=== PATIENT | female | born 1955 | race Caucasian/White ===

== ENCOUNTER 2023-04-12 08:51 | Outpatient (OUT) | payer MEDICARE, SELFPAY ==
--- NOTE | 2023-04-12 | XR_ITS ---
The [address] [address] Patient Name: ORALIA HILTON MRN: [id number] date: 1955 Sex: F Assigned Patient Location: Current Patient Location: Accession/Order Number: [id number] Exam Date: 04/12/2023 10:06 Report Date: 04/12/2023 10:19 At the request of: HILDA BLACK Procedure: XR foot LT min 3V PROCEDURE: XR foot LT min 3V HISTORY: LEFT FOOT PAIN ; left fourth toe wound COMPARISON: None. FINDINGS: BONES:Destructive changes of the fourth distal phalanx with loss of cortical margins. Marked degenerative changes of the first metatarsophalangeal joint. Suspect old, healed fracture of distal fifth metatarsal. SOFT TISSUES:Soft tissue swelling of fourth toe. No radiopaque foreign body. EFFUSION:None visible. OTHER: Negative. IMPRESSION: 1. Fourth toe soft tissue swelling and destructive changes of the distal phalanx suggestive of osteomyelitis. Electronically authenticated by: SARAH CARRION Date: 04/12/2023 10:19
== END 2023-04-12 08:52 | disposition home or self-care (01) ==
LOC: WC 08:51
PROVIDERS: PCP Family Medicine; Visit Provider Podiatrist Foot & Ankle Surgery
DX: S90.425A Blister (nonthermal), left lesser toe(s), initial encounter (principal); M86.172 Other acute osteomyelitis, left ankle and foot; I73.89 Other specified peripheral vascular diseases
CPT/HCPCS: 73630; G0463

== ENCOUNTER 2023-04-20 07:58 | Outpatient (OUT) | payer MEDICARE, SELFPAY ==
--- NOTE | 2023-04-20 08:00 | ECG_ITS ---
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
--- NOTE | 2023-04-20 08:00 | XR_ITS ---
The [address] [address] Patient Name: ORALIA HILTON MRN: [id number] date: 1955 Sex: F Assigned Patient Location: [facility] Current Patient Location: Accession/Order Number: [id number] Exam Date: 04/20/2023 09:00 Report Date: 04/20/2023 09:28 At the request of: HILDA BLACK Procedure: XR chest 2V EXAM: XR chest 2V HISTORY: COPD COMPARISON: None. TECHNIQUE: PA and lateral views of the chest. FINDINGS: The cardiomediastinal silhouette is normal. No focal consolidation is identified. There is no pneumothorax. No pleural effusion is noted. The osseous structures are intact. XR/XR chest 2V IMPRESSION: No acute cardiopulmonary process. Electronically authenticated by: LORELEI BERNARD Date: 04/20/2023 09:28
[2023-04-20 08:56] LABS: Basophils Absolute Auto 0.1 10^3/uL (0.0-0.1); Basophils Percent Auto 1.1 % (0.2-2.0); Hematocrit 34.4 % (36.0-48.0); Hemoglobin 10.7 g/dL (12.0-16.0); Immature Granulocytes Abs Auto 0.01 10^3/uL (0.00-0.03); Immature Granulocytes Pct Auto 0.2 % (0.0-0.5); Lymphocytes Absolute Auto 1.6 10^3/uL (1.2-3.8); Lymphocytes Percent Auto 27.7 % (20.5-60.0); Mean Corpuscular HGB Conc 31.1 g/dL (29.9-35.2); Mean Corpuscular Hemoglobin 29.5 pg (26.7-34.0); Mean Corpuscular Volume 94.8 fL (81.0-99.0); Mean Platelet Volume 9.6 fL (9.5-13.5); Monocytes Absolute Auto 0.6 10^3/uL (0.3-0.8); Monocytes Percent Auto 10.3 % (1.7-12.0); Neutrophils Absolute Auto 2.5 10^3/uL (1.4-6.5); Neutrophils Percent Auto 43.7 % (43.0-75.0); Platelet Count 196 10^3/uL (150-450); Red Blood Count 3.63 10^6/uL (4.20-5.40); Red Cell Distribution Width 14.6 % (11.0-15.0); White Blood Count 5.6 10^3/uL (4.0-11.0)
[2023-04-20 10:41] LABS: Anion Gap 8.3; Calcium 8.5 mg/dL (8.5-10.1); Chloride 106 mmol/L (98-107); Estimated GFR (African America >60 (>=60); Estimated GFR (Non-African Ame >60 (>=60); Glucose 102 mg/dL (74-106); Potassium 4.3 mmol/L (3.5-5.1); Sodium 140 mmol/L (136-145)
== END 2023-04-20 07:59 | disposition home or self-care (01) ==
LOC: PST 07:59
PROVIDERS: PCP Family Medicine; Visit Provider Podiatrist Foot & Ankle Surgery
DX: Z01.812 Encounter for preprocedural laboratory examination (principal); Z01.810 Encounter for preprocedural cardiovascular examination; Z01.811 Encounter for preprocedural respiratory examination; M86.9 Osteomyelitis, unspecified; I10 Essential (primary) hypertension; J44.9 Chronic obstructive pulmonary disease, unspecified; D64.9 Anemia, unspecified
CPT/HCPCS: 36415; 71046; 80048; 85025; 93005

== ENCOUNTER 2023-04-24 14:17 | Outpatient (OUT) | payer MEDICARE, SELFPAY ==
--- NOTE | 2023-04-24 15:38 | CA_ITS ---
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 : 1955 Requested By: HILDA BLACK Order Number: [id number] Reading MD: ERLIN BRUNSON Interpretive Statements Biphasic doppler waveforms PVR waveforms with normal upstroke, amplitude and dicrotic notch Right: - no significant pressure gradient between cuffs - normal FREDDIE Left: - no significant pressure gradient between cuffs - ormal FREDDIE Impression: - elevated indices (right thigh, left calf and right PT) consistent with calcified, noncompressible arterial contreras, which may underestimate the degree of arterial disease - normal arterial evaluation of the lower extremities withouth hemodynamic impairment of the B/L lower extremities at rest (right FREDDIE 1.32, left FREDDIE 1.27) Electronically Signed On 04-25-2023 7:21:59 EDT by ERLIN BRUNSON
== END 2023-04-24 14:18 | disposition home or self-care (01) ==
LOC: CARD 14:17
PROVIDERS: PCP Family Medicine; Visit Provider Podiatrist Foot & Ankle Surgery
DX: I99.9 Unspecified disorder of circulatory system (principal); I73.9 Peripheral vascular disease, unspecified
CPT/HCPCS: 93923

== ENCOUNTER 2023-04-27 06:23 | Day surgery (SDC) | payer MEDICARE, SELFPAY ==
[2023-04-20 08:24] VITALS: BP 151/77; PULSE 66; RESP 14; TEMP 36.5; O2SAT 97; BMI 23.7
[2023-04-27] VITALS (8 sets, daily range): BP systolic 105–157; BP diastolic 60–99; PULSE 67–78; RESP 11–18; TEMP 36.1–36.3; O2SAT 96–98; BMI 23.5
[2023-04-27 06:54] LABS: Glucometer 102 mg/dL (74-106)
[2023-04-27] MEDS: LACTATED RINGER'S SOLUTION 1,000 ML 50 ML IV (07:22)
[2023-04-27] MEDS: CEFAZOLIN SODIUM/DEXTROSE,ISO 2 GM/50 ML PIGGYBACK IV (07:22)
--- NOTE | 2023-04-27 07:41 | P.ORON_ITS ---
Brief Operative Note Date of procedure: 04/27/23 Pre-op diagnosis: non-pressure full-thickness ulceration with chronic osteomye litis left 4th Post-op diagnosis: same Procedure: PROCEDURE PERFORMED: Left partial 4th toe amputation PROCEDURE IN DETAIL: A fishmouth incision was placed on the left 4th toe. Full-thickness incision was taken down to bone to the level of the middle phalanx and all soft tissue attachments were released allowing disarticulation of the digit at the DIPJ. The amputated digit was passed back table and sent for specimen. Tendinous structures were cut proximally. Surgical site was irrigated with normal saline and inspected for any nonviable tissue which was removed. rongeur was used to remove portion of the middle phalanx to aid in closure. Surgical site was irrigated with saline again. Bone quality of the middle and proximal phalanx was within normal limits. Incision was then closed in one layer with nonabsorbable suture. Bulky dry sterile dressing was applied and a surgical shoe will be applied in the recovery room. Intraoperative findings: Bone of the distal phalanx was discolored and soft and consistent with osteomyelitis. No evidence of acute infection. Skin edges bled appropriately. POSTOPERATIVE PLAN: Discharge home under family's care Post op instructions provided verbally and written wash surgical site with soap and water -no soaking or submerging Applied dry sterile dressing with 4 x 4 gauze daily Ice and elevation prescription(s) were placed in chart WBAT in surgical shoe until incision is healed Follow-up in 2-3 weeks Implants: none Anesthesia: CARLOS Surgeon: Uriel Sanchez Bench Assembler Electrical: Jeff Duque Estimated blood loss (mL): 10 Pathology: other (4th toe amputation) Condition: stable Disposition: PACU Preoperative Details Reason for procedure: patient is a 67-year-old female whose had a recurrent wound on her left 4th toe. She states that she daily picks the wound open and does not keep it covered. She presented to her primary care physician with redness and swelling and then was referred to our wound center. Earlier this month she was evaluated and she had a full-thickness wound which started due to a blister. She had no redness or evidence of infection but had been on antibiotics as prescribed by her primary care physician which included Cipro and doxycycline. She related that she took these antibiotics for a week but then discontinued due to used infection. After evaluation x-rays revealed cortical changes to the distal phalanx of the 4th toe consistent with osteomyelitis. She is had numerous foot surgeries as well. Due to the chronic nature of her wound which is also been recurrent as well as the underlying infection patient wished to undergo amputation of the affected toe and we discussed the potential risks and benefits. Potential risks and complications include wound, poor healing potential, pain, bleeding, numbness and tingling, recurrent infection and need f or additional surgery including more proximal amputation
--- NOTE | 2023-04-27 07:46 | XR_ITS ---
The [address] [address] Patient Name: ORALIA HILTON MRN: [facility]:[id number] date: 1955 Sex: F Assigned Patient Location: [facility] Current Patient Location: Accession/Order Number: [id number] Exam Date: 04/27/2023 08:50 Report Date: 04/27/2023 10:43 At the request of: MIK BURK Procedure: XR foot LT min 3V PROCEDURE: XR foot LT min 3V COMPARISON: 04/12/2023 HISTORY: post-op FINDINGS: BONES:Interval amputation of the fourth toe at the proximal interphalangeal joint. No acute fracture or dislocation. Remote healed fracture of the fifth metatarsal. Severe degenerative changes of the first metatarsal-phalangeal joint with bony remodeling. Enthesopathic spurring plantar calcaneus SOFT TISSUES:Soft tissue swelling and cutaneous air at the surgical bed EFFUSION:None visible. OTHER: Negative. XR/XR foot LT min 3V IMPRESSION: Amputation of the fourth toe at the proximal interphalangeal joint Electronically authenticated by: GISELA ROSS Date: 04/27/2023 10:43
[2023-04-27] MEDS: BUPIVACAINE HCL 0.5% PF 50 MG/10 ML VIAL INJ (08:35)
[2023-04-27 08:45] LABS: Glucometer 96 mg/dL (74-106)
== END 2023-04-27 09:37 | disposition home or self-care (01) ==
PROVIDERS: Podiatrist Foot & Ankle Surgery; PCP Family Medicine; Visit Provider Anesthesiology
DX: M86.672 Other chronic osteomyelitis, left ankle and foot (principal); I10 Essential (primary) hypertension; E03.9 Hypothyroidism, unspecified; Z90.49 Acquired absence of other specified parts of digestive tract; Z79.899 Other long term (current) drug therapy; Z79.890 Hormone replacement therapy; Z90.710 Acquired absence of both cervix and uterus; I73.89 Other specified peripheral vascular diseases
CPT/HCPCS: 28825; 36415; 73630; 82948; 88305; 88311; J2704

== ENCOUNTER 2023-05-04 09:25 | Outpatient (OUT) | payer MEDICARE, SELFPAY | END 2023-05-04 09:26 | disposition home or self-care (01) | LOC: WC 09:25 | PROVIDERS: PCP Family Medicine; Visit Provider Physician Assistant | DX: S90.425A Blister (nonthermal), left lesser toe(s), initial encounter (principal); Z89.422 Acquired absence of other left toe(s) | CPT/HCPCS: G0463 ==

== ENCOUNTER 2023-05-16 08:49 | Outpatient (OUT) | payer MEDICARE, SELFPAY | END 2023-05-16 08:50 | disposition home or self-care (01) | LOC: WC 08:49 | PROVIDERS: PCP Family Medicine; Visit Provider Podiatrist Foot & Ankle Surgery | DX: Z89.422 Acquired absence of other left toe(s) (principal) | CPT/HCPCS: G0463 ==

== ENCOUNTER 2024-08-09 09:17 | Outpatient (OUT) | payer MEDICARE, SELFPAY ==
[2024-08-09 10:09] LABS: Basophils Absolute Auto 0.1 10^3/uL (0.0-0.1); Basophils Percent Auto 1.1 % (0.2-2.0); Eosinophils Absolute Auto 0.5 10^3/uL (0.0-0.7); Eosinophils Percent Auto 9.2 % (0.9-7.0); Hemoglobin 9.9 g/dL (12.0-16.0); Immature Granulocytes Abs Auto 0.01 10^3/uL (0.00-0.03); Immature Granulocytes Pct Auto 0.2 % (0.0-0.5); Lymphocytes Absolute Auto 1.3 10^3/uL (1.2-3.8); Lymphocytes Percent Auto 24.2 % (20.5-60.0); Mean Corpuscular Hemoglobin 25.3 pg (26.7-34.0); Mean Corpuscular Volume 84.2 fL (81.0-99.0); Mean Platelet Volume 9.6 fL (9.5-13.5); Monocytes Absolute Auto 0.3 10^3/uL (0.3-0.8); Monocytes Percent Auto 6.3 % (1.7-12.0); Neutrophils Absolute Auto 3.2 10^3/uL (1.4-6.5); Platelet Count 343 10^3/uL (150-450); Red Blood Count 3.92 10^6/uL (4.20-5.40); Red Cell Distribution Width 16.8 % (11.0-15.0); White Blood Count 5.4 10^3/uL (4.0-11.0)
[2024-08-09 10:21] LABS: Estimated Average Glucose 111 mg/dL; Glycohemoglobin A1C 5.5 % (4.5-6.2)
[2024-08-09 10:37] LABS: Alanine Aminotransferase 23 U/L (14-59); Albumin Globulin Ratio 0.8; Albumin Level 3.1 g/dL (3.4-5.0); Alkaline Phosphatase 99 U/L (46-116); Anion Gap 15.6; Aspartate Amino Transferase 23 U/L (15-37); BUN Creatinine Ratio 20.6; Bilirubin Total 0.2 mg/dL (0.2-1.0); Calcium 8.2 mg/dL (8.5-10.1); Carbon Dioxide 23.6 mmol/L (21.0-32.0); Chloride 110 mmol/L (98-107); Chol HDL Ratio 1.6; Cholesterol 213 mg/dL (<=200); Estimated GFR (African America >60 (>=60 mL/min/1.73m^2); Estimated GFR (Non-African Ame >60 (>=60 mL/min/1.73m^2); Free T3 3.39 pg/mL (2.18-3.98); Glucose 89 mg/dL (74-106); HDL Cholesterol 134 mg/dL (40-60); Potassium 4.2 mmol/L (3.5-5.1); Sodium 145 mmol/L (136-145); Thyroid Stimulating Hormone <0.007 uIU/mL (0.358-3.740); Total Protein 7.1 g/dL (6.4-8.2); Triglycerides 65 mg/dL (<=150)
== END 2024-08-09 09:18 | disposition home or self-care (01) ==
LOC: LAB 09:24
PROVIDERS: PCP Family Medicine; Visit Provider Nurse Practitioner Family
DX: Z00.00 Encounter for general adult medical examination without abnormal findings (principal); R53.83 Other fatigue; I10 Essential (primary) hypertension
CPT/HCPCS: 36415; 80053; 80061; 82306; 82607; 83036; 83540; 84207; 84425; 84436; 84443; 84481; 84590; 85025

== ENCOUNTER 2024-08-09 09:37 | Outpatient (OUT) | payer MEDICARE, SELFPAY ==
[2024-08-10 11:09] LABS: Vitamin B12 375 pg/mL (232-1245)
== END 2024-08-09 09:38 | disposition home or self-care (01) ==
LOC: LAB 09:39
PROVIDERS: PCP Family Medicine; Visit Provider Family Medicine
DX: R53.83 Other fatigue (principal)
CPT/HCPCS: 36415; 82306; 82607; 83540; 84207; 84425; 84590

== ENCOUNTER 2024-08-13 09:31 | Outpatient (OUT) | payer MEDICARE, SELFPAY ==
--- NOTE | 2024-08-13 09:36 | XR_ITS ---
The [address] [address] Patient Name: ORALIA HILTON MRN: [facility]:[id number] date: 1955 Sex: F Assigned Patient Location: [facility] Current Patient Location: Accession/Order Number: [id number] Exam Date: 08/13/2024 09:46 Report Date: 08/14/2024 09:02 At the request of: VICENTE SAN Procedure: XR DEXA axial skeleton EXAMINATION: XR DEXA axial skeleton, 08/13/2024 9:46 AM EST HISTORY: Senile Osteoporosis COMPARISON: 2021, 2016, 2012. TECHNIQUE: Dual-energy X-ray absorptiometry (DEXA) bone density study performed for the axial skeleton. FINDINGS: Bone mineral density of the lumbar spine L2-L4 measures 1.357 g/sq cm. T score 1.3. Normal Lowest bone mineral density right femoral neck measures 0.687 g/sq cm. T score -2.5. Osteoporosis XR/XR DEXA axial skeleton IMPRESSION: Osteoporosis. High fracture risk Pharmacologic treatment recommendations * No uniform recommendation applies to all patients. Management plans must be individualized. * Consider initiating pharmacologic treatment in postmenopausal women and men >= 50 years of age who have the following: Primary fracture prevention: * T-score <= - 2.5 at the femoral neck, total hip, lumbar spine, 33% radius (some uncertainty with existing data) by DXA. * Low bone mass (osteopenia: T-score between - 1.0 and - 2.5) at the femoral neck or total hip by DXA with a 10-year hip fracture risk >= 3% or a 10-year major osteoporosis-related fracture risk >= 20% (i.e., clinical vertebral, hip, forearm, or proximal humerus) based on the [place]-adapted FRAXregistered model. Secondary fracture prevention: * Fracture of the hip or vertebra regardless of BMD [4, 5]. * Fracture of proximal humerus, pelvis, or distal forearm in persons with low bone mass (osteopenia: T-score between - 1.0 and - 2.5). The decision to treat should be individualized in persons with a fracture of the proximal humerus, pelvis, or distal forearm who do not have osteopenia or low BMD [12, 13]. Yoav MS, Maude SL, Christiano KL, Valentine EM, Linda KG, AJ, Marco ES. The clinician's guide to prevention and treatment of osteoporosis. Osteoporos Int. 2021;33(10):9398-5387. doi: 10.1007/w02527-330-10080-c. Epub 2021Feb 03. Erratum in: Osteoporos Int. 2021May 05;: PMID: [id number]; PMCID: [id number]. Electronically authenticated by: GISELA ROSS Date: 08/14/2024 09:02
--- OUTSIDE RECORDS SUMMARY | 2024-08-13 09:46 | XMS_ITS | CCD ---
Author Organization [facility] CliniSynm Care Team Providers Care Acid Tank Liner Name Role Phone NINFA, DR BRADFORD Attending Unavailable HOY, DR BRADFORD Admitting Unavailable HOY, DR BRADFORD Primary Care Unavailable HOY, DR BRADFORD Consulting Unavailable HOY, DR BRADFORD Consulting Unavailable HOY, DR BRADFORD Primary Care Unavailable HOY, DR BRADFORD Admitting Unavailable HOY, DR BRADFORD Attending Unavailable HOY, DR BRADFORD Referring Unavailable WEST, DR GISELA Beltran Consulting Unavailable HOY, DR BRADFORD Primary Care Unavailable RANDEE, GLORIA Admitting Unavailable RANDEE, GLORIA Attending Unavailable HOY, DR BRADFORD Primary Care Unavailable HOY, DR BRADFORD Admitting Unavailable HOY, DR BRADFORD Consulting Unavailable HOY, DR BRADFORD Attending Unavailable HOY, DR BRADFORD Primary Care Unavailable HOY, DR BRADFORD Admitting Unavailable HOY, DR BRADFORD Consulting Unavailable HOY, DR BRADFORD Attending Unavailable HOY, DR BRADFORD Attending Unavailable HOY, DR BRADFORD Admitting Unavailable HOY, DR BRADFORD Primary Care Unavailable HOY, DR BRADFORD Consulting Unavailable ZIEBER, DR SARAH Butler Consulting Unavailable HOY, DR BRADFORD Attending Unavailable HOY, DR BRADFORD Admitting Unavailable HOY, DR BRADFORD Primary Care Unavailable HOY, DR BRADFORD Consulting Unavailable HOY, DR BRADFORD Admitting Unavailable HOY, DR BRADFORD Attending Unavailable HOY, DR BRADFORD Primary Care Unavailable HOY, DR BRADFORD Consulting Unavailable Allergies Allergy Classification Reported Allergen(s) Allergy Type Date of Onset Reaction(s) Facility (2 sources) Acetaminophen / HYDROcodone Drug Allergy 09-23-2013 [facility] (1 source) Acetaminophen / oxyCODONE Drug Allergy [facility] (1 source) formoterol Drug Allergy [facility] Problems Active Problems Problem Classification Problem Date Documented Date Episodic/Chronic Deficiency and other anemia (1 source) Iron deficiency anemia, unspecified; Translations: [IRON DEFICIENCY ANEMIA UNSPECIFIED] Onset: 2 Episodic Disorders of lipid metabolism (1 source) Pure hypercholesterolemia, unspecified; Translations: [PURE HYPERCHOLESTEROLEMIA UNSPEC] Onset: 2 Chronic Essential hypertension (4 sources) Essential (primary) hypertension; Translations: [ESSENTIAL PRIMARY HYPERTENSION] Onset: 2 Chronic Joint disorders and dislocations; trauma-related (4 sources) Unspecified internal derangement of unspecified knee; Translations: [UNS INTERNAL DERANGEMENT UNS KNEE] Onset: 2 Chronic Malaise and fatigue (1 source) Other fatigue; Translations: [OTHER FATIGUE] Onset: 2 Episodic Menopausal disorders (4 sources) Other primary ovarian failure; Translations: [OTHER PRIMARY OVARIAN FAILURE] Onset: 2 Chronic Nutritional deficiencies (4 sources) Vitamin D deficiency, unspecified; Translations: [VITAMIN D DEFICIENCY UNSPECIFIED] Onset: 2 Chronic Nutritional deficiencies (1 source) Iron deficiency; Translations: [IRON DEFICIENCY] Onset: 3 Episodic Thyroid disorders (5 sources) Hypothyroidism, unspecified; Translations: [HYPOTHYROIDISM UNSPECIFIED] Onset: 2 Chronic Unclassified (3 sources) CONTACT W/AND (SUSP) EXPOS COVID-19; Translations: [CONTACT W/AND (SUSP) EXPOS COVID-19] Onset: 2 Unclassified (1 source) COUGH, UNSPECIFIED; Translations: [COUGH, UNSPECIFIED] Onset: 2 Past or Other Problems Problem Classification Problem Date Documented Da te Episodic/Chronic Other aftercare (1 source) Other nursing home (current) drug therapy; Translations: [OTH MCC CURRENT DRUG THERAPY] Onset: 05-12-2022 Episodic Other bone disease and musculoskeletal deformities (1 source) Other specified disorders of bone density and structure, right thigh; Translations: [OTH D/O BONE DEN STRUCT RT THIGH] Onset: 07-09-2022 Episodic Other non-traumatic joint disorders (1 source) Pain in left hip; Translations: [PAIN IN LEFT HIP] Onset: 04-07-2022 Episodic Other screening for suspected conditions (not mental disorders or infectious disease) (1 source) Encounter for screening for malignant neoplasm of colon; Translations: [ENC SCREEN MALIG NEOPLASM COLON] Onset: 05-12-2022 Episodic Other upper respiratory disease (1 source) Nasal congestion; Translations: [NASAL CONGESTION] Onset: 05-07-2022 Episodic Unclassified (1 source) CONTACT W/AND (SUSP) EXPOS COVID-19; Translations: [CONTACT W/AND (SUSP) EXPOS COVID-19] Onset: 05-04-2022 Results Test Name Value Interpretation Reference Range Facility FREE T3on 11-18-2022 FREE T3 3.75 pg/mlL Normal 2.18-3.98 [facility] Comment on above: Performed By: #### T SH, FT3, T4 #### [facility] [address] [address] [address] Maribel العلي IRONon 11-18-2022 Iron [Mass/Vol] 50.0 ug/dL Normal 50.0-170.0 [facility] Comment on above: Performed By: #### I JAYLEN #### [facility] [address] [address] [address] Maribel العلي T4on 11-18-2022 T4 [Mass/Vol] 9.70 ug/dL Normal 4.80-13.90 [facility] Comment on above: Performed By: #### T SH, FT3, T4 ####[facility] [address] [address]Dr. Maribel العلي TSHon 11-18-2022 TSH Qn m[IU]/L Critically low 0.358-3.740 [facility] Comment on above: Performed By: #### T SH, FT3, T4 #### [facility] [address] [address] [address] Maribel العلي FREE T3on 10-03-2022 FREE T3 2.51 pg/mlL Normal 2.18-3.98 [facility] Comment on above: Performed By: #### F T3, T4, TSH ####[facility] [address] [address]Dr. Maribel العلي T4on 10-03-2022 T4 [Mass/Vol] 13.20 ug/dL Normal 4.80-13.90 [facility] Comment on above: Performed By: #### F T3, T4, TSH ####[facility] [address] [id number]. Maribel العلي TSHon 10-03-2022 TSH Qn m[IU]/L Critically low 0.358-3.740 [facility] Comment on above: Performed By: #### F T3, T4, TSH ####[facility] [address] [place], [place] [address]Dr. Maribel Severiano CBC AUTO DIFFon 08-26-2022 BASO # 0.1 103/ul Normal 0.0-0.1 [facility] Comment on above: Performed By: #### C BC ####[facility] [address] [place], [place] [address]Dr. Maribel العلي Basophils/100 WBC (Bld) 0.8 % Normal 0.2-2.0 [facility] Comment on above: Performed By: #### C BC ####[facility] [address] [place], [place] [address]Dr. Maribel العلي EO # 0.6 103/ul Normal 0.0-0.7 [facility] Comment on above: Performed By: #### C BC ####[facility] [address] [place], [place] [address]Dr. Maribel العلي Eosinophils/100 WBC (Bld) 9.1 % Critically high 0.9-7.0 [facility] Comment on above: Performed By: #### C BC ####[facility] Aq[address] [place], [place] [address]Dr. Andreeaalisha Severiano Erythrocyte distribution width (RBC) [Ratio] 13.5 % Normal 11.0-15.0 [facility] Comment on above: Performed By: #### C BC ####[facility] [address] [place], [place] [address]Dr. Maribel العلي Hematocrit (Bld) [Volume fraction] 38.3 % Normal 36.0-48.0 [facility] Comment on above: Performed By: #### C BC ####[facility] [address] [place], [place] [address]DrChi العلي Hemoglobin (Bld) [Mass/Vol] 12.2 g/dL Normal 12.0-16.0 [facility] Comment on above: Performed By: #### C BC ####[facility] [address] [address]DrChi العلي IG # 0.01 10e3/ul Normal 0.00-0.03 [facility] Comment on above: Performed By: #### C BC ####[facility] [address] [place], [place] [address]Dr. Maribel العلي IG % 0.1 % Normal 0.0-0.5 [facility] Comment on above: Performed By: #### C BC ####[facility] [address] [place], [place] [address]DrChi العلي LYMPH # 1.5 103/ul Normal 1.2-3.8 [facility] Comment on above: Performed By: #### C BC ####[facility] [address] [place], [place] [address]DrChi العلي Lymphocytes/100 WBC (Bld) 21.5 % Normal 20.5-60.0 [facility] Comment on above: Performed By: #### C BC ####[facility] [address] [place], [place] [address]DrChi العلي MANUAL DIFF REQ NO Normal [facility] Comment on above: Performed By: #### C BC ####[facility] Wh[address] [place], [place] [address]DrChi العلي MCH (RBC) [Entitic mass] 30.0 pg Normal 26.7-34.0 [facility] Comment on above: Performed By: #### C BC ####[facility] [address] [place], [place] [address]DrChi العلي MCHC (RBC) [Mass/Vol] 31.9 g/dL Normal 29.9-35.2 [facility] Comment on above: Performed By: #### C BC ####[facility] Clsmosalcc[address] [place], [place] [address]DrChi العلي MCV (RBC) [Entitic vol] 94.1 fL Normal 81.0-99.0 [facility] Comment on above: Performed By: #### C BC ####[facility] [address] [place], [place] [address]DrChi Maribel العلي MONO # 0.5 103/ul Normal 0.3-0.8 [facility] Comment on above: Performed By: #### C BC ####[facility] Ox[address] [place], [place] [address]Dr. Maribel العلي Monocytes/100 WBC (Bld) 6.5 % Normal 1.7-12.0 [facility] Comment on above: Performed By: #### C BC ####[facility] Tlhz[address] [place], [place] [address]Dr. Maribel العلي NEUT # 4.4 103/ul Normal 1.4-6.5 [facility] Comment on above: Performed By: #### C BC ####[facility] Z[address] [place], [place] [address]Dr. Maribel Severiano Neutrophils/100 WBC (Bld) 62.0 % Normal 43.0-75.0 [facility] Comment on above: Performed By: #### C BC ####[facility] W[address] [place], [place] [address]DrChi Maribel العلي Platelet mean volume (Bld) [Entitic vol] 9.9 fL Normal 9.5-13.5 [facility] Comment on above: Performed By: #### C BC ####[facility] [address] [place], [place] [address]Dr. Maribel Severiano PLT 270 103/ul Normal 150-450 [facility] Comment on above: Performed By: #### C BC ####[facility] [address] [place], [place] [address]Dr. Maribel Severiano RBC 4.07 106/ul Critically low 4.20-5.40 [facility] Comment on above: Performed By: #### C BC ####[facility] R[address] [place], [place] [address]Dr. Maribel العلي WBC 7.1 103/ul Normal 4.0-11.0 [facility] Comment on above: Performed By: #### C BC ####[facility] [address] [address]Dr. Maribel العلي FREE THYROXINE INDEX T7on FTI 1.36 Normal 1.30-4.50 [facility] Comment on above: Performed By: #### C MP, T7, TSH #### [facility] [address] [address] [address] Maribel العلي T3U 29.0 % Critically low 30.0-39.0 [facility] Comment on above: Performed By: #### C MP, T7, TSH #### [facility] [address] [address] [address] Maribel العلي T4 [Mass/Vol] 4.70 ug/dL Critically low 4.80-13.90 [facility] Comment on above: Performed By: #### C MP, T7, TSH #### [facility] [address] [address] [address] Maribel العلي IRONon 08-26-2022 Iron [Mass/Vol] 43.0 ug/dL Critically low 50.0-170.0 [facility] Comment on above: Performed By: #### I JAYLEN ####[facility] [address] [address]Dr. Maribel العلي PROF 14(COMP METB)on 022 Albumin [Mass/Vol] 3.1 g/dL Critically low 3.4-5.0 [facility] Comment on above: Performed By: #### C MP, T7, TSH #### [facility] [address] [address] [address] Maribel العلي Albumin/Globulin [Mass ratio] 0.9 {ratio} Normal [facility] Comment on above: Performed By: #### C MP, T7, TSH #### [facility] [address] [address] [address] Maribel العلي ALP [Catalytic activity/Vol] 120 U/L Critically high 46-116 [facility] Comment on above: Performed By: #### C MP, T7, TSH #### [facility] [address] [address] [address] Maribel العلي ALT [Catalytic activity/Vol] 24 U/L Normal 14-59 [facility] Comment on above: Performed By: #### C MP, T7, TSH #### [facility] [address] [address] [address] Maribel العلي Anion gap [Moles/Vol] 9.2 mmol/L Normal [facility] Comment on above: Performed By: #### C MP, T7, TSH #### [facility] [address] [address] [address] Maribel العلي AST [Catalytic activity/Vol] 17 U/L Normal 15-37 [facility] Comment on above: Performed By: #### C MP, T7, TSH #### [facility] [address] [address] [address] Maribel العلي Bilirubin [Mass/Vol] 0.2 mg/dL Normal 0.2-1.0 [facility] Comment on above: Performed By: #### C MP, T7, TSH #### [facility] [address] [address] [address] Maribel العلي Calcium [Mass/Vol] 8.8 mg/dL Normal 8.5-10.1 [facility] Comment on above: Performed By: #### C MP, T7, TSH #### [facility] [address] [address] [address] Maribel العلي Chloride [Moles/Vol] 105 mmol/L Normal 98-107 [facility] Comment on above: Performed By: #### C MP, T7, TSH #### [facility] [address] [address] [address] Maribel العلي CO2 [Moles/Vol] 29.2 mmol/L Normal 21.0-32.0 [facility] Comment on above: Performed By: #### C MP, T7, TSH #### [facility] [address] [address] [address] Maribel العلي Creatinine [Mass/Vol] 0.57 mg/dL Normal 0.55-1.02 [facility] Comment on above: Performed By: #### C MP, T7, TSH #### [facility] [address] [address] [address] Maribel العلي EGFR-AF [place]OTHO >60 Normal >=60 [facility] Comment on above: Performed By: #### C MP, T7, TSH #### [facility] [address] [address] [address] Maribel العلي EGFR-NON AF [place]HO >60 Normal >=60 [facility] Comment on above: Performed By: #### C MP, T7, TSH #### [facility] [address] [address] [address] Maribel العلي Globulin (S) [Mass/Vol] 3.5 g/dL Normal [facility] Comment on above: Performed By: #### C MP, T7, TSH #### [facility] [address] [place] [address] Dr. Maribel العلي Glucose [Mass/Vol] 106 mg/dL Normal 74-106 [facility] Comment on above: Performed By: #### C MP, T7, TSH #### [facility] [address] [address] [address] Maribel العلي Potassium [Moles/Vol] 4.4 mmol/L Normal 3.5-5.1 [facility] Comment on above: Performed By: #### C MP, T7, TSH #### [facility] [address] [address] [address] Maribel العلي Protein [Mass/Vol] 6.6 g/dL Normal 6.4-8.2 [facility] Comment on above: Performed By: #### C MP, T7, TSH #### [facility] [address] [address] [address] Maribel العلي Sodium [Moles/Vol] 139 mmol/L Normal 136-145 [facility] Comment on above: Performed By: #### C MP, T7, TSH #### [facility] [address] [address] [address] Maribel العلي Urea nitrogen [Mass/Vol] 7.0 mg/dL Normal 7.0-18.0 [facility] Comment on above: Performed By: #### C MP, T7, TSH #### [facility] [address] [address] [address] Maribel العلي Urea nitrogen/Creatinine [Mass ratio] 12.3 mg/mg Normal [facility] Comment on above: Performed By: #### C MP, T7, TSH #### [facility] [address] [address] [address] Maribel العلي TSHon 08-26-2022 TSH 0.096 uIU/mL Critically low 0.358-3.740 [facility] Comment on above: Performed By: #### C MP, T7, TSH #### [facility] [address] [address] [address] Maribel العلي XR DEXA BONE DENSITYon 07-07 XR DEXA BONE DENSITY EXAMINATION: XR DEX A BONE DENSITY, 07/07/2022 10:22 AM EDT HISTORY: Primary ovarian failure COMPARISON: DEXA bone densitometry 05/12/2017 TECHNIQUE: Dual-energy X-ray absorptiometry (DEXA) bone density study performed for the axial skeleton. FINDINGS: SPINE ANALYSIS: Average bone mineral density is 1.350 g/cm2. T-score (standard deviation relative to young adult mean): 1.4 . +1.2% change since prior study. HIP ANALYSIS: Lowest bone mineral density is within the right femoral neck, 0.749 g/cm2. T-score (standard deviation relative to young adult mean): -2.1 . +2.4% change since prior study. IMPRESSION: World [employer] Organization Classification: Osteopenia - Moderate Fracture Risk Electronically authenticated by: SARAH CARRION Date: 2022-07-07 11:35 Normal [facility] VIT D 25-OH LABCORPon 2021 Vitamin D, 25-Hydroxy 44.5 ng/mL Normal 30.0-100.0 [facility] Comment on above: Result Comment: Latasha min D deficiency has been defined by the [place] of [employer] and an Endocrine Society practice guideline as a level of serum 25-OH vitamin D less than 20 ng/mL (1,2). The Endocrine Society went on to further define vitamin D insufficiency as a level between 21 and 29 ng/mL (2). 1. IOM ([place] [employer]). 2010. Dietary reference intakes for calcium and D. [place]: The National Academies Press. 2. Quan MF, Williams SOLARES, Chema LEVINE, et al. Evaluation, treatment, and prevention of vitamin D deficiency: an Endocrine Society clinical practice guideline. JCEM. 2010; 96(7):1911-30. Performed By: #### V ITADLC #### [facility] [address] [place] [address] Dr. Maribel العلي CBC AUTO DIFFon 05-05-2022 BASO # 0.1 103/ul Normal 0.0-0.1 [facility] Comment on above: Performed By: #### C BC #### [facility] [address] [place] [address] Dr. Maribel العلي Basophils/100 WBC (Bld) 1.0 % Normal 0.2-2.0 [facility] Comment on above: Performed By: #### C BC #### [facility] [address] [place] [address] Dr. Maribel العلي EO # 0.6 103/ul Normal 0.0-0.7 [facility] Comment on above: Performed By: #### C BC #### [facility] [address] [place] [address] Dr. Maribel العلي Eosinophils/100 WBC (Bld) 9.3 % Critically high 0.9-7.0 [facility] Comment on above: Performed By: #### C BC #### [facility] [address] [place] [address] Dr. Maribel العلي Erythrocyte distribution width (RBC) [Ratio] 12.7 % Normal 11.0-15.0 [facility] Comment on above: Performed By: #### C BC #### [facility] [address] [place] [address] Dr. Maribel العلي Hematocrit (Bld) [Volume fraction] 40.1 % Normal 36.0-48.0 [facility] Comment on above: Performed By: #### C BC #### [facility] [address] [place] [address] Dr. Maribel العلي Hemoglobin (Bld) [Mass/Vol] 13.1 g/dL Normal 12.0-16.0 [facility] Comment on above: Performed By: #### C BC #### [facility] [address] [place] [address] Dr. Maribel العلي IG # 0.02 10e3/ul Normal 0.00-0.03 [facility] Comment on above: Performed By: #### C BC #### [facility] [address] [place] [address] Dr. Maribel العلي IG % 0.3 % Normal 0.0-0.5 [facility] Comment on above: Performed By: #### C BC #### [facility] [address] [place] [address] Dr. Maribel العلي LYMPH # 1.7 103/ul Normal 1.2-3.8 [facility] Comment on above: Performed By: #### C BC #### [facility] [address] [place] [address] Dr. Maribel العلي Lymphocytes/100 WBC (Bld) 28.8 % Normal 20.5-60.0 [facility] Comment on above: Performed By: #### C BC #### [facility] [address] [place] [address] Dr. Maribel العلي MANUAL DIFF REQ NO Normal [facility] Comment on above: Performed By: #### C BC #### [facility] [address] [place] [address] Dr. Maribel العلي MCH (RBC) [Entitic mass] 31.3 pg Normal 26.7-34.0 [facility] Comment on above: Performed By: #### C BC #### [facility] [address] [place] [address] Dr. Maribel العلي MCHC (RBC) [Mass/Vol] 32.7 g/dL Normal 29.9-35.2 [facility] Comment on above: Performed By: #### C BC #### [facility] [address] [place] [address] Dr. Maribel العلي MCV (RBC) [Entitic vol] 95.9 fL Normal 81.0-99.0 [facility] Comment on above: Performed By: #### C BC #### [facility] [address] [place] [address] Dr. Maribel العلي MONO # 0.4 103/ul Normal 0.3-0.8 [facility] Comment on above: Performed By: #### C BC #### [facility] [address] [place] [address] Dr. Maribel العلي Monocytes/100 WBC (Bld) 7.0 % Normal 1.7-12.0 [facility] Comment on above: Performed By: #### C BC #### [facility] [address] [place] [address] Dr. Maribel العلي NEUT # 3.2 103/ul Normal 1.4-6.5 [facility] Comment on above: Performed By: #### C BC #### [facility] [address] [place] [address] Dr. Maribel العلي Neutrophils/100 WBC (Bld) 53.6 % Normal 43.0-75.0 [facility] Comment on above: Performed By: #### C BC #### [facility] [address] [place] [address] Dr. Maribel العلي Platelet mean volume (Bld) [Entitic vol] 10.0 fL Normal 9.5-13.5 [facility] Comment on above: Performed By: #### C BC #### [facility] [address] [place] [address] Dr. Maribel العلي PLT 244 103/ul Normal 150-450 [facility] Comment on above: Performed By: #### C BC #### [facility] [address] [place] [address] Dr. Maribel العلي RBC 4.18 106/ul Critically low 4.20-5.40 [facility] Comment on above: Performed By: #### C BC #### [facility] [address] [place] [address] Dr. Maribel العلي WBC 6.0 103/ul Normal 4.0-11.0 [facility] Comment on above: Performed By: #### C BC #### [facility] [address] [address] [address] Maribel العلي FREE T3on 05-05-2022 FREE T3 2.55 pg/mlL Normal 2.18-3.98 [facility] Comment on above: Performed By: #### C BC #### [facility] [address] [address] [address] Maribel العلي GLYCOHEMOGLOBIN A1Con 2021 ADA RECOMMENDATION SEE BELOW Normal [facility] Comment on above: Result Comment: ADA RECOMMENDED LIMIT 4.0 - 6.0 ADA THERAPEUTIC TARGET < 7.0 ACTION SUGGESTED > 7.0 Performed By: #### C BC #### [facility] [address] [place] [address] Dr. Maribel العلي Glucose [Mass/Vol] 103 mg/dL Normal [facility] Comment on above: Performed By: #### C BC #### [facility] [address] [place] [address] Dr. Maribel العلي HbA1c (Bld) [Mass fraction] 5.2 % Normal 4.5-6.2 [facility] Comment on above: Performed By: #### C BC #### [facility] [address] [place] [address] Dr. Maribel العلي LIPID PROFILEon 05-05-2022 CHOL-HDL RATIO NORM SEE BELOW Normal [facility] Comment on above: Result Comment: 3.3 - 4.4 LOW RISK 4.4 - 7.1 AVERAGE RISK 7.1 - 11.0 MODERATE RISK >11.0 HIGH RISK Performed By: #### C BC #### [facility] [address] [place] [address] Dr. Maribel العلي Cholesterol [Mass/Vol] 159 mg/dL Normal <=200 [facility] Comment on above: Performed By: #### C BC #### [facility] [address] [address] [address] Maribel العلي Cholesterol in HDL [Mass/Vol] 82 mg/dL Critically high 40-60 [facility] Comment on above: Performed By: #### C BC #### [facility] [address] [address] [address] Maribel العلي Cholesterol in LDL [Mass/Vol] 65.0 mg/dL Normal [facility] Comment on above: Performed By: #### C BC #### [facility] [address] [address] [address] Maribel العلي Cholesterol.total/Cho lesterol in HDL [Mass ratio] 1.9 {ratio} Normal [facility] Comment on above: Performed By: #### C BC #### [facility] [address] [address] [address] Maribel العلي HDL NORMAL > or = 60 mg/dl - LO W CARDIOVASCULAR RISK <40 mg/dl - HIGH CARDIOVASCULAR RISK Normal [facility] Comment on above: Performed By: #### C BC #### [facility] [address] [place] [address] Dr. Maribel العلي LDL CALC NORMAL SEE BELOW Normal [facility] Comment on above: Result Comment: <100 mg/dl OPTIMAL 100 - 129 mg/dl NEAR OR ABOVE OPTIMAL 130 - 159 mg/dl BORDERLINE HIGH 160 - 189 mg/dl HIGH >190 mg/dl VERY HIGH Performed By: #### C BC #### [facility] [address] [address] [address] Maribel العلي Triglyceride [Mass/Vol] 60 mg/dL Normal <=150 [facility] Comment on above: Performed By: #### C BC #### [facility] [address] [address] [address] Maribel العلي VLDL CALC 12.0 mg/dL Normal [facility] Comment on above: Performed By: #### C BC #### [facility] [address] [address] [address] Maribel العلي OCC BLD IMMUNO SCREENon 04-09 OCCULT BLOOD Negative Normal NEGATIVE [facility] Comment on above: Performed By: #### O BSCRN ####[facility] [address] [address]Dr. Maribel العلي PROF 14(COMP METB)on 022 Albumin [Mass/Vol] 3.0 g/dL Critically low 3.4-5.0 [facility] Comment on above: Performed By: #### F T3, LIPID, T4, CMP, TSH ####[facility] [address] [address]Dr. Maribel العلي Albumin/Globulin [Mass ratio] 0.9 {ratio} Normal [facility] Comment on above: Performed By: #### F T3, LIPID, T4, CMP, TSH ####[facility] [address] [address]Dr. Maribel العلي ALP [Catalytic activity/Vol] 116 U/L Normal 46-116 [facility] Comment on above: Performed By: #### F T3, LIPID, T4, CMP, TSH ####[facility] [address] [address]Dr. Maribel العلي ALT [Catalytic activity/Vol] 25 U/L Normal 14-59 [facility] Comment on above: Performed By: #### F T3, LIPID, T4, CMP, TSH ####[facility] [address] [address]Dr. Maribel العلي Anion gap [Moles/Vol] 10.2 mmol/L Normal [facility] Comment on above: Performed By: #### F T3, LIPID, T4, CMP, TSH ####[facility] [address] [address]Dr. Maribel العلي AST [Catalytic activity/Vol] 17 U/L Normal 15-37 [facility] Comment on above: Performed By: #### F T3, LIPID, T4, CMP, TSH ####[facility] [address] [address]Dr. Maribel العلي Bilirubin [Mass/Vol] 0.4 mg/dL Normal 0.2-1.0 [facility] Comment on above: Performed By: #### F T3, LIPID, T4, CMP, TSH ####[facility] [address] [address]Dr. Maribel العلي Calcium [Mass/Vol] 8.2 mg/dL Critically low 8.5-10.1 [facility] Comment on above: Performed By: #### F T3, LIPID, T4, CMP, TSH ####[facility] [address] [address]Dr. Maribel العلي Chloride [Moles/Vol] 106 mmol/L Normal 98-107 [facility] Comment on above: Performed By: #### F T3, LIPID, T4, CMP, TSH ####[facility] [address] [address]Dr. Maribel العلي CO2 [Moles/Vol] 28.6 mmol/L Normal 21.0-32.0 [facility] Comment on above: Performed By: #### F T3, LIPID, T4, CMP, TSH ####[facility] [address] [address]Dr. Maribel العلي Creatinine [Mass/Vol] 0.62 mg/dL Normal 0.55-1.02 [facility] Comment on above: Performed By: #### F T3, LIPID, T4, CMP, TSH ####[facility] [address] [address]Dr. Maribel العلي EGFR-AF MOSOTHO >60 Normal >=60 [facility] Comment on above: Performed By: #### F T3, LIPID, T4, CMP, TSH ####[facility] [address] [address]Dr. Maribel العلي EGFR-NON AF [place] >60 Normal >=60 [facility] Comment on above: Performed By: #### F T3, LIPID, T4, CMP, TSH ####[facility] [address] [address]Dr. Maribel العلي Globulin (S) [Mass/Vol] 3.2 g/dL Normal [facility] Comment on above: Performed By: #### F T3, LIPID, T4, CMP, TSH ####[facility] [address] [address]Dr. Maribel العلي Glucose [Mass/Vol] 99 mg/dL Normal 74-106 [facility] Comment on above: Performed By: #### F T3, LIPID, T4, CMP, TSH ####[facility] [address] [address]Dr. Andreeaalisha Severiano Potassium [Moles/Vol] 4.8 mmol/L Normal 3.5-5.1 [facility] Comment on above: Performed By: #### F T3, LIPID, T4, CMP, TSH ####[facility] [address] [address]Dr. Maribel العلي Protein [Mass/Vol] 6.2 g/dL Critically low 6.4-8.2 [facility] Comment on above: Performed By: #### F T3, LIPID, T4, CMP, TSH ####[facility] [address] [address]Dr. Maribel العلي Sodium [Moles/Vol] 140 mmol/L Normal 136-145 [facility] Comment on above: Performed By: #### F T3, LIPID, T4, CMP, TSH ####[facility] [address] [address]Dr. Maribel العلي Urea nitrogen [Mass/Vol] 17.0 mg/dL Normal 7.0-18.0 [facility] Comment on above: Performed By: #### F T3, LIPID, T4, CMP, TSH ####[facility] [address] [address]Dr. Maribel العلي Urea nitrogen/Creatinine [Mass ratio] 27.4 mg/mg Normal [facility] Comment on above: Performed By: #### F T3, LIPID, T4, CMP, TSH ####[facility] [address] [address]Dr. Maribel العلي T4on 05-05-2022 T4 [Mass/Vol] 5.80 ug/dL Normal 4.80-13.90 [facility] Comment on above: Performed By: #### C BC #### [facility] [address] [address] [address] Maribel العلي TSHon 05-05-2022 TSH 0.018 uIU/mL Critically low 0.358-3.740 [facility] Comment on above: Performed By: #### F T3, LIPID, T4, CMP, TSH ####[facility] [address] [place], [place] [address]Xl. Maribel العلي Covid-19 PCR ([facility])on 04-09 SARS-CoV-2 (COVID-19) RNA LENKA+probe Ql (Unsp spec) Not detected Normal NOT DETECTED [facility] Comment on above: Result Comment: This test is not yet approved or cleared by the [place] FDA. When there are no FDA-approved or cleared tests available, and other criteria are met, FDA can make tests available under an emergency access mechanism called an Emergency Use Authorization (EUA). The EUA for this test is supported by the Shop Supervisor of Health and Human Service's (HHS's) declaration that circumstances exist to justify the emergency use of in vitro diagnostics for the detection and/or diagnosis of the virus that causes COVID-19. This EUA will remain in effect (meaning this test can be used) for the duration of the COVID-19 declaration justifying emergency of IVDs, unless it is terminated or revoked by FDA (after which the test may no longer be used). When diagnostic testing is negative, the possibility of a false negative should be considered in the context of a patient's recent exposures and the presence of clinical signs and symptoms consistent with SARS-CoV-2. Performed By: #### C VDTBH ####[facility] [address] [place], [place] [address]W[address]. Maribel العلي XR LSPINE MIN 4 VIEWSon 03-10 XR LSPINE MIN 4 VIEWS EXAMINATION: XR LSPINE MIN 4 VIEWS HISTORY: Hip pain COMPARISON: No relevant comparison available. FINDINGS: BONES: Normal alignment on the lateral projection with no acute fracture. 2 mm retrolisthesis of L5 in relation to the S1 likely related to facet osteoarthropathy. Minimal levocurvature centered at L2-L3. Moderate diffuse degenerative spondylosis and facet osteoarthropathy DISC SPACES: Moderate to severe multilevel narrowing most significant L2-L3 PARASPINOUS: Negative. No paraspinous abnormality is seen. OTHER: Negative. IMPRESSION: Moderate diffuse degenerative changes Electronically authenticated by: GISELA ROSS Date: 2022-04-05 09:28 Normal [facility] Coding Summary.on 03-17-2021 Coding Summary. CD:[id number] G h0bWw+PGhlYWQ+LW7MWYR bN63kgLNxxN0UO3iSBE7C SIJKDWCMWF2UXM3fjFR5K EsjH1VtcbEq IeingIAzNZ98RHg1EWN3l CcdHVyvgB8rdMQpK4f9Pb QiDB18vA08WEmhFJOvOfH 3LjZpbjsgbWFy B1xlGiVpfMVbUov+PHRhY mxlIHdpZHRoPScxMDAlJy QpsSnqDW8rQz0uUQTiQLQ vbGxhcHNlOiBj m6mkMWJsNIkjKF4doZtjL 3DnsRT4IQLsl3s3Xt16bN I+VHBxOAY8dRopWBqpp56 0JvYeu3ygCMD9 jKQkOHqmIVU9V07fd7Q9Y JDfRODgQFO9lZD1xD6yqM krnwxyX9TosTEsAsB3VQE 7mSFlpV3mjGtu dqoiqU7eUjn+H59OIV6VA DENSJ7GVam4G6NgLziweV I+YB62STReIK53oSDbzVJ in1bqcOc4NbBg UONlPLB7gOguVFklq3BdU PQdD99goDTwe5Y5SVQysV vkfGZvBlLbcQS6vZ0fUMn ohobte7apikfq Gsden4oazo92xG85D75hT AlgZUCaLTN1EEKmYXFxdQ fpck0upZ6kGz7+KDvol4g pk9lemDn7NcKd WZWybtZukWwcASP6b8WnO q36O3WgmXgah2FdFtw4bh 08bWXpz8O8vYB3ZNwvMDY mbW9iLVhtHvF9 JBBlZtOuiW98yQHjCVnjZ z1dpMxlyPeiDM8jHQUqmg adSDEyyZ8uKOOpnJFocRp hIO9wXTCxnfwd w755PcNrCQJ6LQRjfUFwV 6SngA3uFjMbLWOgRJWjA9 LdmCGfFFopV557VCgiBnW 8PMKhvtRoG3Eg IFOfsNdrVaL5u1Z7Ii0Xh 7XfgzrcWFY6HRyuWBQ0Em R4SlBkDpQ9H7XqEyz3YZF siRupMK6yQ1Vk YJBxaghmnizlpIV8TOUwX TBblS79xICeJRalJl0gb0 K4n363CASxOSPrjN61Yn1 udDogMTBwdCBU uA0sqfbqt7qhwopvBnVgW GOmUYe8XPc5IFDezSkcFq ChHEB7UfH6BCU8zOWtkX8 oySgixashpO5w Oyc+B73xeK1bMXY2RTW5y lvaGAKiovFcUP49NJ69W8 RyPjwvdGFibGU+PGRpdiB dnIxeVX5qGbBw t1sdd9UdAAsxD5HiRXSsF PreRpm0PYYrPAN8qJJ1eM 3oYVBvAGldk5H7lIX2S7V srtYnqq7gf9cg KFUeOVwjX23ytINmw4I2C IOnkAA7QFJjxXspXfMwiF 93Oyc+YBPoiUcmt4NaVnk xe8lzx9slrWh8 KgNbMRFxdyMqnZgwRXJ3u 0RxZr50X92jDIbkYOJtSF EtASXgQUVzfVarwt8zzZ4 wIi8+PGNvbCB3 sGL2cG6yBEKmZgT1GBvzR 952SeYmlVTaKjmjt8jky2 dvzQt2XhCkNMGtyuQfjGq pEWT9z6HtQo26 W48vCKbaFQAeHODbVNKoL LCleUtypk1bxJ0uKh1+PC 1yn4tspy76mN18uVU+PHR hOIF2tQryOPil QERbnQ3pRXakCzT0SZBkA xBrmN29qXJrIGifJm9lhD gtuEyvFU2lUVKqwcgro96 2ViIgj1bhJXIw mLHaGTylDJX0P73km1E8Y LUaVHXhWSC8oMD3fJ7txT lnbjogbGVmdDsgdmVydGl fFHyuEYoeK089 IHRvcDsnPlBhdGllbnQgT sBhXYn8P4HhIsc7HPTttM ghKU6ebIZpMDlvVh4dnKv zwHbsHY2tAPKz apjms243MfCbe6thSYPgq JPpTOphNMR8R17gs0B7GU HlQWPhVVS2sGD9lQ6cpKi nbjogbGVmdDsg xbRpsGitAEowPTpzD437N HRvcDsnPkJpcnRoIERhdG T2WA87DC86yRUmx7Q8cJK 8L7OpMSVgdbcc naopeSY2FOLkUQGfuH68N o1vpQqhBl1rZIVrGOF2KU JyaPVrC6JrwJ8pFbYtJME jVYMrG6MeuTUv ZMzeD297CNluIzJ1RBXtl iJcL3CzBMJgdTbqKmZ5o7 H1Tw1UV4X8UA60QF86hHH wv2S3eZY5E1Xh GXBonhvshoooeHD4OVHwK PYpmQ74Ly5vxZsbUb6sSK YzXNH2ANDfkQWsV3IlpA1 yOiAjMDAwMDAw P4GsqUFuKGmuC725PBztJ bL1XFFcvvSrT2UaMYPneX xnHlE9l9X5Xa6NNSb7QF9 8YS79rSZjw2S6 gYC1O5VzYYFhfhmuinfaa JR4QGWkLVTsqM38Fh0mrS dmQc2oBVJqMQS0EZWcoCZ rA0JcjE9cTyUk ICOwGTBhA5MghIQvEVhyB 676SCpxKpI2QLIsdfAsB3 EsGPLluGpbBkS5u9X0Bc6 ECVAqDQ86RNU4 rBM0FI08HW07U1BjVlakm GFibGU+PHRhYmxlIHdpZH RoPScxMDAlJyBzdHlsZT0 dXs3hKQSyMBHk sOamiVAiEoHax7chJSIuF SugPH9ttBdkQ1ZtrCV3AO Jge6a4Od96A96zK8AbnBD +VFOtpFL9yDY8 dP3rRwVlGsI8SPdgQ161J hCiwAWfItidb7iks4qjfD u9JpU1MDJctoJofAueBQR 4y5MwZd56T02r IHdpZHRoPSIxNSUiIHZhb Iromp9kyF2uRt1+PGNvbC F6jVU5lC2uYaMzKuG5NMq mO139XgFldABs Quhad1lov1deoJh6GnHmZ BLhcpSosTnwNWX2u5ZnCu 43T0WxdOums3SxBqj8wj7 3gUXqv9J8tZI4 O5UzHIVhtzuzyJXadTqlG T7sDIGphfrxOOSbsW7vCE UqB7e3VeJcYoI6BYoyZ6R rgjZ8PUCwvAGw XAhlBFP7U20qr8Q6MREuN NQyCRL9xAD2aW8qqWclcu ogbGVmdDsgdmVydGljYWw dVNqfT647RBNe dNxmRQEyaF8oCGQqqTBff TdtKZ7fEAPxezorMk9YSc GROpgfSKLEZ7PKKOOEWC8 6NC33dUXyg7V7 sLX3R6GtBWIffmpqqizzn DP2GVRyNLWwaN83bOFgUG hlMn2tg9Y3x528HMEwRYM uiD95Kr9oeNfp WVGzrEFScS2lbnokl5ryb wtoXtLyPYZbKQb3VMu5CI EqsKosMrHlQXE8RbU1TES 5bRKpcX1jwThd gdvmaN1gVoj+MDIvMTYvM Pa5EAatuIH+BJYiSVW7cH zcBDdrGOAkyT5yCMXeT8b 4BsGcKtV8PUrc Z1TsFYKrsrvyAk93xE0iV fKiZlI3IVvgW7YuhgQ7FE PzjNEtPSddHXQ2Q96uo4G 6HYTfUQCbCHI1 gPW0lN8xbBrmtdsphZRic DsgdmVydGljYWwtYWxpZ2 87GUVsiTkrUoD3DRaeQQD vID53IV40nLZe o3O8nVG7K4WkEDRdavdnu fqokEZ4UIGpOQDhqB76zE JpVWafCd3ji5E6p446VKN hFWTwhI16Yk2a lAmfKUMvtGRSmU4sdkqvl 2vvkgtoOePaBGPbOBq5ZO i6ZQYkcAmbMqNnPRV1SbZ 6CGC1pPRxwW0a qWmnyjacwX7kUtl+RmVtY WuvJL01DN18vBHrb2K7mV X5I7BuHPCiepxaoxoamUO 3RCWsLTKfmS74 rPXmVGtaKd6yu6T5c512L SMpKXRfpB18Lf1seDwmPL WdkPXYeJ3qhcudx2ikqjj gIzAwMDAwMDt0 EBg0RKHotLrlXrTmFAC0T uG4CMW0zHDpyR6rhBxhpf bjdR1oHhy+E0S8oCZ6jIP udDwvdGQ+PC90 lj91N9ExYzijTue3UPWxM RP3wXK4zL5oTKXcSVaaq7 D0sRM3T4IfusNzys1gi2s dEKHeMLlwJ80m xEXxf2T7XVYgsUW5VWLss FweUbFwxW70Ycu+PGNvbG ibf7PtUzsgw4szi4okhQb 9IjMwJSIgdmFs wKmxQVG0v8CoMx38T91zN HdpZHRoPSIzMCUiIHZhbG rplo9ciU0rMa6+PGNvbCB 2rRK3qP1qSyRy WsV4JLooQ851HbAswKKrZ ztqc6bzr4ochXv3NfAnOG KpmqXygTxgDIR7m1NeFw5 6C2RtxYgbr6Lb Oem0bh91vCQdm3B3zLP3I 3BhZGRpbmctbGVmdDogMC 1zAGTyrkhgUOBkgV5cUHH jB4l1EhQdGoC9 BKbrS1BzolR3YABchZCyH OPdqIHXrV3ltetlb0qzie yaMmUyDAIaUBa2HAk2GOC saWduOiBsZWZ0 PtN0QAK6jSHcbZ1zwJzrq bfkwX5lScz+FDt5m2vscU HcQT4bwDB2IU00ZB44qQI gm9F4iEP7T0Km CEZrovjgmimfoMI1RKEpS NFxnU00Gk1daWoiOs4ePQ LpOOK0LKGuxVJnV9CpkS0 yOiAjMDAwMDAw Z4DqaHQuVUacZ520SAbjG dZ1PLQqivEwV0RcPLWqqX jzGpR8g8K1Is1BES35ON7 0XC75yHEuj7O1 dEE0H9TvSNXmgskrxrgld TO2VAGfNVVjfQ02Qn1mdV ljTf2eREXqLHF3QGVacXY kU3DyeK9zPgUf YWYxMGObS6SgdXYnIRmzB 756NHksVcB9AAZiwfEhJ5 BdBHPpcRxyBwE0o5O6Po2 WBk32GK39ET00 uRLoq5E6tBL6J9GrCLIoo jheklkgeES6CECsGYWxaS 78Wh6etZedKo0pVSRzFYL 6QSCjzVRcJ6Hv uY8iJjOcRMYhOKErM9Zxi PDaTDgjG839XXxkRnI3SS CekkQkB7HjXHSgbQxqDvG 8s0E6Fs7RSHib kow9Q0QiKiceqWB+PC90Y FClEH79tDOxnCFjc0qhfJ m8NvZfNQYcNEO0nNexHNu bp3PnERClK31k bGFw (more content not included)... Normal [facility] CT Maxillofacial w/o Contras ton 03-15-2021 CT Maxillofacial w/o Contrast Exam Date/Time: 03/15/2021 10:58 EDT Reason for Exam: J32.1 Report IMPRESSION: MUCOSAL THICKENING WITHIN THE MAXILLARY, ETHMOID AND RIGHT FRONTAL SINUSES. MUCOSAL THICKENING RIGHT PROMINENT IN THE MAXILLARY AND ETHMOID SINUSES. POSTSURGICAL CHANGES WITH RESECTION OF THE MIDDLE NASAL TURBINATES AND THE DENSITY PROCESSES BILATERALLY. RHINITIS. CLINICAL HISTORY: J32.1, chronic sinus problems/ 3 prev sinus sx COMPARISONS: None available. TECHNIQUE: Axial images were initially obtained. Coronal and sagittal reformatted images were then obtained. FINDINGS:There is extensive mucosal thickening in both maxillary sinuses, both ethmoid sinuses, left frontal sinus. There is mild mucosal thickening in the sphenoid sinuses. The uncinate processes are absent, secondary to surgery. No air-fluid levels in sinuses. No definite osseous destruction. The middle nasal turbinates have been resected. There is hypertrophy of inferior nasal turbinates, consistent with rhinitis. Nasal septum mildly deviated to the left. All CT scans at this facility use dose modulation, iterative reconstruction, and/or weight based dosing when appropriate to reduce radiation dose to as low as reasonably achievable. FINAL REPORT Dictated: 03/15/2021 1:59 pm Mohini Shaw MD Signed (Electronic Signature): 03/15/2021 1:59 pm Signed by: Mohini Shaw MD Transcribed by: REGINALDO Technologist: DAPHNE [facility] Consent for Treatmenton Consent for Treatment [id number]:127 [facility] Physician Orderon 03-11-2021 Physician Order [id number] .00CD:127 [facility] Physician Orderon 02-26-2021 Physician Order [id number] .00CD:127 [facility] Encounters Encounter Date Encounter Type Care Provider Facility Start: 11-29-[address] SANCHEZ OCASIO Facility :[facility] Start: 11-18-2022 End: 11-19-[address] SANCHEZ OCASIO Facility:[facility] Start: 10-03-2022 End: 10-04-[address] SANCHEZ OCASIO Facility:[facility] Start: 08-26-2022 End: 08-27-[address] SANCHEZ OCASIO Facility:[facility] Start: 07-07-2022 End: 07-08-[address] SANCHEZ OCASIO Facility:[facility] Start: 05-05-2022 End: 05-06-[address] SANCHEZ OCASIO Facility:[facility] Start: 05-04-2022 End: 05-04-[address] SANCHEZ OCASIO Facility:[facility] Start: 04-04-2022 End: 04-05-[address] SANCHEZ OCASIO Facility:[facility] Payers Date Payer Category Payer Medicare [id number] 1955 Unknown [id number] 1955 Unknown [id number] 11.24.84 [id number] 1955 Unknown [id number] ..[id number] 1955 Unknown [id number] ..[id number] 1955 Unknown [id number] ..[id number] 1955 Unknown [id number] ..[id number] 1955 Unknown [id number] ..[id number] 1955 Unknown [id number] 2.16.84 [id number] Clinical Note 04-05-2022 Note Date & Type Note Facility 04-05-2022 Note PROCEDURE: XR HIP LT 2 3V W PELVIS COMPARISON: None. HISTORY: Hip pain FINDINGS: BONES:Mild to moderate right and moderate to severe left hip osteoarthropathy with joint space narrowing and marginal osteophyte formation. Subchondral cystic changes of the left hip with bony remodeling of the acetabulum. Mild degenerative changes of the spine. SOFT TISSUES:Negative. No visible soft tissue swelling. EFFUSION:None visible. OTHER: Negative. IMPRESSION: Mild to moderate right and moderate to severe left hip osteoarthritis No acute fracture Electronically authenticated by: GISELA ROSS Date: 2022-04-05 07:23 [facility] Clinical Note 04-05-2022 Note Date & Type Note Facility 04-05-2022 Note PROCEDURE: XR KNEE L T 4V or > COMPARISON: None. HISTORY: Derangement of knee FINDINGS: BONES:No fracture, acute abnormality, or significant arthropathy. SOFT TISSUES:Negative. No visible soft tissue swelling. EFFUSION:None visible. OTHER: Negative. IMPRESSION: No acute disease. Electronically authenticated by: GISELA ROSS Date: 2022-04-05 07:21 [facility] Summary Purpose Family History No Family History Records FoundNo Family History Records Found Advance Directives No Advanced Directives Records FoundNo Advanced Directives Records Found Additional Source Comments INFORMATION SOURCE (unrecogn ized section and content) DATE CREATED AUTHOR 03/19/2021 [facility] DATE CREATED AUTHOR 'S ORGANIZ ATION 11/26/2022 [facility] FOR RECORDS PERTAINING TO PATIENTS WHO ARE OR HAVE BEEN ENROLLED IN A CHEMICAL DEPENDENCY/SUBSTANCEABUSE PROGRAM, SOME INFORMATION MAY BE OMITTED. This clinical summary was aggregated from multiple sources. Caution should be exercised in using it in the provision of clinical care. This summary normalizes information from multiple sources, and as a consequence, information in this document may materially change the coding, format and clinical context of patient data. In addition, data may be omitted in some cases. CLINICAL DECISIONS SHOULD BE BASED ON THE PRIMARY CLINICAL RECORDS. [facility]. provides no warranty or guarantee of the accuracy or completeness of information in this document.
== END 2024-08-13 09:32 | disposition home or self-care (01) ==
LOC: RAD 09:32
PROVIDERS: PCP Family Medicine; Visit Provider Nurse Practitioner Family
DX: M81.0 Age-related osteoporosis without current pathological fracture (principal)
CPT/HCPCS: 77080

== ENCOUNTER 2024-09-27 07:34 | Outpatient (RCR) | payer MEDICARE, SELFPAY ==
[2024-09-27 09:20] VITALS: BP 109/51; PULSE 74; TEMP 36.3; O2SAT 95
[2024-09-27] MEDS: DENOSUMAB 60 MG/ML SYRINGE SQ (09:43)
--- NOTE | 2024-09-27 09:47 | PC.NURSE ---
Pt here for Prolia injection. Lab results reviewed. Encouraged pt to take daily calcium/vit D supplement per recommendation while receiving Prolia. Injection given w/o incident. Pt d/c'd stable.
--- NOTE | 2024-09-27 10:27 | MM_ITS ---
Patient Name: ORALIA HILTON MR#: [id number] : 1955 Exam Date: 09/27/2024 Ordering Doctor: DR Jose Carlos Causey . RADIOLOGY REPORT PROCEDURE: MM TOMOSYNTHESIS SCREENING BI COMPARISON: MG MAMM SCREEN CODY W CAD, 08/19/2020. MG MAMM CODY SCRN W CAD DIG, 02/27/2015. INDICATIONS: Screening Calculator Name NCI Breast Cancer Risk Assessment Tool 5 Year Breast Cancer Risk 2.10% Lifetime Breast Cancer Risk 6.40% Personal Breast Cancer No Personal Ovarian Cancer No Treatments None Family Cancers Mother with lung cancer at age 77; Aunt-maternal with oral cancer at age ~58. LOCATION: [facility] [place] BREAST COMPOSITION: The breasts are almost entirely fatty. FINDINGS: DIAGNOSTIC CATEGORY 1--NEGATIVE. NO CHANGE FROM COMPARISON ASSESSMENT. Scattered benign-appearing calcifications are present. RIGHT BREAST: No significant suspicious finding. LEFT BREAST: No significant suspicious finding. RECOMMENDATIONS: ROUTINE MAMMOGRAM AND CLINICAL EVALUATION IN 12 MONTHS. PLEASE NOTE: A NORMAL MAMMOGRAM DOES NOT EXCLUDE THE POSSIBILITY OF BREAST CANCER. A CLINICALLY SUSPICIOUS PALPABLE LUMP SHOULD BE BIOPSIED. Dictated by: Von Fishman MD on 09/27/2024 at 12:43 Approved by: Von Fishman MD on 09/27/2024 at 12:44
== END 2024-10-08 10:43 | disposition home or self-care (01) ==
LOC: LAB 07:34
PROVIDERS: PCP Family Medicine; Visit Provider Family Medicine
DX: M81.0 Age-related osteoporosis without current pathological fracture (principal); Z12.31 Encounter for screening mammogram for malignant neoplasm of breast; Z80.1 Family history of malignant neoplasm of trachea, bronchus and lung
CPT/HCPCS: 77063; 77067; 96372; J0897

== ENCOUNTER 2024-11-05 12:46 | Outpatient (OUT) | payer MEDICARE, SELFPAY ==
--- OUTSIDE RECORDS SUMMARY | 2024-11-05 12:49 | XMS_ITS | CCD ---
Author Organization [facility] CliniSyal Care Team Providers Care Recep Name Role Phone DR SANCHEZ CAUSEY Attending Unavailable HOY, DR BRADFORD Admitting Unavailable HOY, DR BRADFORD Primary Care Unavailable HOY, DR BRADFORD Consulting Unavailable HOY, DR BRADFORD Consulting Unavailable HOY, DR BRADFORD Primary Care Unavailable HOY, DR BRADFORD Admitting Unavailable HOY, DR BRADFORD Attending Unavailable HOY, DR BRADFORD Referring Unavailable WEST, DR GISELA Beltran Consulting Unavailable TANGY, DR BRADFORD Primary Care Unavailable RANDEE, GLORIA Admitting Unavailable RANDEE, GLORIA Attending Unavailable TANGY, DR BRADFORD Primary Care Unavailable HOY, DR [...] Unavailable ZIEBER, DR SARAH Butler Consulting Unavailable TANGY, DR BRADFORD Attending Unavailable HOY, DR BRADFORD Admitting Unavailable HOY, DR BRADFORD Primary Care Unavailable HOY, DR BRADFORD Consulting Unavailable HOY, DR BRADFORD Admitting Unavailable HOY, DR BRADFORD Attending Unavailable HOY, DR BRADFORD Primary Care Unavailable HOY, DR BRADFORD Consulting Unavailable Unavailable Primary Care Provider UnavailPATRICA Fine Attending Unavailable Sanchez Causey MD Primary Care Provider [phone] Sanchez Causey Primary Care Physician [phone] Johnny NANCE Attending Unavailable Sanchez Causye Referring Unavailable Allergies Allergy Classification Reported Allergen(s) Allergy Type Date of Onset Reaction(s) Facility (3 sources) Acetaminophen / HYDROcodone; Translations: [Lorcet ] Drug Allergy 09-23-2013 [facility] Repository (1 source) Acetaminophen / oxyCODONE Drug Allergy [facility] (1 source) formoterol Drug Allergy [facility] (1 source) Acetaminophen / HYDROcodone; Translations: [acetaminophen-hyd rocodone] Drug Allergy Blisters [facility] (2 sources) acetaminophen / propoxyphene; Translations: [acetaminophen-pro poxyphene] Drug Allergy Blisters [facility] Medications Current Medications Medication Drug Class(es) Dates Sig (Normalized) Sig (Original) alendronic acid 70 mg oral tablet (1 source) Bisphosphonate Start: 09-30-2024 take 1 tablet by mouth every week Fosamax 70 mg Tab 70 mg = 1 tab(s), Oral, qWeek, Refills(s) 0 Start Date: 09/30/24 Status: Ordered amoxicillin 875 mg / clavulanate 125 mg oral tablet (2 sources) Penicillin-class Antibacterial Start: 08-19-2024 End: 08-29-2024 take 1 tablet by mouth in the morning amoxicillin-clavula diann (Augmentin) 875-125 MG tablet Indications: Acute URI Take 1 tablet (875 mg) by mouth in the morning and 1 tablet (875 mg) before bedtime. Do all this for 10 days. 20 tablet 08/19/2024 08/29/2024 Active cetirizine hydrochloride 10 mg oral tablet (2 sources) Histamine-1 Receptor Antagonist cetirizine (ZyrTEC ALLERGY) 10 MG tablet 1 (one) time each day at the same time Active cholecalciferol 0.05 mg oral tablet (2 sources) Vitamin D Start: 08-12-2024 take 1 tablet by mouth once daily cholecalciferol (Vitamin D-3) 50 MCG (1999 UT) tablet Take 50 mcg by mouth Daily 08/12/2024 Active 24 hr desvenlafaxine succinate 100 mg extended release oral tablet (1 source) Serotonin and Norepinephrine Reuptake Inhibitor Start: 09-30-2024 take 1 tablet by mouth once daily desvenlafaxine 100 mg Tab- 100 mg = 1 tab(s), Oral, Daily, Refills(s) 0 Start Date: 09/30/24 Status: Ordered diclofenac sodium 75 mg delayed release oral tablet (1 source) Nonsteroidal Anti-inflammatory Drug Start: 10-22-2024 take 1 tablet by mouth twice daily as needed for pain diclofenac sodium 75 mg Oral EC Tab 75 mg = 1 tab(s), Oral, BID, PRN as needed for pain, Refills(s) 0 Start Date: 10/22/24 Status: Ordered diphenhydrAMINE hydrochloride 25 mg oral tablet (1 source) Histamine-1 Receptor Antagonist Start: 10-22-2024 take 1 tablet by mouth once daily diphenhydramine 25 mg tab = 1 tab(s), Oral, Daily, Refills(s) 0 Start Date: 10/22/24 Status: Ordered ferrous sulfate 325 mg oral tablet (3 sources) Start: 09-30-2024 take 1 tablet by mouth twice daily ferrous sulfate 325 mg Tab 325 mg = 1 tab(s), Oral, BID, Refills(s) 0 Start Date: 09/30/24 Status: Ordered Start: 08-12-2024 take 1 tablet by itzel th in the morning ferrous sulfate 325 (65 Fe) MG tablet Take 1 tablet by mouth in the morning and 1 tablet before bedtime. 08/12/2024 Active FLUoxetine 20 mg oral capsule (2 sources) Serotonin Reuptake Inhibitor take 1 capsule by mouth once daily FLUoxetine (PROzac) 20 MG capsule Take 1 capsule every day by oral route. Active fluticasone propionate 0.05 mg/actuat metered dose nasal spray (2 sources) Corticosteroid Start: 08-19-20 End: 08-19-20 take 2 spray(s) nasal route once daily fluticasone (Flonase) 50 MCG/ACT nasal spray Indications: Acute URI Administer 2 sprays into each nostril Daily Shake gently. Before first use, prime pump. After use, clean tip and replace cap. 48 g 3 08/19/2024 08/19/2025 Active levothyroxine sodium 0.112 mg oral tablet (3 sources) l-Thyroxine Start: 09-30-20 take 1 tablet by mouth once daily levothyroxine 112 mcg (0.112 mg) Tab 224 mcg = 2 tab(s), Oral, Daily, Refills(s) 0 Start Date: 09/30/24 Status: Ordered take 1 tablet by mouth once eufemia y levothyroxine (Synthroid) 200 MCG tablet Take 1 tablet by mouth Daily Active lisinopril 10 mg oral tablet (3 sources) Angiotensin Converting Enzyme Inhibitor Start: 09-30-2024 take 1 tablet by mouth once daily lisinopril 10 mg Tab 10 mg = 1 tab(s), Oral, Daily, Refills(s) 0 Start Date: 09/30/24 Status: Ordered lisinopril 10 MG tablet one tablet daily Active QUEtiapine 25 mg oral tablet (1 source) Atypical Antipsychotic Start: 09-30-2024 take 1 tablet by mouth at bedtime quetiapine 25 mg Tab 25 mg = 1 tab(s), Oral, Bedtime, Refills(s) 0 Start Date: 09/30/24 Status: Ordered vitamin a 2.4 mg oral capsule (1 source) Vitamin A Start: 12-22-2011 vitamin A 8000 units oral capsule Oral, BID, Prophylaxis Start Date: 12/22/11 Status: Ordered Vitamin D2 2000 intl units oral capsule (1 source) Start: 09-30-2024 take 1 capsule by mouth once daily Vitamin D2 2000 intl units oral capsule 50 mcg = 1 cap(s), Oral, Daily, cap(s), Refills(s) 0 Start Date: 09/30/24 Status: Ordered Problems Active Problems Problem Classification Problem Date Documented Date Episodic/Chronic Allergic reactions (1 source) Eczema 09-30-2024 Episodic Anxiety disorders (1 source) Anxiety 09-30-2024 Chronic Asthma (4 sources) Asthma; Translations: [Unspecified asthma, uncomplicated] Onset: 08-19-2024 08-19-2024 Chronic Deficiency and other anemia (1 source) Iron deficiency anemia, unspecified; Translations: [IRON DEFICIENCY ANEMIA UNSPECIFIED] Onset: 08-31-2022 Episodic Deficiency and other anemia (1 source) Chronic anemia 09-30-2024 Episodic Disorders of lipid metabolism (2 sources) Pure hypercholesterolemia, unspecified; Translations: [Hypercholesterolemia] Onset: 05-12-2022 09-30-2024 Chronic Esophageal disorders (1 source) Gastroesophageal reflux disease 09-30-2024 Chronic Essential hypertension (5 sources) Essential (primary) hypertension; Translations: [Hypertensive disorder] Onset: 08-26-2022 Chronic Gastroduodenal ulcer (except hemorrhage) (1 source) H/O: gastric ulcer 09-30-2024 Episodic Headache; including migraine (4 sources) Migraine; Translations: [Migraine, unspecified, not intractable, without status migrainosus] Onset: 08-19-2024 08-19-2024 Chronic Heart valve disorders (1 source) Heart murmur 09-30-2024 Episodic Infective arthritis and osteomyelitis (except that caused by tuberculosis or sexually transmitted disease) (1 source) Chronic osteomyelitis of left foot 09-30-2024 Chronic Joint disorders and dislocations; trauma-related (4 sources) Unspecified internal derangement of unspecified knee; Translations: [UNS INTERNAL DERANGEMENT UNS KNEE] Onset: 04-04-2022 Chronic Malaise and fatigue (1 source) Other fatigue; Translations: [OTHER FATIGUE] Onset: 08-31-2022 Episodic Menopausal disorders (4 sources) Other primary ovarian failure; Translations: [OTHER PRIMARY OVARIAN FAILURE] Onset: 07-07-2022 Chronic Mood disorders (1 source) Depression 12-20-2013 Chronic Nutritional deficiencies (5 sources) Vitamin D deficiency, unspecified; Translations: [Vitamin D deficiency] Onset: 05-05-2022 Chronic Nutritional deficiencies (1 source) Iron deficiency; Translations: [IRON DEFICIENCY] Onset: 11-25-2022 Episodic Osteoporosis (4 sources) Osteoporosis; Translations: [Age-related osteoporosis without current pathological fracture] Onset: 08-19-2024 08-19-2024 Chronic Other circulatory disease (1 source) Acrocyanosis 09-30-2024 Chronic Other ear and sense organ disorders (3 sources) Hearing loss of right ear; Translations: [Unspecified hearing loss, right ear] Onset: 08-19-2024 08-19-2024 Chronic Other ear and sense organ disorders (3 sources) Bilateral tinnitus; Translations: [Tinnitus, bilateral] Onset: 08-19-2024 08-19-2024 Episodic Other nutritional; endocrine; and metabolic disorders (1 source) Overweight 10-22-2024 Episodic Other nutritional; endocrine; and metabolic disorders (1 source) Overweight in adulthood with body mass index of 25 or more but less than 30 10-22-2024 Episodic Other screening for suspected conditions (not mental disorders or infectious disease) (2 sources) Encounter for screening for malignant neoplasm of colon; Translations: [Screening for malignant neoplasm of colon done] Onset: 05-12-2022 Episodic Other upper respiratory infections (3 sources) Chronic frontal sinusitis; Translations: [Chronic frontal sinusitis] Onset: 08-19-2024 08-19-2024 Chronic Other upper respiratory infections (2 sources) Acute upper respiratory infection; Translations: [Acute upper respiratory infection, unspecified] 08-19-2024 Episodic Thyroid disorders (9 sources) Hypothyroidism, unspecified; Translations: [Hypothyroidism] Onset: 08-31-2022 Chronic Unclassified (3 sources) CONTACT W/AND (SUSP) EXPOS COVID-19; Translations: [CONTACT W/AND (SUSP) EXPOS COVID-19] Onset: 05-07-2022 Unclassified (1 source) COUGH, UNSPECIFIED; Translations: [COUGH, UNSPECIFIED] Onset: 05-07-2022 Unclassified (1 source) Patient encounter status 10-22-2024 Past or Other Problems Problem Classification Problem Date Documented Da te Episodic/Chronic Other aftercare (1 source) Other chcf (current) drug therapy; Translations: [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 DRUG THERAPY] Onset: 05-12-2022 Episodic Other bone disease and musculoskeletal deformities (1 source) Other specified disorders of bone density and structure, right thigh; Translations: [OTH D/O BONE DEN STRUCT RT THIGH] Onset: 07-09-2022 Episodic Other non-traumatic joint disorders (1 source) Pain in left hip; Translations: [PAIN IN LEFT HIP] Onset: 04-07-2022 Episodic Other upper respiratory disease (1 source) Nasal congestion; Translations: [NASAL CONGESTION] Onset: 05-07-2022 Episodic Unclassified (1 source) CONTACT W/AND (SUSP) EXPOS COVID-19; Translations: [CONTACT W/AND (SUSP) EXPOS COVID-19] Onset: 05-04-2022 Unclassified (1 source) Congestion (morphologic abnormality) 09-30-2024 Results Test Name Value Interpretation Reference Range Facility Ambulatory Visit Summaryon 0 10-22-2024 Ambulatory Visit Summary Ambulatory Visit Summary ITA ALANIS :1955 Visit Date:10/22/2024 Ambulatory Visit Instructions Your Care Team Attending Physician - GOYO FUCHS, Johnny Butler Primary Care Physician - Sanchez Causey MD Referring Physician - Sanchez Causey MD This Is Your Medications List Contact prescribing physician if questions or concerns alendronate (Fosamax 70 mg Tab) desvenlafaxine (desvenlafaxine 100 mg Tab-) diclofenac (diclofenac sodium 75 mg Oral EC Tab) diphenhydrAMINE (diphenhydramine 25 mg tab) ergocalciferol (Vitamin D2 2000 intl units oral capsule) ferrous sulfate (ferrous sulfate 325 mg Tab) levothyroxine (levothyroxine 112 mcg (0.112 mg) Tab) lisinopril (lisinopril 10 mg Tab) quetiapine (quetiapine 25 mg Tab) vitamin A (vitamin A 8000 units oral capsule) Procedures Performed Abdominoplasty, Amputation of left fourth toe, Ankle fracture, Arthroscopy of knee, Cholecystectomy, Colonoscopy, EGD - esophagogastroduodeno scopy, Ethmoidectomy, Foot repair, Gastric bypass, Nasal endoscopy, Nasal septoplasty, Repair of meniscus, Rotator cuff repair, Sphenoidectomy, ROEL BSO - Total abdominal hysterectomy and bilateral salpingo-oophorectomy . Discharge Vitals Heart Rate (Peripheral) 72 Respiratory Rate 16 Blood Pressure 144/80 Height 157 cm Height 62 in Weight 63.4 kg Weight 139.773 lb BMI 25.72 Medications What How Much When Instructions Unchanged alendronate (Fosamax 70 mg Tab) 1 Tablets By Mouth Every week Contact prescribing physician if questions or concerns Unchanged desvenlafaxine (desvenlafaxine 100 mg Tab-) 1 Tablets By Mouth Every day Contact prescribing physician if questions or concerns Unchanged diclofenac (diclofenac sodium 75 mg Oral EC Tab) 1 Tablets By Mouth 2 times a day as needed for as needed for pain Contact prescribing physician if questions or concerns Unchanged diphenhydrAMINE (diphenhydramine 25 mg tab) 1 Tablets By Mouth Every day Contact prescribing physician if questions or concerns Unchanged ergocalciferol (Vitamin D2 2000 intl units oral capsule) 1 Capsules By Mouth Every day Contact prescribing physician if questions or concerns Unchanged ferrous sulfate (ferrous sulfate 325 mg Tab) 1 Tablets By Mouth 2 times a day Contact prescribing physician if questions or concerns Unchanged levothyroxine (levothyroxine 112 mcg (0.112 mg) Tab) 2 Tablets By Mouth Every day Contact prescribing physician if questions or concerns Unchanged lisinopril (lisinopril 10 mg Tab) 1 Tablets By Mouth Every day Contact prescribing physician if questions or concerns Unchanged quetiapine (quetiapine 25 mg Tab) 1 Tablets By Mouth At bedtime Contact prescribing physician if questions or concerns Unchanged vitamin A (vitamin A 8000 units oral capsule) By Mouth 2 times a day Contact prescribing physician if questions or concerns Allergies Darvocet-N 100 (Blisters) Lorcet 10/650 (Blisters) Problems Ongoing - Any problem that you are currently receiving treatment for. Acrocyanosis Anxiety Asthma BMI 25.0-25.9,adult Chronic anemia Chronic osteomyelitis of left foot Depression Eczema GERD (gastroesophageal reflux disease) Heart murmur History of gastric ulcer Hypercholesterolemia Hypertension Hypothyroidism Migraines Osteoporosis Overweight Vitamin D deficiency Historical - Any problem that you are no longer receiving treatment for. Congestion Patient Survey You may receive a survey via text or e-mail asking about your office visit. Please share your experience with us by completing your survey. We appreciate your feedback and thank you for choosing us for your care. Normal [facility] FREE T3on 11-18-2022 FREE T3 3.75 pg/mlL Normal 2.18-3.98 [facility] Comment on above: Performed By: #### T SH, FT3, T4 #### [facility] [address] [address] [address] Maribel العلي IRONon 11-18-2022 Iron [Mass/Vol] 50.0 ug/dL Normal 50.0-170.0 [facility] Comment on above: Performed By: #### I JAYLEN #### [facility] [address] [address] [address] Maribel العلي T4on 11-18-2022 T4 [Mass/Vol] 9.70 ug/dL Normal 4.80-13.90 [facility] Comment on above: Performed By: #### T SH, FT3, T4 ####[facility] [address] [place], [place] [address]GaDr. Maribel العلي TSHon 11-18-2022 TSH Qn m[IU]/L Critically low 0.358-3.740 [facility] Comment on above: Performed By: #### T SH, FT3, T4 #### [facility] [address] [address] [address] Maribel العلي FREE T3on 10-03-2022 FREE T3 2.51 pg/mlL Normal 2.18-3.98 [facility] Comment on above: Performed By: #### F T3, T4, TSH ####[facility] [address] [address]Dr. Maribel العلي T4on 10-03-2022 T4 [Mass/Vol] 13.20 ug/dL Normal 4.80-13.90 [facility] Comment on above: Performed By: #### F T3, T4, TSH ####[facility] [address] [place], [place] [address]Dr. Maribel العلي TSHon 10-03-2022 TSH Qn m[IU]/L Critically low 0.358-3.740 [facility] Comment on above: Performed By: #### F T3, T4, TSH ####[facility] [address] [place], [place] [address]Dr. Maribel العلي CBC AUTO DIFFon 08-26-2022 BASO # 0.1 103/ul Normal 0.0-0.1 [facility] Comment on above: Performed By: #### C BC ####[facility] [address] [place], [place] [address]Dr. Maribel العلي Basophils/100 WBC (Bld) 0.8 % Normal 0.2-2.0 [facility] Comment on above: Performed By: #### C BC ####[facility] [address] [place], [place] [address]Dr. Maribel العلي EO # 0.6 103/ul Normal 0.0-0.7 [facility] Comment on above: Performed By: #### C BC ####[facility] [address] [place], [place] [address]Dr. Maribel العلي Eosinophils/100 WBC (Bld) 9.1 % Critically high 0.9-7.0 [facility] Comment on above: Performed By: #### C BC ####[facility] [address] [place], [place] [address]Dr. Maribel العلي Erythrocyte distribution width (RBC) [Ratio] 13.5 % Normal 11.0-15.0 [facility] Comment on above: Performed By: #### C BC ####[facility] [address] [address]Dr. Maribel العلي Hematocrit (Bld) [Volume fraction] 38.3 % Normal 36.0-48.0 [facility] Comment on above: Performed By: #### C BC ####[facility] [address] [address]Dr. Maribel Severiano Hemoglobin (Bld) [Mass/Vol] 12.2 g/dL Normal 12.0-16.0 [facility] Comment on above: Performed By: #### C BC ####[facility] [address] [place], [place] [address]Dr. Andreeaalisha العلي IG # 0.01 10e3/ul Normal 0.00-0.03 [facility] Comment on above: Performed By: #### C BC ####[facility] [address] [place], [place] [address]Dr. Maribel العلي IG % 0.1 % Normal 0.0-0.5 [facility] Comment on above: Performed By: #### C BC ####[facility] [address] [place], [place] [address]Dr. Andreeaalisha العلي LYMPH # 1.5 103/ul Normal 1.2-3.8 [facility] Comment on above: Performed By: #### C BC ####[facility] [address] [place], [place] [address]Dr. Maribel العلي Lymphocytes/100 WBC (Bld) 21.5 % Normal 20.5-60.0 [facility] Comment on above: Performed By: #### C BC ####[facility] [address] [place], [place] [address]Dr. Andreeaalisha العلي MANUAL DIFF REQ NO Normal [facility] Comment on above: Performed By: #### C BC ####[facility] [address] [place], [place] [address]Dr. Maribel العلي MCH (RBC) [Entitic mass] 30.0 pg Normal 26.7-34.0 [facility] Comment on above: Performed By: #### C BC ####[facility] [address] [id number]. Maribel Severiano MCHC (RBC) [Mass/Vol] 31.9 g/dL Normal 29.9-35.2 [facility] Comment on above: Performed By: #### C BC ####[facility] [address] [id number]. Maribel العلي MCV (RBC) [Entitic vol] 94.1 fL Normal 81.0-99.0 [facility] Comment on above: Performed By: #### C BC ####[facility] [address] [place], [place] [address]Dr. Maribel العلي MONO # 0.5 103/ul Normal 0.3-0.8 [facility] Comment on above: Performed By: #### C BC ####[facility] [address] [place], [place] [address]Dr. Maribel العلي Monocytes/100 WBC (Bld) 6.5 % Normal 1.7-12.0 [facility] Comment on above: Performed By: #### C BC ####[facility] [address] [place], [place] [address]Dr. Maribel العلي NEUT # 4.4 103/ul Normal 1.4-6.5 [facility] Comment on above: Performed By: #### C BC ####[facility] [address] [place], [place] [address]Dr. Maribel العلي Neutrophils/100 WBC (Bld) 62.0 % Normal 43.0-75.0 [facility] Comment on above: Performed By: #### C BC ####[facility] [address] [place], [place] [address]Dr. Maribel العلي Platelet mean volume (Bld) [Entitic vol] 9.9 fL Normal 9.5-13.5 [facility] Comment on above: Performed By: #### C BC ####[facility] [address] [place], [place] [address]Dr. Maribel العلي PLT 270 103/ul Normal 150-450 [facility] Comment on above: Performed By: #### C BC ####[facility] [address] [place], [place] [address]OlDr. Maribel العلي RBC 4.07 106/ul Critically low 4.20-5.40 [facility] Comment on above: Performed By: #### C BC ####[facility] [address] [place], [place] [address]DnDr. Maribel العلي WBC 7.1 103/ul Normal 4.0-11.0 [facility] Comment on above: Performed By: #### C BC ####[facility] [address] [place], [place] [address]EjDr. Maribel العلي FREE THYROXINE INDEX T7on FTI 1.36 Normal 1.30-4.50 [facility] Comment on above: Performed By: #### C MP, T7, TSH #### [facility] [address] [address] [address] Maribel العلي T3U 29.0 % Critically low 30.0-39.0 [facility] Comment on above: Performed By: #### C MP, T7, TSH #### [facility] [address] [address] [address] Maribel العلي T4 [Mass/Vol] 4.70 ug/dL Critically low 4.80-13.90 [facility] [place] [facility] Comment on above: Performed By: #### C MP, T7, TSH #### [facility] [address] [address] [address] Maribel العلي IRONon 08-26-2022 Iron [Mass/Vol] 43.0 ug/dL Critically low 50.0-170.0 [facility] Comment on above: Performed By: #### I JAYLEN ####[facility] [address] [address]Dr. Maribel العلي PROF 14(COMP METB)on 022 Albumin [Mass/Vol] 3.1 g/dL Critically low 3.4-5.0 [facility] Comment on above: Performed By: #### C MP, T7, TSH #### [facility] [address] [address] [address] Maribel العلي Albumin/Globulin [Mass ratio] 0.9 {ratio} Normal [facility] Comment on above: Performed By: #### C MP, T7, TSH #### [facility] [address] [address] [address] Maribel العلي ALP [Catalytic activity/Vol] 120 U/L Critically high 46-116 [facility] Comment on above: Performed By: #### C MP, T7, TSH #### [facility] [address] [address] [address] Maribel العلي ALT [Catalytic activity/Vol] 24 U/L Normal 14-59 [facility] Comment on above: Performed By: #### C MP, T7, TSH #### [facility] [address] [place] [address] Dr. Maribel العلي Anion gap [Moles/Vol] 9.2 mmol/L Normal [facility] Comment on above: Performed By: #### C MP, T7, TSH #### [facility] [address] [place] [address] Dr. Maribel العلي AST [Catalytic activity/Vol] 17 U/L Normal 15-37 [facility] Comment on above: Performed By: #### C MP, T7, TSH #### [facility] [address] [place] [address] Dr. Maribel العلي Bilirubin [Mass/Vol] 0.2 mg/dL Normal 0.2-1.0 [facility] Comment on above: Performed By: #### C MP, T7, TSH #### [facility] [address] [place] [address] Dr. Maribel العلي Calcium [Mass/Vol] 8.8 mg/dL Normal 8.5-10.1 [facility] Comment on above: Performed By: #### C MP, T7, TSH #### [facility] [address] [place] [address] Dr. Maribel العلي Chloride [Moles/Vol] 105 mmol/L Normal 98-107 [facility] Comment on above: Performed By: #### C MP, T7, TSH #### [facility] [address] [address] [address] Maribel العلي CO2 [Moles/Vol] 29.2 mmol/L Normal 21.0-32.0 [facility] Comment on above: Performed By: #### C MP, T7, TSH #### [facility] [address] [address] [address] Maribel العلي Creatinine [Mass/Vol] 0.57 mg/dL Normal 0.55-1.02 [facility] Comment on above: Performed By: #### C MP, T7, TSH #### [facility] [address] [address] [address] Maribel العلي EGFR-AF JAPANESE >60 Normal >=60 [facility] Comment on above: Performed By: #### C MP, T7, TSH #### [facility] [address] [address] [address] Maribel العلي EGFR-NON AF JAPANESE >60 Normal >=60 [facility] Comment on above: Performed By: #### C MP, T7, TSH #### [facility] [address] [address] [address] Maribel العلي Globulin (S) [Mass/Vol] 3.5 g/dL Normal [facility] Comment on above: Performed By: #### C MP, T7, TSH #### [facility] [address] [place] [address] Dr. Maribel العلي Glucose [Mass/Vol] 106 mg/dL Normal 74-106 [facility] Comment on above: Performed By: #### C MP, T7, TSH #### [facility] [address] [address] [address] Maribel العلي Potassium [Moles/Vol] 4.4 mmol/L Normal 3.5-5.1 [facility] Comment on above: Performed By: #### C MP, T7, TSH #### [facility] [address] [address] [address] Maribel العلي Protein [Mass/Vol] 6.6 g/dL Normal 6.4-8.2 [facility] Comment on above: Performed By: #### C MP, T7, TSH #### [facility] [address] [place], [place] [address] Dr. Maribel العلي Sodium [Moles/Vol] 139 mmol/L Normal 136-145 [facility] Comment on above: Performed By: #### C MP, T7, TSH #### [facility] [address] [place], [place] [address] Dr. Maribel العلي Urea nitrogen [Mass/Vol] 7.0 mg/dL Normal 7.0-18.0 [facility] Comment on above: Performed By: #### C MP, T7, TSH #### [facility] [address] [place], [place] [address] Dr. Maribel العلي Urea nitrogen/Creatinine [Mass ratio] 12.3 mg/mg Normal [facility] Comment on above: Performed By: #### C MP, T7, TSH #### [facility] [address] [address] [address] Maribel العلي TSHon 08-26-2022 TSH 0.096 uIU/mL Critically low 0.358-3.740 [facility] [place] [facility] Comment on above: Performed By: #### C LAKISHA, T7, TSH #### [facility] [address] [address] [address] Maribel العلي XR DEXA BONE DENSITYon [...] by: SARAH CARRION Date: 2022-07-07 11:35 Normal [facility] VIT D 25-[place] [facility]on 2021 Vitamin D, 25-Hydroxy 44.5 ng/mL Normal 30.0-100.0 [facility] Comment on above: Result Comment: Latasha min D deficiency has been defined by the [place] of [employer] and an Endocrine Society practice guideline as a level of serum 25-OH vitamin D less than 20 ng/mL (1,2). The Endocrine Society went on to further define vitamin D insufficiency as a level between 21 and 29 ng/mL (2). 1. IOM ([place] [employer]). 2010. Dietary reference intakes for calcium and D. [place]: The National Academies Press. 2. Quan MF, Williams [place], Chema LEVINE, et al. Evaluation, treatment, and prevention of vitamin D deficiency: an Endocrine Society clinical practice guideline. JCEM. 2010; 96(7):1911-30. Performed By: #### V ITADLC #### [facility] [address] [place] [address] Dr. Maribel العلي CBC AUTO DIFFon 05-05-2022 BASO # 0.1 103/ul Normal 0.0-0.1 [facility] Comment on above: Performed By: #### C BC #### [facility] [address] [place] [address] Dr. Maribel العلي Basophils/100 WBC (Bld) 1.0 % Normal 0.2-2.0 [facility] Comment on above: Performed By: #### C BC #### [facility] [address] [place] [address] Dr. Maribel العلي EO # 0.6 103/ul Normal 0.0-0.7 [facility] Comment on above: Performed By: #### C BC #### [facility] [address] [place] [address] Dr. Maribel العلي Eosinophils/100 WBC (Bld) 9.3 % Critically high 0.9-7.0 [facility] Comment on above: Performed By: #### C BC #### [facility] [address] [place] [address] Dr. Maribel العلي Erythrocyte distribution width (RBC) [Ratio] 12.7 % Normal 11.0-15.0 [facility] Comment on above: Performed By: #### C BC #### [facility] [address] [place] [address] Dr. Maribel العلي Hematocrit (Bld) [Volume fraction] 40.1 % Normal 36.0-48.0 [facility] Comment on above: Performed By: #### C BC #### [facility] [address] [place] [address] Dr. Maribel العلي Hemoglobin (Bld) [Mass/Vol] 13.1 g/dL Normal 12.0-16.0 [facility] Comment on above: Performed By: #### C BC #### [facility] [address] [place] [address] Dr. Maribel العلي IG # 0.02 10e3/ul Normal 0.00-0.03 [facility] Comment on above: Performed By: #### C BC #### [facility] [address] [place] [address] Dr. Maribel العلي IG % 0.3 % Normal 0.0-0.5 [facility] Comment on above: Performed By: #### C BC #### [facility] [address] [place] [address] Dr. Maribel العلي LYMPH # 1.7 103/ul Normal 1.2-3.8 [facility] Comment on above: Performed By: #### C BC #### [facility] [address] [place] [address] Dr. Maribel العلي Lymphocytes/100 WBC (Bld) 28.8 % Normal 20.5-60.0 [facility] Comment on above: Performed By: #### C BC #### [facility] [address] [place] [address] Dr. Maribel العلي MANUAL DIFF REQ NO Normal [facility] Comment on above: Performed By: #### C BC #### [facility] [address] [place] [address] Dr. Maribel العلي MCH (RBC) [Entitic mass] 31.3 pg Normal 26.7-34.0 [facility] Comment on above: Performed By: #### C BC #### [facility] [address] [address] [address] Maribel العلي MCHC (RBC) [Mass/Vol] 32.7 g/dL Normal 29.9-35.2 [facility] Comment on above: Performed By: #### C BC #### [facility] [address] [address] [address] Maribel العلي MCV (RBC) [Entitic vol] 95.9 fL Normal 81.0-99.0 [facility] Comment on above: Performed By: #### C BC #### [facility] [address] [place] [address] Dr. Maribel العلي MONO # 0.4 103/ul Normal 0.3-0.8 [facility] Comment on above: Performed By: #### C BC #### [facility] [address] [place] [address] Dr. Maribel العلي Monocytes/100 WBC (Bld) 7.0 % Normal 1.7-12.0 [facility] Comment on above: Performed By: #### C BC #### [facility] [address] [place] [address] Dr. Maribel العلي NEUT # 3.2 103/ul Normal 1.4-6.5 [facility] Comment on above: Performed By: #### C BC #### [facility] [address] [place] [address] Dr. Maribel العلي Neutrophils/100 WBC (Bld) 53.6 % Normal 43.0-75.0 [facility] Comment on above: Performed By: #### C BC #### [facility] [address] [address] [address] Maribel العلي Platelet mean volume (Bld) [Entitic vol] 10.0 fL Normal 9.5-13.5 [facility] Comment on above: Performed By: #### C BC #### [facility] [address] [address] [address] Maribel العلي PLT 244 103/ul Normal 150-450 [facility] Comment on above: Performed By: #### C BC #### [facility] [address] [address] [address] Maribel العلي RBC 4.18 106/ul Critically low 4.20-5.40 [facility] Comment on above: Performed By: #### C BC #### [facility] [address] [place] [address] Dr. Maribel العلي WBC 6.0 103/ul Normal 4.0-11.0 [facility] Comment on above: Performed By: #### C BC #### [facility] [address] [address] [address] Maribel العلي FREE T3on 05-05-2022 FREE T3 2.55 pg/mlL Normal 2.18-3.98 [facility] Comment on above: Performed By: #### C BC #### [facility] [address] [place] [address] Dr. Maribel العلي GLYCOHEMOGLOBIN A1Con 2021 ADA RECOMMENDATION SEE BELOW Normal [facility] Comment on above: Result Comment: ADA RECOMMENDED LIMIT 4.0 - 6.0 ADA THERAPEUTIC TARGET < 7.0 ACTION SUGGESTED > 7.0 Performed By: #### C BC #### [facility] [address] [place] [address] Dr. Maribel العلي Glucose [Mass/Vol] 103 mg/dL Normal [facility] Comment on above: Performed By: #### C BC #### [facility] [address] [place] [address] Dr. Maribel العلي HbA1c (Bld) [Mass fraction] 5.2 % Normal 4.5-6.2 [facility] Comment on above: Performed By: #### C BC #### [facility] [address] [place] [address] Dr. Maribel العلي LIPID PROFILEon 05-05-2022 CHOL-HDL RATIO NORM SEE BELOW Normal [facility] Comment on above: Result Comment: 3.3 - 4.4 LOW RISK 4.4 - 7.1 AVERAGE RISK 7.1 - 11.0 MODERATE RISK >11.0 HIGH RISK Performed By: #### C BC #### [facility] [address] [address] [address] Maribel العلي Cholesterol [Mass/Vol] 159 mg/dL Normal <=200 [facility] Comment on above: Performed By: #### C BC #### [facility] [address] [address] [address] Maribel العلي Cholesterol in HDL [Mass/Vol] 82 mg/dL Critically high 40-60 [facility] Comment on above: Performed By: #### C BC #### [facility] [address] [address] [address] Maribel العلي Cholesterol in LDL [Mass/Vol] 65.0 mg/dL Normal [facility] Comment on above: Performed By: #### C BC #### [facility] [address] [address] [address] Maribel العلي Cholesterol.total/Cho lesterol in HDL [Mass ratio] 1.9 {ratio} Normal [facility] Comment on above: Performed By: #### C BC #### [facility] [address] [address] [address] Maribel العلي HDL NORMAL > or = 60 mg/dl - LO W CARDIOVASCULAR RISK <40 mg/dl - HIGH CARDIOVASCULAR RISK Normal [facility] Comment on above: Performed By: #### C BC #### [facility] [address] [address] [address] Maribel العلي LDL CALC NORMAL SEE BELOW Normal [facility] Comment on above: Result Comment: <100 mg/dl OPTIMAL 100 - 129 mg/dl NEAR OR ABOVE OPTIMAL 130 - 159 mg/dl BORDERLINE HIGH 160 - 189 mg/dl HIGH >190 mg/dl VERY HIGH Performed By: #### C BC #### [facility] [address] [address] [address] Maribel العلي Triglyceride [Mass/Vol] 60 mg/dL Normal <=150 [facility] Comment on above: Performed By: #### C BC #### [facility] [address] [address] [address] Maribel العلي VLDL CALC 12.0 mg/dL Normal [facility] Comment on above: Performed By: #### C BC #### [facility] [address] [address] [address] Maribel العلي OCC BLD IMMUNO SCREENon 04-09 OCCULT BLOOD Negative Normal NEGATIVE [facility] Comment on above: Performed By: #### O BSCRN ####[facility] [address] [address] Maribel العلي PROF 14(COMP METB)on 022 Albumin [Mass/Vol] 3.0 g/dL Critically low 3.4-5.0 [facility] Comment on above: Performed By: #### F T3, LIPID, T4, CMP, TSH ####[facility] [address] [address]Dr. Maribel العلي Albumin/Globulin [Mass ratio] 0.9 {ratio} Normal [facility] Comment on above: Performed By: #### F T3, LIPID, T4, CMP, TSH ####[facility] [address] [address]Dr. Maribel العلي ALP [Catalytic activity/Vol] 116 U/L Normal 46-116 [facility] Comment on above: Performed By: #### F T3, LIPID, T4, CMP, TSH ####[facility] [address] [address]Dr. Maribel العلي ALT [Catalytic activity/Vol] 25 U/L Normal 14-59 [facility] Comment on above: Performed By: #### F T3, LIPID, T4, CMP, TSH ####[facility] [address] [address]Dr. Maribel العلي Anion gap [Moles/Vol] 10.2 mmol/L Normal [facility] Comment on above: Performed By: #### F T3, LIPID, T4, CMP, TSH ####[facility] [address] [address]Dr. Maribel العلي AST [Catalytic activity/Vol] 17 U/L Normal 15-37 [facility] Comment on above: Performed By: #### F T3, LIPID, T4, CMP, TSH ####[facility] [address] [id number]. Maribel العلي Bilirubin [Mass/Vol] 0.4 mg/dL Normal 0.2-1.0 [facility] Comment on above: Performed By: #### F T3, LIPID, T4, CMP, TSH ####[facility] [address] [address]Dr. Maribel العلي Calcium [Mass/Vol] 8.2 mg/dL Critically low 8.5-10.1 Th e [facility] Comment on above: Performed By: #### F T3, LIPID, T4, CMP, TSH ####[facility] [address] [address]Dr. Maribel العلي Chloride [Moles/Vol] 106 mmol/L Normal 98-107 [facility] Comment on above: Performed By: #### F T3, LIPID, T4, CMP, TSH ####[facility] [address] [place], [place] [address]Dr. Maribel العلي CO2 [Moles/Vol] 28.6 mmol/L Normal 21.0-32.0 [facility] Comment on above: Performed By: #### F T3, LIPID, T4, CMP, TSH ####[facility] [address] [place], [place] [address]Dr. Maribel العلي Creatinine [Mass/Vol] 0.62 mg/dL Normal 0.55-1.02 [facility] Comment on above: Performed By: #### F T3, LIPID, T4, CMP, TSH ####[facility] [address] [place], [place] [address]Dr. Maribel العلي EGFR-AF JAPANESE >60 Normal >=60 [facility] Comment on above: Performed By: #### F T3, LIPID, T4, CMP, TSH ####[facility] [address] [place], [place] [address]Dr. Maribel العلي EGFR-NON AF JAPANESE >60 Normal >=60 [facility] Comment on above: Performed By: #### F T3, LIPID, T4, CMP, TSH ####[facility] [address] [place], [place] [address]Dr. Maribel العلي Globulin (S) [Mass/Vol] 3.2 g/dL Normal [facility] Comment on above: Performed By: #### F T3, LIPID, T4, CMP, TSH ####[facility] [address] [address]Dr. Maribel العلي Glucose [Mass/Vol] 99 mg/dL Normal 74-106 [facility] Comment on above: Performed By: #### F T3, LIPID, T4, CMP, TSH ####[facility] [address] [address]Dr. Maribel العلي Potassium [Moles/Vol] 4.8 mmol/L Normal 3.5-5.1 [facility] Comment on above: Performed By: #### F T3, LIPID, T4, CMP, TSH ####[facility] [address] [address]Dr. Maribel العلي Protein [Mass/Vol] 6.2 g/dL Critically low 6.4-8.2 [facility] Comment on above: Performed By: #### F T3, LIPID, T4, CMP, TSH ####[facility] [address] [address]Dr. Maribel العلي Sodium [Moles/Vol] 140 mmol/L Normal 136-145 [facility] Comment on above: Performed By: #### F T3, LIPID, T4, CMP, TSH ####[facility] [address] [address]Dr. Maribel العلي Urea nitrogen [Mass/Vol] 17.0 mg/dL Normal 7.0-18.0 [facility] Comment on above: Performed By: #### F T3, LIPID, T4, CMP, TSH ####[facility] [address] [address]Dr. Maribel العلي Urea nitrogen/Creatinine [Mass ratio] 27.4 mg/mg Normal [facility] Comment on above: Performed By: #### F T3, LIPID, T4, CMP, TSH ####[facility] [address] [address]Dr. Maribel العلي T4on 05-05-2022 T4 [Mass/Vol] 5.80 ug/dL Normal 4.80-13.90 [facility] Comment on above: Performed By: #### C BC #### [facility] [address], [place] [address] Dr. Maribel العلي TSHon 05-05-2022 TSH 0.018 uIU/mL Critically low 0.358-3.740 [facility] [place] [facility] Comment on above: Performed By: #### F T3, LIPID, T4, CMP, TSH ####[facility] [address] [place], [place] [address]NlChi العلي Covid-19 PCR ([facility])on 04-09 SARS-CoV-2 (COVID-19) RNA LENKA+probe Ql (Unsp spec) Not detected Normal NOT DETECTED [facility] Comment on above: Result Comment: This test is not yet approved or cleared by the [place] FDA. When there are no FDA-approved or cleared tests available, and other criteria are met, FDA can make tests available under an emergency access mechanism called an Emergency Use Authorization (EUA). The EUA for this test is supported by the Poker [employer] Player of Health and Human Service's (HHS's) declaration [...] with SARS-CoV-2. Performed By: #### C VDTBH ####[facility] [address] [place], [place] [address]Z[address]Dr. Maribel العلي XR LSPINE MIN 4 VIEWSon [...] GISELA ROSS Date: 2022-04-05 09:28 Normal [facility] Vital Signs Date Time Vital Sign Value Performing Clinician Facility 10-22-2024 13:30-0500 Blood Pressure Location Johnny GRAVESOdalys [facility] 10-22-2024 13:30-0500 Diastolic blood pressure 80 mm[Hg] Johnny GRAVESL [facility] 10-22-2024 13:30-0500 Heart rate 72 /min Johnny GRAVESL [facility] 10-22-2024 13:30-0500 Respiratory rate 16 /min Johnny GRAVESL [facility] 10-22-2024 13:30-0500 Systolic blood pressure 144 mm[Hg] Johnny GRAVESOdalys [facility] 08-19-2024 13:14-0500 Body height 157.5 cm Patrica Harmon MD Work Phone: [facility] 08-19-2024 13:14-0500 Body mass index (BMI) [Ratio] 24.51 kg/m2 Patrica Harmon MD Work Phone: [facility] 08-19-2024 13:14-0500 Body weight 60.78 kg Patrica Harmon MD Work Phone: [facility] 08-19-2024 13:14-0500 Diastolic blood pressure 77 mm[Hg] Patrica Harmon MD Work Phone: [facility] 08-19-2024 13:14-0500 Systolic blood pressure 151 mm[Hg] Patrica Harmon MD Work Phone: [facility] Encounters Encounter Date Encounter Type Care Provider Facility Start: 10-22-2024 End: 10-22-2024 ambulatory Johnny NANCE Facility:[facility] Start: 10-22-2024 End: 10-22-2024 Patient encounter procedure Johnny Butler ELYOdalys [facility] [place] Start: 09-17-2024 ambulatory Johnny ELYOdalys Facility:[facility] Start: 08-19-2024 End: 08-19-2024 Bamboo flowsheet Patrica Harmon MD Work Phone: [facility] Start: 08-19-2024 End: 08-19-2024 Bamboo flowsheet Patrica Harmon MD Work Phone: [facility] Start: 08-19-2024 End: 08-19-2024 ambulatory PATRICA HARMON Not Available Start: 08-19-2024 End: 08-19-2024 Office outpatient visit 25 minutes Patrica Harmon MD Work Phone: [facility] Comment on above: Acute URI (Primary D x) Start: 08-16-2024 End: 08-16-2024 Telephone encounter Patrica Harmon MD Work Phone: [facility] Start: 11-29-[address] SANCHEZ CAUSEY Facility :[facility] Start: 11-18-2022 End: 11-19-[address] SANCHEZ CAUSEY Facility:[facility] Start: 10-03-2022 End: 10-04-[address] SANCHEZ CAUSEY Facility:[facility] Start: 08-26-2022 End: 08-27-[address] SANCEHZ CAUSEY Facility:[facility] Start: 07-07-2022 End: 07-08-[address] SANCHEZ CAUSEY Facility:[facility] Start: 05-05-2022 End: 05-06-[address] SANCHEZ CAUSEY Facility:[facility] Start: 05-04-2022 End: 05-04-[address] SANCHEZ CAUSEY Facility:[facility] Start: 04-04-2022 End: 04-05-[address] SANCHEZ CAUSEY Facility:[facility] Procedures Date Procedure Procedure Detail Performing Clinician Abdominoplasty Johnny GRAVESL Amputation of left fourth toe Johnny NILL Arthroscopy of knee Johnny NILL Bypass of stomach Johnny NI LL Cholecystectomy Johnny NILL Colonoscopy Johnny NILL Endoscopy of nose Johnny NI LL Esophagogastroduodenoscopy M ichjair NILL Ethmoid sinusectomy Johnny NILL Foot repair Johnny NILL Comment on above: x 17 Fracture of ankle (disorder) Johnny NILL Nasal septoplasty Johnny NI LL Comment on above: x3 Repair of meniscus Johnny N MARIS Repair of musculoten dinous cuff of shoulder Johnny NILL Comment on above: x2 Sphenoid sinusectomy Johnny NILL Total abdominal hyst erectomy with bilateral salpingo-oophorectomy Johnny GRAVESL Plan of Treatment Date Care Activity Detail Author Start: 06-09-2024 Influenza vaccination Influenza Vacc ine (#1) [facility] Start: 07-10-2021 Pneumococcal Vaccine : 65+ Years (2 of 2 - PPSV23 or PCV20) Pneumococcal Vaccine: 65+ Years (2 of 2 - PPSV23 or PCV20) [facility] Start: 1994 Screening for malign ant neoplasm of breast Mammogram [facility] Start: 1954 Screening for malign ant neoplasm of colon [facility] Immunizations Immunization Date Immunization Notes Care Provider Fa cility 07-16-2024 influenza virus vaccine, unspecified formulation Johnny NILL [facility] 07-25-2022 SARS-CoV-2 (COVID-19 ) [id number] Johnny NANCE [facility] 05-12-2022 SARS-CoV-2 mRNA (pbnirtitrnh-xevb-rjphu se) vaccine Johnny GRAVESL [facility] 07-06-2021 SARS-CoV-2 (COVID-19 ) mRNA BNT-162b2 vax Johnny GRAVESL [facility] Comment on above: Result Comment: 2023: [id number] 12-13-2020 SARS-CoV-2 (COVID-19 ) mRNA BNT-162b2 vax Johnny GRAVESL [facility] Comment on above: Result Comment: 2023: [id number] 11-22-2020 SARS-CoV-2 (COVID-19 ) mRNA BNT-162b2 vax Johnny GRAVESL [facility] Comment on above: Result Comment: 2023: [id number] 07-26-2017 influenza virus vaccine, unspecified formulation Patrica Harmon MD Work Phone: [facility] Payers Date Payer Category Payer Medicaid [employer] MED[employer]ARE A DVANTAGE [id number] 1960 Medicare [id number] 1955 Unknown [id number] 1954 Unknown [id number] 1954 Unknown [id number] 1954 Unknown [id number] 1954 Unknown [id number] 1954 Unknown [id number] 1954 Unknown [id number] 1954 Unknown [id number] 1954 Unknown [id number] 1954 Unknown [id number] 1954 Unknown [id number] Social History Date Type Detail Facility [facility] Start: 1955 Sex assigned at Not on file [facility] Start: 08-19-2024 Gender identity Not on file [facility] Start: 08-19-2024 End: 10-22-2024 Tobacco smoking status MOIS Never smoked tobacco [facility] Start: 08-19-2024 Tobacco use and exposure Smokeless tobacco non-user [facility] Start: 08-19-2024 Alcoholic beverage intake Current drinker of alcohol (finding) [facility] Start: 08-19-2024 History of Social function [facility] Healthcare Tobacco smoking status Never Kimberly [facility] [place] Functional Status Date Assessment Result Facility 10-22-2024 [facility] Status [facility] [place] Clinical Notes 04-05-2022 to 10-22-2024 Patrica Harmon MD - 08/19/2024 1:10 PM ESTTelephone Encounter - Lolly Ofelia - 08/16/2024 1:28 PM ESTTelephone Encounter - Lolly Ofelia - 08/16/2024 1:28 PM EST Note Date & Type Note Facility 10-22-2024 Note General Surgery Offi ce/Clinic Note Chief Complaint consultation for colonoscopy HPI Staff 68 year old female presents on consultation from Dr. Causey for screening colonoscopy. Denies abdominal or rectal pain. No rectal bleeding or change in bowel habits. Denies nausea or vomiting. No unexplained weight loss. Last colonoscopy completed greater than 10 years ago and normal per patient; report could not be found. Patient has chronic anemia with history of gastric bypass and gastric ulcer. Grandfather with history of colon cancer, diagnosed in 70's. History of Present Illness 68 yo female with h/o htn, hypercholesterolemia, hypothyroidism, GERD, asthma, anxiety/depression, osteoporosis, referred for colorectal screening; denies change in bms or blood in stools, no abd complaints; abd operations significant for cholecystectomy, gastric bypass, ROEL with BSO; last colonoscopy > 10 years ago, reportedly wnl; on Diclofenac daily, no asa; no tobacco use; fmhx of colon cancer in both grandfathers, dx over the age of 60; no fmhx of IBD. Review of Systems PHQ Score Initial Depression Screen Score: 0 SCORE ROS - Provider Constitutional: no fever, no sweats, no weight loss. Eyes: yes glasses, no blurred vision, no visual loss. ENMT: no dentures, no hoarseness, no swallowing difficulties, no hearing loss, no ear infection(s), no nose bleeds. Cardiovascular: normal blood pressure, no chest pain, regular heartbeat, no heart murmur. Respiratory: no shortness of breath, no cough, no asthma, no wheezing. Gastrointestinal: no nausea, no vomiting, no diarrhea, no constipation, no blood in stool, no change in bowel habits, no abdominal pain, no hepatitis. Genitourinary: no kidney stones, no urine infection, no dysuria. Musculoskeletal: no pain, no weakness. Skin: no changing moles, no rash, no skin lumps. Neurologic: no seizures, no epilepsy, no headache. Psychiatric: no emotional or psychiatric problem. Heme/Lymph: no bleeding problems, no anemia, no blood clots, no transfusions. Allergy/Immunologic: no swollen lymph nodes/glands, no IV drug abuse. Other: Additional ROS info: Except as noted in the above Review of Systems and in the History of Present Illness, all other systems have been reviewed and are negative or noncontributory. Physical Exam Vitals & Measurements HR: 72(Peripheral) RR: 16 BP: 144/80 HT: 62 in HT: 157 cm WT: 63.4 kg WT: 139.773 lb BMI: 25.72 HEENT: normal conjunctiva, sclera clear, no scleral icterus, EOM intact, PERRLA, oral mucosa moist without lesions. Neck: trachea midline, no mass, symmetric, no thyromegaly or nodules, no adenopathy Respiratory: lungs CTA, respirations non labored. Cardiovascular: regular rate and rhythm, no murmur, no pedal edema or varicosities. Gastrointestinal: soft, non distended, no tenderness, no masses, no palpable hernias, diastasis recti no, no hepatosplenomegaly; normal bs Lymphatic: no cervical adenopathy, no supraclavicular adenopathy. Musculoskeletal: normal gait, digits and nails without infection, nodes, cyanosis, clubbing. Skin: no rashes, no lesions, no ulcers, no subcutaneous nodules, induration. Psychiatric/Neuro: oriented to time, place, person, judgement normal, affect appropriate for age, insight intact, no focal deficits. Tests: , review of old records completed , Discussed surgical options, risks, and possible complications with patient. Assessment/Plan 1. Screening for malignant neoplasm of colon (Z12.11: Encounter for screening for malignant neoplasm of colon) plan colonoscopy under anesthesia, informed consent obtained. Follow-up No qualifying data available Problem List/Past Medical History Ongoing Acrocyanosis Anxiety Asthma BMI 25.0-25.9,adult Chronic anemia Chronic osteomyelitis of left foot Depression Eczema GERD (gastroesophageal reflux disease) Heart murmur History of gastric ulcer Hypercholesterolemia Hypertension Hypothyroidism Migraines Osteoporosis Overweight Screening for malignant neoplasm of colon Vitamin D deficiency Historical Congestion Procedure/Surgical History Abdominoplasty, Amputation of left fourth toe, Ankle fracture, Arthroscopy of knee, Cholecystectomy, Colonoscopy, EGD - esophagogastroduodenoscopy, Ethmoidectomy, Foot repair, Gastric bypass, Nasal endoscopy, Nasal septoplasty, Repair of meniscus, Rotator cuff repair, Sphenoidectomy, ROEL BSO - Total abdominal hysterectomy and bilateral salpingo-oophorectomy. Medications desvenlafaxine 100 mg Tab-, 100 mg= 1 tab(s), Oral, Daily diclofenac sodium 75 mg Oral EC Tab, 75 mg= 1 tab(s), Oral, BID, PRN diphenhydramine 25 mg tab, 1 tab(s), Oral, Daily ferrous sulfate 325 mg Tab, 325 mg= 1 tab(s), Oral, BID Fosamax 70 mg Tab, 70 mg= 1 tab(s), Oral, qWeek levothyroxine 112 mcg (0.112 mg) Tab, 224 mcg= 2 tab(s), Oral, Daily lisinopril 10 mg Tab, 10 mg= 1 tab(s), Oral, Daily quetiapine 25 mg Tab, 25 mg= 1 tab(s), Oral, Bedtime vitamin A 800 (more content not included)... [facility] Comment on above: Result Comment: Elec tronically Signed By: GOYO FUCHS, Johnny Juan.[email or web address]\Date and Time Signed: 10/22/24 14:45 EST 08-19-2024 History of Presen t illness Narrative Subjective Patient ID: Ita Alanis is a 68 y.o. female who presents for Sinusitis Pt reports she has had marked head fullness for one week. Did not see PCP. Covid negative. Used a decongestant and allergy pills. No family history on file. Active Ambulatory Problems Diagnosis Date Noted Asthma ([facility]) 08/19/2024 Bilateral tinnitus 08/19/2024 Chronic frontal sinusitis 08/19/2024 Hearing loss of right ear 08/19/2024 Hypothyroidism ([facility]) 08/19/2024 Migraine ([facility]) 08/19/2024 Osteoporosis ([facility]) 08/19/2024 Resolved Ambulatory Problems Diagnosis Date Noted No Resolved Ambulatory Problems Past Medical History: Diagnosis Date Hypotension Osteoarthrosis Past Surgical History: Procedure Laterality Date ANKLE FRACTURE SURGERY CHOLECYSTECTOMY GASTRIC BYPASS HYSTERECTOMY KNEE SURGERY Left SHOULDER SURGERY Bilateral SINUS SURGERY No Known Allergies Current Outpatient Medications on File Prior to Visit Medication Sig Dispense Refill cholecalciferol (Vitamin D-3) 50 MCG (1999 UT) tablet Take 50 mcg by mouth Daily ferrous sulfate 325 (65 Fe) MG tablet Take 1 tablet by mouth in the morning and 1 tablet before bedtime. cetirizine (ZyrTEC ALLERGY) 10 MG tablet 1 (one) time each day at the same time FLUoxetine (PROzac) 20 MG capsule Take 1 capsule every day by oral route. levothyroxine (Synthroid) 200 MCG tablet Take 1 tablet by mouth Daily lisinopril 10 MG tablet one tablet daily No current facility-administered medications on file prior to visit. Objective Last Recorded Vitals Vitals: 08/19/24 1314 BP: 151/77 ENT Physical Exam Ear Hearing: intact; Auricles: right auricle normal; left auricle normal; External Mastoids: right external mastoid normal; left external mastoid normal; Ear Canals: right ear canal normal; left ear canal normal; Tympanic Membranes: right tympanic membrane normal; left tympanic membrane normal; Nose External Nose: nares patent bilaterally; external nose normal; Internal Nose: nasal mucosa normal; septum normal; bilateral inferior turbinates normal; Oral Cavity/Oropharynx Lips: normal; Teeth: normal; Gums: gingiva normal; Tongue: normal; Oral mucosa: normal; Hard palate: normal; Assessment/Plan Diagnoses and all orders for this visit: Acute URI Usually responds well to augmentin. Add flonase and saline irrigations as well documented in this encounter [facility] 08-16-2024 Telephone encounter Note Left a message for pt to contact Dr Harmon's office to schedule an appt. [facility] 08-16-2024 Miscellaneous Notes Left a message for pt to contact Dr Harmon's office to schedule an appt. Needs appt as not seen in over a year Pt has a sinus infection, she would like a rx sent in for her. Her pharmacy is [facility] in [place]. documented in this encounter [facility] 08-16-2024 Telephone encounter Note Needs appt as not seen in over a year [facility] Work Phone: 08-16-2024 Telephone encounter Note Pt has a sinus infection, she would like a rx sent in for her. Her pharmacy is [facility] in [place]. [facility] 04-05-2022 Note PROCEDURE: XR HIP LT 2 [...] authenticated by: GISELA ROSS Date: 2022-04-05 07:23 [facility] 04-05-2022 Note PROCEDURE: XR KNEE L T 4V or > COMPARISON: None. HISTORY: Derangement of knee FINDINGS: BONES:No fracture, acute abnormality, or significant arthropathy. SOFT TISSUES:Negative. No visible soft tissue swelling. EFFUSION:None visible. OTHER: Negative. IMPRESSION: No acute disease. Electronically authenticated by: GISELA ROSS Date: 2022-04-05 07:21 [facility] Evaluation + Plan note No data available for this section [facility] Evaluation note Diagnosis Acute URI- Primary Acute upper respiratory infections of unspecified site [facility] No data available for this section [facility] Progress note No data available for this section [facility] Summary Purpose Family History No Family History Records FoundNo Family History Records Found No data available for this section No Family History Records Found Advance Directives No Advanced Directives Records FoundNo Advanced Directives Records FoundNo Advanced Directives Records Found Additional Source Comments INFORMATION SOURCE (unrecogn ized section and content) DATE CREATED AUTHOR 11/26/2022 [facility] DATE CREATED AUTHOR AUTHOR'S ORGANIZ ATION 08/20/2024 [facility] EPIC DATE CREATED AUTHOR AUTHOR'S ORGANIZ ATION 10/25/2024 [facility] Care Teams (unrecognized sec tion and content) Recep Relationship Specialty Start Date End Date Sanchez Causey MD [address] [place] [address] PCP - General Family Medicine 08/16/24 Recep Relationship Specialty Start Date End Date Sanchez Causey MD [address] [place] [address] PCP - General Family Medicine 08/16/24 Reason for Visit (unrecogniz ed section and content) Reason Comments Sinusitis FOR RECORDS PERTAINING TO PATIENTS WHO ARE [...] BE BASED ON THE PRIMARY CLINICAL RECORDS. [facility] [employer] [facility]. provides no warranty or guarantee of the accuracy or completeness of information in this document.
== END 2024-11-05 12:47 | disposition home or self-care (01) ==
LOC: PST 12:46
PROVIDERS: PCP Family Medicine; Visit Provider Surgery
DX: Z01.818 Encounter for other preprocedural examination (principal); Z12.11 Encounter for screening for malignant neoplasm of colon

== ENCOUNTER 2024-11-13 06:23 | Day surgery (SDC) | payer MEDICARE, SELFPAY ==
--- NOTE | 2024-11-13 | OP_ITS ---
OPERATION DATE: 11/13/2024 PREOPERATIVE DIAGNOSIS: Colorectal screening. POSTOPERATIVE DIAGNOSIS: 3 mm sigmoid polyp, as well as mild sigmoid diverticulosis. PROCEDURE: Colonoscopy to cecum with cold biopsy forceps polypectomy x1 for a 3 mm sigmoid polyp. SURGEON: Johnny Garcia M.D. ANESTHESIA: Monitored anesthesia care. ESTIMATED BLOOD LOSS: Less than 1 mL. INDICATIONS AND CONSENT: Patient is a 68-year-old female presents for colorectal screening. Indications, risks, benefits, alternatives of proceeding with colonoscopy were explained extensively to the patient, including the risks of bleeding, colon perforation or anesthetic complications. All of her questions were answered. Informed consent was obtained. PROCEDURE: Patient brought to the operating room, placed in the left lateral decubitus position. Monitored anesthesia care was provided. Rectal exam was performed which showed no masses or blood, some narrowing of the anal canal. The scope was then inserted into the anal canal. Under direct visualization was advanced. It was advanced to the cecum where cecal markings were clearly identified. There was noted to be a good prep with some liquid brown stool throughout the colon that was partially irrigated clear. Upon withdrawal of the scope, mucosal surfaces were carefully examined. There were no mass lesions or inflammatory changes. There was mild sigmoid diverticulosis without inflammatory changes or scarring. Within the distal sigmoid, there was noted to be a 3 mm sessile polyp that was removed with cold snare with good hemostasis. The scope was retroflexed in the anal canal. There was no significant hemorrhoidal disease. The scope was then withdrawn. Patient tolerated procedure well, was sent to recovery room in good condition. Follow up colonoscopy for screening will likely be in five years, but will depend on the pathology report. CC: Jose Carlos Causey M.D. GABRIELLA
--- OUTSIDE RECORDS SUMMARY | 2024-11-13 06:27 | XMS_ITS | CCD ---
Author Organization [facility] [employer]ini[employer] Care Team Providers Care Auto Transmission Technician Name Role Phone DR SANCHEZ CAUSEY Attending [...] Unavailable Sanchez Causey MD Primary Care Provider [phone] Sanchez Causey Primary Care Physician [phone] Johnny NANCE Attending Unavailable Sanchez Causey Referring Unavailable Allergies Allergy Classification Reported Allergen(s) Allergy Type Date of Onset Reaction(s) Facility (3 sources) Acetaminophen / HYDROcodone; Translations: [Lorcet ] Drug Allergy 09-23-2013 [facility] Repository (1 source) Acetaminophen / oxyCODONE Drug Allergy [facility] Repository (1 source) formoterol Drug Allergy [facility] Repository (1 source) Acetaminophen / HYDROcodone; Translations: [acetaminophen-hyd rocodone] Drug Allergy Blisters [facility] (2 sources) acetaminophen / propoxyphene; Translations: [acetaminophen-pro poxyphene] Drug Allergy Blisters [facility] Medications Current Medications Medication Drug Class(es) Dates [...] te Episodic/Chronic Other aftercare (1 source) Other jail (current) drug therapy; Translations: [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 Normal [facility] FREE T3on 11-18-2022 FREE T3 3.75 pg/mlL Normal 2.18-3.98 [facility] Comment on above: Performed By: #### T SH, FT3, T4 #### [facility] Laboratory [address] [address] [address] Maribel العلي IRONon 11-18-2022 Iron [Mass/Vol] 50.0 ug/dL Normal 50.0-170.0 [facility] Comment on above: Performed By: #### I JAYLEN #### [facility] Laboratory [address] [address] [address] Maribel العلي T4on 11-18-2022 T4 [Mass/Vol] 9.70 ug/dL Normal 4.80-13.90 [facility] Comment on above: Performed By: #### T SH, FT3, T4 ####[facility] [address] [place], [place] [address]OgDr. Maribel العلي TSHon 11-18-2022 TSH Qn m[IU]/L Critically low 0.358-3.740 [facility] Comment on above: Performed By: #### T SH, FT3, T4 #### [facility] Laboratory [address] [address] [address] Maribel العلي FREE T3on 10-03-2022 FREE T3 2.51 pg/mlL Normal 2.18-3.98 [facility] Comment on above: Performed By: #### F T3, T4, TSH ####[facility] [address] [address]Dr. Maribel العلي T4on 10-03-2022 T4 [Mass/Vol] 13.20 ug/dL Normal 4.80-13.90 [facility] Comment on above: Performed By: #### F T3, T4, TSH ####[facility] [address] [place], [place] [address]Dr. Maribel العلي TSHon 10-03-2022 TSH Qn m[IU]/L Critically low 0.358-3.740 [facility] Comment on above: Performed By: #### F T3, T4, TSH ####[facility] [address] [place], [place] [address]Dr. Maribel العلي CBC AUTO DIFFon 08-26-2022 BASO # 0.1 103/ul Normal 0.0-0.1 [facility] Comment on above: Performed By: #### C BC ####[facility] [address] [place], [place] [address]Dr. Maribel العلي Basophils/100 WBC (Bld) 0.8 % Normal 0.2-2.0 [facility] Comment on above: Performed By: #### C BC ####[facility] [address] [place], [place] [address]Dr. Maribel العلي EO # 0.6 103/ul Normal 0.0-0.7 [facility] Comment on above: Performed By: #### C BC ####[facility] [address] [place], [place] [address]Dr. Maribel العلي Eosinophils/100 WBC (Bld) 9.1 % Critically high 0.9-7.0 [facility] Comment on above: Performed By: #### C BC ####[facility] [address] [place], [place] [address]Dr. Maribel العلي Erythrocyte distribution width (RBC) [Ratio] 13.5 % Normal 11.0-15.0 [facility] Comment on above: Performed By: #### C BC ####[facility] [address] [address]Dr. Maribel العلي Hematocrit (Bld) [Volume fraction] 38.3 % Normal 36.0-48.0 [facility] Comment on above: Performed By: #### C BC ####[facility] [address] [address]Dr. Maribel Severiano Hemoglobin (Bld) [Mass/Vol] 12.2 g/dL Normal 12.0-16.0 [facility] Comment on above: Performed By: #### C BC ####[facility] W[address] [place], [place] [address]Dr. Andreeaalisha العلي IG # 0.01 10e3/ul Normal 0.00-0.03 [facility] Comment on above: Performed By: #### C BC ####[facility] [address] [place], [place] [address]Dr. Maribel العلي IG % 0.1 % Normal 0.0-0.5 [facility] Comment on above: Performed By: #### C BC ####[facility] [address] [place], [place] [address]Dr. Andreeaalisha العلي LYMPH # 1.5 103/ul Normal 1.2-3.8 [facility] Comment on above: Performed By: #### C BC ####[facility] [address] [place], [place] [address]Dr. Maribel العلي Lymphocytes/100 WBC (Bld) 21.5 % Normal 20.5-60.0 [facility] Comment on above: Performed By: #### C BC ####[facility] [address] [place], [place] [address]Dr. Andreeaalisha العلي MANUAL DIFF REQ NO Normal [facility] Comment on above: Performed By: #### C BC ####[facility] [address] [place], [place] [address]Dr. Maribel العلي MCH (RBC) [Entitic mass] 30.0 pg Normal 26.7-34.0 [facility] Comment on above: Performed By: #### C BC ####[facility] [address] [id number]. Maribel Severiano MCHC (RBC) [Mass/Vol] 31.9 g/dL Normal 29.9-35.2 [facility] Comment on above: Performed By: #### C BC ####[facility] [address] [id number]. Maribel العلي MCV (RBC) [Entitic vol] 94.1 fL Normal 81.0-99.0 [facility] Comment on above: Performed By: #### C BC ####[facility] [address] [place], [place] [address]Dr. Maribel العلي MONO # 0.5 103/ul Normal 0.3-0.8 [facility] Comment on above: Performed By: #### C BC ####[facility] [address] [place], [place] [address]Dr. Maribel العلي Monocytes/100 WBC (Bld) 6.5 % Normal 1.7-12.0 [facility] Comment on above: Performed By: #### C BC ####[facility] [address] [place], [place] [address]Dr. Maribel العلي NEUT # 4.4 103/ul Normal 1.4-6.5 [facility] Comment on above: Performed By: #### C BC ####[facility] [address] [place], [place] [address]Dr. Maribel العلي Neutrophils/100 WBC (Bld) 62.0 % Normal 43.0-75.0 [facility] Comment on above: Performed By: #### C BC ####[facility] [address] [place], [place] [address]Dr. Maribel العلي Platelet mean volume (Bld) [Entitic vol] 9.9 fL Normal 9.5-13.5 [facility] Comment on above: Performed By: #### C BC ####[facility] [address] [place], [place] [address]Dr. Maribel العلي PLT 270 103/ul Normal 150-450 [facility] Comment on above: Performed By: #### C BC ####[facility] [address] [place], [place] [address]RkDr. Maribel لاعلي RBC 4.07 106/ul Critically low 4.20-5.40 [facility] Comment on above: Performed By: #### C BC ####[facility] [address] [place], [place] [address]WnDr. Maribel العلي WBC 7.1 103/ul Normal 4.0-11.0 [facility] Comment on above: Performed By: #### C BC ####[facility] [address] [place], [place] [address]XcDr. Maribel العلي FREE THYROXINE INDEX T7on FTI 1.36 Normal 1.30-4.50 [facility] Comment on above: Performed By: #### C MP, T7, TSH #### [facility] Laboratory [address] [address] [address] Maribel العلي T3U 29.0 % Critically low 30.0-39.0 [facility] Comment on above: Performed By: #### C MP, T7, TSH #### [facility] Laboratory [address] [address] [address] Maribel العلي T4 [Mass/Vol] 4.70 ug/dL Critically low 4.80-13.90 [facility] Comment on above: Performed By: #### C MP, T7, TSH #### [facility] Laboratory [address] [address] [address] Maribel العلي IRONon 08-26-2022 Iron [Mass/Vol] 43.0 ug/dL Critically low 50.0-170.0 [facility] Comment on above: Performed By: #### I JAYLEN ####[facility] [address] [address]Dr. Maribel العلي PROF 14(COMP METB)on 022 Albumin [Mass/Vol] 3.1 g/dL Critically low 3.4-5.0 [facility] Comment on above: Performed By: #### C MP, T7, TSH #### [facility] [address] [address] [address] Maribel العلي Albumin/Globulin [Mass ratio] 0.9 {ratio} Normal [facility] Comment on above: Performed By: #### C MP, T7, TSH #### [facility] Laboratory [address] [address] [address] Maribel العلي ALP [Catalytic activity/Vol] 120 U/L Critically high 46-116 [facility] Comment on above: Performed By: #### C MP, T7, TSH #### [facility] [address] [address] [address] Maribel العلي ALT [Catalytic activity/Vol] 24 U/L Normal 14-59 [facility] Comment on above: Performed By: #### C MP, T7, TSH #### [facility] Laboratory [address] [place] [address] Dr. Maribel العلي Anion gap [Moles/Vol] 9.2 mmol/L Normal [facility] Comment on above: Performed By: #### C MP, T7, TSH #### [facility] [address] [place] [address] Dr. Maribel العلي AST [Catalytic activity/Vol] 17 U/L Normal 15-37 [facility] Comment on above: Performed By: #### C MP, T7, TSH #### [facility] [address] [place] [address] Dr. Maribel العلي Bilirubin [Mass/Vol] 0.2 mg/dL Normal 0.2-1.0 [facility] Comment on above: Performed By: #### C MP, T7, TSH #### [facility] [address] [place] [address] Dr. Maribel العلي Calcium [Mass/Vol] 8.8 mg/dL Normal 8.5-10.1 [facility] Comment on above: Performed By: #### C MP, T7, TSH #### [facility] [address] [place] [address] Dr. Maribel العلي Chloride [Moles/Vol] 105 mmol/L Normal 98-107 [facility] Comment on above: Performed By: #### C MP, T7, TSH #### [facility] [address] [address] [address] Maribel العلي CO2 [Moles/Vol] 29.2 mmol/L Normal 21.0-32.0 [facility] Comment on above: Performed By: #### C MP, T7, TSH #### [facility] [address] [address] [address] Maribel العلي Creatinine [Mass/Vol] 0.57 mg/dL Normal 0.55-1.02 [facility] Comment on above: Performed By: #### C MP, T7, TSH #### [facility] [address] [address] [address] Maribel العلي EGFR-AF MOSOTHO >60 Normal >=60 [facility] Comment on above: Performed By: #### C MP, T7, TSH #### [facility] [address] [address] [address] Maribel العلي EGFR-NON AF MOSOTHO >60 Normal >=60 [facility] Comment on above: Performed By: #### C MP, T7, TSH #### [facility] [address] [address] [address] Maribel العلي Globulin (S) [Mass/Vol] 3.5 g/dL Normal [facility] Comment on above: Performed By: #### C MP, T7, TSH #### [facility] Laboratory [address] [place] [address] Dr. Maribel العلي Glucose [Mass/Vol] 106 mg/dL Normal 74-106 [facility] Comment on above: Performed By: #### C MP, T7, TSH #### [facility] [address] [address] [address] Maribel العلي Potassium [Moles/Vol] 4.4 mmol/L Normal 3.5-5.1 [facility] Comment on above: Performed By: #### C MP, T7, TSH #### [facility] [address] [address] [address] Maribel العلي Protein [Mass/Vol] 6.6 g/dL Normal 6.4-8.2 [facility] Comment on above: Performed By: #### C MP, T7, TSH #### [facility] [address] [place], [place] [address] Dr. Maribel العلي Sodium [Moles/Vol] 139 mmol/L Normal 136-145 [facility] Comment on above: Performed By: #### C MP, T7, TSH #### [facility] [address] [place], [place] [address] Dr. Maribel العلي Urea nitrogen [Mass/Vol] 7.0 mg/dL Normal 7.0-18.0 [facility] Comment on above: Performed By: #### C MP, T7, TSH #### [facility] [address] [place], [place] [address] Dr. Maribel العلي Urea nitrogen/Creatinine [Mass ratio] 12.3 mg/mg Normal [facility] Comment on above: Performed By: #### C MP, T7, TSH #### [facility] [address] [address] [address] Maribel العلي TSHon 08-26-2022 TSH 0.096 uIU/mL Critically low 0.358-3.740 [facility] Comment on above: Performed By: #### C LAKISHA, T7, TSH #### [facility] [address] [address] [address] Maribel العلي XR DEXA BONE DENSITYon [...] by: SARAH CARRION Date: 2022-07-07 11:[address] [facility] VIT D 25-OH LABCORPon 2021 Vitamin D, 25-Hydroxy 44.5 ng/mL Normal 30.0-100.0 [facility] Comment on above: Result Comment: Latasha min D deficiency has been defined by the [place] [employer] and an Endocrine Society practice guideline as a level of serum 25-OH vitamin D less than 20 ng/mL (1,2). The Endocrine Society went on to further define vitamin D insufficiency as a level between 21 and 29 ng/mL (2). 1. IOM ([place] of [employer]). 2010. Dietary reference intakes for calcium and D. [place]: The National Academies Press. 2. Quan MF, [place], Chema LEVINE, et al. Evaluation, treatment, and prevention of vitamin D deficiency: an Endocrine Society clinical practice guideline. JCEM. 2010; 96(7):1911-30. Performed By: #### V ITADLC #### [facility] Laboratory [address] [place] [address] Dr. Maribel العلي CBC AUTO DIFFon 05-05-2022 BASO # 0.1 103/ul Normal 0.0-0.1 [facility] Comment on above: Performed By: #### C BC #### [facility] [address] [place] [address] Dr. Maribel العلي Basophils/100 WBC (Bld) 1.0 % Normal 0.2-2.0 [facility] Comment on above: Performed By: #### C BC #### [facility] [address] [place] [address] Dr. Maribel العلي EO # 0.6 103/ul Normal 0.0-0.7 [facility] Comment on above: Performed By: #### C BC #### [facility] [address] [place] [address] Dr. Maribel العلي Eosinophils/100 WBC (Bld) 9.3 % Critically high 0.9-7.0 [facility] Comment on above: Performed By: #### C BC #### [facility] [address] [place] [address] Dr. Maribel العلي Erythrocyte distribution width (RBC) [Ratio] 12.7 % Normal 11.0-15.0 [facility] Comment on above: Performed By: #### C BC #### [facility] [address] [place] [address] Dr. Maribel العلي Hematocrit (Bld) [Volume fraction] 40.1 % Normal 36.0-48.0 [facility] Comment on above: Performed By: #### C BC #### [facility] [address] [place] [address] Dr. Maribel العلي Hemoglobin (Bld) [Mass/Vol] 13.1 g/dL Normal 12.0-16.0 [facility] Comment on above: Performed By: #### C BC #### [facility] [address] [place] [address] Dr. Maribel العلي IG # 0.02 10e3/ul Normal 0.00-0.03 [facility] Comment on above: Performed By: #### C BC #### [facility] [address] [place] [address] Dr. Maribel العلي IG % 0.3 % Normal 0.0-0.5 [facility] Comment on above: Performed By: #### C BC #### [facility] [address] [place] [address] Dr. Maribel العلي LYMPH # 1.7 103/ul Normal 1.2-3.8 [facility] Comment on above: Performed By: #### C BC #### [facility] [address] [place] [address] Dr. Maribel العلي Lymphocytes/100 WBC (Bld) 28.8 % Normal 20.5-60.0 [facility] Comment on above: Performed By: #### C BC #### [facility] [address] [place] [address] Dr. Maribel العلي MANUAL DIFF REQ NO Normal [facility] Comment on above: Performed By: #### C BC #### [facility] [address] [place] [address] Dr. Maribel العلي MCH (RBC) [Entitic mass] 31.3 pg Normal 26.7-34.0 [facility] Comment on above: Performed By: #### C BC #### [facility] [address] [address] [address] Maribel العلي MCHC (RBC) [Mass/Vol] 32.7 g/dL Normal 29.9-35.2 [facility] Comment on above: Performed By: #### C BC #### [facility] [address] [address] [address] Maribel العلي MCV (RBC) [Entitic vol] 95.9 fL Normal 81.0-99.0 [facility] Comment on above: Performed By: #### C BC #### [facility] [address] [place] [address] Dr. Maribel العلي MONO # 0.4 103/ul Normal 0.3-0.8 [facility] Comment on above: Performed By: #### C BC #### [facility] [address] [place] [address] Dr. Maribel العلي Monocytes/100 WBC (Bld) 7.0 % Normal 1.7-12.0 [facility] Comment on above: Performed By: #### C BC #### [facility] [address] [place] [address] Dr. Maribel العلي NEUT # 3.2 103/ul Normal 1.4-6.5 [facility] Comment on above: Performed By: #### C BC #### [facility] [address] [place] [address] Dr. Maribel العلي Neutrophils/100 WBC (Bld) 53.6 % Normal 43.0-75.0 [facility] Comment on above: Performed By: #### C BC #### [facility] [address] [address] [address] Maribel العلي Platelet mean volume (Bld) [Entitic vol] 10.0 fL Normal 9.5-13.5 [facility] Comment on above: Performed By: #### C BC #### [facility] [address] [address] [address] Maribel العلي PLT 244 103/ul Normal 150-450 [facility] Comment on above: Performed By: #### C BC #### [facility] [address] [address] [address] Maribel العلي RBC 4.18 106/ul Critically low 4.20-5.40 [facility] Comment on above: Performed By: #### C BC #### [facility] [address] [place] [address] Dr. Maribel العلي WBC 6.0 103/ul Normal 4.0-11.0 [facility] Comment on above: Performed By: #### C BC #### [facility] [address] [address] [address] Maribel العلي FREE T3on 05-05-2022 FREE T3 2.55 pg/mlL Normal 2.18-3.98 [facility] Comment on above: Performed By: #### C BC #### [facility] [address] [place] [address] Dr. Maribel العلي GLYCOHEMOGLOBIN A1Con 2021 ADA RECOMMENDATION SEE BELOW Normal [facility] Comment on above: Result Comment: ADA RECOMMENDED LIMIT 4.0 - 6.0 ADA THERAPEUTIC TARGET < 7.0 ACTION SUGGESTED > 7.0 Performed By: #### C BC #### [facility] [address] [place] [address] Dr. Maribel العلي Glucose [Mass/Vol] 103 mg/dL Normal [facility] Comment on above: Performed By: #### C BC #### [facility] [address] [place] [address] Dr. Maribel العلي HbA1c (Bld) [Mass fraction] 5.2 % Normal 4.5-6.2 [facility] Comment on above: Performed By: #### C BC #### [facility] [address] [place] [address] Dr. Maribel العلي LIPID PROFILEon 05-05-2022 CHOL-HDL RATIO NORM SEE BELOW Normal [facility] Comment on above: Result Comment: 3.3 - 4.4 LOW RISK 4.4 - 7.1 AVERAGE RISK 7.1 - 11.0 MODERATE RISK >11.0 HIGH RISK Performed By: #### C BC #### [facility] [address] [address] [address] Maribel العلي Cholesterol [Mass/Vol] 159 mg/dL Normal <=200 [facility] Comment on above: Performed By: #### C BC #### [facility] [address] [address] [address] Maribel العلي Cholesterol in HDL [Mass/Vol] 82 mg/dL Critically high 40-60 [facility] Comment on above: Performed By: #### C BC #### [facility] [address] [address] [address] Maribel العلي Cholesterol in LDL [Mass/Vol] 65.0 mg/dL Normal [facility] Comment on above: Performed By: #### C BC #### [facility] [address] [address] [address] Maribel العلي Cholesterol.total/Cho lesterol in HDL [Mass ratio] 1.9 {ratio} Normal [facility] Comment on above: Performed By: #### C BC #### [facility] [address] [address] [address] Maribel العلي HDL NORMAL > or = 60 mg/dl - LO W CARDIOVASCULAR RISK <40 mg/dl - HIGH CARDIOVASCULAR RISK Normal [facility] Comment on above: Performed By: #### C BC #### [facility] [address] [address] [address] Maribel العلي LDL CALC NORMAL SEE BELOW Normal [facility] Comment on above: Result Comment: <100 mg/dl OPTIMAL 100 - 129 mg/dl NEAR OR ABOVE OPTIMAL 130 - 159 mg/dl BORDERLINE HIGH 160 - 189 mg/dl HIGH >190 mg/dl VERY HIGH Performed By: #### C BC #### [facility] [address] [address] [address] Maribel العلي Triglyceride [Mass/Vol] 60 mg/dL Normal <=150 [facility] [facility] Comment on above: Performed By: #### C BC #### [facility] [address] [address] [address] Maribel العلي VLDL CALC 12.0 mg/dL Normal [facility] Comment on above: Performed By: #### C BC #### [facility] [address] [address] [address] Maribel العلي OCC BLD IMMUNO SCREENon 04-09 OCCULT BLOOD Negative Normal NEGATIVE [facility] Comment on above: Performed By: #### O BSCRN ####[facility] [address] [address]Dr. Maribel العلي PROF 14(COMP METB)on 022 Albumin [Mass/Vol] 3.0 g/dL Critically low 3.4-5.0 [facility] Comment on above: Performed By: #### F T3, LIPID, T4, CMP, TSH ####[facility] [address] [address]Dr. Maribel العلي Albumin/Globulin [Mass ratio] 0.9 {ratio} Normal [facility] Comment on above: Performed By: #### F T3, LIPID, T4, CMP, TSH ####[facility] [address] [address]Dr. Maribel العلي ALP [Catalytic activity/Vol] 116 U/L Normal 46-116 [facility] Comment on above: Performed By: #### F T3, LIPID, T4, CMP, TSH ####[facility] [address] [address]Dr. Maribel العلي ALT [Catalytic activity/Vol] 25 U/L Normal 14-59 [facility] Comment on above: Performed By: #### F T3, LIPID, T4, CMP, TSH ####[facility] [address] [address]Dr. Maribel العلي Anion gap [Moles/Vol] 10.2 mmol/L Normal [facility] Comment on above: Performed By: #### F T3, LIPID, T4, CMP, TSH ####[facility] [address] [address]Dr. Maribel العلي AST [Catalytic activity/Vol] 17 U/L Normal 15-37 [facility] Comment on above: Performed By: #### F T3, LIPID, T4, CMP, TSH ####[facility] [address] [id number]. Maribel العلي Bilirubin [Mass/Vol] 0.4 mg/dL Normal 0.2-1.0 [facility] Comment on above: Performed By: #### F T3, LIPID, T4, CMP, TSH ####[facility] [address] [address]Dr. Maribel العلي Calcium [Mass/Vol] 8.2 mg/dL Critically low 8.5-10.1 Th e [facility] Comment on above: Performed By: #### F T3, LIPID, T4, CMP, TSH ####[facility] [address] [address]Dr. Maribel العلي Chloride [Moles/Vol] 106 mmol/L Normal 98-107 [facility] Comment on above: Performed By: #### F T3, LIPID, T4, CMP, TSH ####[facility] [address] [place], [place] [address]Dr. Maribel العلي CO2 [Moles/Vol] 28.6 mmol/L Normal 21.0-32.0 [facility] Comment on above: Performed By: #### F T3, LIPID, T4, CMP, TSH ####[facility] [address] [place], [place] [address]Dr. Maribel العلي Creatinine [Mass/Vol] 0.62 mg/dL Normal 0.55-1.02 [facility] Comment on above: Performed By: #### F T3, LIPID, T4, CMP, TSH ####[facility] [address] [place], [place] [address]Dr. Maribel العلي EGFR-AF MOSOTHO >60 Normal >=60 [facility] Comment on above: Performed By: #### F T3, LIPID, T4, CMP, TSH ####[facility] [address] [place], [place] [address]Dr. Maribel العلي EGFR-NON AF MOSOTHO >60 Normal >=60 [facility] Comment on above: Performed By: #### F T3, LIPID, T4, CMP, TSH ####[facility] [address] [place], [place] [address]Dr. Maribel العلي Globulin (S) [Mass/Vol] 3.2 g/dL Normal [facility] Comment on above: Performed By: #### F T3, LIPID, T4, CMP, TSH ####[facility] [address] [address]Dr. Maribel العلي Glucose [Mass/Vol] 99 mg/dL Normal 74-106 [facility] Comment on above: Performed By: #### F T3, LIPID, T4, CMP, TSH ####[facility] [address] [address]Dr. Maribel العلي Potassium [Moles/Vol] 4.8 mmol/L Normal 3.5-5.1 [facility] Comment on above: Performed By: #### F T3, LIPID, T4, CMP, TSH ####[facility] [address] [address]Dr. Maribel العلي Protein [Mass/Vol] 6.2 g/dL Critically low 6.4-8.2 [facility] Comment on above: Performed By: #### F T3, LIPID, T4, CMP, TSH ####[facility] [address] [address]Dr. Maribel العلي Sodium [Moles/Vol] 140 mmol/L Normal 136-145 [facility] Comment on above: Performed By: #### F T3, LIPID, T4, CMP, TSH ####[facility] [address] [address]Dr. Mraibel العلي Urea nitrogen [Mass/Vol] 17.0 mg/dL Normal 7.0-18.0 [facility] Comment on above: Performed By: #### F T3, LIPID, T4, CMP, TSH ####[facility] [address] [address]Dr. Maribel العلي Urea nitrogen/Creatinine [Mass ratio] 27.4 mg/mg Normal [facility] Comment on above: Performed By: #### F T3, LIPID, T4, CMP, TSH ####[facility] [address] [address]Dr. Maribel العلي T4on 05-05-2022 T4 [Mass/Vol] 5.80 ug/dL Normal 4.80-13.90 [facility] Comment on above: Performed By: #### C BC #### [facility] [address] [place], [place] [address] Dr. Maribel العلي TSHon 05-05-2022 TSH 0.018 uIU/mL Critically low 0.358-3.740 [facility] Comment on above: Performed By: #### F T3, LIPID, T4, CMP, TSH ####[facility] [address] [place], [place] [address]DwChi العلي Covid-19 PCR ([facility])on 04-09 SARS-CoV-2 (COVID-19) RNA LENKA+probe Ql (Unsp spec) Not detected Normal NOT DETECTED [facility] Comment on above: Result Comment: This test is not yet approved or cleared by the [place] FDA. When there are no FDA-approved or cleared tests available, and other criteria are met, FDA can make tests available under an emergency access mechanism called an Emergency Use Authorization (EUA). The EUA for this test is supported by the Supervisor International Reservations of Health and Human Service's (HHS's) declaration [...] with SARS-CoV-2. Performed By: #### C VDTBH ####[facility] [address] [place], [place] [address]VkDr. Maribel العلي XR LSPINE MIN 4 VIEWSon [...] GISELA ROSS Date: 2022-04-05 09:28 Normal [facility] Vital Signs Date Time Vital Sign Value Performing Clinician Facility 10-22-2024 13:30-0500 Blood Pressure Location Johnny GRAVESOdalys [facility] 10-22-2024 13:30-0500 Diastolic blood pressure 80 mm[Hg] Johnny GRAVESL [facility] 10-22-2024 13:30-0500 Heart rate 72 /min Johnny GRAVESL [facility] 10-22-2024 13:30-0500 Respiratory rate 16 /min Johnny GRAVESL [facility] 10-22-2024 13:30-0500 Systolic blood pressure 144 mm[Hg] Johnny GRAVESOdalys [facility] 08-19-2024 13:14-0500 Body height 157.5 cm Patrica Harmon MD Work Phone: [facility] 08-19-2024 13:14-0500 Body mass index (BMI) [Ratio] 24.51 kg/m2 Patrica Harmon MD Work Phone: [facility] 08-19-2024 13:14-0500 Body weight 60.78 kg Patrica Harmon MD Work Phone: [facility] 08-19-2024 13:14-0500 Diastolic blood pressure 77 mm[Hg] Patrica Harmon MD Work Phone: [facility] 08-19-2024 13:14-0500 Systolic blood pressure 151 mm[Hg] Patrica Harmon MD Work Phone: [facility] Encounters Encounter Date Encounter Type Care Provider Facility Start: 10-22-2024 End: 10-22-2024 ambulatory Johnny NANCE Facility:[facility] Start: 10-22-2024 End: 10-22-2024 Patient encounter procedure Johnny Butler ELYOdalys [facility] [place] Start: 09-17-2024 ambulatory Johnny ELYOdalys Facility:[facility] [...] Start: 08-26-2022 End: 08-27-[address] SANCHEZ CAUSEY Facility:[facility] Start: 07-07-2022 End: 07-08-2022 ambulatory [...] above: x3 Repair of meniscus Johnny N MARSI Repair of musculoten dinous cuff of shoulder Johnny NILL Comment on above: x2 Sphenoid sinusectomy Johnny NILL Total abdominal hyst erectomy with bilateral salpingo-oophorectomy Johnny GRAVESL Plan of Treatment Date Care Activity Detail Author Start: 06-09-2024 Influenza vaccination Influenza Vacc ine (#1) [facility] Start: 07-10-2021 Pneumococcal Vaccine : 65+ Years (2 of 2 - PPSV23 or PCV20) Pneumococcal Vaccine: 65+ Years (2 of 2 - PPSV23 or PCV20) [facility] Start: 1994 Screening for malign ant neoplasm of breast Mammogram [facility] Start: 1955 Screening for malign ant neoplasm of colon [facility] Immunizations Immunization Date Immunization Notes Care Provider Fa cility 07-16-2024 influenza virus vaccine, unspecified formulation Johnny NILL [facility] 07-25-2022 SARS-CoV-2 (COVID-19 ) [id number] Johnny NANCE [facility] 05-12-2022 SARS-CoV-2 mRNA (wqxvxtowgsu-cfuj-sitdd se) vaccine Johnny GRAVESL [facility] 07-06-2021 SARS-CoV-2 (COVID-19 ) mRNA BNT-162b2 vax Johnny GRAVESL [facility] Comment on above: Result Comment: 2023: [id number] 12-13-2020 SARS-CoV-2 (COVID-19 ) mRNA BNT-162b2 vax Johnny GRAVESL [facility] Comment on above: Result Comment: 2023: [id number] 11-22-2020 SARS-CoV-2 (COVID-19 ) mRNA BNT-162b2 vax Johnny GRAVESL [facility] Comment on above: Result Comment: 2023: [id number] 07-26-2017 influenza virus vaccine, unspecified formulation Patrica Harmon MD Work Phone: [facility] Payers Date Payer Category Payer Medicaid [employer] MEDICARE A DVANTAGE [id number] 1960 Medicare [id number] 1955 Unknown [id number] 1955 Unknown [id number] 1954 Unknown [id number] 1954 Unknown [id number] [id number] 1954 Unknown [id number] [id number] 1954 Unknown [id number] [id number] 1954 Unknown [id number] [id number] 1954 Unknown [id number] [id number] 1954 Unknown [id number] [id number] 1954 Unknown [id number] [id number] 1955 Unknown [id number] [id number] Social History Date Type Detail Facility [facility] Start: 1955 Sex assigned at Not on file [facility] Start: 08-19-2024 Gender identity Not on file [facility] Start: 08-19-2024 End: 10-22-2024 Tobacco smoking status UTIS Never smoked tobacco [facility] Start: 08-19-2024 Tobacco use and exposure Smokeless tobacco non-user [facility] Start: 08-19-2024 Alcoholic beverage intake Current drinker of alcohol (finding) [facility] Start: 08-19-2024 History of Social function [facility] Tobacco smoking status Never Kimberly [facility] [place] Functional Status Date Assessment Result Facility 10-22-2024 Functional Status N/A [facility] [place] Clinical Notes 04-05-2022 to 10-22-2024 Patrica Harmon [...] vitamin A 800 (more content not included)... [facility] Comment on above: Result Comment: Elec tronically Signed By: OGYO FUCHS, Johnny Juan.leidy\Date and Time Signed: 10/22/24 [...] Active Ambulatory Problems Diagnosis Date Noted Asthma ([facility]) 08/19/2024 Bilateral tinnitus 08/19/2024 Chronic frontal sinusitis 08/19/2024 Hearing loss of right ear 08/19/2024 Hypothyroidism ([facility]) 08/19/2024 Migraine ([facility]) 08/19/2024 Osteoporosis ([facility]) 08/19/2024 Resolved Ambulatory Problems Diagnosis Date Noted [...] irrigations as well documented in this encounter [facility] 08-16-2024 Telephone encounter Note Left a message for pt to contact Dr Harmon's office to schedule an appt. [facility] 08-16-2024 Miscellaneous Notes Left a message for pt to contact Dr Harmon's office to schedule an appt. Needs appt as not seen in over a year Pt has a sinus infection, she would like a rx sent in for her. Her pharmacy is [facility] in [place]. documented in this encounter [facility] 08-16-2024 Telephone encounter Note Needs appt as not seen in over a year [facility] Work Phone: 08-16-2024 Telephone encounter Note Pt has a sinus infection, she would like a rx sent in for her. Her pharmacy is [facility] in [place]. [facility] 04-05-2022 Note PROCEDURE: XR HIP LT 2 [...] authenticated by: GISELA ROSS Date: 2022-04-05 07:23 [facility] 04-05-2022 Note PROCEDURE: XR KNEE L T 4V or > COMPARISON: None. HISTORY: Derangement of knee FINDINGS: BONES:No fracture, acute abnormality, or significant arthropathy. SOFT TISSUES:Negative. No visible soft tissue swelling. EFFUSION:None visible. OTHER: Negative. IMPRESSION: No acute disease. Electronically authenticated by: GISELA ROSS Date: 2022-04-05 07:21 [facility] Evaluation + Plan note No data available for this section [facility] Evaluation note Diagnosis Acute URI- Primary Acute upper respiratory infections of unspecified site [facility] No data available for this section [facility] Progress note No data available for this section [facility] Summary Purpose Family History No Family History Records FoundNo Family History Records Found No data available for this section No Family History Records Found Advance Directives No Advanced Directives Records FoundNo Advanced Directives Records FoundNo Advanced Directives Records Found Additional Source Comments INFORMATION SOURCE (unrecogn ized section and content) DATE CREATED AUTHOR 11/26/2022 [facility] pital DATE CREATED AUTHOR AUTHOR'S ORGANIZ ATION 08/20/2024 [facility] EPIC DATE CREATED AUTHOR AUTHOR'S ORGANIZ ATION 10/25/2024 [facility] Care Teams (unrecognized sec tion and content) 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 [facility]ERTILAS [facility]. provides no warranty or guarantee of the accuracy or completeness of information in this document.
[2024-11-13 06:30] VITALS: BP 149/63; PULSE 71; TEMP 36.4; O2SAT 97; BMI 24.7
[2024-11-13] MEDS: 0.9 % SODIUM CHLORIDE 500 ML 50 ML IV (06:58)
[2024-11-13 07:48] VITALS: BP 119/58; PULSE 68; TEMP 36.3; O2SAT 100
[2024-11-13 08:03] VITALS: BP 139/69; PULSE 667; TEMP 36.3; O2SAT 100
[2024-11-13 08:18] VITALS: BP 135/80; PULSE 67; TEMP 36.3; O2SAT 96
== END 2024-11-13 08:18 | disposition home or self-care (01) ==
PROVIDERS: PCP Family Medicine; Visit Provider Surgery
PROC: (CPT 45380; principal; 2024-11-13 07:30)
DX: Z12.11 Encounter for screening for malignant neoplasm of colon (principal); K57.30 Diverticulosis of large intestine without perforation or abscess without bleeding; Z98.84 Bariatric surgery status; Z80.0 Family history of malignant neoplasm of digestive organs; I10 Essential (primary) hypertension; E78.00 Pure hypercholesterolemia, unspecified; E03.9 Hypothyroidism, unspecified; K21.9 Gastro-esophageal reflux disease without esophagitis; J45.909 Unspecified asthma, uncomplicated; M81.0 Age-related osteoporosis without current pathological fracture; F41.9 Anxiety disorder, unspecified; F32.A Depression, unspecified; Z90.49 Acquired absence of other specified parts of digestive tract; Z90.710 Acquired absence of both cervix and uterus; K27.9 Peptic ulcer, site unspecified, unspecified as acute or chronic, without hemorrhage or perforation; K63.5 Polyp of colon
CPT/HCPCS: 45380; 88305; J2704

== ENCOUNTER 2025-08-25 14:08 | Outpatient (OUT) | payer MEDICARE, SELFPAY ==
--- NOTE | 2025-08-25 14:00 | CA_ITS ---
Patient Name: ORALIA HILTON MR#: [id number] : 1955 Exam Date: 08/25/2025 Ordering Doctor: DR SANCHEZ OCASIO . ECHOCARDIOGRAM REPORT PROCEDURE: CA ECHO DOPPLER COMPLETE INDICATIONS: Hypertension COMPARISON: None. DESCRIPTION: COMPLETE ECHOCARDIOGRAM Real-time transthoracic echocardiography with 2D, M-mode, spectral and color flow Doppler performed. QUALITY: Technical quality was good. LEFT VENTRICLE: Normal chamber size. Proximal septal mild hypertrophy (sigmoid septum). Normal left ventricle systolic function without wall motion abnormalities, ejection fraction estimated to be 65-70% LV EF: Normal left ventricular ejection fraction, (>55%). DIASTOLIC: Unable to evaluate left ventricle diastolic function. ATRIAL SEPTUM: Visually appears intact LEFT ATRIUM: Severe dilatation. RIGHT ATRIUM: Normal chamber size. RIGHT VENTRICLE: Normal chamber size. Normal right ventricular systolic function. TRICUSPID VALVE: Normal mobility and thickness. No stenosis with trivial regurgitation. Unable to assess right-sided pressure due to the lack of measurable tricuspid regurgitation. MITRAL VALVE: Normal mobility and thickness. No evidence of mitral valve stenosis. There is no mitral annular calcification. No mitral regurgitation. AORTIC VALVE: Normal trileaflet appearance. No visible sclerosis. Normal leaflet mobility. No evidence of aortic valve stenosis. No aortic regurgitation. AORTIC ROOT: Normal diameter and appearance. Ascending aorta is normal in size. PULMONIC VALVE: Normal thickness and mobility. No stenosis. No regurgitation. PERICARDIUM: No evidence of pericardial effusion. IVC: Not well visualized. PLEURA: CONCLUSION: Sigmoid septum with mild proximal hypertrophy Normal left ventricle cavity size Normal left ventricle systolic function without wall motion abnormalities, EF 65 to 70% Normal right ventricle size and systolic function Severely dilated left atrium No significant valvular abnormalities Adult Echocardiography Procedure Report Left Ventricle LVEDD (3.7 - 5.6 cm): 4.61 cm LVESD (2.2 - 4.0 cm): 2.99 cm LVIVS thickness (0.6 - 1.2 cm): 1.16 cm LVPW thickness (0.5 - 1.0 cm): 0.74 cm e': 0.12 m/s E - e': 9.01 LVOT Max Gradient: 5.92 mm[Hg] LVOT Area (cm2): 1.22 m/s Peak Velocity (LVOT): 1.22 m/s Mean Velocity (LVOT): 0.85 m/s LVOT Diameter 1.87 cm Left Ventricular Ejection Fraction: 69.67 % Left Atrium LA Volume Index (2D A2C): 57.98 ml/m2 Left Atrium Systolic Dimension: 4.13 cm Mitral Valve MV E to A Ratio: 0.93 MV Max Gradient: MV Mean Gradient: Mitral Valve A-Wave Peak Velocity: 1.14 m/s Mitral Valve E-Wave Peak Velocity: 1.06 m/s Cardiovascular Orifice Area: Right Ventricle RV Internal Diastolic Dimension: Aorta AO Root Diam: 3.30 cm Ascending Ao Diam: 3.11 cm Aortic Valve AoV Area (Peak Abdoulaye): 2.36 cm2, 2.36 cm2 AoV Area (VTI): 2.37 cm2, 2.37 cm2 Deceleration [place]: Pressure Half-Time: Peak Velocity(Antegrade Flow): 1.41 m/s Peak Gradient(Antegrade Flow): 7.94 mm[Hg] Mean Velocity(Antegrade Flow): 0.95 m/s Mean Gradient(Antegrade Flow): 4.13 mm[Hg] Velocity Time Integral: 31.07 cm Tricuspid Valve Peak Velocity (Regurgitant Flow): Peak Velocity: Pulmonic Valve Mean Gradient: 1.53 mm[Hg] Mean Velocity: 0.59 m/s Peak Velocity: 0.80 m/s Peak Gradient: 2.54 mm[Hg] Right Atrium Right Atrium Systolic Pressure: 26.76 ml, 26.76 ml Dictated by: Radha Keith MD on 08/25/2025 at 18:48 Approved by: Radha Keith MD on 08/25/2025 at 18:53
== END 2025-08-25 14:09 | disposition home or self-care (01) ==
LOC: CARD 14:08
PROVIDERS: PCP Family Medicine; Visit Provider Family Medicine
DX: I51.0 Cardiac septal defect, acquired (principal); I51.7 Cardiomegaly; I10 Essential (primary) hypertension
CPT/HCPCS: 93306

== ENCOUNTER 2025-08-27 09:23 | Outpatient (OUT) | payer MEDICARE, SELFPAY ==
--- OUTSIDE RECORDS SUMMARY | 2025-08-27 09:27 | XMS_ITS | CCD ---
Author Organization [facility] Care Team Providers Care Cloth Examiner Name Role Phone DR SANCHEZ CAUSEY Attending [...] Primary Care Unavailable RANDEE, GLORIA Admitting Unavailable RANDEEGLORIA Attending Unavailable HOY, DR BRADFORD Primary Care [...] BRADFORD Consulting Unavailable Unavailable Primary Care Provider Sanchez Hartman MD Primary Care Provider Sanchez Causey Primary Care Physician Johnny Garcia MD Attending Provider Johnny Garcia Attending Unavailable Johnny Garcia Admitting Unavailable Sanchez Causey Referring Unavailable NILOdalys, Johnny Butler Attending Unavailable NILLJohnny Attending Unavailable NILL, Johnny R Attending Unavailable Sanchez Causey MD Primary Care Provider [phone] Sanchez Causey MD Primary Care Provider [phone] REYNA CRESPO Attending Unavailable REYNA CRESPO Attending Unavailable PATRICA HARMON Attending Unavailable REYNA CRESPO Attending Unavailable REYNA CRESPO Attending Unavailable Allergies Allergy ClassificationReported Allergen(s)Allergy TypeDate of OnsetReaction(s) Facility (3 sources)Acetaminophen / HYDROcodone; Translations: [Lorcet ]Drug Cmfcyyc93-21-0803Wos [facility] Repository (1 source)Acetaminophen / oxyCODONEDrug AllergyThe [facility] Repository (1 source)formoterolDrug AllergyThe [facility]ository (2 sources)Acetaminophen / HYDROcodone; Translations: [acetaminophen-hydrocodone][facility] (3 sources)acetaminophen / propoxyphene; Translations: [acetaminophen-propoxyphene]Drug [facility]ergyMer[facility] (7 sources)Acetaminophen / oxyCODONEDrug Nlsoloz79-76-7893YdhjzLILT Healthcare Medications Current Medications MedicationDrug Class(es)DatesSig (Normalized)Sig (Original)alendronic acid 70 mg oral tablet (2 sources)BisphosphonateStart: 65-68-8340iboh 1 tablet by mouth every week Fosamax 70 mg Tab 70 mg = 1 tab(s), Oral, qWeek, Refills(s) 0 Start Date: 09/30/24 Status: Orderedamoxicillin 875 mg / clavulanate 125 mg oral tablet (2 sources)Penicillin-class AntibacterialStart: 08-19-2024 End: 45-71-4776oqml 1 tablet by mouth in the morningamoxicillin-clavulanate (Augmentin) 875-125 MG tablet Indications: Acute URI Take 1 tablet (875 mg)by mouth in the morning and 1 tablet (875 mg) before bedtime. Do all this for 10 days. 20 tablet 08/19/2024 08/29/2024 Activecetirizine hydrochloride 10 mg oral tablet (10 sources)Histamine-1 Receptor Antagonistcetirizine (ZyrTEC ALLERGY) 10 MG tablet 1 (one) time each day at the same time Activecholecalciferol 0.05 mg oral tablet (10 sources)Vitamin DStart: 76-37-1067iolc 1 tablet by mouth once daily cholecalciferol (Vitamin D-3) 50 MCG (1999) tablet Take 50 mcg by mouth Daily 08/12/2024 Iseqhc59 hr desvenlafaxine succinate 100 mg extended release oral tablet (2 sources)Serotonin and Norepinephrine Reuptake InhibitorStart: 42-21-4335noub 1 tablet by mouth once dailydesvenlafaxine 100 mg Tab- 100 mg = 1 tab(s), Oral, Daily, Refills(s) 0 Start Date: 09/30/24 Status: Ordereddiclofenac sodium 75 mg delayed release oral tablet (2 sources)Nonsteroidal Anti-inflammatory DrugStart: 89-61-8162eevg 1 tablet by mouth twice daily as needed for paindiclofenac sodium 75 mg Oral EC Tab 75 mg = 1 tab(s), Oral, BID, PRN as needed for pain, Refills(s)0 Start Date: 10/22/24 Status: OrdereddiphenhydrAMINE hydrochloride 25 mg oral tablet (2 sources)Histamine-1 Receptor AntagonistStart: 06-99-8752area 1 tablet by mouth once dailydiphenhydramine 25 mg tab = 1 tab(s), Oral, Daily, Refills(s) 0 Start Date: 10/22/24 Status: Orderedferrous sulfate 325 mg oral tablet (12 sources)Start: 82-29-1503tgnk 1 tablet by mouth in the morningferrous sulfate 325 (65 Fe) MG tablet Take 1 tablet by mouth in the morning and 1 tablet before bedtime. 08/12/2024 ActiveFLUoxetine 20 mg oral capsule (10 sources)Serotonin Reuptake Inhibitortake 1 capsule by mouth once daily FLUoxetine (PROzac) 20 MG capsule Take 1 capsule every day by oral route. Active fluticasone propionate 0.05 mg/actuat metered dose nasal spray (10 sources)CorticosteroidStart: 08-19-2024 End: 81-64-4407ergi 2 spray(s) nasal route once dailyfluticasone (Flonase) 50 MCG/ACT nasal spray Indications: Acute URI Administer 2 sprays into each nostril Daily Shake gently. Before first use, prime pump. After use, clean tip and replace cap. 48 g 3 08/19/2024 08/19/2025 Activelevothyroxine sodium 0.112 mg oral tablet (12 sources)l-ThyroxineStart: 14-84-3209sjqd 1 tablet by mouth once daily levothyroxine 112 mcg (0.112 mg) Tab 224 mcg = 2 tab(s), Oral, Daily, Refills(s) 0 Start Date: 09/30/24 Status: Orderedtake 1 tablet by mouth once daily levothyroxine (Synthroid) 200 MCG tablet Take 1 tablet by mouth Daily Active lisinopril 10 mg oral tablet (12 sources)Angiotensin Converting Enzyme InhibitorStart: 08-50-0477crst 1 tablet by mouth once dailylisinopril 10 mg Tab 10 mg = 1 tab(s), Oral, Daily, Refills(s) 0 Start Date: 09/30/24 Status: EwtouxsUflcbqshkkp-Pwnquddo-Ytbhtmbbv 1-0.5-0.075 % solution (7 sources)Start: 43-57-3675Finnenmvdbc-Moxiflox-Bromfenac 1-0.5-0.075 % solution Indications: Age-related nuclear cataract of both eyes Administer 1 drop into affected eye(s) in the morning and 1 drop at noon and 1 drop in the evening and 1 drop before bedtime. 10 mL 1 07/03/2025 ActiveQUEtiapine 25 mg oral tablet (2 sources)Atypical AntipsychoticStart: 58-24-9236zxnx 1 tablet by mouth at bedtimequetiapine 25 mg Tab 25 mg = 1 tab(s), Oral, Bedtime, Refills(s) 0 Start Date: 09/30/24 Status: Orderedvitamin a 2.4 mg oral capsule (9 sources)Vitamin AStart: 03-15-4828xsaymgr A 8000 units oral capsule Oral, BID, Prophylaxis Start Date: 12/22/11 Status: Orderedtake 3 mg by mouth once dailybeta carotene (vitamin A) 3 MG (53916 UT) capsule Take 10,000 Units by mouth Daily ActiveVitamin D2 2000 intl units oral capsule (2 sources)Start: 61-95-9271kjat 1 capsule by mouth once dailyVitamin D2 2000 intl units oral capsule 50 mcg = 1 cap(s), Oral, Daily, cap(s), Refills(s) 0 Start Date: 09/30/24 Status: Ordered Problems Active Problems Problem ClassificationProblemDateDocumented DateEpisodic/ChronicAllergic reactions (2 sources)Lwgrgj15-33-0747LncrwekuZvidzuq disorders (2 sources)Rswlzmi35-80-5896MyndjxpBtsmho (13 sources)Asthma; Translations: [Unspecified asthma, uncomplicated]Onset: 045125-99-6768QfmivevIuhzdswu (20 sources)Bilateral age-related nuclear cataracts; Translations: [Age-related nuclear cataract, bilateral]Onset: 07-03-2025 Resolved: 500067-88-4832JctqfoxRxxewktzii and other anemia (1 source)Iron deficiency anemia, unspecified; Translations: [IRON DEFICIENCY ANEMIA UNSPECIFIED]Onset: 07-29-0540OdplfsgyCliojpkgzd and other anemia (2 sources)Chronic -71-2195QzpgjdzsLeepwhlqn of lipid metabolism (3 sources)Pure hypercholesterolemia, unspecified; Translations: [Hypercholesterolemia]Onset: 362154-25-7742WvtsgyfZohgbrnqdpyvth and diverticulitis (2 sources)Diverticula of intestine; Translations: [Diverticulosis of large intestine without perforation or abscess without bleeding]Onset: 11-19-2024 ChronicEsophageal disorders (2 sources)Gastroesophageal reflux ootjqaw20-22-6181BemijihSrzftsnwd hypertension (6 sources)Essential (primary) hypertension; Translations: [Hypertensive disorder]Onset: 33-50-5024XohkjgoCdekowegpkllwa ulcer (except hemorrhage) (2 sources)H/O: gastric uogne92-16-0874CarpnzezUimyzbgm; including migraine (13 sources)Migraine; Translations: [Migraine, unspecified, not intractable, without status migrainosus]Onset: 663267-74-9630GjzcyigAghyp valve disorders (2 sources)Heart -56-7228NpvcyxobIhtxemlin arthritis and osteomyelitis (except that caused by tuberculosis or sexually transmitted disease) (2 sources)Chronic osteomyelitis of left wapz53-74-4615VusmlbtAgnbb disorders and dislocations; trauma-related (4 sources)Unspecified internal derangement of unspecified knee; Translations: [UNS INTERNAL DERANGEMENT UNS KNEE]Onset: 11-41-3123RqrwqcqYxhcyws and fatigue (1 source)Other fatigue; Translations: [OTHER FATIGUE]Onset: 44-42-0248Wpxkciam Menopausal disorders (4 sources)Other primary ovarian failure; Translations: [OTHER PRIMARY OVARIAN FAILURE]Onset: 54-36-1441GkwwrhzMwjr disorders (2 sources)Relduvbsvx69-91-1401BukdrnfPzygtptynib deficiencies (6 sources)Vitamin D deficiency, unspecified; Translations: [Vitamin D deficiency]Onset: 49-93-0034FmwerbtGgbphotdvfl deficiencies (1 source)Iron deficiency; Translations: [IRON DEFICIENCY]Onset: 11-25-2022 EpisodicOsteoporosis (13 sources)Osteoporosis; Translations: [Age-related osteoporosis without current pathological fracture]Onset: 290129-53-0995InpnxcoCelle and unspecified benign neoplasm (1 source)Polyp of colon; Translations: [Polyp of colon]Onset: 11-19-2024 EpisodicOther and unspecified benign neoplasm (1 source)Polyp of sigmoid iqesq55-64-4364LzhafgacYassc circulatory disease (2 sources)Wtfpsbwnfysp41-16-1561CvbceylRfgpb ear and sense organ disorders (11 sources)Hearing loss of right ear; Translations: [Unspecified hearing loss, right ear]Onset: 860529-62-8349LffiiwuTautp nutritional; endocrine; and metabolic disorders (2 sources)Urewlbwuta25-01-0108EnnvibziQdoax nutritional; endocrine; and metabolic disorders (2 sources)Overweight in adulthood with body mass index of 25 or more but less than 4273-95-7736EfbzqajzZbjgv screening for suspected conditions (not mental disorders or infectious disease) (2 sources)Encounter for screening for malignant neoplasm of colon; Translations: [Screening for malignant neoplasm of colon done]Onset: 05-12-2022 EpisodicOther upper respiratory infections (11 sources)Chronic frontal sinusitis; Translations: [Chronic frontal sinusitis] Onset: 844698-90-9163KddchgmLbqrx upper respiratory infections (2 sources)Acute upper respiratory infection; Translations: [Acute upper respiratory infection, unspecified]75-88-8475XnilqvjaXylrdjx disorders (18 sources)Hypothyroidism, unspecified; Translations: [Hypothyroidism]Onset: 65-64-0812LyxkvedDzrnvwvyytdc (3 sources)CONTACT W/AND (SUSP) EXPOS COVID-19; Translations: [CONTACT W/AND (SUSP) EXPOS COVID-19]Onset: 92-47-0418Eukxcfyahxkp (1 source)COUGH, UNSPECIFIED; Translations: [COUGH, UNSPECIFIED]Onset: 21-34-4613Kgvgykrlkftm (2 sources)Patient encounter ehgags47-00-4746 Past or Other Problems Problem ClassificationProblemDateDocumented DateEpisodic/ChronicOther aftercare (1 source)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; Translations: [OTH SKILLED NURSING CURRENT DRUG THERAPY]Onset: 40-78-1921UdihmuszPsyum bone disease and musculoskeletal deformities (1 source)Other specified disorders of bone density and structure, right thigh; Translations: [OTH D/O BONE DEN STRUCT RT THIGH]Onset: 07-20-8927BrnsgvngYszua ear and sense organ disorders (11 sources)Bilateral tinnitus; Translations: [Tinnitus, bilateral]Onset: 348125-20-0425FeynvubkWkqxv non-traumatic joint disorders (1 source)Pain in left hip; Translations: [PAIN IN LEFT HIP]Onset: 04-07-2022 EpisodicOther upper respiratory disease (1 source)Nasal congestion; Translations: [NASAL CONGESTION]Onset: 05-07-2022 EpisodicUnclassified (1 source)CONTACT W/AND (SUSP) EXPOS COVID-19; Translations: [CONTACT W/AND (SUSP) EXPOS COVID-19]Onset: 28-35-7422Yhzgqrmfduoz (2 sources)Congestion (morphologic abnormality)09-30-2024 Results Test NameValueInterpretationReference RangeFacilityUS Eye+Orbit - bilateralon 94-76-6752Xuheiaorb: Cataract both eyes (OU) Testing Indication: Performed for preop measurements in the determination of an intraocular lens (IOL) for both eyes (OU) Test Reliability: Good quality both eyes (OU) Interpretation: Good measurements for intraocular lens (IOL) calculation purposes. Calculation made for both eyes (OU).Formerly [facility] Radiology Study observation (narrative)[facility] HealthcareAmbulatory Visit Summaryon 23-43-2836Dycapaaqon Visit SummaryAmbulatory Visit Summary ITA ALANIS :1955 Visit Date:11/19/2024 Ambulatory Visit Instructions Your Diagnosis Polyp of sigmoid colon Sigmoid diverticulosis Your Care Team Attending Physician - GOYO FUCHS, Johnny Butler Primary Care Physician - Padilla FUCHS, Sanchez This Is Your Medications List Contact prescribing [...] A 8000 units oral capsule) Procedures Performed Colonoscopy (11/13/2024), Abdominoplasty, Amputation of left fourth toe, Ankle fracture, Arthroscopy of knee, Cholecystectomy, Colonoscopy, EGD - esophagogastroduodenoscopy, Ethmoidectomy, Foot repair, Gastric bypass, Nasal endoscopy, Nasal septoplasty, Repair of meniscus, Rotator cuff repair, Sphen oidectomy, ROEL BSO - Total abdominal hysterectomy and bilateral salpingo-oophorectomy. Medications What How Much When Instructions Unchanged [...] Tab) 2 Tablets By Mouth Every day Contactprescribing physician if questions or concerns Unchanged lisinopril [...] ulcer Hypercholesterolemia Hypertension Hypothyroidism Migraines Osteoporosis Overweight Polyp of sigmoid colon Screening for malignant neoplasm of colon Sigmoid diverticulosis Vitamin D deficiency Historical - Any problem that you are no longer receiving treatment for. Congestion Patient Survey You may receive a survey via text or e-mail asking about your office visit. Please share your experience with us by completing your survey. We appreciate your feedback and thank you for choosing us for your care. [facility] Office/Clinic Noteon 28-69-4281Rxccdkh Surgery Office/Clinic NoteGeneral Surgery Office/Clinic Note Chief Complaint post operative follow up HPI Staff 6 day post operative follow up post colonoscopy with sigmoid polypectomy. History of Present Illness s/p colonoscopy with polypectomy for small sigmoid polyp; polyp not retrieved; also mild sigmoid diverticulosis; patient denies change in bms or blood in stools, no abd complaints. Review of Systems PHQ Score Initial Depression Screen Score: 0 SCORE ROS - Provider Constitutional: no fever, no sweats, no weight loss. Eyes: no glasses, no blurred vision, no visual loss. ENMT: no dentures, no hoarseness, no swallowing difficulties, no hearing loss, no ear infection(s),no nose bleeds. Cardiovascular: normal blood pressure, no [...] been reviewed and are negative or noncontributory. Assessment/Plan 1. Polyp of sigmoid colon (K63.5: Polyp of colon) recommend surveillance colonoscopy in 5 years since polyp was not retrieved; call sooner if problems/questions. 2. Sigmoid diverticulosis (K57.30: Diverticulosis of large intestine without perforation or abscesswithout bleeding) high fiber diet and daily fiber supplement. Follow-up No qualifying data available Problem List/Past Medical History Ongoing Acrocyanosis Anxiety Asthma BMI 25.0-25.9,adult Chronic anemia Chronic osteomyelitis of left foot Depression Eczema GERD (gastroesophageal reflux disease) Heart murmur History of gastric ulcer Hypercholesterolemia Hypertension Hypothyroidism Migraines Osteoporosis Overweight Polyp of sigmoid colon Screening for malignant neoplasm of colon Sigmoid diverticulosis Vitamin D deficiency Historical Congestion Procedure/Surgical History Colonoscopy (11/13/2024), Abdominoplasty, Amputation of left fourth toe, Ankle fracture, Arthroscopy of knee, Cholecystectomy, Colonoscopy, EGD - esophagogastroduodenoscopy, Ethmoidectomy, Foot repair, Gastric bypass, Nasal endoscopy, Nasal septoplasty, Repair of meniscus, Rotator cuff repair, Sphen oidectomy, ROEL BSO - Total abdominal hysterectomy and [...] mg= 1 tab(s), Oral, Bedtime vitamin A 8000 units oral capsule, Oral, BID Vitamin D2 2000 intl units oral capsule, 50 mcg= 1 cap(s), Oral, Daily Allergies Darvocet-N 100 (Blisters) Lorcet 10/650 (Blisters) Social History Alcohol Current. Beer. 3-5 times per week., 10/22/2024 Substance Abuse - Denies Substance Abuse, 12/22/2011 Never., 10/22/2024 Tobacco - Denies Tobacco Use, 12/22/2011 Never (less than 100 in lifetime) Tobacco Use:. Never Smokeless Tobacco Use:., 11/19/2024 Family History ALS - Amyotrophic lateral sclerosis: Father. Primary malignant neoplasm of colon: Grandparent. Primary malignant neoplasm of lung: Mother. Immunizations Vaccine Date Status Comments influenza virus vaccine, inactivated 07/16/2024 Recorded SARS-CoV-2 (COVID-19) mRNAMUL.ORD![id number] 07/25/2022 Recorded SARSCoV2 mRNA(ythdleycs-zguh-iyjget) vac 05/12/2022 Recorded SARS-CoV-2 (COVID-19) mRNA BNT-162b2 vax 07/06/2021 Recorded 2024-09-30: TPV65 SARS-CoV-2 (COVID-19) mRNA BNT-162b2 vax 12/13/2020 Recorded 2024-09-30: TPV65 SARS-CoV-2 (COVID-19) mRNA BNT-162b2 vax 11/22/2020 Recorded 2024-09-30: TPV65 [facility] HospitalComment on above:Result Comment: Electronically Signed By: GOYO FUCHS, Johnny Cifuentes\Date and Time Signed: 11/19/24 13:50 EST Reminderson 33-60-1426OraugzodnKiaucvyjd From: Mera Waters LPN To: GSN - Clinical; Sent: 11/19/2024 13:37:07 EST Show up: 10/13/2029 07:00:00 EST Subject: colonoscopy recall Due Date/Time: 11/13/2029 07:00:00 EST Reminder/Recall Patient due for surveillance colonoscopy 11/13/2029 due to un-retrieved polyp on colonoscopy 11/13/2024.Cheyanne [facility] 11-13-2024L Specimen: [id number] Received: 11/13/24 Status: NIA Adkins Num: [id number] Spec Type: Surgical Subm Dr: Johnny Garcia MD FACS Tissues: A Colon Biopsy (SIGMOID COLON POLYP) Procedures: Sravani RODRIGUEZ/Jolene L4 Age/ Patient Sex Location Account Attending Physician Ita Alanis 68/F LABELL [id number] Johnny Garcia MD FACS SPEC NUM: [id number] RECD: 11/13/24 STATUS: NIA ADKINS NUM: [id number] FIDEL: 11/13/[address] [facility] DR: Johnny Garcia MD FACS ENTERED: 11/13/24 [facility] DR: SPEC TYPE: Surgical DEPT: JOSÉ SALMERON ORDERED: HE/2, Gross/Micro L4 ORDERED: HE/2, Gross/Micro L4 Pathological Diagnosis Colon, sigmoid, polypectomy: - Fecal material only. - No colonic mucosa present for evaluation. Clinical Information Sigmoid colon polyp, mild diverticulosis Gross Description Received in formalin, labeled with the patient's name, date of and sigmoid colon polyp is fecal material measuring in aggregate 0.9 x 0.2 x 0.1 cm. The specimen is entirely submitted in A1. TW Microscopic Description Microscopic examination is performed. CPT Codes 60745 Specimen: [id number] Received: 11/13/24 Status: NIA Adkins Num: [id number] Spec Type: Surgical Subm Dr: Johnny Garcia MD FACS Tissues: A Colon Biopsy (SIGMOID COLON POLYP) Procedures: HE/2, Gross/Micro L4 Patient: Ita Alanis [id number] (Continued) Signed (signature on file) Juan Oglesby MD 11/14/24 0847Normal [facility] Physician [facility] CenterAmbulatory Visit Summaryon 34-75-1522Rimziuooak Visit SummaryAmbulatory Visit Summary ITA ALANIS :1955 Visit Date:10/22/2024 Ambulatory Visit Instructions Your Care Team Attending Physician - GOYO FUCHS, Johnny Butler Primary Care Physician - Padilla FUCHS, Sanchez Referring Physician - Sanchez Causey MD This [...] - Total abdominal hysterectomy and bilateral salpingo-oophorectomy. Discharge Vitals Heart Rate (Peripheral) 72 Respiratory [...] Tab) 2 Tablets By Mouth Every day Contactprescribing physician if questions or concerns Unchanged lisinopril [...] you for choosing us for your care. [facility] HospitalFREE T3on 94-28-6339YBWG T33.75 pg/mlLNormal2.18-3.98The [facility] HospitalComment on above:Performed By: #### TSH, FT3, T4 #### [facility] [address] [place] [address] Dr. Maribel Brambila 55-36-8367Bkir [Mass/Vol]50.0 ug/wFSiilqu17.0-170.0The [facility] HospitalComment on above:Performed By: #### IRON #### [facility] [address] [place] [address] Dr. Maribel Urrutia4on 46-95-4361P9 [Mass/Vol]9.70 ug/dLNormal4.80-13.90The [facility] HospitalComment on above:Performed By: #### TSH, FT3, T4 ####[facility] [address] [place], [place] [address]r. [facility] 65-83-3606VBV Qnm[IU]/LCritically low0.358-3.740The [facility] HospitalComcorewell health pennock hospital on above:Performed By: #### TSH, FT3, T4 #### [facility] [address] [place] [address] Dr. Maribel العليPLACIDO T3on 53-37-4942FPCG T32.51 pg/mlLNormal2.18-3.98The [facility] HospitalComment on above:Performed By: #### FT3, T4, TSH ####[facility] [address] [place], [place]Dr. Maribel [address] 10-03-2022 T4 [Mass/Vol]13.20 ug/dLNormal4.80-13.90The [facility] HospitalComment on above: Performed By: #### FT3, T4, TSH ####[facility] [address] [place], [place] [address]Dr. [facility] 76-12-1227SME Qnm[IU]/LCritically low0.358-3.740The [facility] HospitalComment on above:Performed By: #### FT3, T4, TSH ####[facility] [address] [place], [place]Dr. Andreealan ChangCBC AUTO DIFFon 82-18-3819VNFA #0.1 103/ulNormal0.0-0.1The [facility] HospitalComment on above:Performed By: #### CBC ####[facility] [address] [place], [place] [address]Dr.Andreeaalisha ChangBasophils/100 WBC (Bld)0.8 %Normal0.2-2.0The [facility] on above:Performed By: #### CBC ####[facility] [address] [place], [place] [address]Dr.Yilan ChangEO #0.6 103/ulNormal0.0-0.7The [facility] HospitalComment on above:Performed By: #### CBC ####[facility] [address] [place], [place] [address]Dr.Yilan ChangEosinophils/100 WBC (Bld)9.1 %Critically high0.9-7.0The [facility] on above:Performed By: #### CBC ####[facility] [address] [place], [place] [address]Dr. Andreealan ChangErythrocyte distribution width (RBC) [Ratio]13.5 %Jmcaxz73.0-15.0The [facility] HospitalComment on above:Performed By: #### CBC ####[facility] [address] [place], [place] [address]Dr.Maribel ChangHematocrit (Bld) [Volume fraction]38.3 %Gaqzeo48.0-48.0The [facility] HospitalComment on above:Performed By: #### CBC ####[facility] [address] [place], [place] [address]Dr.Maribel ChangHemoglobin (Bld) [Mass/Vol]12.2 g/dL Inennc06.0-16.0The [facility] HospitalComment on above:Performed By: #### CBC ####[facility] [address] [place] [address]Dr. Andreeaalisha SeverianoIG #0.01 10e3/ulNormal0.00-0.03The [facility] HospitalComment on above: Performed By: #### CBC ####[facility] [address] [place] [address]DrViktoriya العليIG %0.1 %Normal0.0-0.5The [facility] HospitalComment on above:Performed By: #### CBC ####[facility] [address] [place], [place] [address]Dr.Maribel BacaH #1.5 103/ulNormal1.2-3.8The [facility] HospitalComment on above:Performed By: #### CBC ####[facility] [address] [place], [place] [address]Dr. Maribel Bacahocytes/100 WBC (Bld)21.5 %Mbdegb32.5-60.0The [facility] Comment on above:Performed By: #### CBC ####[facility] [address] [place], [place] [address]Dr.Maribel العليMANUAL DIFF REQNONormalThe [facility] HospitalComment on above:Performed By: #### CBC ####[facility] [address] [place], [place] [address]Dr.Maribel العليWH[facility] (RBC) [Entitic mass]30.0 ewHgtoyr02.7-34.0The [facility] HospitalComment on above: Performed By: #### CBC ####[facility] [address] [place], [place] [address]Dr.Maribel العليGARNET HEALTH (RBC) [Mass/Vol]31.9 g/dLNormal 29.9-35.2The [facility] HospitalComment on above:Performed By: #### CBC ####[facility] [facility] D[address] [place], [place] [address]DrChi العليV (RBC) [Entitic vol]94.1 wDIxxixg61.0-99.0The [facility] Comment on above:Performed By: #### CBC ####[facility] Xzvk[address] [place], [place] [address]Dr.Maribel العليMONO #0.5 103/ulNormal0.3-0.8 The [facility] HospitalComment on above:Performed By: #### CBC ####[facility] Pqyovmfwcs[address] [place], [place] [address]Dr.Maribel العلي Monocytes/100 WBC (Bld)6.5 %Normal1.7-12.0The [facility] HospitalComment on above: Performed By: #### CBC ####[facility] Solhyukzmz[address] [place], [place] [address]Dr.Maribel العليNEUT #4.4 103/ulNormal1.4-6.5The [facility] HospitalComment on above:Performed By: #### CBC ####[facility] Tjmgpv[address] [place], [place] [address]Dr.Maribel العليNeutrophils/100 WBC (Bld)62.0 %Elmbpq39.0-75.0The [facility] HospitalComment on above:Performed By: #### CBC ####[facility] Pfigpyamrn[address] [place], [place] [address]Dr.Maribel العليPlatelet mean volume (Bld) [Entitic vol]9.9 fLNormal9.5-13.5 The [facility] HospitalComment on above:Performed By: #### CBC ####[facility] Gxmgrucuzg[address] [place], [place] [address]Dr.Maribel العليPLT270 103/xeKttwpl140-447Kgq [facility] HospitalComment on above:Performed By: #### CBC ####[facility] Hglddljqte[address] [place], [place] [address]Dr. Maribel العليRBC4.07 106/ulCritically low4.20-5.40The [facility] HospitalComment on above:Performed By: #### CBC ####[facility] Qxlslekyxf[address] [place], [place] [address]Dr.Maribel العليWBC7.1 103/ulNormal4.0-11.0The [facility] HospitalComment on above:Performed By: #### CBC ####[facility] [address] [place] [address]Dr.Yilan Calero THYROXINE INDEX T7on 88-55-4500EID7.40Fmsnfm9.30-4.50The [facility] HospitalComment on above:Performed By: #### CMP, T7, TSH #### [facility] [address] [address] [address] Maribel العليT3U29.0 %Critically low30.0-39.0The [facility] HospitalComment on above:Performed By: #### CMP, T7, TSH #### [facility] [address] [place] [address] Dr. Maribel العليT4 [Mass/Vol]4.70 ug/dLCritically low4.80-13.90The [facility] HospitalComment on above:Performed By: #### CMP, T7, TSH #### [facility] [address] [place] [address] Dr. Maribel Brambila 15-18-8538Undz [Mass/Vol]43.0 ug/dLCritically low 50.0-170.0The [facility] HospitalComment on above:Performed By: #### IRON ####[facility] [address] [address]Dr. Maribel العليPROF 14(COMP METB)on 78-20-4994Cjcowsw [Mass/Vol]3.1 g/dLCritically low3.4-5.0The [facility] HospitalComment on above:Performed By: #### CMP, T7, TSH #### [facility] [address] [place] [address] Dr. Maribel العليAlbumin/Globulin [Mass ratio]0.9 {ratio}NormalThe [facility] HospitalComment on above:Performed By: #### CMP, T7, TSH #### [facility] [address] [place] [address] Dr. Maribel العليALP [Catalytic activity/Vol]120 U/LCritically xgov93-986Pbc [facility] HospitalComment on above:Performed By: #### CMP, T7, TSH #### [facility] [address] [address] [address] Maribel Muñiz [Catalytic activity/Vol]24 U/BVpmhcb17-45Ibi [facility] HospitalComment on above:Performed By: #### CMP, T7, TSH #### [facility] [address] [address] [address] Maribel Soon gap [Moles/Vol]9.2 mmol/LNormalThe [facility] HospitalComment on above:Performed By: #### CMP, T7, TSH #### [facility] [address] [place] [address] Dr. Maribel Russell [Catalytic activity/Vol]17 U/IItabef26-35Mzz [facility] HospitalComment on above:Performed By: #### CMP, T7, TSH #### [facility] [address] [place] [address] Dr. Maribel العليBilirubin [Mass/Vol]0.2 mg/dLNormal0.2-1.0The [facility] Comment on above:Performed By: #### CMP, T7, TSH #### [facility] [address] [place] [address] Dr. Maribel العليCalcium [Mass/Vol]8.8 mg/dLNormal8.5-10.1The [facility] Comment on above:Performed By: #### CMP, T7, TSH #### [facility] [address] [place] [address] Dr. Maribel العليChloride [Moles/Vol]105 mmol/JSxqgpx30-897Mmv [facility] Comment on above:Performed By: #### CMP, T7, TSH #### [facility] [address] [place] [address] Dr. Maribel العليCO2 [Moles/Vol]29.2 mmol/RXejsfc54.0-32.0The [facility] Comment on above:Performed By: #### CMP, T7, TSH #### [facility] [address] [place] [address] Dr. Yilan ChangCreatinine [Mass/Vol]0.57 mg/dLNormal0.55-1.02The [facility] HospitalComment on above:Performed By: #### CMP, T7, TSH #### [facility] [address] [address] [address] Maribel CarrGFR-AF SWAZI>60Normal>=60The [facility] HospitalComment on above:Performed By: #### CMP, T7, TSH #### [facility] [address] [address] [address] Maribel CarrGFR-NON AF SWAZI>60Normal>=60The [facility] HospitalComment on above:Performed By: #### CMP, T7, TSH #### [facility] [address] [place] [address] Dr. Maribel العليGlobulin (S) [Mass/Vol]3.5 g/dLNormalThe [facility] HospitalComment on above:Performed By: #### CMP, T7, TSH #### [facility] [address] [place] [address] Dr. Maribel العليGlucose [Mass/Vol]106 mg/iUYusxti03-059GqyUk [facility] Comment on above:Performed By: #### CMP, T7, TSH #### [facility] [address] [place] [address] Dr. Maribel العليPotassium [Moles/Vol]4.4 mmol/LNormal3.5-5.1[facility] Comment on above:Performed By: #### CMP, T7, TSH #### [facility] [address] [place] [address] Dr. Maribel العليProtein [Mass/Vol]6.6 g/dLNormal6.4-8.2The [facility] Comment on above:Performed By: #### CMP, T7, TSH #### [facility] [address] [place] [address] Dr. Maribel العليSodium [Moles/Vol]139 mmol/FUevgmf817-565Hah [facility] Comment on above:Performed By: #### CMP, T7, TSH #### [facility] [address] [place], [place] [address] Dr. Maribel Zaldivar nitrogen [Mass/Vol]7.0 mg/dLNormal7.0-18.0The [facility] HospitalComment on above:Performed By: #### CMP, T7, TSH #### [facility] [address] [place], [place] [address] Dr. Maribel Zaldivar nitrogen/Creatinine [Mass ratio]12.3 mg/mgNoAshtabula County Medical CenterComment on above:Performed By: #### RANJAN, T7, TSH #### [facility] [address] [place], [place] [address] Dr. Maribel Doss 16-95-3838PIZ2.096 uIU/mLCritically low0.358-3.740The [facility] HospitalComment on above:Performed By: #### RANJAN, T7, TSH #### [facility] [address] [address] [address] Maribel العليXR DEXA BONE DENSITYon 47-60-4779UV DEXA BONE DENSITYEXAMINATION: XR DEXA BONE DENSITY, 07/07/2022 10:22 AM EDT HISTORY: [...] Electronically authenticated by: SARAH CARRION Date: 2022-07-07 11:35NoAshtabula County Medical CenterVIT D 25-[place] LABCORPon 55-81-3833Ydsknij D, 25-Jpukpss59.5 ng/mL Ezgcrf40.0-100.0The [facility] HospitalComment on above:Result Comment: Vitamin D deficiency has been defined by the [employer] of Medicine and an Endocrine Society practice guideline as a level of serum 25-OH vitamin D less than 20 ng/mL (1,2). The Endocrine Society went on to further define vitamin D insufficiency as a level between 21 and 29 ng/mL (2). 1. IOM ([employer]ell of Medicine). 2010. Dietary reference intakes for calcium and D. [place]: The National Academies Press. 2. Quan MF, Williams [place], Chema LEVINE, et al. Evaluation, treatment, and prevention of vitamin D deficiency: an Endocrine Society clinical practice guideline. JCEM. 2010; 96(7):1911-30.Performed By: #### VITADLC #### [facility] [address] [place] [address] Dr. Maribel Cummings AUTO DIFFon 37-50-9191PSFK #0.1 103/ulNormal0.0-0.1Uk HealthcareComment on above:Performed By: #### CBC #### [facility] [address] [place] [address] Dr. Maribel العليBasophils/100 WBC (Bld)1.0 %Normal0.2-2.0The [facility] Comment on above:Performed By: #### CBC #### [facility] [address] [place] [address] Dr. Maribel Arroyo #0.6 103/ulNormal0.0-0.7The [facility] HospitalComment on above: Performed By: #### CBC #### [facility] [address] [place] [address] Dr. Maribel Carrosinophils/100 WBC (Bld)9.3 %Critically high0.9-7.0The [facility] HospitalComment on above:Performed By: #### CBC #### [facility] [address] [place] [address] Dr. Maribel Carrrythrocyte distribution width (RBC) [Ratio]12.7 %Yeohhz64.0-15.0 The [facility] HospitalComment on above:Performed By: #### CBC #### [facility] [address] [place] [address] Dr. Maribel العليHematocrit (Bld) [Volume fraction]40.1 %Kspxsp51.0-48.0The [facility] HospitalComment on above:Performed By: #### CBC #### [facility] [address] [place] [address] Dr. Maribel العليHemoglobin (Bld) [Mass/Vol]13.1 g/vQEghhlo88.0-16.0The [facility] HospitalComment on above:Performed By: #### CBC #### [facility] [address] [place] [address] Dr. Maribel العليIG #0.02 10e3/ulNormal0.00-0.03The [facility] HospitalComment on above:Performed By: #### CBC #### [facility] [address] [place] [address] Dr. Maribel العليIG %0.3 %Normal0.0-0.5The [facility] HospitalComment on above: Performed By: #### CBC #### [facility] [address] [place] [address] Dr. Maribel Chua #1.7 103/ulNormal1.2-3.8The [facility] HospitalComment on above:Performed By: #### CBC #### [facility] [address] [place] [address] Dr. Maribel Bacamphocytes/100 WBC (Bld)28.8 %Uyzycm24.5-60.0The [facility] HospitalComment on above:Performed By: #### CBC #### [facility] [address] [place] [address] Dr. Maribel العليMANUAL DIFF REQNONormalThe [facility] HospitalComment on above: Performed By: #### CBC #### [facility] [address] [place] [address] Dr. Maribel Ness (RBC) [Entitic mass]31.3 ycFmzzaz54.7-34.0The [facility] HospitalComment on above:Performed By: #### CBC #### [facility] [address] [place] [address] Dr. Maribel VergaraHC (RBC) [Mass/Vol]32.7 g/jJBobcbs82.9-35.2The [facility] HospitalComment on above:Performed By: #### CBC #### [facility] [address] [address] [address] Maribel VergaraV (RBC) [Entitic vol]95.9 fYYjpiiv04.0-99.0The [facility] HospitalComment on above:Performed By: #### CBC #### [facility] [address] [address] [address] Maribel Bucio #0.4 103/ulNormal0.3-0.8The [facility] HospitalComment on above:Performed By: #### CBC #### [facility] [address] [place] [address] Dr. Maribel Elaineocytes/100 WBC (Bld)7.0 %Normal1.7-12.0The [facility] Comment on above:Performed By: #### CBC #### [facility] [address] [address] [address] Maribel Vital #3.2 103/ulNormal1.4-6.5The [facility] HospitalComment on above:Performed By: #### CBC #### [facility] [address] [address] [address] Maribel Bearutrophils/100 WBC (Bld)53.6 %Ijuyqm22.0-75.0The [facility] HospitalComment on above:Performed By: #### CBC #### [facility] [address] [address] [address] Maribel Lopezlet mean volume (Bld) [Entitic vol]10.0 fLNormal9.5-13.5The [facility] HospitalComment on above:Performed By: #### CBC #### [facility] [address] [address] [address] Maribel العليPLT244 103/qqBmcxhh197-460Ywu [facility] HospitalComment on above: Performed By: #### CBC #### [facility] [address] [place] [address] Dr. Maribel العليRBC4.18 106/ulCritically low4.20-5.40The [facility] on above:Performed By: #### CBC #### [facility] [address] [place] [address] Dr. Maribel العليWBC6.0 103/ulNormal4.0-11.0The [facility] on above: Performed By: #### CBC #### [facility] [address] [place] [address] Dr. Maribel العليFREE T3on 61-03-7006PNEI T32.55 pg/mlLNormal2.18-3.98The [facility] on above:Performed By: #### CBC #### [facility] [address] [place] [address] Dr. Maribel العليGLYCOHEMOGLOBIN A1Con [id number] RECOMMENDATIONSEE BELOWUnion The [facility] HospitalComcorewell health [facility] on above:Result Comment: ADA RECOMMENDED LIMIT 4.0 - 6.0 ADA THERAPEUTIC TARGET < 7.0 ACTION SUGGESTED > 7.0Performed By: #### CBC #### [facility] [address] [place] [address] Dr. Maribel العليGlucose [Mass/Vol]103 mg/dLNoBrecksville VA / [facility]ille [facility] on above:Performed By: #### CBC #### [facility] [address] [place] [address] Dr. Maribel العليHbA1c (Bld) [Mass fraction]5.2 %Normal4.5-6.2The [facility] on above:Performed By: #### CBC #### [facility] [address] [place] [address] Dr. Maribel العليLIPID PROFILEon 04-10-0125WVYE-HDL RATIO NORMSEE [facility] on above:Result Comment: 3.3 - 4.4 LOW RISK 4.4 - 7.1 AVERAGE RISK 7.1 - 11.0 MODERATE RISK >11.0 HIGH RISKPerformed By: #### CBC #### [facility] [address] [address] [address] Maribel العليCholesterol [Mass/Vol]159 mg/dLNormal<=200[facility] Comment on above:Performed By: #### CBC #### [facility] [address] [address] [address] Maribel العليCholesterol in HDL [Mass/Vol]82 mg/dLCritically ccfv71-32LytUk HealthcareComment on above:Performed By: #### CBC #### [facility] [address] [address] [address] Maribel العليCholesterol in LDL [Mass/Vol]65.0 mg/dLRegency Hospital CompanyComment on above:Performed By: #### CBC #### [facility] [address] [place] [address] Dr. Maribel Searsestercornelia.total/Cholesterol in HDL [Mass ratio]1.9 {ratio} NormalUk HealthcareComment on above:Performed By: #### CBC #### [facility] [address] [address] [address] Maribel FordL NORMAL> or = 60 mg/dl - LOW CARDIOVASCULAR RISK <40 mg/dl - HIGH CARDIOVASCULAR RISKRegency Hospital CompanyComment on above:Performed By: #### CBC #### [facility] [address] [address] [address] Maribel العليLDL CALC NORMALSEE BELOWNoAshtabula County Medical CenterComment on above:Result Comment: <100 mg/dl OPTIMAL 100 - 129 mg/dl NEAR OR ABOVE OPTIMAL 130 - 159 mg/dl BORDERLINE HIGH 160 - 189 mg/dl HIGH >190 mg/dl VERY HIGH Performed By: #### CBC #### [facility] [address] [address] [address] Maribel العليTriglyceride [Mass/Vol]60 mg/dLNormal<=150[facility] Comment on above:Performed By: #### CBC #### [facility] [address] [address] [address] Yilan ChangVLDL CALC12.0 mg/dLNormalThe [facility] HospitalComment on above: Performed By: #### CBC #### [facility] [address] [address] [address] Maribel Muir BLD IMMUNO SCREENon 61-17-4875YAJCHA BLOODNegativeNormal NEGATIVEThe [facility] HospitalComment on above:Performed By: #### OBSCRN ####[facility] [address] [place] [address]Dr. Maribel العليPROF 14(COMP METB)on 00-92-9637Boawhmr [Mass/Vol]3.0 g/dLCritically low3.4-5.0The [facility] Hospitalment on above:Performed By: #### FT3, LIPID, T4, CMP, TSH ####[facility] [address] [address]Dr. Maribel العليAlbumin/Globulin [Mass ratio]0.9 {ratio}NormalThe [facility] HospitalComment on above:Performed By: #### FT3, LIPID, T4, CMP, TSH ####[facility] [address] [address]Dr. Maribel العليALP [Catalytic activity/Vol]116 U/GApkuqg76-311Xqb [facility] Comment on above:Performed By: #### FT3, LIPID, T4, CMP, TSH ####[facility] [address] [address]Dr. Maribel العليALT [Catalytic activity/Vol]25 U/ZXuwnog96-24Phs [facility] HospitalComment on above: Performed By: #### FT3, LIPID, T4, CMP, TSH ####[facility] [address] [place] [address]Dr. Maribel العليAnion gap [Moles/Vol]10.2 mmol/LNormalThe [facility]igh Hospitalment on above:Performed By: #### FT3, LIPID, T4, CMP, TSH ####[facility] [address] [place] [address]Dr. Maribel ChangAST [Catalytic activity/Vol]17 U/MMntuat06-64Zgu [facility] on above:Performed By: #### FT3, LIPID, T4, CMP, TSH ####[facility] [address] [place] [address]Dr. Yilan ChangBilirubin [Mass/Vol]0.4 mg/dLNormal0.2-1.0The [facility] Comment on above:Performed By: #### FT3, LIPID, T4, CMP, TSH ####[facility] [address] [place] [address]Dr. Yilan العلي Calcium [Mass/Vol]8.2 mg/dLCritically low8.5-10.1The [facility] on above:Performed By: #### FT3, LIPID, T4, CMP, TSH ####[facility] [address] [place] [address]Dr. Yilan ChangChloride [Moles/Vol]106 mmol/MRhuvia30-305Bhk [facility] on above:Performed By: #### FT3, LIPID, T4, CMP, TSH ####[facility] [address]mtcc[address] [place], [place] [address]Dr. Yilan ChangCO2 [Moles/Vol]28.6 mmol/LNormal 21.0-32.0The [facility] on above:Performed By: #### FT3, LIPID, T4, CMP, TSH ####[facility] [address] [place] [address]Dr. Yilan ChangCreatinine [Mass/Vol]0.62 mg/dLNormal0.55-1.02The [facility] on above:Performed By: #### FT3, LIPID, T4, CMP, TSH ####[facility] [address] [place] [address]Dr. Yilan ChangEGFR-AF SWAZI>60Normal>=60The [facility] on above: Performed By: #### FT3, LIPID, T4, CMP, TSH ####[facility] [address] [place], [place] [address]Dr. Yilan ChangEGFR-NON AF SWAZI>60 Normal>=60The [facility] HospitalComment on above:Performed By: #### FT3, LIPID, T4, CMP, TSH ####[facility] [address] [place] [address]Dr. Yilan ChangGlobulin (S) [Mass/Vol]3.2 g/dLNoAshtabula County Medical Center Comment on above:Performed By: #### FT3, LIPID, T4, CMP, TSH ####[facility] [address] [place] [address]Dr. Yilan العلي Glucose [Mass/Vol]99 mg/kSGughoq22-077Nwd [facility] HospitalComment on above: Performed By: #### FT3, LIPID, T4, CMP, TSH ####[facility] [address] [place], [place] [address]Dr. Yilan ChangPotassium [Moles/Vol]4.8 mmol/LNormal3.5-5.1The [facility] HospitalComment on above:Performed By: #### FT3, LIPID, T4, CMP, TSH ####[facility] [address] [place], [place] [address]Dr. Yilan ChangProtein [Mass/Vol]6.2 g/dLCritically low6.4-8.2 The [facility] on above:Performed By: #### FT3, LIPID, T4, CMP, TSH ####[facility] [address] [place], [place] [address]Dr. Yilan ChangSodium [Moles/Vol]140 mmol/DGvtcyi381-762KoiUk Healthcare Comment on above:Performed By: #### FT3, LIPID, T4, CMP, TSH ####[facility] [address] [place], [place] [address]Dr. Yilan ChangUrea nitrogen [Mass/Vol]17.0 mg/dLNormal7.0-18.0The [facility] Hospitalment on above:Performed By: #### FT3, LIPID, T4, CMP, TSH ####[facility] [address] [place], [place] [address]Dr. Yilan ChangUrea nitrogen/Creatinine [Mass ratio]27.4 mg/mgNormalThe [facility] HospitalComment on above:Performed By: #### FT3, LIPID, T4, CMP, TSH ####[facility] [address] [place] [id number] العليT4on 63-52-0395Q7 [Mass/Vol]5.80 ug/dLNormal4.80-13.90The [facility] on above:Performed By: #### CBC #### [facility] [address] [place], [place] [address] Dr. Maribel Doss 65-36-8844JXS6.018 uIU/mLCritically low0.358-3.740The [facility] Hospitalment on above:Performed By: #### FT3, LIPID, T4, CMP, TSH ####[facility] [address] [place] [address] [address]Dr. Maribel العليCovid-19 PCR (CVDTBH)on 51-51-4305TVPI-CoV-2 (COVID-19) RNA LENKA+probe Ql (Unsp spec)Not detectedNormalNOT DETECTEDThe [facility] on above:Result Comment: This test is not yet approved or cleared by the [place] FDA. When there are no FDA-approved or cleared tests available, and other criteria are met, FDA can make tests available under an emergency access mechanism called an Emergency Use Authorization (EUA). The EUA for this test is supported by the [place] of Health and Human Service's (HHS's) declaration [...] of clinical signs and symptoms consistent with SARS-CoV-2.Performed By: #### CVDTBH ####[facility] [address] [place] [address]Dr. Yialisha العليXR LSPINE MIN 4 VIEWSon 69-92-8120SJ LSPINE MIN 4 VIEWSEXAMINATION: XR LSPINE MIN 4 VIEWS HISTORY: Hip [...] Electronically authenticated by: GISELA ROSS Date: 2022-04-05 09:28[facility] Vital Signs Date TimeVital SignValuePerforming HuffqsrtmXuoeoxir75-97-9366 13:30-0500Blood Pressure LocationMichael NILL [phone]-FylnhA[facility] [place] 10-22-2024 13:30-0500Diastolic blood odlvjhwq29 mm[Hg]Johnny NILL [phone]-SasqyAultman [facility] [place] 10-22-2024 13:30-0500Heart rate72 /minMichael NILL [phone]-ZlhfzAultman [facility] [place] 10-22-2024 13:30-0500Respiratory rate16 /minMichael NILL [phone]-OxkfpAultman [facility] [place] 10-22-2024 13:30-0500Systolic blood abbfahfs528 mm[Hg]Johnny NILL [phone]-QaftiUniversity Hospitals [facility] 08-19-2024 13:14-0500Body isqhne533.5 cmPatrica Harmon MD Work Phone: [facility] [phone] 13:14-0500Body mass index (BMI) [Ratio]24.51 kg/y9JupkmnPatrica Harmon MD Work Phone: [facility] CenterAcdyaxojgl31-13-0738 13:14-0500Body qjwwxe82.78 kgPatrica Harmon MD Work Phone: [facility] CenterLhteizfdpn85-69-6544 13:14-0500Diastolic blood ocqshdpy59 mm[Hg]Patrica Harmon MD Work Phone: noHeart[facility] ServicesQxocuivyrh35-05-9927 13:140500Systolic blood gtaqgtvr984 mm[Hg]Patrica Harmon MD Work Phone: [facility] Healthcare Encounters Encounter DateEncounter TypeCare ProviderFacilityStart: 08-05-2025 End: 01-05-7994Humbdc flowsheetJonathan D Zahler DO Work Phone: no[facility] EyeStart: 08-05-2025 End: 61-31-7507Ndaqjm flowsheetJonathan D Zahler DO Work Phone: no[facility] EyeStart: 08-05-2025 End: 71-33-3349Frxkfi follow up visit related to original pxJonathan D Zahler DO Work Phone: noms [facility] EyeComment on above:Pseudophakia (Primary Dx)Start: 08-05-2025 End: 81-77-6035jxtpayadvwRSSYFZPR Chante SHELLERNot AvailableStart: 07-16-2025 End: 25-22-5007Vodxzc flowsheetJonathan D Zahler DO Work Phone: noms [facility] EyeStart: 07-16-2025 End: 47-58-7261Dhqriw flowsheetJonathan D Zahler DO Work Phone: n[facility] EyeStart: 07-16-2025 End: 09-62-4609Ilgzlc follow up visit related to original pxJonathan D Zahler DO Work Phone: noms [facility] EyeComment on above:Pseudophakia (Primary Dx); Age-related nuclear cataract of right eyeStart: 07-16-2025 End: 58-16-8124nqtvdfggogASEBQBSU Chante SHELLERNot AvailableStart: 07-11-2025 End: 24-33-0011Gxbpak flowsheetJonathan Chante Sumayaer DO Work Phone: [facility] EyeStart: 07-11-2025 End: 32-92-4799Kphnxu flowsheetQuitavasu Shairf Sumayaer DO Work Phone: [facility] EyeStart: 07-11-2025 End: 28-79-7593bbokudmvniJLOUYHXD D ZAHLERNot AvailableStart: 07-11-2025 End: 06-63-4066Enskod follow up visit related to original pxReyna Sharif Lukristopher DO Work Phone: [facility] EyeComment on above:Pseudophakia (Primary Dx)Start: 07-03-2025 End: 56-35-9699Mpowyz flowsFernvasu Sharif Sumayaer DO Work Phone: [facility] EyeStart: 07-03-2025 End: 63-41-3759Nstyse flowsheetQuitanatemperatriz Chante Zalindaer DO Work Phone: [facility] EyeStart: 07-03-2025 End: 80-95-3520vzlyulhjhgQLZTEPBO Chante CRESPONot AvailableStart: 11-19-2024 End: 49-89-8734xhjprofzckGegppig R NILLFacility: ueStart: 11-19-2024 End: 83-68-5281Oxsifly encounter procedureMichael R NILL [phone]-SdpynBrown [facility] [place] Start: 11-13-2024 End: 70-39-7370mhifwknywxPhidjpa R NillSt. [facility] Work Phone: Start: 11-13-2024 End: 79-89-7430Qutddudh ReferredJohnny Garcia MD Work Phone: [facility]-LAB Path Spec Shan[facility] HospStart: 11-13-2024 End: 61-10-3104beintsnzjdLvevcbr R NILLFacility:CD:[id number]: 10-22-2024 End: 76-41-1676dhztlprmwhDcmhqhq HoyFacility: BellueStart: 10-22-2024 End: 92-33-1919Wjlzppw encounter procedureMichael R NILL [phone]-CxpvfBrown Memorial Hospital [facility] [place] Start: 52-60-7141iokdlybgkkGuhfwof HoyFacility:[facility] Rehabilitationtart: 08-19-2024 End: 52-06-8137Moocga flowsheetPatrica Harmon MD Work Phone: noms [facility]USKStart: 08-19-2024 End: 62-01-1653Ouarul flowsKodak Harmon MD Work Phone: noms ENT NORETIENNEKStart: 08-19-2024 End: 44-49-2128amyrjysfqrVNACPD H TIMMISNot AvailableStart: 08-19-2024 End: 06-69-2130Lvoepu outpatient visit 25 minutesPatrica Harmon MD Work Phone: noms [facility] CAMPUSETIENNEKComment on above:Acute URI (Primary Dx)Start: 08-16-2024 End: 71-85-3553Ldkqplghu encounterPatrica Harmon MD Work Phone: noms CI ENTStart: 64-62-4470vemzwxdulqGU SANCHEZ HOY Facility:H4Sgvje: 11-18-2022 End: 18-76-8006kdqzmgmswyEJ SANCHEZ HOYFacility:X1Oxrrb: 10-03-2022 End: 89-03-2749cbsvcejkaeYZ SANCHEZ HOYFacility:F9Ldymc: 08-26-2022 End: 03-45-9007jsbaqdmxkpUT SANCHEZ HOYFacility:S5Vvywj: 07-07-2022 End: 89-12-6960wlzxtmxuvoDC SANCHEZ HOYFacility:N9Cjjnt: 05-05-2022 End: 86-12-6605ugwjyqngopXB SANCHEZ HOYFacility:U8Diico: 05-04-2022 End: 51-88-0920rjeplggpubQZ SANCHEZ HOYFacility:Q7Ntoyd: 04-04-2022 End: 43-39-4708zuegxbbqhkTH SANCHEZ HOYFacility:H1 Procedures DateProcedureProcedure DetailPerforming ClinicianStart: 39-57-6506Gln bmtry prtl coher intrfrmtry io lens pwr calJovasu Sheller DO Work Phone: Start: 07-03-2025 End: 64-40-5787Gujrn medical xm&eval compre new pt 1/> vstAge-related nuclear cataract of both eyesReyna Crespo DO Work Phone: comment on above:Age-related nuclear cataract of both eyes (Primary Dx)Start: 53-09-3465QvnjdunsnjeDtyrgvei Luhler DO Work Phone: Start: 55-67-7279AhenpfixwbiVxozrhl NILL AbdominoplastyMichael NILL Amputation of left fourth toeMichael NILL Arthroscopy of kneeMichael NILL Bypass of stomachMichael NILL CholecystectomyMichael NILL ColonoscopyMichael NILL Endoscopy of noseMichael NILL EsophagogastroduodenoscopyMichael NILL Ethmoid sinusectomyMichael NILL Foot repairMichael NILL Comment on above:x 17Fracture of ankle (disorder) Johnny NILL Nasal septoplastyMichael NILL Comment on above:n7Myfywa of meniscusMichael NILL Repair of musculotendinous cuff of shoulderMichael NILL Comment on above:u9Kiawjwtk sinusectomyMichael NILL Total abdominal hysterectomy with bilateral salpingo-oophorectomyMichael NILL Plan of Treatment DateCare ActivityDetailAuthorStart: 41-66-8165Elidxbkwf for malignant neoplasm of colonNOKY HealthcareStart: 08-05-2025 End: 03-31-2105Tqfdjgx encounter procedureNOPatient's Choice Medical Center of [facility] EyeComment on above:ArrivedStart: 07-16-2025 End: 91-83-1701Qsyibox encounter hxygibjyj68/08/2025 1:30 PM EDT Office Visit [facility] [address] [place] [address] Reyna Crespo DO [address] [place] [address] ArrivedNOPatient's Choice Medical Center of [facility] EyeComment on above:ArrivedStart: 07-11-2025 End: 21-05-5530Grscebx encounter bwbqruydp90/03/2025 9:00 AM EDT Office Visit [facility] [address] [place] [address] Reyna Crespo DO [address] [place] [address] [facility] EyeStart: 07-03-2025 End: 68-86-3641Grcptkf encounter evxibbkqt81/25/2025 8:45 AM EDT Office Visit [facility] [address] [place] [phone] Reyna Crespo, DO [address] [place] [address] [facility] EyeComment on above:ArrivedStart: 23-18-6306BZNDO-19 Vaccine ( season)COVID-19 Vaccine ( season)NOM HealthcareStart: 03-39-8423Iiwealxat vaccinationInfluenza Vaccine (#1)NOM HealthcareStart: 21-94-2117Huzsbsjbw vaccinationInfluenza Vaccine (#1)[facility] HealthcareStart: 83-44-3220Wexvzincdwux Vaccine: 65+ Years (2 of 2 - PCV20 or PCV21)Pneumococcal Vaccine: 65+ Years (2 of 2 - PCV20 or PCV21)[facility] HealthcareStart: 98-58-4120Olpiaxhousqm Vaccine: 65+ Years (2 of 2 - PPSV23 or PCV20)Pneumococcal Vaccine: 65+ Years (2 of 2 - PPSV23 or PCV20)[facility] HealthcareStart: 72-40-0047Oxvmtsnfgjfl Vaccine: 65+ Years (2 of 2 - PPSV23)Pneumococcal Vaccine: 65+ Years (2 of 2 - PPSV23)[facility] Start: 91-65-0380Rlxzxicsk for malignant neoplasm of breastMammogramNOMS HealthcareStart: 22-12-6968KKbE/Tdap/Td Vaccines (1 - Tdap)DTaP/Tdap/Td Vaccines (1 - Tdap)[facility] HealthcareStart: 12-29-0295Mdqhqdsyd for malignant neoplasm of colonNOMS Healthcare Immunizations Immunization DateImmunizationNotesCare VrulerrzKtjetmic27-48-8708dxcqyrvrm virus vaccine, unspecified formulationMichael NILL [phone]-HrdnnUniversity Hospitals [facility] 51-94-6154HMHQ-CoV-2 (COVID-19) mRNAMUL.ORD!f83390Hjodeyb NILL [phone]-DohlwUniversity Hospitals Elyria Medical Center 33-15-8404WMGR-CoV-2 mRNA (zcreerozveo-giuj-gouydjf) vaccineMichael NILL [phone]-PidcjUniversity Hospitals Ely[facility] Medical Center 72-50-2578MDEP-CoV-2 (COVID-19) mRNA BNT-162b2 vaxMichael NILL [phone]-CsdimUniversity Hospitals Elyria Medical Center Comment on above:Result Comment: 2024-09-30: [id number]-ZnN-7 (COVID- 19) mRNA BNT-162b2 vaxMichael NILL [phone]-BfadxUniversity Hospitals Elyria Medical Center Comment on above:Result Comment: 2024-09-30: [id number]-DpS-0 (COVID- 19) mRNA BNT-162b2 vaxMichael NILL [phone]-ZjvtdUniversity Hospitals Elyria Medical Center Comment on above:Result Comment: 2024-09-30: [id number] virus vaccine, unspecified formulationPatrica Harmon MD Work Phone: NOHeart[facility] Payers DatePayer CategoryPayerPolicy ID2025Self-pay2024MedicaidAETNA MEDICARE ADVANTAGE [id number] 2020MedicareMEDICARE [id number] [id number] [id number] 2.840.1.789553.3.57[id number] 2.840.1.281755.3.57[id number] 2.840.1.989682.3.579.2.07352-65-4798Yjwnmyc8412457 2.840.1.776158.3.579.[id number] 2.840.1.104853.3.579.[id number] 2.840.1.231460.3.57[id number] 2.840.1.024811.3.579.[id number] 2.840.1.300143.3.57[id number] 2.840.1.140056.3.579.2.[id number] 2.840.1.282755.3.579.[id number] 2.840.1.194628.3.579.2.[id number] 2..840.1.571316.3.579.2.[id number] 2..840.1.821277.3.579.2.537[id number] 2..840.1.029119.3.579.[id number] 2..840.1.156068.3.579.2.[id number] 2..840.1.111462.3.57[id number] 2.16.840.1.030614.[id number] 926d7637-n861-7af5-ved2-3g1470s41ysdDwtjmyf34773464 2.16.840.1.770886.3.579.2.531 Social History DateTypeDetailFacilityTobacco smoking status NHISTobacco smoking consumption unknownNOMS HealthcareStart: 65-85-1919Sxx assigned at birthNot on fileNOMS HealthcareStart: 08-19-2024 End: 82-49-6229Eujgtv identityNot on [facility] Ohiotart: 08-19-2024 End: 19-71-1355Saarbfj smoking status NHISNever smoked tobaccoNOMS Healthcare Start: 08-19-2024 End: 67-88-7098Cjsnejc use and exposureSmokeless tobacco non-userNOMS Healthcare Start: 08-19-2024 End: 43-70-6377Hdziikzdp beverage intakeCurrent drinker of alcohol (finding)NOMS HealthcareStart: 08-19-2024 End: 00-69-9634Wkhpokr of Social functionNOMS HealthcareStart: 73-77-2168Sqqlzqa smoking statusNeParma Community General Hospital General Surgery [place]vueStart: 03-01-6488IpiHzrzhs (finding)[facility]tart[facility] 1955 [facility]NE[facility]: Highlighted rowStart: NINFHistory of tobacco usePassive smokerMiss[facility] Delta Medical Center Functional Status VbkeBoscuszdpjKtihrqVfhqhvae96-88-0321Qqbkxgpigt StatusN/AFunc [facility] Lzwpimll72-45-9599Yuyvjubnsk StatusN/[facility] [place] Clinical Notes 04-05-2022 to 08-05-2025 Note Date & MgmfZpzmFcjieyys85-51-3192 History of Present illness Narrative* Reyna Crespo DO - 08/05/2025 9:00 AM EDT Images from the original note were not included. Assessment/Plan Diagnoses and all orders for this visit: Pseudophakia - s/p CE OD (POD #1): Patient provided with post-op form. Instructed to continue drops as well as shield. Instructed to call immediately with increased pain, redness, decreased vision, questions or concerns. documented in this encounterMissouri Delta Medical CenterBycydjpris09-75-7603 History of Present illness Narrative* Reyna Crespo DO - 07/16/2025 1:30 PM EDT Images from the original note were not included. Assessment/Plan Diagnoses and all orders for this visit: Pseudophakia - s/p CE OS (POD #7): Patient provided with post-op form. Instructed to continue drops. Discontinueeye shield. Instructed to call immediately with increased pain, redness, decreased vision, questions or concerns. Age-related nuclear cataract of right eye - Visually Significant Cataract, OD: I discussed the risks, benefits, alternatives, and expectations of cataract surgery. A complete ophthalmic exam was performed and it was determined that the cataracts were a primary source of vision decline, affecting activities of daily living, necessitating removal. Limited vision post-surgery may occur with pre-existing conditions affecting other areas of the eye or the brain was explained and the patient displayed an understanding. The overall objective is to improve ADLs, not eliminate glasses or restore vision to 20/20. Tests were reviewed - the different lens options were explained including the xko-nt-vtpgbq fees for any upgrades. Intraocular lens (IOL) selection may be altered either prior to or during the procedure based on the doctor's discretion including reverting to a traditional intraocular lens (IOL). They understood that there will exist the potential of glasses prescription need post surgery for near, distance or possibly both. The patient stated a full understanding and a desire to proceed with the procedure. The patient received cataract measurements and had any additional questions answered. - A complete exam was performed including a physical exam: General: AAOx3 and NAD, Lungs: Clear, Heart: RRR, Abdomen: S/NT/ND, Extremities: no pitting edema. documented in this [facility]10-03-2025 History of Present illness Narrative* Reyna Crespo DO - 07/11/2025 9:00 AM EDT Images from the original note were not included. Assessment/Plan Diagnoses and all orders for this visit: Pseudophakia - s/p CE OS (POD #1): Patient provided with post-op form. Instructed to continue drops as well as shield. Instructed to call immediately with increased pain, redness, decreased vision, questions or concerns. documented in this [facility]09-25-2025 History of Present illness Narrative* Reyna Crespo DO - 07/03/2025 8:45 AM EDT Images from the original note were not included. Subjective Patient ID: Ita Alanis is a 69 y.o. female. Chief Complaint Cataract HPI Cataract In both eyes. Associated symptoms include blurred vision, glare and a need for brighter lights. Severity is moderate. Onset was gradual. Duration of months. Frequency is constant. Context: distance vision, mid-range vision and near vision. Since onset it is gradually worsening. Affected activities include reading and driving. Treatments tried include eye drops. Response to treatment was no improvement. 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 Pt states she is having cloudiness in right eye (OD) , is having trouble seeing signs when driving. 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 No flomax No latex No pacemakers/defib Last edited by ADWOA Calzada on 07/03/2025 9:04 AM. Current Outpatient Medications (Ophthalmic Agents) Medication Sig Dispense Refill Cuetbdxqofg-Xsutyvzt-Wnqdqtqog 1-0.5-0.075 % solution Administer 1 drop into affected eye(s) in themorning and 1 drop at noon and 1 drop in the evening and 1 drop before bedtime. 10 mL 1 No current facility-administered medications for this visit. (Ophthalmic Agents) Current Outpatient Medications (Other) Medication Sig Dispense Refill beta carotene (vitamin A) 3 MG (35941 UT) capsule Take 10,000 Units by mouth Daily cetirizine (ZyrTEC ALLERGY) 10 MG tablet 1 (one) time each day at the same time cholecalciferol (Vitamin D-3) 50 MCG (2000 UT) tablet Take 50 mcg by mouth Daily ferrous sulfate 325 (65 Fe) MG tablet Take 1 tablet by mouth in the morning and 1 tablet before bedtime. FLUoxetine (PROzac) 20 MG capsule Take 1 capsule every day by oral route. fluticasone (Flonase) 50 MCG/ACT nasal spray Administer 2 sprays into each nostril Daily Shake gently. Before first use, prime pump. After use, clean tip and replace cap. 48 g 3 levothyroxine (Synthroid) 200 MCG tablet Take 1 tablet by mouth Daily lisinopril 10 MG tablet one tablet daily No current facility-administered medications for this visit. (Other) Past Medical History: Diagnosis Date Hypotension Hypothyroid Osteoarthrosis Allergies Allergen Reactions Oxycodone-Acetaminophen Hives acetaminophen / oxycodone Review of Systems Constitutional: Negative. HENT: Negative. Eyes: Negative. Respiratory: Negative. Cardiovascular: Negative. Gastrointestinal: Negative. Genitourinary: Negative. Musculoskeletal: Negative. Skin: Negative. Neurological: Negative. Psychiatric/Behavioral: Negative. Hematological: Negative. Endocrine: Negative. Allergic/Immunologic: Negative. Objective Base Eye Exam Visual Acuity (Snellen - Linear) Right Left Dist cc 20/40 -2 20/40 Correction: Glasses Tonometry (Applanation, 9:19 AM) Right Left Pressure 16 16 Pupils Pupils Right PERRL Left PERRL Visual Mckee Left Right Full Full Extraocular Movement Right Left Full, Ortho Full, Ortho Neuro/Psych Oriented x3: Yes Dilation Both eyes: 1.0% Mydriacyl @ 9:15 AM Additional Tests Keratometry K1 [place] K2 [place] Right 43.75 172 44.00 82 Left 43.25 80 44.00 170 Glare Testing High Right 20/200 Left 20/150 Slit Lamp and Fundus Exam External Exam Right Left External Brow ptosis Brow ptosis Slit Lamp Exam Right Left Lids/Lashes Blepharitis Blepharitis Conjunctiva/Sclera White and quiet White and quiet Cornea Decreased tear film Decreased tear film Anterior Chamber Deep and quiet Deep and quiet Iris Round and reactive Round and reactive Lens 3+ Nuclear sclerosis, 2+ Cortical cataract, Vacuoles 2+ Nuclear sclerosis, 2+ Cortical cataract, Vacuoles Anterior Vitreous Normal Normal Fundus Exam Right Left Disc Normal Normal Macula Normal Normal Vessels Normal Normal Periphery Normal Normal Refraction Wearing Rx Sphere Cylinder [place] Add Right +0.50 -0.75 108 +2.00 Left +3.25 -1.00 078 +2.00 Age: mths Manifest Refraction Sphere Cylinder [place] Right -1.00 -0.25 151 Left +4.00 -1.25 059 Final Rx Sphere Cylinder [place] Dist VA Right -1.00 -0.25 120 20/40 Left +3.50 -1.25 060 20/40 Expiration Date: 07/03/2026 Assessment/Plan Age-related nuclear cataract of both eyes - Visually Significant Cataract, OU: I discussed the risks, benefits, alternatives, and expectations of cataract surgery. A complete ophthalmic exam was performed and it was determined that the cataracts were a primary source of vision decline, affecting activities of daily living, necessitating removal. Limited vision post-surgery may occur with pre-existing conditions affecting other areas of the eye or the brain was explained and the patient displayed an understanding. The overall objective is to improve ADLs, not eliminate glasses or restore vision to 20/20. Tests were reviewed - the different lens options were explained including the iep-pc-ixrzoi fees for any upgrades. Intraocular lens (IOL) selection may be altered either prior to or during the procedure based on the doctor's discretion including reverting to a traditional intraocular lens (IOL). They understood that there will exist the potential of glasses prescription need post surgery for near, distance or possibly both. The patient stated a full understanding and a desire to proceed with the procedure. The patient received cataract measurements and had any additional questions answered. - A complete exam was performed including a physical exam: General: AAOx3 and NAD, Lungs: Clear, Heart: RRR, Abdomen: S/NT/ND, Extremities: no pitting edema. - Coordination of care will be shared with Dr. Li. Cataract Surgery for OS will take place - 07/10 and OD - 08/04. documented in this encounterMissouri Delta Medical [id number] NoteGeneral Surgery Office/Clinic Note Chief Complaint consultation for colonoscopy HPI [...] swallowing difficulties, no hearing loss, no ear infection(s),no nose bleeds. Cardiovascular: normal blood pressure, no [...] Bedtime vitamin A 800 (more content not included)...[facility] CenterComment on above:Result Comment: Electronically Signed By: GOYO FUCHS, Johnny Cifuentes\Date and Time Signed: 10/22/24 14:45 [id number] History of Present illness Narrative* Patrica Harmon MD - 08/19/2024 1:10 PM EST Subjective Patient ID: Ita Alanis is a 68 y.o. female who presents for Sinusitis Pt reports she has had marked head fullness for one week. Did not see PCP. Covid negative. Used a decongestant and allergy pills. No family history on file. Active Ambulatory Problems Diagnosis Date Noted Asthma ([facility]) 08/19/2024 Bilateral tinnitus 08/19/2024 Chronic frontal sinusitis 08/19/2024 Hearing loss of right ear 08/19/2024 Hypothyroidism ([facility]) 08/19/2024 Migraine ([facility]) 08/19/2024 Osteoporosis ([facility]) 08/19/2024 Resolved Ambulatory Problems Diagnosis Date Noted No Resolved Ambulatory Problems Past Medical History: Diagnosis Date Hypotension Osteoarthrosis Past Surgical History: Procedure Laterality Date ANKLE FRACTURE SURGERY CHOLECYSTECTOMY GASTRIC BYPASS HYSTERECTOMY KNEE SURGERY Left SHOULDER SURGERY Bilateral SINUS SURGERY No Known Allergies Current Outpatient Medications on File Prior to Visit Medication Sig Dispense Refill cholecalciferol (Vitamin D-3) 50 MCG (2000 UT) tablet Take 50 mcg by mouth [...] saline irrigations as well documented in this encounterMissouri Delta Medical [id number] Telephone encounter Note* Telephone Encounter - Lolly Harmon - 08/16/2024 1:28 PM EST Left a message for pt to contact Dr Harmon's office to schedule an appt. [facility] [id number] Miscellaneous Notes* Telephone Encounter - Lolly Harmon - 08/16/2024 1:28 PM EST Left a message for pt to contact Dr Harmon's office to schedule an appt. * Telephone Encounter - Patrica Harmon MD - 08/16/2024 12:05 PM EST Needs appt as not seen in over a year * Telephone Encounter - Lolly Harmon - 08/16/2024 11:22 AM EST Pt has a sinus infection, she would like a rx sent in for her. Her pharmacy is [facility] in [place]. documented in this encounterMissouri Delta Medical CenterQtehlluskb59-45-4686 Telephone encounter Note* Telephone Encounter - Patrica Harmon MD - 08/16/2024 12:05 PM EST Needs appt as not seen in over a year [facility] Work Phone: 1(241) 574-146111-08-2024 Telephone encounter Note* Telephone Encounter - Lolly Harmon - 08/16/2024 11:22 AM EST Pt has a sinus infection, she would like a rx sent in for her. Her pharmacy is [facility] in [place]. [facility] Medical [id number] NotePROCEDURE: XR HIP LT 2 3V W PELVIS [...] Electronically authenticated by: GISELA ROSS Date: 2022-04-05 07:23[facility]06-28-2022 NotePROCEDURE: XR KNEE LT 4V or > COMPARISON: None. HISTORY: Derangement of knee FINDINGS: BONES:No fracture, acute abnormality, or significant arthropathy. SOFT TISSUES:Negative. No visible soft tissue swelling. EFFUSION:None visible. OTHER: Negative. IMPRESSION: No acute disease. Electronically authenticated by: GISELA ROSS Date: 2022-04-05 07:21[facility]Evaluation + Plan note No data available for this section [facility] [place] Evaluation note* Diagnosis Acute URI- Primary Acute upper respiratory infections of unspecified site documented in this encounter [facility] HealthcareEvaluation noteNo assessment information availableAvita Health System Work Phone: Evaluation note* Diagnosis Age-related nuclear cataract of both eyes- Primary documented in this encounter [facility] HealthcareEvaluation note* Diagnosis Pseudophakia- Primary Lens replaced by other means documented in this encounter [facility] HealthcareEvaluation note* Diagnosis Pseudophakia- Primary Lens replaced by other means Age-related nuclear cataract of right eye documented in this encounter [facility] HealthcareEvaluation note* Diagnosis Pseudophakia- Primary Lens replaced by other means documented in this encounter [facility] HealthcareHospital Discharge instructions No data available for this section [facility] [place] Progress note No data available for this section [facility] Summary Purpose Family History No Family History Records Found No data available for this section No Family History Records FoundNo Family History Records Found No data available for this section No Family History Records Found Advance Directives No Advanced Directives Records FoundNo Advanced Directives Records FoundNo Advanced Directives Records FoundNo Advanced Directives Records Found Additional Source Comments INFORMATION SOURCE (unrecogn ized section and content) DATE CREATED AUTHOR 11/26/2022 [facility] DATE CREATED AUTHOR AUTHOR'S ORGANIZ ATION 11/15/2024 [facility] DATE CREATED AUTHOR AUTHOR'S ORGANIZ ATION 11/20/2024 [facility] DATE CREATED AUTHOR AUTHOR'S ORGANIZ ATION 08/06/2025 [facility] EPIC Care Teams (unrecognized sec tion and content) Team MemberRelationshipSpecialtyStart DateEnd Date Sanchez Causey MD [address] [place] [address] [facility] - [facility]Team MemberRelationshipSpecialtyStart DateEnd Date Sanchez Causey MD [address] [place] [address] PCP - [facility]08/16/24 Team Status: Inactive Member Role Status Dates Johnny Garcia MD FACS Attending Provider Active Start: November 13, 2024 End: November 13, 2024Team MemberRelationshipSpecialtyStart DateEnd Date Sanchez Causey MD [address] [place] [address] [facility]/24Team MemberRelationshipSpecialtyStart DateEnd Date Sanchez Cuasey MD [address] [place] [address] PCP - [facility]08/16/24Team MemberRelationshipSpecialtyStart DateEnd Date Sanchez Causey MD [address] [place] [address] PCP - [facility]08/16/24Te MemberRelationshipSpecialtySt[place] DateEnd Date Sanchez Causey MD [address] [facility] [place] [address] PCP - [facility]08/16/24Te MemberRelationsSutter Amador HospitalpecialtySan [place] DateEnd Date Sanchez Causey MD [address] [facility] [place] [address] PCP - [facility]08/16/24Te MemberRelationshipS[address] peter hospitalialtySan [place] DateEnd Sanchez Causey MD [address] [facility] [place] [phone] PCP - [facility]08/16/24 Reason for Visit (unrecogniz ed section and content) ReasonCommentsSinusitisReasonCommentsCataractReasonCommentsPost-op Follow-up OeywvwOplzoynzZsik-faZuhhwuclBatvfqSrvlyjqmTwbo-sr Goals (unrecognized section and content) Goals may be documented in a n alternate section FOR RECORDS PERTAINING TO PATIENTS WHO ARE [...] BE BASED ON THE PRIMARY CLINICAL RECORDS. [facility] [employer] [facility]. provides no warranty or guarantee of the accuracy or completeness of information in this document.
[2025-08-27 09:38] LABS: Hematocrit 25.2 % (36.0-48.0); Immature Granulocytes Abs Auto 0.01 10^3/uL (0.00-0.03); Immature Granulocytes Pct Auto 0.2 % (0.0-0.5); Lymphocytes Absolute Auto 1.2 10^3/uL (1.2-3.8); Mean Corpuscular HGB Conc 27.0 g/dL (29.9-35.2); Mean Corpuscular Hemoglobin 19.2 pg (26.7-34.0); Mean Corpuscular Volume 71.0 fL (81.0-99.0); Platelet Count 269 10^3/uL (150-450); Red Blood Count 3.55 10^6/uL (4.20-5.40); White Blood Count 6.1 10^3/uL (4.0-11.0)
[2025-08-27 09:48] LABS: Hemoglobin 6.8 g/dL (12.0-16.0)
[2025-08-27 10:39] LABS: Iron 11.0 ug/dL (50.0-170.0)
[2025-08-27 10:49] LABS: Alanine Aminotransferase 26 U/L (14-59); Albumin Globulin Ratio 0.9; Albumin Level 3.1 g/dL (3.4-5.0); Alkaline Phosphatase 106 U/L (46-116); Anion Gap 11.1; Aspartate Amino Transferase 17 U/L (15-37); Blood Urea Nitrogen 11.0 mg/dL (7.0-18.0); Calcium 8.3 mg/dL (8.5-10.1); Carbon Dioxide 27.6 mmol/L (21.0-32.0); Chloride 108 mmol/L (98-107); Cholesterol 173 mg/dL (<=200); Estimated GFR (African America >60 (>=60 mL/min/1.73m^2); Estimated GFR (Non-African Ame >60 (>=60 mL/min/1.73m^2); Free T3 2.30 pg/mL (2.18-3.98); Globulin 3.4 g/dL; Glucose 93 mg/dL (74-106); HDL Cholesterol 106 mg/dL (40-60); NT Pro B Type Natriuretic Pept 259.0 pg/mL (<=900.0); Potassium 3.7 mmol/L (3.5-5.1); Sodium 143 mmol/L (136-145); Thyroid Stimulating Hormone 0.179 uIU/mL (0.358-3.740); Total Protein 6.5 g/dL (6.4-8.2); Triglycerides 55 mg/dL (<=150); VLDL CHOLESTEROL 11.0 mg/dL
== END 2025-08-27 09:24 | disposition home or self-care (01) ==
PROVIDERS: PCP Family Medicine; Visit Provider Family Medicine
DX: I11.0 Hypertensive heart disease with heart failure (principal); E78.5 Hyperlipidemia, unspecified; R73.09 Other abnormal glucose; Z12.12 Encounter for screening for malignant neoplasm of rectum; D64.9 Anemia, unspecified; E03.9 Hypothyroidism, unspecified; E55.9 Vitamin D deficiency, unspecified; D50.9 Iron deficiency anemia, unspecified; I50.30 Unspecified diastolic (congestive) heart failure
CPT/HCPCS: 36415; 80053; 80061; 82306; 83036; 83525; 83540; 83880; 84436; 84443; 84481; 85025

== ENCOUNTER 2025-09-01 11:32 | Outpatient (REF) | payer MEDICARE, SELFPAY ==
--- OUTSIDE RECORDS SUMMARY | 2025-09-01 11:37 | XMS_ITS | Clinical Summary ---
Author Organization [facility] Address [address] [facility] [place] [address] Phone Care Team Providers Care Regional Property Manager Name Role Phone Unavailable Primary Care Provider Unavailabl e Social History Tobacco UseTypesPacks/DayYears UsedDateSmoking Tobacco: Never Assessed CommentsUnknownSex and Gender InformationValueDate RecordedSex Assigned at Not on fileLegal AmjDcajqe21/25/2022 2:25 PM ESTGender IdentityNot on fileSexual OrientationNot on file Plan of Treatment Not on file
--- OUTSIDE RECORDS SUMMARY | 2025-09-01 11:37 | XMS_ITS | Clinical Summary ---
Author Organization [facility] Address [address] [place] [address] Care Team Providers Care Websphere Developer Name Role Phone Jose Carlos Causey MD Primary Care Provider [phone] Allergies Active AllergyReactionsCriticalityNoted DateCommentsOxycodone-AcetaminophenHives 07/03/2025 acetaminophen / oxycodone Medications MedicationSigDispense QuantityRefillsLast FilledStart DateEnd DateStatus cetirizine (ZyrTEC ALLERGY) 10 MG tablet 1 (one) time each day at the same timeActive cholecalciferol (Vitamin D-3) 50 MCG (2000 UT) tablet Take 50 mcg by mouth Daily08/12/2024ctive ferrous sulfate 325 (65 Fe) MG tablet Take 1 tablet by mouth in the morning and 1 tablet before bedtime.08/12/2024 Active FLUoxetine (PROzac) 20 MG capsule Take 1 capsule every day by oral route.Active levothyroxine (Synthroid) 200 MCG tablet Take 1 tablet by mouth DailyActive lisinopril 10 MG tablet one tablet dailyActive fluticasone (Flonase) 50 MCG/ACT nasal spray Indications:Acute URIAdminister 2 sprays into each nostril Daily Shake gently. Before first use, prime pump. After use, clean tip and replace cap. 48 g ctive Bmqfhtqeeqs-Eroxyjze-Hecajgqvb 1-0.5-0.075 % solution Indications:Age-related nuclear cataract of both eyesAdminister 1 drop into affected eye(s) in the morning and 1 drop at noon and 1 drop in the evening and 1 drop before bedtime. 10 mL 5Active beta carotene (vitamin A) 3 MG (47463 UT) capsule Take 10,000 Units by mouth DailyActive Active Problems ProblemNoted DateDiagnosed VsqrJznpmiwjrunw06/03/3645Dwcwin52/11/2024ilateral qjcugcyp86/11/2024hronic frontal /11/2024Hearing loss of right ear 08/19/20241215Vfcghefxwevhch69/11/3207Qkhovksb28/11/4728Ezsrjepworuj59/11/2024 Resolved Problems ProblemNoted DateDiagnosed DateResolved DateAge-related nuclear cataract of right eyege-related nuclear cataract of both eyes07/03/2025 07/16/2025 Encounters DateTypeDepartmentCare RotgBghlyagxqpv52/28/2025 9:00 AM EDTOffice Visit [facility] [address] [place] [phone] Wilmer Crespo, Pseudophakia (Primary Dx)08/05/2025amb flowsheet [facility] [address] [place] [address] Wilmer Crespo, 08/05/20251980Fjwngp15/08/2025 1:30 PM EDTOffice Visit [facility] [address] [place] [address] Wilmer Crespo, Pseudophakia (Primary Dx); Age-related nuclear cataract of right eye07/16/2025amb flowsheet [facility] [address] [place] [address] Wilmer Crespo, 07/16/20257394Qowojb01/03/2025 9:00 AM EDTOffice Visit [facility] [address] [place] [phone] Wilmer Crespo, DO Pseudophakia (Primary Dx)07/11/2025 flowsheet [facility] [address] [place] [address] Wilmer Crespo, DO 07/11/20259020Wqrqvd46/25/2025 8:45 AM EDTOffice Visit [facility] [address] [place] [address] Wilmer Crespo, DO Age-related nuclear cataract of both eyes (Primary Dx)07/03/2025Orders Only [facility] [address] [place] [address] Wilmer Crespo, DO Age-related nuclear cataract of both eyes07/03/2025amboo flowsheet [facility] [address] [place] [address] Wilmer Crespo, DO 07/03/2025Travelfrom Last 3 Months Family History Medical HistoryRelationNameCommentsMacular degenerationFather's BrotherRelation NameStatusCommentsFatherDeceasedFather's BrotherMotherDeceased Social History Tobacco UseTypesPacks/DayYears UsedDateSmoking Tobacco: NeverPassive Smoke Exposure: NeverSmokeless Tobacco: Never Tobacco Cessation:Counseling Given: No Alcohol UseStandard Drinks/WeekCommentsYes1 (1 standard drink = 0.6 oz pure alcohol)CommentsUnknownSex and Gender InformationValueDate RecordedSex Assigned at BirthNot on fileLegal EnvBcbtwv33/15/2023 6:51 PM EDTGender Identity Not on fileSexual OrientationNot on file Last Filed Vital Signs Vital SignReadingTime TakenCommentsBlood Auuvfiuh311/7708/19/2024 1:14 PM EST Pulse--Temperature--Respiratory Rate--Oxygen Saturation--Inhaled Oxygen Concentration--Uhheua29.8 kg (134 lb)08/19/2024 1:14 PM ZMEAlblel502.5 cm (5' 2 )08/19/2024 1:14 PM ESTBody Mass Index24.51110/19/2023 1:14 PM EST Plan of Treatment DateTypeDepartmentCare Team (Latest Contact Info)Ujpjtvinfwo89/24/2025 1:15 PM ESTOffice Visit [facility] [address] [place] [address] Wilmer Crespo DO [address] [place] [address] Health MaintenanceDue DateLast DoneCommentsCT Kgabadvxgwyt05/16/1955FIT-DNA 1954FIT1954FOBT1954 9224Qtsphyvihbjsx81/16/6076Kicklbsbg00/16/1995 Pneumococcal Vaccine: 65+ Years (2 of 2 - PCV20 or PCV21)/11/2019 COVID-19 Vaccine (6 - season)/07/2023, 05/12/2022, 07/06/2021, Additional history existsInfluenza Vaccine (#1)/05/2024, 09/11/2023, 07/25/2022, Additional history fimhalAvdozjxjbeu47/05/2035 11/13/2024, 11/13/2024olorectal Cancer Lanfvttog79/05/2035 Procedures Procedure NamePriorityDate/TimeAssociated DiagnosisCommentsIOL BIOMETRY - OU - BOTH GQBBHzzqzrb74/25/2025 9:30 AM EDT Age-related nuclear cataract of both eyes from Last 3 Months Results * IOL Biometry - OU - Both Eyes (CPT 66821) (07/03/2025 9:30 AM EDT)Anatomical RegionLateralityModalityHeadOtherSpecimen (Source)Anatomical Location / LateralityCollection Method / VolumeCollection TimeReceived Time Narrative 07/03/2025 9:30 AM EDT Diagnosis: Cataract both eyes (OU) Testing Indication: Performed for preop measurements in the determination of an intraocular lens (IOL) for both eyes (OU) ?? Test Reliability: Good quality both eyes (OU) Interpretation: Good measurements for intraocular lens (IOL) calculation purposes. Calculation made for both eyes (OU). ?? Authorizing ProviderResult TypeResult StatusJovasu Crespo [facility] Final Result from Last 3 Months Insurance Care Teams Team MemberRelationshipSpecialtyStart DateEnd Jose Carlos Causey MD [address] [place] [address] PCP - GeneralFamily Syzdqvhh34/8/24
--- OUTSIDE RECORDS SUMMARY | 2025-09-01 11:39 | XMS_ITS | CCD ---
Author Organization [facility] Care Team Providers Care Ring Sorter Name Role Phone DR SANCHEZ CAUSEY Attending [...] Care Provider Sanchez Causey Primary Care Physician [phone] Johnny Garcia MD Attending Provider [phone] Johnny Garcia Attending Unavailable Johnny Garcia Admitting Unavailable Sanchez Causey Referring Unavailable NILOdalys, Johnny Butler Attending Unavailable NILLJohnny Attending Unavailable NILL, Johnny R Attending Unavailable Sanchez Causey MD Primary Care Provider [phone] Sanchez Causey MD Primary Care Provider [phone] REYNA CRESPO Attending Unavailable REYNA CRESPO Attending Unavailable PATRICA HARMON Attending Unavailable REYNA CRESPO Attending Unavailable REYNA CRESPO Attending Unavailable Allergies Allergy ClassificationReported Allergen(s)Allergy TypeDate of OnsetReaction(s) Facility (3 sources)Acetaminophen / HYDROcodone; Translations: [[place] ]Drug Pdfwauc01-94-7270Roq [facility] Repository (1 source)Acetaminophen / oxyCODONEDrug AllergyThe [facility] (1 source)formoterolDrug AllergyThe [facility] (2 sources)Acetaminophen / HYDROcodone; Translations: [acetaminophen-hydrocodone][facility] ([facility] sources)acetaminophen / propoxyphene; Translations: [acetaminophen-propoxyphene]Drug AllergyPro[facility] (7 sources)Acetaminophen / oxyCODONEDrug Rjlsvnw34-55-0511CvkohWJHX Healthcare Medications Current Medications MedicationDrug Class(es)DatesSig (Normalized)Sig (Original)alendronic acid 70 mg oral tablet (2 sources)BisphosphonateStart: 33-68-3691rgva 1 tablet by mouth every week Fosamax 70 mg Tab 70 mg = 1 tab(s), Oral, qWeek, Refills(s) 0 Start Date: 09/30/24 Status: Orderedamoxicillin 875 mg / clavulanate 125 mg oral tablet (2 sources)Penicillin-class AntibacterialStart: 08-19-2024 End: 76-62-2232puwy 1 tablet by mouth in the morningamoxicillin-clavulanate [...] 0.05 mg oral tablet (10 sources)Vitamin DStart: 29-19-8433oopm 1 tablet by mouth once daily cholecalciferol (Vitamin D-3) 50 MCG (1999) tablet Take 50 mcg by mouth Daily 08/12/2024 Kfohdy01 hr desvenlafaxine succinate 100 mg extended release oral tablet (2 sources)Serotonin and Norepinephrine Reuptake InhibitorStart: 82-64-4644ssgr 1 tablet by mouth once dailydesvenlafaxine 100 mg Tab- 100 mg = 1 tab(s), Oral, Daily, Refills(s) 0 Start Date: 09/30/24 Status: Ordereddiclofenac sodium 75 mg delayed release oral tablet (2 sources)Nonsteroidal Anti-inflammatory DrugStart: 82-49-3239qhnr 1 tablet by mouth twice daily as needed for paindiclofenac sodium 75 mg Oral EC Tab 75 mg = 1 tab(s), Oral, BID, PRN as needed for pain, Refills(s)0 Start Date: 10/22/24 Status: OrdereddiphenhydrAMINE hydrochloride 25 mg oral tablet (2 sources)Histamine-1 Receptor AntagonistStart: 27-26-8664owvd 1 tablet by mouth once dailydiphenhydramine 25 mg tab = 1 tab(s), Oral, Daily, Refills(s) 0 Start Date: 10/22/24 Status: Orderedferrous sulfate 325 mg oral tablet (12 sources)Start: 04-94-2040wqse 1 tablet by mouth in the morningferrous [...] dose nasal spray (10 sources)CorticosteroidStart: 08-19-2024 End: 10-18-4606hvws 2 spray(s) nasal route once dailyfluticasone (Flonase) 50 MCG/ACT nasal spray Indications: Acute URI Administer 2 sprays into each nostril Daily Shake gently. Before first use, prime pump. After use, clean tip and replace cap. 48 g 3 08/19/2024 08/19/2025 Activelevothyroxine sodium 0.112 mg oral tablet (12 sources)l-ThyroxineStart: 42-93-7082ekum 1 tablet by mouth once daily levothyroxine 112 mcg (0.112 mg) Tab 224 mcg = 2 tab(s), Oral, Daily, Refills(s) 0 Start Date: 09/30/24 Status: Orderedtake 1 tablet by mouth once daily levothyroxine (Synthroid) 200 MCG tablet Take 1 tablet by mouth Daily Active lisinopril 10 mg oral tablet (12 sources)Angiotensin Converting Enzyme InhibitorStart: 84-20-4163xhxu 1 tablet by mouth once dailylisinopril 10 mg Tab 10 mg = 1 tab(s), Oral, Daily, Refills(s) 0 Start Date: 09/30/24 Status: KivftjrMovfnxfgsdn-Dbsawybu-Avvvmjpgb 1-0.5-0.075 % solution (7 sources)Start: 58-90-7171Okvmxojjjzv-Moxiflox-Bromfenac 1-0.5-0.075 % solution Indications: Age-related nuclear cataract of both eyes Administer 1 drop into affected eye(s) in the morning and 1 drop at noon and 1 drop in the evening and 1 drop before bedtime. 10 mL 1 07/03/2025 ActiveQUEtiapine 25 mg oral tablet (2 sources)Atypical AntipsychoticStart: 62-41-4118mkks 1 tablet by mouth at bedtimequetiapine 25 mg Tab 25 mg = 1 tab(s), Oral, Bedtime, Refills(s) 0 Start Date: 09/30/24 Status: Orderedvitamin a 2.4 mg oral capsule (9 sources)Vitamin AStart: 22-65-5964omgkkao A 8000 units oral capsule Oral, BID, Prophylaxis Start Date: 12/22/11 Status: Orderedtake 3 mg by mouth once dailybeta carotene (vitamin A) 3 MG (43193 UT) capsule Take 10,000 Units by mouth Daily ActiveVitamin D2 2000 intl units oral capsule (2 sources)Start: 15-87-7914zrwp 1 capsule by mouth once dailyVitamin D2 2000 intl units oral capsule 50 mcg = 1 cap(s), Oral, Daily, cap(s), Refills(s) 0 Start Date: 09/30/24 Status: Ordered Problems Active Problems Problem ClassificationProblemDateDocumented DateEpisodic/ChronicAllergic reactions (2 sources)Hlgxsd20-01-6562BalwmogaIbdheed disorders (2 sources)Qyrpxbb69-36-6040ZnqfmfpCqikdc (13 sources)Asthma; Translations: [Unspecified asthma, uncomplicated]Onset: 306425-42-1343MwssqaaSwzarerj (20 sources)Bilateral age-related nuclear cataracts; Translations: [Age-related nuclear cataract, bilateral]Onset: 07-03-2025 Resolved: 058948-43-2376NbnwwvhOgzqfvyewl and other anemia (1 source)Iron deficiency anemia, unspecified; Translations: [IRON DEFICIENCY ANEMIA UNSPECIFIED]Onset: 71-72-1659DvdydzviOhycgaslkp and other anemia (2 sources)Chronic padswq41-94-1709XfgoadujSfoisrwoc of lipid metabolism (3 sources)Pure hypercholesterolemia, unspecified; Translations: [Hypercholesterolemia]Onset: 104044-04-5975BsmbvpsIddhoqxgynnxvz and diverticulitis (2 sources)Diverticula of intestine; Translations: [Diverticulosis of large intestine without perforation or abscess without bleeding]Onset: 11-19-2024 ChronicEsophageal disorders (2 sources)Gastroesophageal reflux suxjorl86-96-4323UirxulsYnernbccj hypertension (6 sources)Essential (primary) hypertension; Translations: [Hypertensive disorder]Onset: 86-08-5713LzllawhPxnpwtjbntsfwo ulcer (except hemorrhage) (2 sources)H/O: gastric rvaxp62-18-3753SjoawrprQicszwsm; including migraine (13 sources)Migraine; Translations: [Migraine, unspecified, not intractable, without status migrainosus]Onset: 436749-06-0392HnvczsqDzbhu valve disorders (2 sources)Heart uvdmps72-44-8419DwypcknjTnbcogkdo arthritis and osteomyelitis (except that caused by tuberculosis or sexually transmitted disease) (2 sources)Chronic osteomyelitis of left ldrv65-92-7976DhsbcdzVjmsm disorders and dislocations; trauma-related (4 sources)Unspecified internal derangement of unspecified knee; Translations: [UNS INTERNAL DERANGEMENT UNS KNEE]Onset: 30-12-9277CzhuyojMrmcbml and fatigue (1 source)Other fatigue; Translations: [OTHER FATIGUE]Onset: 93-77-7893Mxffmbjp Menopausal disorders (4 sources)Other primary ovarian failure; Translations: [OTHER PRIMARY OVARIAN FAILURE]Onset: 79-67-3001OwfubxzUctp disorders (2 sources)Krxnmbuuff53-84-2284KjqvevrIrzdcughfkg deficiencies (6 sources)Vitamin D deficiency, unspecified; Translations: [Vitamin D deficiency]Onset: 26-27-3335AhypgwcGvmjzqnullu deficiencies (1 source)Iron deficiency; Translations: [IRON DEFICIENCY]Onset: 11-25-2022 EpisodicOsteoporosis (13 sources)Osteoporosis; Translations: [Age-related osteoporosis without current pathological fracture]Onset: 098669-04-4403WnoreudRqnwv and unspecified benign neoplasm (1 source)Polyp of colon; Translations: [Polyp of colon]Onset: 11-19-2024 EpisodicOther and unspecified benign neoplasm (1 source)Polyp of sigmoid -77-6742QfnufngcFracw circulatory disease (2 sources)Tfrdsblpqdvb35-70-4284NdnrdydRucup ear and sense organ disorders (11 sources)Hearing loss of right ear; Translations: [Unspecified hearing loss, right ear]Onset: 818439-76-1094JtnsbbkEtdyi nutritional; endocrine; and metabolic disorders (2 sources)Depnnjxfbs42-01-5440KtgmwtxvDqzlc nutritional; endocrine; and metabolic disorders (2 sources)Overweight in adulthood with body mass index of 25 or more but less than 0794-45-1740NitfwzuaOeddx screening for suspected conditions (not mental disorders or infectious disease) (2 sources)Encounter for screening for malignant neoplasm of colon; Translations: [Screening for malignant neoplasm of colon done]Onset: 05-12-2022 EpisodicOther upper respiratory infections (11 sources)Chronic frontal sinusitis; Translations: [Chronic frontal sinusitis] Onset: 554354-21-6376DmcqowxWmryw upper respiratory infections (2 sources)Acute upper respiratory infection; Translations: [Acute upper respiratory infection, unspecified]33-77-2806HdkpdpleJbyfrgg disorders (18 sources)Hypothyroidism, unspecified; Translations: [Hypothyroidism]Onset: 87-38-4619ZknlaaaWfylvkqqrnzk (3 sources)CONTACT W/AND (SUSP) EXPOS COVID-19; Translations: [CONTACT W/AND (SUSP) EXPOS COVID-19]Onset: 21-95-9992Ufgycrpokbni (1 source)COUGH, UNSPECIFIED; Translations: [COUGH, UNSPECIFIED]Onset: 34-84-9869Avcpcktmbvsa (2 sources)Patient encounter -22-9026 Past or Other Problems Problem ClassificationProblemDateDocumented DateEpisodic/ChronicOther aftercare (1 source)Other terminal clerk (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) drug therapy; Translations: [OTH INTERMEDIATE CURRENT DRUG THERAPY]Onset: 68-45-0553BhsbfeukBzfsu bone disease and musculoskeletal deformities (1 source)Other specified disorders of bone density and structure, right thigh; Translations: [OTH D/O BONE DEN STRUCT RT THIGH]Onset: 47-18-6494XfedmhmfNywmv ear and sense organ disorders (11 sources)Bilateral tinnitus; Translations: [Tinnitus, bilateral]Onset: 304389-26-3019GbfmfzvcNctrm non-traumatic joint disorders (1 source)Pain in left hip; Translations: [PAIN IN LEFT HIP]Onset: 04-07-2022 EpisodicOther upper respiratory disease (1 source)Nasal congestion; Translations: [NASAL CONGESTION]Onset: 05-07-2022 EpisodicUnclassified (1 source)CONTACT W/AND (SUSP) EXPOS COVID-19; Translations: [CONTACT W/AND (SUSP) EXPOS COVID-19]Onset: 97-49-3973Nmrdscqwxcls (2 sources)Congestion (morphologic abnormality)09-30-2024 Results Test NameValueInterpretationReference RangeFacilityUS Eye+Orbit - bilateralon 58-80-2942Ewjykxwfg: Cataract both eyes (OU) Testing Indication: Performed for preop measurements in the determination of an intraocular lens (IOL) for both eyes (OU) Test Reliability: Good quality both eyes (OU) Interpretation: Good measurements for intraocular lens (IOL) calculation purposes. Calculation made for both eyes (OU).formerly [facility] Radiology Study observation (narrative)[facility] HealthcareAmbulatory Visit Summaryon 54-17-0338Gqkwoxkxut Visit SummaryAmbulatory Visit Summary ITA ALANIS :1955 [...] you for choosing us for your care. [facility] CenterGeneral [facility] Office/Clinic Noteon 28-95-6507Xmqdppo Surgery Office/Clinic NoteGeneral Surgery Office/Clinic Note Chief [...] virus vaccine, inactivated 07/16/2024 Recorded SARS-CoV-2 (COVID-19) mRNAMUL.ORD![id number] 07/25/2022 Recorded SARSCoV2 mRNA(xkhsfiabf-lixk-dqkrcg) vac 05/12/2022 Recorded SARS-CoV-2 (COVID-19) mRNA BNT-162b2 vax 07/06/2021 Recorded 2024-09-30: TPV65 SARS-CoV-2 (COVID-19) mRNA BNT-162b2 vax 12/13/2020 Recorded 2024-09-30: TPV65 SARS-CoV-2 (COVID-19) mRNA BNT-162b2 vax 11/22/2020 Recorded 2024-09-30: TPV65 [facility] CenterComment on above:Result Comment: Electronically Signed By: GOYO FUCHS, Johnny Cifuentes\Date and Time Signed: 11/19/24 13:50 EST Reminderson 02-98-1241AywbztvadShipzqcag From: Mera Waters LPN To: GSN - Clinical; Sent: 11/19/2024 13:37:07 EST Show up: 10/13/2029 07:00:00 EST Subject: colonoscopy recall Due Date/Time: 11/13/2029 07:00:00 EST Reminder/Recall Patient due for surveillance colonoscopy 11/13/2029 due to un-retrieved polyp on colonoscopy 11/13/2024.[facility] 11-13-2024L Specimen: [id number] Received: 11/13/24 Status: NIA Adkins Num: [id number] Spec Type: Surgical Subm Dr: Johnny Garcia MD FACS Tissues: A Colon Biopsy (SIGMOID COLON POLYP) Procedures: Sravani RODRIGUEZ/Jolene L4 Age/ Patient Sex Location Account Attending Physician Ita Alanis 68/F [place] [id number] Johnny Garcia MD FACS SPEC NUM: [id number] RECD: 11/13/24 STATUS: NIA ADKINS NUM: [id number] FIDEL: 11/13/[address] [facility] [address]: Johnny Garcia MD FACS ENTERED: 11/13/24 [facility] DR: SPEC TYPE: Surgical DEPT: [...] Description Microscopic examination is performed. CPT Codes 93598 Specimen: [id number] Received: 11/13/24 Status: NIA Adkins Num: [id number] Spec Type: Surgical Subm Dr: Johnny Garcia MD FACS Tissues: A Colon Biopsy (SIGMOID COLON POLYP) Procedures: HE/2, Gross/Micro L4 Patient: Ita Alanis [id number] (Continued) Signed (signature on file) Juan Oglesby MD 11/14/24 0847Normal [facility] Physician [facility] CenterAmbulatory Visit Summaryon 72-30-3937Cckijaukyz Visit SummaryAmbulatory Visit Summary ITA ALANIS :1955 [...] you for choosing us for your care. [facility] CenterFREE T3on 68-06-3868KKUM T33.75 pg/mlLNormal2.18-3.98The [facility] HospitalComment on above:Performed By: #### TSH, FT3, T4 #### [facility] [address] [place] [address] Dr. Maribel Brambila 78-24-9064Nwwa [Mass/Vol]50.0 ug/oADpwpcb63.0-170.0The [facility] HospitalComment on above:Performed By: #### IRON #### [facility] [address] [place] [address] Dr. Maribel Urrutia4on 38-17-4389M1 [Mass/Vol]9.70 ug/dLNormal4.80-13.90The [facility] HospitalComment on above:Performed By: #### TSH, FT3, T4 ####[facility] [address] [place], [place] [address]r. [facility] 04-28-0059HIB Qnm[IU]/LCritically low0.358-3.740The [facility] HospitalCompine rest christian mental health services on above:Performed By: #### TSH, FT3, T4 #### [facility] [address] [place] [address] Dr. Maribel العليPLACIDO T3on 24-51-3664SAPK T32.51 pg/mlLNormal2.18-3.98The [facility] HospitalComment on above:Performed By: #### FT3, T4, TSH ####[facility] [address] [place], [place]Dr. Maribel [address] 10-03-2022 T4 [Mass/Vol]13.20 ug/dLNormal4.80-13.90The [facility] HospitalComment on above: Performed By: #### FT3, T4, TSH ####[facility] [address] [place], [place] [address]Dr. [facility] 78-60-9299YFK Qnm[IU]/LCritically low0.358-3.740The [facility] HospitalComment on above:Performed By: #### FT3, T4, TSH ####[facility] [address] [place], [place]Dr. Andreealan ChangCBC AUTO DIFFon 69-49-1679GGFL #0.1 103/ulNormal0.0-0.1The [facility] HospitalComment on above:Performed By: #### CBC ####[facility] [address] [place], [place] [address]Dr.Andreeaalisha ChangBasophils/100 WBC (Bld)0.8 %Normal0.2-2.0The [facility] on above:Performed By: #### CBC ####[facility] [address] [place], [place] [address]Dr.Yilan ChangEO #0.6 103/ulNormal0.0-0.7The [facility] HospitalComment on above:Performed By: #### CBC ####[facility] [address] [place], [place] [address]Dr.Yilan ChangEosinophils/100 WBC (Bld)9.1 %Critically high0.9-7.0The [facility] on above:Performed By: #### CBC ####[facility] [address] [place], [place] [address]Dr. Andreealan ChangErythrocyte distribution width (RBC) [Ratio]13.5 %Bmzyew26.0-15.0The [facility] HospitalComment on above:Performed By: #### CBC ####[facility] Ngpt[address]en[address] [place], [place] [address]Dr.Maribel ChangHematocrit (Bld) [Volume fraction]38.3 %Ywqvyn15.0-48.0The [facility] HospitalComment on above:Performed By: #### CBC ####[facility] [address] [place], [place] [address]Dr.Maribel ChangHemoglobin (Bld) [Mass/Vol]12.2 g/dL Bhpcnu41.0-16.0The [facility] HospitalComment on above:Performed By: #### CBC ####[facility] [address] [place] [address]Dr. Andreeaalisha SeverianoIG #0.01 10e3/ulNormal0.00-0.03The [facility] HospitalComment on above: Performed By: #### CBC ####[facility] [address] [place] [address]DrViktoriya العليIG %0.1 %Normal0.0-0.5The [facility] HospitalComment on above:Performed By: #### CBC ####[facility] [address] [place], [place] [address]Dr.Maribel BacaH #1.5 103/ulNormal1.2-3.8The [facility] HospitalComment on above:Performed By: #### CBC ####[facility] [address] [place], [place] [address]Dr. Maribel Bacahocytes/100 WBC (Bld)21.5 %Jchedq46.5-60.0The [facility] Comment on above:Performed By: #### CBC ####[facility] [address] [place], [place] [address]Dr.Maribel العليMANUAL DIFF REQNONormalThe [facility] HospitalComment on above:Performed By: #### CBC ####[facility] [address] [place], [place] [address]Dr.Maribel الع[facility]يST[facility] (RBC) [Entitic mass]30.0 inOfyyzz52.7-34.0The [facility] HospitalComment on above: Performed By: #### CBC ####[facility] [address]vi[address] [place], [place] [address]Dr.Maribel [facility]يM[facility] (RBC) [Mass/Vol]31.9 g/dLNormal 29.9-35.2The [facility] HospitalComment on above:Performed By: #### CBC ####[facility] [address]ref[address] [place], [place] [address]DrChi العليV (RBC) [Entitic vol]94.1 pSCytlif97.0-99.0The [facility] Comment on above:Performed By: #### CBC ####[facility] [address] [place], [place] [address]Dr.Maribel العليMONO #0.5 103/ulNormal0.3-0.8 The [facility] HospitalComment on above:Performed By: #### CBC ####[facility] Cf[address]vposhp[address] [place], [place] [address]Dr.Maribel العلي Monocytes/100 WBC (Bld)6.5 %Normal1.7-12.0The [facility] HospitalComment on above: Performed By: #### CBC ####[facility] [address] [place], [place] [address]Dr.Maribel العليNEUT #4.4 103/ulNormal1.4-6.5The [facility] HospitalComment on above:Performed By: #### CBC ####[facility] [address] [place], [place] [address]Dr.Maribel العليNeutrophils/100 WBC (Bld)62.0 %Qfvdbc16.0-75.0The [facility] HospitalComment on above:Performed By: #### CBC ####[facility] [address] [place], [place] [address]Dr.Maribel العليPlatelet mean volume (Bld) [Entitic vol]9.9 fLNormal9.5-13.5 The [facility] HospitalComment on above:Performed By: #### CBC ####[facility] [address] [place], [place] [address]Dr.Maribel العليPLT270 103/pqXgncqz094-730Wjo [facility] HospitalComment on above:Performed By: #### CBC ####[facility] [address] [place], [place] [address]Dr. Maribel العليRBC4.07 106/ulCritically low4.20-5.40The [facility] HospitalComment on above:Performed By: #### CBC ####[facility] [address] [place], [place] [address]Dr.Maribel العليWBC7.1 103/ulNormal4.0-11.0The [facility] HospitalComment on above:Performed By: #### CBC ####[facility] [address] [place] [address]Dr.Yilan Calero THYROXINE INDEX T7on 51-49-2942NCE4.77Tmzyyw8.30-4.50The [facility] HospitalComment on above:Performed By: #### CMP, T7, TSH #### [facility] [address] [place] [address] [address] Maribel العليT3U29.0 %Critically low30.0-39.0The [facility] HospitalComment on above:Performed By: #### CMP, T7, TSH #### [facility] [address] [place] [address] Dr. Maribel العليT4 [Mass/Vol]4.70 ug/dLCritically low4.80-13.90The [facility] HospitalComment on above:Performed By: #### CMP, T7, TSH #### [facility] [address] [place] [address] Dr. Maribel Brambila 19-37-7675Ygfu [Mass/Vol]43.0 ug/dLCritically low 50.0-170.0The [facility] HospitalComment on above:Performed By: #### IRON ####[facility] [address] [place] [address]Dr. Maribel العليPROF 14(COMP METB)on 84-69-7653Lidgttd [Mass/Vol]3.1 g/dLCritically low3.4-5.0The [facility] HospitalComment on above:Performed By: #### CMP, T7, TSH #### [facility] [address] [place] [address] Dr. Maribel العليAlbumin/Globulin [Mass ratio]0.9 {ratio}NormalThe [facility] HospitalComment on above:Performed By: #### CMP, T7, TSH #### [facility] [address] [place] [address] Dr. Maribel العليALP [Catalytic activity/Vol]120 U/LCritically vhbg07-967Fyh [facility] HospitalComment on above:Performed By: #### CMP, T7, TSH #### [facility] [address] [place] [address] [address] Maribel Muñiz [Catalytic activity/Vol]24 U/YPxyega21-59Cdz [facility] HospitalComment on above:Performed By: #### CMP, T7, TSH #### [facility] [address] [place] [address] [address] Maribel Soon gap [Moles/Vol]9.2 mmol/LNormalThe [facility] HospitalComment on above:Performed By: #### CMP, T7, TSH #### [facility] [address] [place] [address] Dr. Maribel Russell [Catalytic activity/Vol]17 U/UAimhyh67-49Zer [facility] HospitalComment on above:Performed By: #### CMP, T7, TSH #### [facility] [address] [place] [address] Dr. Maribel العليBilirubin [Mass/Vol]0.2 mg/dLNormal0.2-1.0The [facility] Comment on above:Performed By: #### CMP, T7, TSH #### [facility] [address] [place] [address] Dr. Maribel العليCalcium [Mass/Vol]8.8 mg/dLNormal8.5-10.1The [facility] Comment on above:Performed By: #### CMP, T7, TSH #### [facility] [address] [place] [address] Dr. Maribel العليChloride [Moles/Vol]105 mmol/XVcsbrs32-042Vhx [facility] Comment on above:Performed By: #### CMP, T7, TSH #### [facility] [address] [place] [address] Dr. Maribel العليCO2 [Moles/Vol]29.2 mmol/MOqoiys16.0-32.0The [facility] Comment on above:Performed By: #### CMP, T7, TSH #### [facility] [address] [place] [address] Dr. Yilan ChangCreatinine [Mass/Vol]0.57 mg/dLNormal0.55-1.02The [facility] HospitalComment on above:Performed By: #### CMP, T7, TSH #### [facility] [address] [place] [address] [address] Maribel CarrGFR-AF POLISH>60Normal>=60The [facility] HospitalComment on above:Performed By: #### CMP, T7, TSH #### [facility] [address] [place] [address] [address] Maribel CarrGFR-NON AF POLISH>60Normal>=60The [facility] HospitalComment on above:Performed By: #### CMP, T7, TSH #### [facility] [address] [place] [address] Dr. Maribel العليGlobulin (S) [Mass/Vol]3.5 g/dLNormalThe [facility] HospitalComment on above:Performed By: #### CMP, T7, TSH #### [facility] [address] [place] [address] Dr. Maribel العليGlucose [Mass/Vol]106 mg/dUUbiigv36-303YpkMccullough-Hy[facility] Comment on above:Performed By: #### CMP, T7, TSH #### [facility] [address] [place] [address] Dr. Maribel العليPotassium [Moles/Vol]4.4 mmol/LNormal3.5-5.1[facility] Comment on above:Performed By: #### CMP, T7, TSH #### [facility] [address] [place] [address] Dr. Maribel العليProtein [Mass/Vol]6.6 g/dLNormal6.4-8.2The [facility] Comment on above:Performed By: #### CMP, T7, TSH #### [facility] [address] [place] [address] Dr. Maribel العليSodium [Moles/Vol]139 mmol/JQfmhlt872-228Elz [facility] Comment on above:Performed By: #### CMP, T7, TSH #### [facility] [address] [place], [place] [address] Dr. Maribel Zaldivar nitrogen [Mass/Vol]7.0 mg/dLNormal7.0-18.0The [facility] HospitalComment on above:Performed By: #### CMP, T7, TSH #### [facility] [address] [place], [place] [address] Dr. Maribel Zaldivar nitrogen/Creatinine [Mass ratio]12.3 mg/mgNoSt. Anthony's HospitalComment on above:Performed By: #### RANJAN, T7, TSH #### [facility] [address], [place] [address] Dr. Maribel Dsos 46-22-0241MFG5.096 uIU/mLCritically low0.358-3.740The [facility] HospitalComment on above:Performed By: #### RANJAN, T7, TSH #### [facility] [address] [address] [address] Maribel العليXR DEXA BONE DENSITYon 11-18-9436AG DEXA BONE DENSITYEXAMINATION: XR DEXA BONE DENSITY, [...] Electronically authenticated by: SARAH CARRION Date: 2022-07-07 11:35NoSt. Anthony's HospitalVIT D 25-[place] LABCORPon 31-60-9587Zmqffcm D, 25-Nxkcvwo95.5 ng/mL Vmxyae08.0-100.0The [facility] HospitalComment on above:Result Comment: Vitamin D deficiency has been defined by the [place] of Medicine and an Endocrine Society practice guideline as a level of serum 25-OH vitamin D less than 20 ng/mL (1,2). The Endocrine Society went on to further define vitamin D insufficiency as a level between 21 and 29 ng/mL (2). 1. IOM ([place] of Medicine). 2010. Dietary reference intakes for calcium and D. [place]: The National Academies Press. 2. Quan MF, Williams [place], Chema LEVINE, et al. Evaluation, treatment, and prevention of vitamin D deficiency: an Endocrine Society clinical practice guideline. JCEM. 2010; 96(7):1911-30.Performed By: #### VITADLC #### [facility] [address] [place] [address] Dr. Maribel Cummings AUTO DIFFon 39-11-4000PQMF #0.1 103/ulNormal0.0-0.1[facility] Memorial HospitalComment on above:Performed By: #### CBC #### [facility] [address] [place] [address] Dr. Maribel العليBasophils/100 WBC (Bld)1.0 %Normal0.2-2.0The [facility] Comment on above:Performed By: #### CBC #### [facility] [address] [place] [address] Dr. Maribel Arroyo #0.6 103/ulNormal0.0-0.7The [facility] HospitalComment on above: Performed By: #### CBC #### [facility] [address] [place] [address] Dr. Maribel Carrosinophils/100 WBC (Bld)9.3 %Critically high0.9-7.0The [facility] HospitalComment on above:Performed By: #### CBC #### [facility] [address] [place] [address] Dr. Maribel Carrrythrocyte distribution width (RBC) [Ratio]12.7 %Frdbun08.0-15.0 The [facility] HospitalComment on above:Performed By: #### CBC #### [facility] [address] [place] [address] Dr. Maribel العليHematocrit (Bld) [Volume fraction]40.1 %Gysoyk73.0-48.0The [facility] HospitalComment on above:Performed By: #### CBC #### [facility] [address] [place] [address] Dr. Maribel العليHemoglobin (Bld) [Mass/Vol]13.1 g/jKHoetrs77.0-16.0The [facility] HospitalComment on above:Performed By: #### CBC #### [facility] [address] [place] [address] Dr. Maribel العليIG #0.02 10e3/ulNormal0.00-0.03The [facility] HospitalComment on above:Performed By: #### CBC #### [facility] [address] [place] [address] Dr. Maribel العليIG %0.3 %Normal0.0-0.5The [facility] HospitalComment on above: Performed By: #### CBC #### [facility] [address] [place] [address] Dr. Maribel Chua #1.7 103/ulNormal1.2-3.8The [facility] HospitalComment on above:Performed By: #### CBC #### [facility] [address] [place] [address] Dr. Maribel Bacamphocytes/100 WBC (Bld)28.8 %Zcmiqr55.5-60.0The [facility] HospitalComment on above:Performed By: #### CBC #### [facility] [address] [place] [address] Dr. Maribel العليMANUAL DIFF REQNONormalThe [facility] HospitalComment on above: Performed By: #### CBC #### [facility] [address] [place] [address] Dr. Maribel Ness (RBC) [Entitic mass]31.3 zbTurdhu10.7-34.0The [facility] HospitalComment on above:Performed By: #### CBC #### [facility] [address] [place] [address] Dr. Maribel VergaraHC (RBC) [Mass/Vol]32.7 g/lDGdjwyl37.9-35.2The [facility] HospitalComment on above:Performed By: #### CBC #### [facility] [address] [address] [address] Maribel VergaraV (RBC) [Entitic vol]95.9 yYOqgmus40.0-99.0The [facility] HospitalComment on above:Performed By: #### CBC #### [facility] [address] [address] [address] Maribel Bucio #0.4 103/ulNormal0.3-0.8The [facility] HospitalComment on above:Performed By: #### CBC #### [facility] [address] [place] [address] Dr. Maribel Elaineocytes/100 WBC (Bld)7.0 %Normal1.7-12.0The [facility] Comment on above:Performed By: #### CBC #### [facility] [address] [address] [address] Maribel Vital #3.2 103/ulNormal1.4-6.5The [facility] HospitalComment on above:Performed By: #### CBC #### [facility] [address] [address] [address] Maribel Bearutrophils/100 WBC (Bld)53.6 %Czrffl37.0-75.0The [facility] HospitalComment on above:Performed By: #### CBC #### [facility] [address] [address] [address] Maribel Lopezlet mean volume (Bld) [Entitic vol]10.0 fLNormal9.5-13.5The [facility] HospitalComment on above:Performed By: #### CBC #### [facility] [address] [address] [address] Maribel العليPLT244 103/glKwfjbe025-242Pjh [facility] HospitalComment on above: Performed By: #### CBC #### [facility] [address] [place] [address] Dr. Maribel العليRBC4.18 106/ulCritically low4.20-5.40The [facility] on above:Performed By: #### CBC #### [facility] [address] [place] [address] Dr. Maribel العليWBC6.0 103/ulNormal4.0-11.0The [facility] on above: Performed By: #### CBC #### [facility] [address] [place] [address] Dr. Maribel العليFREE T3on 24-90-4826YBVL T32.55 pg/mlLNormal2.18-3.98The [facility] on above:Performed By: #### CBC #### [facility] [address] [place] [address] Dr. Maribel العليGLYCOHEMOGLOBIN A1Con 75-40-8463HWZ RECOMMENDATIONSEE BELOWLeesburg The [facility] HospitalCompine rest [facility] on above:Result Comment: ADA RECOMMENDED LIMIT 4.0 - 6.0 ADA THERAPEUTIC TARGET < 7.0 ACTION SUGGESTED > 7.0Performed By: #### CBC #### [facility] [address] [place] [address] Dr. Maribel العليGlucose [Mass/Vol]103 mg/dLNoACMC Healthcare System Glenbe[facility] on above:Performed By: #### CBC #### [facility] [address] [place] [address] Dr. Maribel العليHbA1c (Bld) [Mass fraction]5.2 %Normal4.5-6.2The [facility] on above:Performed By: #### CBC #### [facility] [address] [place] [address] Dr. Maribel العليLIPID PROFILEon 09-65-7561UTSG-HDL RATIO NORMSEE [facility] on above:Result Comment: 3.3 - 4.4 LOW RISK 4.4 - 7.1 AVERAGE RISK 7.1 - 11.0 MODERATE RISK >11.0 HIGH RISKPerformed By: #### CBC #### [facility] [address] [address] [address] Maribel العليCholesterol [Mass/Vol]159 mg/dLNormal<=200[facility] Comment on above:Performed By: #### CBC #### [facility] [address] [address] [address] Maribel العليCholesterol in HDL [Mass/Vol]82 mg/dLCritically eblf60-73MtwMccullough-Hyde Memorial HospitalComment on above:Performed By: #### CBC #### [facility] [address] [address] [address] Maribel العليCholesterol in LDL [Mass/Vol]65.0 mg/dLSelect Medical Specialty Hospital - Board[facility], IncComment on above:Performed By: #### CBC #### [facility] [address] [place] [address] Dr. Maribel Searsestercornelia.total/Cholesterol in HDL [Mass ratio]1.9 {ratio} NormalMccullough-Hyde Memorial HospitalComment on above:Performed By: #### CBC #### [facility] [address] [address] [address] Maribel FordL NORMAL> or = 60 mg/dl - LOW CARDIOVASCULAR RISK <40 mg/dl - HIGH CARDIOVASCULAR RISKSelect Medical Specialty Hospital [facility], IncComment on above:Performed By: #### CBC #### [facility] [address] [address] [address] Maribel العليLDL CALC NORMALSEE BELOWNoSt. Anthony's HospitalComment on above:Result Comment: <100 mg/dl OPTIMAL 100 - 129 mg/dl NEAR OR ABOVE OPTIMAL 130 - 159 mg/dl BORDERLINE HIGH 160 - 189 mg/dl HIGH >190 mg/dl VERY HIGH Performed By: #### CBC #### [facility] [address] [address] [address] Maribel العليTriglyceride [Mass/Vol]60 mg/dLNormal<=150[facility] Comment on above:Performed By: #### CBC #### [facility] [address] [address] [address] Yilan ChangVLDL CALC12.0 mg/dLNormalThe [facility] HospitalComment on above: Performed By: #### CBC #### [facility] [address] [address] [address] Maribel Muir BLD IMMUNO SCREENon 53-38-6151CVUZFG BLOODNegativeNormal NEGATIVEThe [facility] HospitalComment on above:Performed By: #### OBSCRN ####[facility] [address] [address]Dr. Maribel العليPROF 14(COMP METB)on 06-90-9580Vlaaecs [Mass/Vol]3.0 g/dLCritically low3.4-5.0The [facility] Systemment on above:Performed By: #### FT3, LIPID, T4, CMP, TSH ####[facility] [address] [address]Dr. Maribel العليAlbumin/Globulin [Mass ratio]0.9 {ratio}NormalThe [facility] HospitalComment on above:Performed By: #### FT3, LIPID, T4, CMP, TSH ####[facility] [address] [address]Dr. Maribel العليALP [Catalytic activity/Vol]116 U/ZWabfnl91-918Ahf [facility] Comment on above:Performed By: #### FT3, LIPID, T4, CMP, TSH ####[facility] [address] [address]Dr. Maribel العليALT [Catalytic activity/Vol]25 U/IPiffal82-00Vjh [facility] HospitalComment on above: Performed By: #### FT3, LIPID, T4, CMP, TSH ####[facility] [address] [address]Dr. Maribel العليAnion gap [Moles/Vol]10.2 mmol/LNormalThe [facility] Health Systemment on above:Performed By: #### FT3, LIPID, T4, CMP, TSH ####[facility] [address] [address]Dr. Maribel ChangAST [Catalytic activity/Vol]17 U/YOodzpm62-44Mdx [facility] on above:Performed By: #### FT3, LIPID, T4, CMP, TSH ####[facility] [address] [address]Dr. Yilan ChangBilirubin [Mass/Vol]0.4 mg/dLNormal0.2-1.0The [facility] Comment on above:Performed By: #### FT3, LIPID, T4, CMP, TSH ####[facility] [address] [address]Dr. Yilan العلي Calcium [Mass/Vol]8.2 mg/dLCritically low8.5-10.1The [facility] on above:Performed By: #### FT3, LIPID, T4, CMP, TSH ####[facility] [address] [address]Dr. Yilan ChangChloride [Moles/Vol]106 mmol/MFbeiby06-462Euw [facility] on above:Performed By: #### FT3, LIPID, T4, CMP, TSH ####[facility] [address] [place], [place] [address]Dr. Yilan ChangCO2 [Moles/Vol]28.6 mmol/LNormal 21.0-32.0The [facility] on above:Performed By: #### FT3, LIPID, T4, CMP, TSH ####[facility] [address] [address]Dr. Yilan ChangCreatinine [Mass/Vol]0.62 mg/dLNormal0.55-1.02The [facility] on above:Performed By: #### FT3, LIPID, T4, CMP, TSH ####[facility] [address] [address]Dr. Yilan ChangEGFR-AF POLISH>60Normal>=60The [facility] on above: Performed By: #### FT3, LIPID, T4, CMP, TSH ####[facility] [address] [place], [place] [address]Dr. Yilan ChangEGFR-NON AF POLISH>60 Normal>=60The Shanice HospitalComment on above:Performed By: #### FT3, LIPID, T4, CMP, TSH ####[facility] [address] [address]Dr. Yilan ChangGlobulin (S) [Mass/Vol]3.2 g/dLNoSt. Anthony's Hospital Comment on above:Performed By: #### FT3, LIPID, T4, CMP, TSH ####[facility] [address] [address]Dr. Yilan العلي Glucose [Mass/Vol]99 mg/zPChxvyw22-076Xsx [facility] HospitalComment on above: Performed By: #### FT3, LIPID, T4, CMP, TSH ####[facility] [address] [place], [place] [address]Dr. Yilan ChangPotassium [Moles/Vol]4.8 mmol/LNormal3.5-5.1The [facility] HospitalComment on above:Performed By: #### FT3, LIPID, T4, CMP, TSH ####[facility] [address] [place], [place] [address]Dr. Yilan ChangProtein [Mass/Vol]6.2 g/dLCritically low6.4-8.2 The [facility] on above:Performed By: #### FT3, LIPID, T4, CMP, TSH ####[facility] [address] [place], [place] [address]Dr. Yilan ChangSodium [Moles/Vol]140 mmol/CQbtjzw795-543SmaMccullough-Hyde Memorial Hospital Comment on above:Performed By: #### FT3, LIPID, T4, CMP, TSH ####[facility] [address] [place], [place] [address]Dr. Yilan ChangUrea nitrogen [Mass/Vol]17.0 mg/dLNormal7.0-18.0The [facility] Systemment on above:Performed By: #### FT3, LIPID, T4, CMP, TSH ####[facility] [address] [place], [place] [address]Dr. Yilan ChangUrea nitrogen/Creatinine [Mass ratio]27.4 mg/mgNormalThe [facility] HospitalComment on above:Performed By: #### FT3, LIPID, T4, CMP, TSH ####[facility] [address] [address]DrChi العليT4on 58-58-6416H1 [Mass/Vol]5.80 ug/dLNormal4.80-13.90The [facility] on above:Performed By: #### CBC #### [facility] [address], [place] [address] Dr. Maribel Doss 66-99-6698CKY7.018 uIU/mLCritically low0.358-3.740The [facility] Systemment on above:Performed By: #### FT3, LIPID, T4, CMP, TSH ####[facility] [address] [address]Dr. Maribel العليCovid-19 PCR (CVDTBH)on 01-32-9367FJBY-CoV-2 (COVID-19) RNA LENKA+probe Ql (Unsp spec)Not detectedNormalNOT DETECTEDThe [facility] on above:Result Comment: This test is not yet approved or cleared by the [place] FDA. When there are no FDA-approved or cleared tests available, and other criteria are met, FDA can make tests available under an emergency access mechanism called an Emergency Use Authorization (EUA). The EUA for this test is supported by the [place] of Health and Human Service's (HHS's) declaration [...] symptoms consistent with SARS-CoV-2.Performed By: #### CVDTBH ####[facility] [address] [address]Dr. Yialisha العليXR LSPINE MIN 4 VIEWSon 21-59-7990GH LSPINE MIN 4 VIEWSEXAMINATION: XR LSPINE MIN [...] Electronically authenticated by: GISELA ROSS Date: 2022-04-05 09:28[facility] Vital Signs Date TimeVital SignValuePerforming MmgzlbliaWqrspjrw48-31-7206 13:30-0500Blood Pressure LocationMichael NILL [phone]-NcinaCherrington Hospital [facility] [place] 10-22-2024 13:30-0500Diastolic blood dtycmbhq60 mm[Hg]Johnny NILL [phone]-HjbfoCherrington Hospital [facility] [place] 10-22-2024 13:30-0500Heart rate72 /minMichael NILL [phone]-FxembCherrington Hospital [facility] [place] 10-22-2024 13:30-0500Respiratory rate16 /minMichael NILL [phone]-IoeygCherrington Hospital [facility] [place] 10-22-2024 13:30-0500Systolic blood qhmzstoj305 mm[Hg]Johnny NILL [phone]-VxxrfMedina Hospital 08-19-2024 13:14-0500Body zcgmes906.5 cmPatrica Harmon MD Work Phone: [facility] CenterNjmcgwphzk51-16-8773 13:14-0500Body mass index (BMI) [Ratio]24.51 kg/w9TxbmdmPatrica Harmon MD Work Phone: [facility] CenterDjjphgmxhz68-17-6917 13:14-0500Body garrml09.78 kgPatrica Harmon MD Work Phone: [facility] CenterQnaiyxkfap85-29-7883 13:14-0500Diastolic blood smqtwoyv77 mm[Hg]Patrica Harmon MD Work Phone: noChristian HospitalKxnnwvqqsn15-88-5543 13:140500Systolic blood jhtbydpw183 mm[Hg]Patrica Harmon MD Work Phone: [facility] Healthcare Encounters Encounter DateEncounter TypeCare ProviderFacilityStart: 08-05-2025 End: 19-20-7571Gihhzy flowsheetJonathan D Zahler DO Work Phone: [facility] EyeStart: 08-05-2025 End: 74-77-5891Qgiltv flowsheetJonathan D Zahler DO Work Phone: [facility] EyeStart: 08-05-2025 End: 00-40-1944Hkesdn follow up visit related to original pxJonathan D Zahler DO Work Phone: [facility] EyeComment on above:Pseudophakia (Primary Dx)Start: 08-05-2025 End: 06-79-5653fxmktaqdbzNEORWBXT Chante SHELLERNot AvailableStart: 07-16-2025 End: 18-12-5887Otfngt flowsheetJonathan D Zahler DO Work Phone: [facility] EyeStart: 07-16-2025 End: 26-27-4723Bftdpa flowsheetJonathan D Zahler DO Work Phone: [facility] EyeStart: 07-16-2025 End: 83-02-1923Kmuvwy follow up visit related to original pxJonathan D Zahler DO Work Phone: [facility] EyeComment on above:Pseudophakia (Primary Dx); Age-related nuclear cataract of right eyeStart: 07-16-2025 End: 28-25-6683phbjksabvtMJYGOLTS Chante SHELLERNot AvailableStart: 07-11-2025 End: 48-90-6948Zykzto flowsheetJonathan Chante Sumayaer DO Work Phone: [facility] EyeStart: 07-11-2025 End: 25-45-7880Nedstw flowsheetQuitavasu Sharif Sumayaer DO Work Phone: [facility] EyeStart: 07-11-2025 End: 21-08-0550jaadgimkksIREMLWCS D ZAHLERNot AvailableStart: 07-11-2025 End: 39-03-2987Hpvfsa follow up visit related to original pxReyna Sharif Lukristopher DO Work Phone: [facility] EyeComment on above:Pseudophakia (Primary Dx)Start: 07-03-2025 End: 89-35-1110Vyorbt flowsFernvasu Sharif Sumayaer DO Work Phone: [facility] EyeStart: 07-03-2025 End: 84-35-5192Vohjje flowsheetQuitanatemperatriz Chante Zalindaer DO Work Phone: [facility] EyeStart: 07-03-2025 End: 63-23-1054pxjnhxintvABQEOXHI Chante CRESPONot AvailableStart: 11-19-2024 End: 65-18-0315ldixgrqnlqFhhjtrn R NILLFacility: ueStart: 11-19-2024 End: 70-54-2605Vftxdps encounter procedureMichael R NILL [phone]-YcreqMercy Health [facility] [place] Start: 11-13-2024 End: 24-04-1099zgkmjofxxlAuhuoou R NillAdams [facility]tr Work Phone: Start: 11-13-2024 End: 17-27-7485Krtwecza ReferredJohnny Garcia MD Work Phone: [facility]-LAB Path Spec [facility] HospStart: 11-13-2024 End: 90-74-0887atssvfedkpIdoywjn R NILLFacility:CD:[id number]: 10-22-2024 End: 95-26-2542bkbjtktimmJitvqdi HoyFacility: BellueStart: 10-22-2024 End: 90-98-4775Wqoyjag encounter procedureMichael R NILL [phone]-JashtMercy Health [facility] [place] Start: 51-81-2420bhncrschixRwthzxa HoyFacility:[facility]'s Hospitaltart: 08-19-2024 End: 48-74-1549Rpfcan flowsheetPatrica Harmon MD Work Phone: [facility]Start: 08-19-2024 End: 79-53-8097Vzjmmq flowsKodak Harmon MD Work Phone: n[facility] ENT NORETIENNEKStart: 08-19-2024 End: 26-60-0005kcyfpflldjWCBCWA H TIMMISNot AvailableStart: 08-19-2024 End: 83-57-0859Bshctu outpatient visit 25 minutesPatrica Harmon MD Work Phone: [facility] CENTERETIENNEKComment on above:Acute URI (Primary Dx)Start: 08-16-2024 End: 12-74-3970Qxhpiftdg encounterPatrica Harmon MD Work Phone: noms CI ENTStart: 55-85-0497tapfrbaednIS SANCHEZ HOY Facility:J8Tubte: 11-18-2022 End: 32-80-9941salgvyhmxaFW SANCHEZ HOYFacility:F2Whsnn: 10-03-2022 End: 06-37-5522jmkcxgqudkJV SANCHEZ HOYFacility:Q7Cobrl: 08-26-2022 End: 67-81-6588hbcdoxnwwaXC SANCHEZ HOYFacility:Q5Hsrrb: 07-07-2022 End: 07-89-1819ypkkgmsdodPO SANCHEZ HOYFacility:C2Zmonq: 05-05-2022 End: 68-46-4039nzvvqiygnvFJ SANCHEZ HOYFacility:R2Duyng: 05-04-2022 End: 69-77-1055bbntfjuiqmTS SANCHEZ HOYFacility:Z1Oazbu: 04-04-2022 End: 81-47-7491fcjastkuibPM SANCHEZ HOYFacility:H1 Procedures DateProcedureProcedure DetailPerforming ClinicianStart: 26-88-8222Ecj bmtry prtl coher intrfrmtry io lens pwr calJovasu Sheller DO Work Phone: Start: 07-03-2025 End: 36-18-9799Mxczt medical xm&eval compre new pt 1/> vstAge-related nuclear cataract of both eyesReyna Crespo DO Work Phone: comment on above:Age-related nuclear cataract of both eyes (Primary Dx)Start: 85-11-2117KrwnsgquegdNarcjpwy Luhler DO Work Phone: Start: 80-13-8223UjmgnwojrgmBwhozbi NILL AbdominoplastyMichael NILL Amputation of left fourth toeMichael NILL Arthroscopy of kneeMichael NILL Bypass of stomachMichael NILL CholecystectomyMichael NILL ColonoscopyMichael NILL Endoscopy of noseMichael NILL EsophagogastroduodenoscopyMichael NILL Ethmoid sinusectomyMichael NILL Foot repairMichael NILL Comment on above:x 17Fracture of ankle (disorder) Johnny NILL Nasal septoplastyMichael NILL Comment on above:n2Yczlkb of meniscusMichael NILL Repair of musculotendinous cuff of shoulderMichael NILL Comment on above:z3Btpplpgn sinusectomyMichael NILL Total abdominal hysterectomy with bilateral salpingo-oophorectomyMichael NILL Plan of Treatment DateCare ActivityDetailAuthorStart: 18-47-3420Pqfomurgc for malignant neoplasm of colonNOID HealthcareStart: 08-05-2025 End: 38-23-6949Ygkcuou encounter procedureNOCentral Mississippi Residential Center EyeComment on above:ArrivedStart: 07-16-2025 End: 07-31-4670Wbyjdoy encounter rwasyknqw49/08/2025 1:30 PM EDT Office Visit [facility] [address] [place] [address] Reyna Crespo DO [address] [place] [address] ArrivedNOCentral Mississippi Residential Center EyeComment on above:ArrivedStart: 07-11-2025 End: 97-61-6744Vroeszv encounter jumlswixg18/03/2025 9:00 AM EDT Office Visit [facility] [address] [place] [address] Reyna Crespo DO [address] [place] [address] [facility]Start: 07-03-2025 End: 47-49-0620Llxyppw encounter hwxeqsvgm00/25/2025 8:45 AM EDT Office Visit [facility] [address] [place] [id number] Reyan Crespo, DO [address] [place] [address] [facility] EyeComment on above:ArrivedStart: 16-68-5514ZNQSG-19 Vaccine ( season)COVID-19 Vaccine ( season)NOM HealthcareStart: 56-92-6899Yattpjyps vaccinationInfluenza Vaccine (#1)NOM HealthcareStart: 28-79-6222Znorjkakn vaccinationInfluenza Vaccine (#1)[facility] HealthcareStart: 18-02-1439Dovrhefpiuqb Vaccine: 65+ Years (2 of 2 - PCV20 or PCV21)Pneumococcal Vaccine: 65+ Years (2 of 2 - PCV20 or PCV21)[facility] HealthcareStart: 19-17-2719Kxchvafgasvc Vaccine: 65+ Years (2 of 2 - PPSV23 or PCV20)Pneumococcal Vaccine: 65+ Years (2 of 2 - PPSV23 or PCV20)[facility] HealthcareStart: 47-09-0167Monxwekfabud Vaccine: 65+ Years (2 of 2 - PPSV23)Pneumococcal Vaccine: 65+ Years (2 of 2 - PPSV23)[facility] Start: 53-51-3542Teifiwnta for malignant neoplasm of breastMammogramNOMS HealthcareStart: 00-37-6473YUeC/Tdap/Td Vaccines (1 - Tdap)DTaP/Tdap/Td Vaccines (1 - Tdap)[facility] HealthcareStart: 35-07-5745Azudibkfw for malignant neoplasm of colonNOMS Healthcare Immunizations Immunization DateImmunizationNotesCare VpvuowuoQpqfgpfu67-76-3836tdqzvvpxx virus vaccine, unspecified formulationMichael NILL [phone]-UiwhoMedina Hospital 87-62-4317JRAS-CoV-2 (COVID-19) mRNAMUL.ORD!o15456Tnqofkz NILL [phone]-CxhrtMedina Hospital 82-30-6206ENQB-CoV-2 mRNA (obikneumxbk-cxvr-pzvxlwj) vaccineMichael NILL [phone]-PjtksMedina Hospital 34-42-9091PVPQ-CoV-2 (COVID-19) mRNA BNT-162b2 vaxMichael NILL [phone]-BdkwvMedina Hospital Comment on above:Result Comment: 2024-09-30: DVY2013-40-6434EOLU-HdQ-3 (COVID- 19) mRNA BNT-162b2 vaxMichael NILL [phone]-IqglhMedina Hospital Comment on above:Result Comment: 2024-09-30: [id number]-[id number] (COVID- 19) mRNA BNT-162b2 vaxMichael NILL [phone]-XheqpMedina [facility] Comment on above:Result Comment: 2024-09-30: [id number] virus vaccine, unspecified formulationPatrica Harmon MD Work Phone: NO[facility] Payers DatePayer CategoryPayerPolicy [id number]-pay2024MedicaidAETNA MEDICARE ADVANTAGE [id number] 2020MedicareMEDICARE [id number] [id number] [id number] 2.840.1.472125.3.57[id number] 2.840.1.039319.3.579.[id number] 2.840.1.567994.3.579.[id number] 2.840.1.019897.3.57[id number] 2.840.1.296525.3.579.2.[id number] 2.840.1.989021.3.579.2.62343-81-0501Hxvmmmf33794969 2.840.1.873076.3.579.2.[id number] 2.840.1.622474.3.579.[id number] 2..840.1.887903.3.579.[id number] 2..840.1.521845.3.579.2.397992-07-8745Pxlylly34193940 2..840.1.884567.3.579.2.298683-49-4131Iwogvnf13105513 2..840.1.897183.3.579.[id number] 2..840.1.940070.3.579.2.802530-62-5774Aewlful9431571 2.16.840.1.898924.3.57[id number] 360o6394-r916-2cd1-brf[id number] 2.16.840.1.570996.3.579.2.531 Social History DateTypeDetailFacilityTobacco smoking status NHISTobacco smoking consumption unknownNOMS HealthcareStart: 20-00-3625Zmw assigned at birthNot on fileNOMS HealthcareStart: 08-19-2024 End: 03-34-4006Lyjgqs identityNot on [facility]art: 08-19-2024 End: 19-73-2334Bxjaqjc smoking status NHISNever smoked tobaccoNOMS Healthcare Start: 08-19-2024 End: 33-61-5748Igdoatf use and exposureSmokeless tobacco non-userNOMS Healthcare Start: 08-19-2024 End: 52-27-0458Jnwepaydz beverage intakeCurrent drinker of alcohol (finding)[facility]S HealthcareStart: 08-19-2024 End: 86-59-1133Svujubp of Social functionNOMS HealthcareStart: 73-84-9204Vxqpgew smoking statusNeHolzer Medical [facility] [place]vueStart: 88-56-8555OlpRjttue (finding)[facility] Hospitaltart: 1955 [facility]NE[facility]: Highlighted rowStart: NINFHistory of tobacco usePassive smokerKansas [facility] Medical Center Functional Status VcacGhptyijvibJelszgLhkffchz10-96-7869Jcjgetyocf StatusN/[facility] Iqruwoaa34-53-2608Elipedetuu StatusN/[facility] [place] Clinical Notes 04-05-2022 to 08-05-2025 Note Date & WmksCswpGmvaoqjc46-62-4786 History of Present illness Narrative* Reyna Crespo [...] vision, questions or concerns. documented in this encounterKansas City VA Medical CenterYzqeiashst98-49-6589 History of Present illness Narrative* Reyna Crespo [...] different lens options were explained including the sps-kz-ksxtgs fees for any upgrades. Intraocular lens (IOL) [...] Extremities: no pitting edema. documented in this [facility]10-03-2025 History of Present illness Narrative* Reyna Crespo [...] vision, questions or concerns. 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 10 mL 1 No current facility-administered medications for this visit. (Ophthalmic Agents) Current Outpatient Medications (Other) Medication Sig Dispense Refill beta carotene (vitamin A) 3 MG (55891 UT) capsule Take 10,000 Units by mouth [...] @ 9:15 AM Additional Tests Keratometry K1 Nakina K2 Nakina Right 43.75 172 44.00 82 Left 43.25 [...] Normal Normal Refraction Wearing Rx Sphere Cylinder Nakina Add Right +0.50 -0.75 108 +2.00 Left +3.25 -1.00 078 +2.00 Age: mths Manifest Refraction Sphere Cylinder Nakina Right -1.00 -0.25 151 Left +4.00 -1.25 059 Final Rx Sphere Cylinder Nakina Dist VA Right -1.00 -0.25 120 20/40 [...] different lens options were explained including the ngo-fd-mkiwsa fees for any upgrades. Intraocular lens (IOL) [...] and OD - 08/04. documented in this encounterKansas City VA Medical CenterNjkjwvpves53-95-4409 NoteGeneral Surgery Office/Clinic Note Chief Complaint consultation [...] Bedtime vitamin A 800 (more content not included)...[facility] CenterComment on above:Result Comment: Electronically Signed By: GOYO FUCHS, Johnny Cifuentes\Date and Time Signed: 10/22/24 14:45 [id number] History of Present illness Narrative* Patrica Harmon MD - 08/19/2024 1:10 PM EST Subjective Patient ID: Ita Alanis is a 68 y.o. female who presents for Sinusitis Pt reports she has had marked head fullness for one week. Did not see PCP. Covid negative. Used a decongestant and allergy pills. No family history on file. Active Ambulatory Problems Diagnosis Date Noted Asthma ([facility]) 08/19/2024 Bilateral tinnitus 08/19/2024 Chronic frontal sinusitis 08/19/2024 Hearing loss of right ear 08/19/2024 Hypothyroidism ([facility]/HCC) 08/19/2024 Migraine ([facility]) 08/19/2024 Osteoporosis ([facility]) 08/19/2024 Resolved Ambulatory Problems Diagnosis Date [...] saline irrigations as well documented in this encounterKansas City VA Medical CenterOwpejfboiy68-08-5089 Telephone encounter Note* Telephone Encounter - Lolly Harmon - 08/16/2024 1:28 PM EST Left a message for pt to contact Dr Harmon's office to schedule an appt. [facility] CenterQpyyqurmac33-95-1010 Miscellaneous Notes* Telephone Encounter - Lolly Harmon [...] sent in for her. Her pharmacy is [email or web address] in [place]. documented in this encounterKansas City VA Medical CenterUvmubnqjqy99-85-5116 Telephone encounter Note* Telephone Encounter - Patrica Harmon MD - 08/16/2024 12:05 PM EST Needs appt as not seen in over a year [facility] Work Phone: [phone] 312-745511-08-2024 Telephone encounter Note* Telephone Encounter - Lolly Harmon - 08/16/2024 11:22 AM EST Pt has a sinus infection, she would like a rx sent in for her. Her pharmacy is [email or web address] in [place]. [facility] Medical CenterLeepilezsm89-10-6239 NotePROCEDURE: XR HIP LT 2 3V W [...] Electronically authenticated by: GISELA ROSS Date: 2022-04-05 07:23[facility]06-28-2022 NotePROCEDURE: XR KNEE LT 4V or > COMPARISON: None. HISTORY: Derangement of knee FINDINGS: BONES:No fracture, acute abnormality, or significant arthropathy. SOFT TISSUES:Negative. No visible soft tissue swelling. EFFUSION:None visible. OTHER: Negative. IMPRESSION: No acute disease. Electronically authenticated by: GISELA ROSS Date: 2022-04-05 07:21[facility] HospitalEvaluation + Plan note No data available for this section [facility] [place] Evaluation note* Diagnosis Acute URI- Primary Acute upper respiratory infections of unspecified site documented in this encounter [facility] HealthcareEvaluation noteNo assessment information availableBucyrus Community Hospital Work Phone: Evaluation note* Diagnosis Age-related nuclear cataract of both eyes- Primary documented in this encounter [facility] HealthcareEvaluation note* Diagnosis Pseudophakia- Primary Lens replaced by other means documented in this encounter [facility] HealthcareEvaluation note* Diagnosis Pseudophakia- Primary Lens replaced by other means Age-related nuclear cataract of right eye documented in this encounter [facility] HealthcareEvaluation note* Diagnosis Pseudophakia- Primary Lens replaced by other means documented in this encounter [facility] HealthcareHospital Discharge instructions No data available for this section [facility] [place] Progress note No data available for this section [facility] Summary Purpose Family History No Family [...] and content) DATE CREATED AUTHOR 11/26/2022 [facility] DATE CREATED AUTHOR AUTHOR'S ORGANIZ ATION 11/15/2024 [facility] DATE CREATED AUTHOR AUTHOR'S ORGANIZ ATION 11/20/2024 [facility] DATE CREATED AUTHOR AUTHOR'S ORGANIZ ATION 08/06/2025 [facility] EPIC Care Teams (unrecognized sec tion and content) Team MemberRelationshipSpecialtyStart DateEnd Date Sanchez Causey MD [address] [place] [address] [facility] - [facility]/16/24Team MemberRelationshipSpecialtyStart DateEnd Date Sanchez Causey MD [address] [place] [address] PCP - [facility]08/16/24 Team Status: Inactive Member Role Status Dates Johnny Garcia MD FACS Attending Provider Active Start: November 13, 2024 End: November 13, 2024Team MemberRelationshipSpecialtyStart DateEnd Date Sanchez Causey MD [address] [place] [address] [facility] - [facility]08/16/24Team MemberRelationshipSpecialtyStart DateEnd Date Sanchez Causey MD [address] [place] [address] PCP - [facility]08/16/24Team MemberRelationshipSpecialtyStart DateEnd Date Sanchez Causey MD [address] [place] [address] PCP - [facility]08/16/24Te MemberRelationshipSpecialtyStmontville DateEnd Date Sanchez Causey MD [address] [place] [facility] [place] [address] PCP - [facility]08/16/24Te MemberRelationsParnassus campuspecialtyMeadow DateEnd Date Sanchez Causey MD [address] [place] [facility] [place] [address] PCP - [facility]08/16/24Te MemberRelationshipSquincy valley medical centerialtyMeadow DateEnd Sanchez Causey MD [address] [place] [facility] [place] [address] PCP - [facility]08/16/24 Reason for Visit (unrecogniz ed section and content) ReasonCommentsSinusitisReasonCommentsCataractReasonCommentsPost-op Follow-up LobytsBumraeziHxoy-qpAucbgenrFflkhiVsoadqvvYayc-fp Goals (unrecognized section and content) Goals may [...] BE BASED ON THE PRIMARY CLINICAL RECORDS. [facility] [employer] [facility]. provides no warranty or guarantee of the accuracy or completeness of information in this document.
== END 2025-09-01 11:33 | disposition home or self-care (01) ==
LOC: LAB 11:32
PROVIDERS: PCP Family Medicine; Visit Provider Family Medicine
DX: E78.5 Hyperlipidemia, unspecified (principal); R73.09 Other abnormal glucose; Z12.12 Encounter for screening for malignant neoplasm of rectum; D64.9 Anemia, unspecified; E03.9 Hypothyroidism, unspecified; E55.9 Vitamin D deficiency, unspecified; D50.9 Iron deficiency anemia, unspecified; I50.30 Unspecified diastolic (congestive) heart failure; I11.0 Hypertensive heart disease with heart failure
CPT/HCPCS: G0328

== ENCOUNTER 2025-09-10 12:16 | Outpatient (OUT) | payer MEDICARE, SELFPAY ==
--- OUTSIDE RECORDS SUMMARY | 2025-08-27 04:48 | XMS_ITS ---
Author Organization [facility] in [place] Address [address] [place] [address] Care Team Providers Care Substation Operator Automatic Name Role Phone Aly Causey Primary Care Provider REASON FOR VISIT Critical Lab Medications Medication SIG (Take, Route, Frequency, Duration) Notes Start Date End Date Status Protonix 40 MG 1 tablet 1/2 to 1 ho ur before morning meal Orally Once a day; Duration: 30 days 5Active Problems Problem Type SNOMED Code ICD Code Onset Dates Problem Status W/U Status Risk Notes Problem Anemia (165164844) Severe anemia (D64.9) Activeconfirmed Encounters Encounter Location Date Provider Diagnosis [facility] [address] [place] [address] 08/27/2025 Aly Causey Severe anemia D64.9 Assessments Encounter Date Diagnosis (ICD Code) Assessment Notes Treatment Notes Treatment Clinical Notes Section Notes 08/27/2025 Severe anemia (ICD-10 - D64.9) Plan Of Treatment Medication Medication Name Sig Start Date Stop Date Notes Protonix 40 MG 1 tablet 1/2 to 1 ho ur before morning meal Orally Once a day; Duration: 30 days 08/27/2025 Pending Test Test Name Order Date CBC 08/27/2025 Progress Notes * Ita ALANIS ADOB: [birth year] (69 yo F)Acc No.[id number]:08/27/2025 Patient:?Ita ALANIS :1955???Age:69 Y???Sex:FemalePhone:[phone] Address:[address] [place] [address], [id number] * Refills Start Protonix Tablet Delayed Release, 40 MG, Orally, 1 tablet 1/2 to 1 hour before morning meal, Once a day, 30 days Subjective: * Chief Complaints: * C ritical Lab * Medical History: * Surgical History: * Hospitalization/Major Diagno stic Procedure: * Medications: Objective: * Vitals: * Physical Examination: ??? Assessment: * Assessment: 1.?Severe anemia - D64.9 (Primary)??? Plan: * Treatment: ?LAB: CBC2.?Others? Start Protonix Tablet Delayed Release, 40 MG, 1 tablet 1/2 to 1 hour before morning meal, Orally, Once a day, 30 days.?? * Procedure Codes: * true * Date:?Generated for Printing/Faxing/eTransmitting on:?09/10/2025 12:21 PM EST
--- OUTSIDE RECORDS SUMMARY | 2025-09-01 13:15 | XMS_ITS | Encounter Summary ---
Author Organization [facility] Address [address] [place] [address] Care Team Providers Care Co Supervisor Grounds And Landscape Name Role Phone Jose Carlos Causey MD Primary Care Provider [phone] Reason for Visit * ReasonCommentsEye Pain Encounter Details DateTypeDepartmentCare Team (Latest Contact Info)Spkjyrscksa59/24/2025 1:15 PM ESTOffice Visit [facility] [address] [place] [phone] Wilmer Crespo DO [address] [place] [address] Pseudophakia (Primary Dx); Dry eyes Social History Tobacco UseTypesPacks/DayYears UsedDateSmoking Tobacco: NeverPassive Smoke Exposure: NeverSmokeless Tobacco: NeverAlcohol UseStandard Drinks/WeekComments Yes1 (1 standard drink = 0.6 oz pure alcohol)CommentsUnknownSex and Gender InformationValueDate RecordedSex Assigned at BirthNot on fileLegal Sex Wguqob2112/21/2022 6:51 PM EDTGender IdentityNot on fileSexual OrientationNot on filedocumented as of this encounter Progress Notes * Wilmer Crespo DO - 09/01/2025 1:15 PM EST Images from the original note were not included. Assessment/Plan Diagnoses and all orders for this visit: Pseudophakia - Looks good. No issues. Dry eyes - Dry Eyes OU -- Environmental changes to minimize dryness and exposure and the use of artificial tears were recommended. documented in this encounter Plan of Treatment Not on file documented as of this encounter Visit Diagnoses Diagnosis Pseudophakia- Primary Lens replaced by other means Dry eyes Unspecified tear film insufficiency documented in this encounter Care Teams Team MemberRelationshipSpecialtyStart DateEnd Date Jose Carlos Causey MD [address] [place] [address] PCP - GeneralFamily Ttbkltmh87/8/24documented as of this encounter
--- OUTSIDE RECORDS SUMMARY | 2025-09-02 09:00 | XMS_ITS ---
Author Organization [facility] [employer] [facility] Address [address] [address], [place] [address] Care Team Providers Care Scale Manager Name Role Phone Jose Carlos Causey M.D. Primary Care Provider Unavailesdras crystal Uriel Sanchez Unavailable [phone] Allergies Allergen (clinical drug ingredient) Drug/Non Drug Allergy documented on EMR Reaction Allergy Type Onset Date Status Darvoset (uncoded)UnknownAllergyActiveacetaminophenAcetaminophen ERUnknownDrug AllergyActiveCatsUnknownAllergyActiveMilk-related CompoundsUnknownDrug Allergy ActivepropoxyphenePropoxypheneUnknownDrug AllergyActive REASON FOR VISIT Bilateral Foot Pain- Ingrown Social History Section Notes: No tobacco use. Social alcohol use. Encounters Encounter Location Date Provider Diagnosis [facility], [facility] [address] [address], [place] [address] 09/02/2025 Uriel Chelseameka Ingrown toenail L60.0 ; Onychomycosis B35.1 and Chronic anemia D64.9 Assessments Encounter Date Diagnosis (ICD Code) Assessment Notes Treatment Notes Treatment Clinical Notes Section Notes 09/02/2025 Ingrown toenail (ICD-10 - L60.0) Latonia would like to undergo chemical matrixectomy. I recommended she wait for the right hallux nail given there is currently no nail and no pain. I recommended ABIs/TBIs given her history of claudication like symptoms fortunately she still has hair growth on her toes. Further, if her anemia is improved and controlled her healing potential will be significantly better however I am concerned that if delayed too long she could develop an infection. If her noninvasive vascular studies are amendable she may undergo chemical matrixectomy of left 1stand 5th toes. I did emphasize the potential risks even if blood flow studies demonstrate adequate healing potential specifically infection, pain, wound, and amputation. I also discussed possbility ofnail regrowth. We will call her with the results of the blood flow studies. 09/02/2025Onychomycosis (ICD-10 - B35.1)09/02/2025hronic anemia (ICD-10 - D64.9) Plan Of Treatment Treatment Notes Assessment Notes Ingrown toenail Latonia would like to undergo chemical matrixectomy. I recommended she wait for the right hallux nail given there is currently no nail and no pain. I recommended ABIs/TBIs given her history of claudication like symptoms fortunately she still has hair growth on her toes. Further, if her anemia is improved and controlled her healing potential will be significantly better however I am concerned that if delayed too long she could develop an infection. If her noninvasive vascular studies are amendable she may undergo chemical matrixectomy of left 1st and 5th toes. I did emphasize the potential risks even if blood flow studies demonstrate adequate healing potential specifically infection, pain, wound, and amputation. I also discussed possbility of nail regrowth. We will call her with the results of the blood flow studies. Next Appt Details Follow Up: after ABIs, Reaso n: left 1st & 5th matrixectomy History and Physical Notes * HPI (History of Present Illness) CategorySub-CategoryDetailNotesCategory NotesToe Latonia is a 69F with medical history of anemia and CAD. She has had issues with painful ingrown toenails of b/l hallux and left 5th toe. She denies recent infection of the affected nails/toes. She relates that she picks the ingrown portion of nail out herself and roughly a month ago when digging out the ingrown on right hallux the entire nail came off which has alleviated her pain in this toe. She did have osteomyelitis of her left 4th toe which was amputated in 2022. She relates to cramping in her calfs with exertion which she has been told may be from the anemia. She is awaiting insurance approval for medical mgt of the anemia. Examination CategorySub-CategoryDetailNotesCategory NotesGeneral Examination Skin: skin intact with no open wounds. No signs of infection. Right great toenail has been avulsed and there is no visible nail plate. the Right hallux nail is severely incurvated and partially avulsed. Her left 5th nail is thick and dystrophic Neuro: light touch intact to dorsal & plantar foot. Negative tinel's sign Vascular: Palpable pedal pulses. No significant swelling or bruising. No calf pain on squeeze. Intact digital hair. MSK: No POP to bony prominences. Able to fire all muscle groups equally & symmetrically. No deformity Progress Notes * Merissa ALANIShDOB: 5 (69 yo F)Acc No.[id number]:09/02/2025 New Patient Patient: Ita Brenner :?Uriel Sanchez REGINALDOMDOB:1955???Age:69 Y ???Sex:FemaleDate:09/02/2025Phone:Address:[address] [place], [place] [phone]:Jose Carlos Causey M.D. Subjective: * Chief Complaints: * B ilateral Foot Pain- Ingrown * HPI: ???Toe:? Latonia is a 69F with medical history of anemia and CAD. She has had issues with painful ingrown toenails of b/l hallux and left 5th toe. She denies recent infection of the affected nails/toes. She relates that she picks the ingrown portion of nail out herself and roughly a month ago when digging out the ingrown on right hallux the entire nail came off which has alleviated her pain in this toe.? She did have osteomyelitis of her left 4th toe which was amputated in 2022. She relates to cramping in her calfs with exertion which she has been told may be from the anemia. She is awaiting insurance approval for medical mgt of the anemia. * Medical History: Anemia Asthma High Blood Pressure Medical History Verified * Social History: Social History Verified. ???No tobacco use. Social alcohol use. * Allergies: A cetaminophen ERPropoxypheneMilk-related CompoundsCatsDarvosetyesAllergies Verified. Objective: * Examination: ???General Examination: ???Skin: skin intact with no open wounds. No signs of infection. Right great toenailhas been avulsed and there is no visible nail plate. the Right hallux nail is severely incurvated and partially avulsed. Her left 5th nail is thick and dystrophic Neuro: light touch intact to dorsal & plantar foot. Negative tinel's sign Vascular: Palpable pedal pulses. No significant swelling or bruising. No calf pain on squeeze. Intact digital hair. MSK: No POP to bony prominences. Able to fire all muscle groups equally & symmetrically. No deformity. Assessment: * Assessment: 1.?Ingrown toenail - L60.0 (Primary)???2.?Onychomycosis - B35.1???3.?Chronic anemia - D64.9??? Plan: * Treatment: Notes: Latonia would like to undergo chemical matrixectomy. I recommended she wait for the right halluxnail given there is currently no nail and no pain. I recommended ABIs/TBIs given her history of claudication like symptoms fortunately she still has hair growth on her toes. Further, if her anemia is improved and controlled her healing potential will be significantly better however I am concerned that if delayed too long she could develop an infection.? If her noninvasive vascular studies are amendable she may undergo chemical matrixectomy of left 1stand 5th toes. I did emphasize the potential risks even if blood flow studies demonstrate adequate healing potential specifically infection, pain, wound, and amputation. I also discussed possbility ofnail regrowth.? We will call her with the results of the blood flow studies.?? * Follow Up: a fter ABIs (Reason: left 1st & 5th matrixectomy) Billing Information: * Visit Code: 99467 Office Visit, Est Pt., Level 3. * Procedure Codes: * Sign off status: Completed true * Provider: Clarence Sanchez DPM Date: 11/02/2024 Generated for Printing/Faxing/eTransmitting on:?09/10/2025 12:18 PM EST
--- OUTSIDE RECORDS SUMMARY | 2025-09-10 12:18 | XMS_ITS | Patient Health Record ---
Author Organization [facility] Address [address] [address], [place] [address] Care Team Providers Care Blasting Helper Name Role Phone Jose Carlos Causey M.D. Primary Care Provider Unavaila Uriel Reyes Unavailable [phone] Allergies Allergen (clinical drug ingredient) Drug/Non Drug Allergy documented on EMR Reaction Allergy Type Onset Date Status Darvoset (uncoded)UnknownAllergyActiveAcetaminophen ERUnknownDrug AllergyActive CatsUnknownAllergyActiveMilk-related CompoundsUnknownDrug AllergyActive propoxyphenePropoxypheneUnknownDrug AllergyActive Reason For Referral No Information Social History Section Notes: No tobacco use. Social alcohol use. Encounters Encounter Location Date Provider Diagnosis [facility], [facility] [address] [address], [place] [address] 09/02/2025 Uriel Sanchez Ingrown toenail L60.0 ; Onychomycosis B35.1 and [...] anemia (ICD-10 - D64.9) Plan Of Treatment No Information Insurance Providers Payer Name Payer Address Payer Phone Subscriber Number Group Number Insured Name Patient Relationship to Insured Coverage Start Date Coverage End Date [employer] [address] [address] [place] [address] [id number] Bobo Alaniself - patient is the insured[place]are of [place] [id number] [place], [place] [id number], DeborahSelf - patient is the insured Medical (General) History Medical History History ICD Code Anemia AsthmaHigh Blood Pressure
--- OUTSIDE RECORDS SUMMARY | 2025-09-10 12:18 | XMS_ITS | Clinical Summary ---
Author Organization [facility] Healthcare Address [address] [place] [address] Care Team Providers Care Bowling Ball Mold Assembler Name Role Phone Jose Carlos Causey MD Primary Care Provider [phone] Allergies Active AllergyReactionsCriticalityNoted DateCommentsOxycodone-AcetaminophenHives 07/03/2025 acetaminophen / [...] tip and replace cap. 48 g ctive Huwirqrjxyd-Gkqcvqse-Lqagmptbe 1-0.5-0.075 % solution Indications:Age-related nuclear cataract of both eyesAdminister 1 drop into affected eye(s) in the morning and 1 drop at noon and 1 drop in the evening and 1 drop before bedtime. 10 mL 5Active beta carotene (vitamin A) 3 MG (91632 UT) capsule Take 10,000 Units by mouth DailyActive Protonix 40 MG EC tablet 1 (one) time each day at the same time5Active diclofenac (Voltaren) 75 MG EC tablet every 12 (twelve) hours5Active Active Problems ProblemNoted DateDiagnosed DateDry eyes09/01/20251136Plpehrqucmmr67/sthma 08/19/2024ilateral iaypxhan53/11/2024hronic frontal oilxgwuhb37/11/2024Hearing loss of right ear08/19/20246287Cfyluupwaasaox29/11/1799Opncgcia87/11/2024 Idxrxdlzmhxm07/11/2024 Resolved Problems ProblemNoted DateDiagnosed DateResolved DateAge-related nuclear cataract of right eyege-related nuclear cataract of both eyes07/03/2025 07/16/2025 Encounters DateTypeDepartmentCare CdshSctmmajapdg73/24/2025 1:15 PM ESTOffice Visit [facility] [address] [place] [address] Wilmer Crespo, Pseudophakia (Primary Dx); Dry eyes09/01/2025amboo flowsheet [facility] [address] [place] [address] Wilmer Crespo, DO 09/01/20255703Cvikyh71/28/2025 9:00 AM EDTOffice Visit [facility] [address] [place] [address] Wilmer Crespo, Pseudophakia (Primary Dx)08/05/2025amboo flowsheet [facility] [address] [place] [address] Wilmer Crespo, DO 08/05/20255140Siwujh81/08/2025 1:30 PM EDTOffice Visit [facility] [address] [place] [address] Wilmer Crespo, Pseudophakia (Primary Dx); Age-related nuclear cataract of right eye07/16/2025amb flowsheet [facility] [address] [place] [address] Wilmer Crespo, DO 07/16/20255794Cxvwev24/03/2025 9:00 AM EDTOffice Visit [facility] [address] [place] [address] Wilmer Crespo, DO Pseudophakia (Primary Dx)07/11/2025[facility] flowsheet [facility] [address] [place] [address] Wilmer Crespo, DO 07/11/20257498Ipmros67/25/2025 8:45 AM EDTOffice Visit [facility] [address] [place] [address] Wilmer Crespo, DO Age-related nuclear cataract of both eyes (Primary Dx)07/03/2025Orders Only [facility] [address] [place] [address] Wilmer Crespo, Age-related nuclear cataract of both eyes07/03/2025[facility] flowsheet [facility] [address] [place] [address] Wilmer Crespo, DO 07/03/2025Travelfrom Last 3 Months Family History Medical HistoryRelationNameCommentsMacular degenerationFather's BrotherRelation NameStatusCommentsFatherDeceasedFather's BrotherMotherDeceased Social History Tobacco UseTypesPacks/DayYears UsedDateSmoking Tobacco: NeverPassive Smoke Exposure: NeverSmokeless Tobacco: Never Tobacco Cessation:Counseling Given: No Alcohol UseStandard Drinks/WeekCommentsYes1 (1 standard drink = 0.6 oz pure alcohol)CommentsUnknownSex and Gender InformationValueDate RecordedSex Assigned at BirthNot on fileLegal MknHthswr18/15/2023 6:51 PM EDTGender Identity Not on fileSexual OrientationNot on file Last Filed Vital Signs Vital SignReadingTime TakenCommentsBlood Jphpzbjg747/7711/08/2024 1:14 PM EST Pulse--Temperature--Respiratory Rate--Oxygen Saturation--Inhaled Oxygen Concentration--Mytfhq26.8 kg (134 lb)08/19/2024 1:14 PM FZXRavjtz239.5 cm (5' 2 )08/19/2024 1:14 PM ESTBody Mass Index24.51110/19/2023 1:14 PM EST Plan of Treatment Health MaintenanceDue DateLast DoneCommentsCT Glrhchjrwtvh91/16/1955FIT-DNA 1954FIT1955FOBT1955 6264Ugwhvbhgckdlb58/16/0719Jukkitboi83/16/1995 Pneumococcal Vaccine: 65+ Years (2 of 2 - PCV20 or PCV21)/11/2019 COVID-19 Vaccine (6 - 2024- season)/07/2023, 05/12/2022, 07/06/2021, Additional history existsInfluenza Vaccine (#1)/05/2024, 09/11/2023, 07/25/2022, Additional history mhskfsNgddrzizcvv20/05/2035 11/13/2024, 11/13/2024olorectal Cancer Fbtcnajgo75/05/2035 Procedures Procedure NamePriorityDate/TimeAssociated DiagnosisCommentsIOL BIOMETRY - OU - BOTH OSAOMjllfze16/25/2025 9:30 AM EDT Age-related nuclear cataract of both eyes from Last 3 Months Results * IOL Biometry - OU - Both Eyes (CPT 31300) (07/03/2025 9:30 AM EDT)Anatomical RegionLateralityModalityHeadOtherSpecimen (Source)Anatomical Location [...] eyes (OU). ?? Authorizing ProviderResult TypeResult StatusJovasu PARMAR ULTRASOUND Final Result from Last 3 Months Insurance Care Teams Team MemberRelationshipSpecialtyStart Date Jose Carlos Causey MD [address] [place] [address] PCP - GeneralFamily Howzpvdd32/8/24
--- OUTSIDE RECORDS SUMMARY | 2025-09-10 12:18 | XMS_ITS | Encounter Summary ---
Author Organization [facility] Address [address] [place] [address] Care Team Providers Care Lab Associate Name Role Phone Jose Carlos Causey MD Primary Care Provider [phone] Encounter Details DateTypeDepartmentCare Team (Latest Contact Info)Znkwxnqngwd30/24/2025Travel Social History Tobacco UseTypesPacks/DayYears UsedDateSmoking Tobacco: NeverPassive Smoke Exposure: NeverSmokeless Tobacco: NeverAlcohol UseStandard Drinks/WeekComments Yes1 (1 standard drink = 0.6 oz pure alcohol)CommentsUnknownSex and Gender InformationValueDate RecordedSex Assigned at BirthNot on fileLegal Sex Fjrlyq4212/21/2022 6:51 PM EDTGender IdentityNot on fileSexual OrientationNot on filedocumented as of this encounter Plan of Treatment Not on file documented as of this encounter Visit Diagnoses Not on filedocumented in this encounter Care Teams Team MemberRelationshipSpecialtyStart DateEnd Date Jose Carlos Causey MD [address] [place] [address] PCP - GeneralFamily Coxewafv05/8/24documented as of this encounter
--- OUTSIDE RECORDS SUMMARY | 2025-09-10 12:18 | XMS_ITS | Encounter Summary ---
Author Organization [facility] Address [address] [place] [address] Care Team Providers Care Steam Turbine Operator Name Role Phone Jose Carlos Causey MD Primary Care Provider [phone] Encounter Details DateTypeDepartmentCare Team (Latest Contact Info)Jybuwhqyhiz03/24/2025amboo flowsheet [facility] [address] [place] [phone] Wilmer Crespo, DO [address] [place] [address] Social History Tobacco UseTypesPacks/DayYears UsedDateSmoking Tobacco: NeverPassive Smoke Exposure: NeverSmokeless Tobacco: NeverAlcohol UseStandard Drinks/WeekComments Yes1 (1 standard drink = 0.6 oz pure alcohol)CommentsUnknownSex and Gender InformationValueDate RecordedSex Assigned at BirthNot on fileLegal Sex Hazddz0812/21/2022 6:51 PM EDTGender IdentityNot on fileSexual OrientationNot on filedocumented as of this encounter Plan of Treatment Not on file documented as of this encounter Visit Diagnoses Not on filedocumented in this encounter Care Teams Team MemberRelationshipSpecialtyStart DateEnd Date Jose Carlos Causey MD [address] [place] [address] PCP - GeneralFamily Dirlaiqd33/8/24documented as of this encounter
--- OUTSIDE RECORDS SUMMARY | 2025-09-10 12:18 | XMS_ITS | Clinical Summary ---
Author Organization [facility] Address [address] [facility] [place] [address] Phone Care Team Providers Care Civil Transportation Engineer Name Role Phone Unavailable Primary Care Provider Unavailabl e Social History Tobacco UseTypesPacks/DayYears UsedDateSmoking Tobacco: Never Assessed CommentsUnknownSex and Gender InformationValueDate RecordedSex Assigned at Not on fileLegal CebVwngjj57/25/2022 2:25 PM ESTGender IdentityNot on fileSexual OrientationNot on file Plan of Treatment Not on file
--- OUTSIDE RECORDS SUMMARY | 2025-09-10 12:19 | XMS_ITS | Clinical Summary ---
Author Organization [facility] Address [address] [place] [address] Care Team Providers Care Core Drilling Supervisor Name Role Phone Unavailable Primary Care Provider Unavailabl e Social History Tobacco UseTypesPacks/DayYears UsedDateSmoking Tobacco: Never Assessed CommentsUnknownSex and Gender InformationValueDate RecordedSex Assigned at Not on fileLegal WhdXhcutc56/29/2022 10:22 PM EDTGender IdentityNot on file Sexual OrientationNot on file Plan of Treatment DateTypeDepartmentCare Team (Latest Contact Info)Edbgjepakeu37/12/2025 2:30 PM ESTOffice Visit [facility] [address] [place] [address] Bernardo Berrios MD [address] [facility] [address] [facility] [place] [address] Health MaintenanceDue DateLast DoneCommentsCT Pwbnvspxotxh51/16/1956Colonoscopy 5Colorectal Cancer Lrngeeqwc51/16/1955FIT-DNA1954FIT1954 FOBT1954Medicare Annual Wellness (AWV)1955 2916Vlnkwzhpgasxn16/16/1955 Depression Hpwakozmg31/16/1967Adult Mmarxzd7611/24/19760530Jvcxeiiqj19/16/1995Fall Risk Kcygbxtie04/16/2020Pneumococcal Vaccine: 50+ Years (2 of 2 - PCV20 or PCV21)/11/2019COVID-19 Vaccine (2024- season)2025 08/18/2023, 07/25/2022, 05/12/2022, Additional history existsInfluenza Vaccine (#1)51, 09/11/2023, 07/25/2022, Additional history exists Zoster EljqwiwmNtpuijakm85/10/2023, 06/15/2023HIB VaccinesAged OutNo longer eligible based on patient's age to complete this topicHPV VaccinesAged OutNo longer eligible based on patient's age to complete this topicIPV VaccinesAged OutNo longer eligible based on patient's age to complete this topicMeningococcal B VaccineAged OutNo longer eligible based on patient's age to complete this topicMeningococcal VaccineAged OutNo longer eligible based on patient's age to complete this topicRotavirus VaccinesAged OutNo longer eligible based on patient's age to complete this topic Insurance
--- OUTSIDE RECORDS SUMMARY | 2025-09-10 12:20 | XMS_ITS | Patient Health Record ---
Author Organization The [facility] in [place] Address [address] [place] [address] Care Team Providers Care Naprapath Name Role Phone Aly Ocasio Primary Care Provider Allergies Allergen (clinical drug ingredient) Drug/Non Drug Allergy documented on EMR Reaction Allergy Type Onset Date Status darvocet (uncoded)UnknownAllergyActiveLorcetUnknownDrug AllergyActive Results Component Value Reference Range Notes COVID-19, Flu A+B IH Reviewed date:08/27/2025 06:23:07 PM Interpretation: Performing Lab: Notes/Report: COVID neg FLU AnegFLU BnegControlpresentBNP Reviewed date:08/27/2025 06:23:07 PM Interpretation: Performing Lab: Notes/Report: [facility] ,NT Pro B Type Natriuretic Tmiv906.0<=900.0 pg/mLPerforming Lab:see noteML - [facility] LBMM tomosynthesis screening BI Reviewed date:09/27/2024 01:13:16 PM Interpretation: Performing Lab: Notes/Report: Source Facility: [facility]-[address] [place] [address] [place] [address] Mammography Report Signed Patient: ITA ALANIS MR#: [id number] : 1955 Acct:[id number] Age/Sex: 68 / F ADM Date: 09/27/24 Loc: LAB Attending Dr: Sanchez Ocasio M.D. Ordering Physician: Sanchez Ocasio M.D. Results: Date of Service: 09/27/24 Follow Up: Procedure(s): MM tomosynthesis screening BI Accession Number(s): [id number] cc: Sanchez Ocasio M.D. Patient Name: ITA ALANIS MR#: [id number] : 1955 Exam Date: 09/27/2024 Ordering Doctor: DR Sanchez Ocasio . RADIOLOGY REPORT PROCEDURE: MM TOMOSYNTHESIS SCREENING BI COMPARISON: MG MAMM SCREEN CODY W CAD, 08/19/2020. MG MAMM CODY SCRN W CAD DIG, 02/27/2015. INDICATIONS: Screening Calculator Name NCI Breast Cancer Risk Assessment Tool 5 Year Breast Cancer Risk 2.10% Lifetime Breast Cancer Risk 6.40% Personal Breast Cancer No Personal Ovarian Cancer No Treatments None Family Cancers Mother with lung cancer at age 77; Aunt-maternal with oral cancer at age 58. LOCATION: [facility] BREAST COMPOSITION: The breasts are almost entirely fatty. FINDINGS: DIAGNOSTIC CATEGORY 1--NEGATIVE. NO CHANGE FROM COMPARISON ASSESSMENT. Scattered benign-appearing calcifications are present. RIGHT BREAST: No significant suspicious finding. LEFT BREAST: No significant suspicious finding. RECOMMENDATIONS: ROUTINE MAMMOGRAM AND CLINICAL EVALUATION IN 12 MONTHS. PLEASE NOTE: A NORMAL MAMMOGRAM DOES NOT EXCLUDE THE POSSIBILITY OF BREAST CANCER. A CLINICALLY SUSPICIOUS PALPABLE LUMP SHOULD BE BIOPSIED. Dictated by: Von Fishman MD on 09/27/2024 at 12:43 Approved by: Von Fishman MD on 09/27/2024 at 12:44 Dictated By: Von Fishman M.D. Signed By: 09/27/24 1245 DD/ 1244 TD/TT: Biology Professor:WGANER echo doppler complete Reviewed date:08/25/2025 07:11:42 PM Interpretation: Performing Lab: Notes/Report: Source Facility: [place] [address] [place] [address] Cardiology Report Signed Patient: ITA ALANIS MR#: [id number] : 1955 Acct:[id number] Age/Sex: 69 / F ADM Date: 08/25/25 Loc: CARD Attending Dr: Sanchez Ocasio M.D. Ordering Physician: Sanchez Ocasio M.D. Date of Service: 08/25/25 Procedure(s): CA echo doppler complete Accession Number(s): [id number] cc: Sanchez Ocasio M.D. Patient Name: ITA ALANIS MR#: [id number] : 1955 Exam Date: 08/25/2025 Ordering Doctor: DR SANCHEZ OCASIO . ECHOCARDIOGRAM REPORT PROCEDURE: CA ECHO DOPPLER COMPLETE INDICATIONS: Hypertension COMPARISON: None. DESCRIPTION: COMPLETE ECHOCARDIOGRAM Real-time transthoracic echocardiography with 2D, M-mode, spectral and color flow Doppler performed. QUALITY: Technical quality was good. LEFT VENTRICLE: Normal chamber size. Proximal septal mild hypertrophy (sigmoid septum). Normal left ventricle systolic function without wall motion abnormalities, ejection fraction estimated to be 65-70% LV EF: Normal left ventricular ejection fraction, (>55%). DIASTOLIC: Unable to evaluate left ventricle diastolic function. ATRIAL SEPTUM: Visually appears intact LEFT ATRIUM: Severe dilatation. RIGHT ATRIUM: Normal chamber size. RIGHT VENTRICLE: Normal chamber size. Normal right ventricular systolic function. TRICUSPID VALVE: Normal mobility and thickness. No stenosis with trivial regurgitation. Unable to assess right-sided pressure due to the lack of measurable tricuspid regurgitation. MITRAL VALVE: Normal mobility and thickness. No evidence of mitral valve stenosis. There is no mitral annular calcification. No mitral regurgitation. AORTIC VALVE: Normal trileaflet appearance. No visible sclerosis. Normal leaflet mobility. No evidence of aortic valve stenosis. No aortic regurgitation. AORTIC ROOT: Normal diameter and appearance. Ascending aorta is normal in size. PULMONIC VALVE: Normal thickness and mobility. No stenosis. No regurgitation. PERICARDIUM: No evidence of pericardial effusion. IVC: Not well visualized. PLEURA: CONCLUSION: Sigmoid septum with mild proximal hypertrophy Normal left ventricle cavity size Normal left ventricle systolic function without wall motion abnormalities, EF 65 to 70% Normal right ventricle size and systolic function Severely dilated left atrium No significant valvular abnormalities Adult Echocardiography Procedure Report Left Ventricle LVEDD (3.7 - 5.6 cm): 4.61 cm LVESD (2.2 - 4.0 cm): 2.99 cm LVIVS thickness (0.6 - 1.2 cm): 1.16 cm LVPW thickness (0.5 - 1.0 cm): 0.74 cm e': 0.12 m/s E - e': 9.01 LVOT Max Gradient: 5.92 mm[Hg] LVOT Area (cm2): 1.22 m/s Peak Velocity (LVOT): 1.22 m/s Mean Velocity (LVOT): 0.85 m/s LVOT Diameter 1.87 cm Left Ventricular Ejection Fraction: 69.67 % Left Atrium LA Volume Index (2D A2C): 57.98 ml/m2 Left Atrium Systolic Dimension: 4.13 cm Mitral Valve MV E to A Ratio: 0.93 MV Max Gradient: MV Mean Gradient: Mitral Valve A-Wave Peak Velocity: 1.14 m/s Mitral Valve E-Wave Peak Velocity: 1.06 m/s Cardiovascular Orifice Area: Right Ventricle RV Internal Diastolic Dimension: Aorta AO Root Diam: 3.30 cm Ascending Ao Diam: 3.11 cm Aortic Valve AoV Area (Peak Abdoulaye): 2.36 cm2, 2.36 cm2 AoV Area (VTI): 2.37 cm2, 2.37 cm2 Deceleration Stephenson: Pressure Half-Time: Peak Velocity(Antegrade Flow): 1.41 m/s Peak Gradient(Antegrade Flow): 7.94 mm[Hg] Mean Velocity(Antegrade Flow): 0.95 m/s Mean Gradient(Antegrade Flow): 4.13 mm[Hg] Velocity Time Integral: 31.07 cm Tricuspid Valve Peak Velocity (Regurgitant Flow): Peak Velocity: Pulmonic Valve Mean Gradient: 1.53 mm[Hg] Mean Velocity: 0.59 m/s Peak Velocity: 0.80 m/s Peak Gradient: 2.54 mm[Hg] Right Atrium Right Atrium Systolic Pressure: 26.76 ml, 26.76 ml Dictated by: Radha Keith MD on 08/25/2025 at 18:48 Approved by: Radha eKith MD on 08/25/2025 at 18:53 Dictated By: Radha Keith M.D. Signed By: 08/25/251853 DD/ 52 TD/TT: Biology Professor:CBC AUTO DIFF Reviewed date:08/27/2025 06:23:06 PM Interpretation: Performing Lab: Notes/Report: [facility] ,White Blood Count6.14.0-11.0 10 3/uLRed Blood Count3.554.20-5.40 10 6/uL Hemoglobin6.812.0-16.0 g/dLRESULTS CALLED TO DENVER MIMS LPN at 0944Hematocrit 25.236.0-48.0 %Mean Corpuscular Gpduuu58.081.0-99.0 fLMean Corpuscular Ptszkymhfu50.226.7-34.0 pgMean Corpuscular HGB Conc27.029.9-35.2 g/dLRed Cell Distribution Width18.911.0-15.0 %Platelet Xxgyu418671-632 10 3/uLMean Platelet Volume9.49.5-13.5 fLNeutrophils Percent Auto67.343.0-75.0 %Lymphocytes Percent Auto19.620.5-60.0 %Monocytes Percent Auto5.61.7-12.0 %Eosinophils Percent Auto 6.50.9-7.0 %Basophils Percent Auto0.80.2-2.0 %Immature Granulocytes Pct Auto0.2 0.0-0.5 %Neutrophils Absolute Auto4.11.4-6.5 10 3/uLLymphocytes Absolute Auto1.2 1.2-3.8 10 3/uLMonocytes Absolute Auto0.30.3-0.8 10 3/uLEosinophils Absolute Auto0.40.0-0.7 10 3/uLBasophils Absolute Auto0.10.0-0.1 10 3/uLImmature Granulocytes Abs Auto0.010.00-0.03 10 3/uLPerforming Lab:see noteML - [facility] LBFREE T3 Reviewed date:08/27/2025 06:23:06 PM Interpretation: Performing Lab: Notes/Report: [facility] ,Free T32.302.18-3.98 pg/mLPerforming Lab:see noteML - [facility] LB GLYCOHEMOGLOBIN A1C Reviewed date:08/27/2025 06:23:06 PM Interpretation: Performing Lab: Notes/Report: [facility] ,Glycohemoglobin A1C5.14.5-6.2 % ADA THERAPEUTIC TARGET < 7.0 ACTION SUGGESTED > 7.0 ADA RECOMMENDED LIMIT 4.0 - 6.0 Estimated Average Desxyfv403Uzyjwvqzpb Lab:see noteML - [facility] LB INSULIN Reviewed date:08/28/2025 07:56:14 PM Interpretation: Performing Lab: Notes/Report: [facility] ,Insulin4.42.6-24.9 uIU/mL Metalizing Machine Operator Automatic: Ibrahima Manuel PhD, Phone: [phone] Performed at: [address] [id number] Performing Lab:[facility] LBIRON Reviewed date:08/27/2025 06:23:06 PM Interpretation: Performing Lab: Notes/Report: [facility] ,Iron11.050.0-170.0 ug/dLPerforming Lab:see [facility] LB LIPID PROFILE Reviewed date:08/27/2025 06:23:06 PM Interpretation: Performing Lab: Notes/Report: [facility] ,Mkhpjrmpgrldu12<=150 mg/fBOjmwtqgtxcb439<=200 mg/dLHDL Elggikggpxo24200-98 mg/dL > or =60 mg/dl - LOW CARDIOVASCULAR RISK <40 mg/dl - HIGH CARDIOVASCULAR RISK LDL Cholesterol Xfamfaslhk31.0 >190 mg/dl VERY HIGH 100-129 mg/dl NEAR OR ABOVE OPTIMAL 130-159 mg/dl BORDERLINE HIGH 160-189 mg/dl HIGH <100 mg/dl OPTIMAL VLDL XKTTVFOMKJQ21.0Chol HDL Ratio1.6 >11.0 HIGH RISK 4.4 - 7.1 AVERAGE RISK 3.3 - 4.4 LOW RISK 7.1 - 11.0 MODERATE RISK Performing Lab:[facility] LBPROF 14(COMP METB) Reviewed date:08/27/2025 06:23:06 PM Interpretation: Performing Lab: Notes/Report: [facility] ,Ximpjn860592-804 mmol/LPotassium3.73.5-5.1 mmol/JPeavjmzj56395-184 mmol/LCarbon Jvdwjre12.621.0-32.0 mmol/LAnion Gap11.1Xflwrej5718-647 mg/dLBlood Urea Gjwfsyhg41.07.0-18.0 mg/dLCreatinine0.600.55-1.02 mg/dLEstimated GFR ( Gena>60>=60 mL/min/1.73m 2Estimated GFR (Non- Marcia>60>=60 mL/min/1.73m 2BUN Creatinine Ratio18.2Xenwucf6.38.5-10.1 mg/dLBilirubin Total0.30.2-1.0 mg/dL Aspartate Amino Egddgdkxljp1148-68 U/LAlanine Ouocdaxplgtjmthe7777-47 U/L Alkaline Fftzpaaijgc22959-905 U/LTotal Protein6.56.4-8.2 g/dLAlbumin Level3.1 3.4-5.0 g/dLGlobulin3.4Albumin Globulin Ratio0.9Performing Lab:see note - [facility] LBT4 Reviewed date:08/27/2025 06:23:06 PM Interpretation: Performing Lab: Notes/Report: [facility] ,T4 Vejgccgvn47.604.80-13.90 ug/dLPerforming Lab:see noteC[facility] LBTSH Reviewed date:08/27/2025 06:23:06 PM Interpretation: Performing Lab: Notes/Report: [facility] ,Thyroid Stimulating Hormone0.1790.358-3.740 uIU/mLPerforming Lab:see note - [facility] LBOccult Blood* Reviewed date:09/01/2025 06:34:38 PM Interpretation: Performing Lab: Notes/Report: [facility] ,Occult BloodNegativePerforming Lab:see [facility] - [facility] LBVITAMIN D 25 [place] Reviewed date:08/27/2025 06:23:07 PM Interpretation: Performing Lab: Notes/Report: [facility] ,Vitamin D13.3 >100 ng/mL Potential Toxicity 30-100 ng/mL Vit D sufficient <20 ng/mL Vit D deficient 20-<30 ng/mL Vit D insufficient Performing Lab:see note - [facility] LB Reason For Referral Reason colonoscopy Diagnosis 1 Screening for colon cancer (Z12.11) Referral Organization [facility] Referring Provider First Name Aly Referring Provider Last Name Padilla [facility] Johnny Garcia Referred Provider Specialty General Surg santiago Referral Priority Routine Diagnosis 1 Murmur (R01.1) Referral Organization [facility] Referring Provider First Name Aly Referring Provider Last Name Padilla Referring Provider Speciality Family [facility] mellissa Referred Provider [facility] CardiologyMaikel [facility] Referred Provider Specialty Cardiology Referral Priority Routine Medications Medication SIG (Take, Route, Frequency, Duration) Notes Start Date End Date Status SEROquel 25 MG 1 tablet at bedtime Orally Once a day; Duration: 30 day(s) 5ActiveLevothyroxine Sodium 112 MCGTAKE 2 TABLETS BY MOUTH EVERY DAY Orally Once a day; Duration: 90 daysActiveDesvenlafaxine Succinate ER 100 mgTAKE 1 TABLET DAILYActiveDiclofenac Sodium 75 MG1 tablet as needed Orally Twice a day5ActiveProtonix 40 MG1 tablet 1/2 to 1 hour before morning meal Orally Once a day; Duration: 30 days5Active Immunizations Vaccine Route Administration Date Status [facility] SidelineSwap Syringe Pre -Filled 30 mcg/0.3 mL Unknown 08/18/2023 Administered Flu, Fluad () (90652) 65 yrs+, single-dose krgsoocXtxlmoy37/04/2023 AdministeredFlu, Fluad (02946) 65 yrs + High Dose Seasonal (5857-3456)Unknown 4AdministeredPneumococcal (Prevnar 13)Rzytjfu7907/10/2020AdministeredRSV WlgcahxBflwhfb05/04/2023dministeredTdap (Adacel)IM Khwvzmptcyrka98/15/2024 AdministeredZOSTER (SHINGLES) VACCINE (HZV)Bbcwexj3408/18/2023dministered Social History Tobacco Use: Social History Observation Description Date Details (start date - stop date) Never Smoker NA - NA Tobacco Use/Smoking Question Answer Notes Patient is a nonsmoker Alcohol Screen (Audit-C) Question Answer Notes Did you have a drink containing alcohol in the p ast year? Yes How often did you have 6 or more drinks on one occasion in the past year?Never (0 point)How many drinks did you have on a typical day when you were drinking in the past year?1 or 2 drinks (0 point)How often did you have a drink containing alcohol in the past year?Weekly (3 points)Fryjar9TlioysepmfetuiIutfdjvfRQUTM-F (Standard) Question Answer Notes Did you have a drink containing alcohol in the p ast year? Yes How often did you have six or more drinks on one occasion in the past year?Never (0 point)How many drinks did you have on a typical day when you were drinking in the past year?1 or 2 drinks (0 point)How often did you have a drink containing alcohol in the past year?Daily or almost daily (4 points)Points4 InterpretationPositive Problems Problem Type SNOMED Code ICD Code Onset Dates Problem Status W/U Status Risk Notes Problem Osteomyelitis (95603057) Osteomyelitis, u nspecified (M86.9) ActiveconfirmedProblemBlister of toe without infection (20933773)Blister (nonthermal), left lesser toe(s), initial encounter (S90.425A)Activeconfirmed ProblemFatigue (76053438)Fatigue (R53.83)ActiveconfirmedProblemHypertension (00687389)Hypertension (I10)ActiveconfirmedProblemHypothyroid (71668454) Hypothyroid (E03.9)ActiveconfirmedProblemCellulitis (566309118)Cellulitis (L03.90)ActiveconfirmedProblemSeasonal allergy (525286765)Seasonal allergies (J30.2)ActiveconfirmedProblemChronic ulcer of foot (336244184)Non-pressure chronic ulcer of other part of left foot with fat layer exposed (L97.522)Active confirmedProblemCat bite (213411088)Cat bite (W55.01XA)ActiveconfirmedProblem Anemia (633715788)Severe anemia (D64.9)ActiveconfirmedProblemAcrocyanosis (17027165)Acrocyanosis (I73.89)ActiveconfirmedProblemChronic osteomyelitis of left foot (5539563422410233)Chronic osteomyelitis of left foot (M86.672)Active confirmedProblemAcute osteomyelitis of ankle and/or foot (341322372)Acute osteomyelitis of left ankle (M86.172)ActiveconfirmedProblemDepression (718514640)Depression (F32.A)Activeconfirmed Vital Signs Heart Rate 100 /min 02/03/2025 Jdmvcbenuii80.8 degrees Jexrchzoev46/28/5965Rvrggizy55 %02/03/2025lood pressure vtbgxcijo91 mm Hg08/20/20255854Gjvetr02 in08/20/2025lood pressure mm Hg08/20/20250245Qfccpm521.8 lbs110/20/2024BMI24.84 kg/m208/20/2025 Procedures Procedure Date Ordered Date Performed Result Body Sit e CARDIO Echocardiogram 08/20/2025 N/A Encounters Encounter Location Date Provider Diagnosis [facility] [address] [place] [address] [facility] [place] [address] 09/27/2024[facility] [place] [address]/Doug HoyAcute bronchitis, unspecified organism J20.9[address] [place] [address]/ Aly Nugentr R01.1BMichelle [address] [place] [address]/Doug HoySevere anemia D64.9BMichelle [address] [place] [address]/Doug [address] [place] [address] 08/27/2025[facility] [place] [address]/oug HoyScreening for colon cancer Z12.11 and Encounter for screening mammogram for malignant neoplasm of breast Z12.31BV[facility] [place] [address]/4Doug HoyEncounter for Medicare annual wellness exam Z00.00BuVal[address] [place] [address]/Doug HoyAcute bronchitis, unspecified organism J20.9BMichelle [address] [place] [address]/09/2025Doug HoyHypertension I10 ; Depression F32.A ; Fatigue R53.83 ; Hypothyroid E03.9 ; Back pain M54.9 and Murmur R01.1BPoudre [facility] [place] [address]/ Aly HoyFever R50.9 ; Non-pressure chronic ulcer of other part of left foot with fat layer exposed L97.522 and Acute bronchitis, unspecified organism J20.9 Assessments Encounter Date Diagnosis (ICD Code) Assessment Notes Treatment Notes Treatment Clinical Notes Section Notes 09/17/2024 Encounter for Medicare annual we llness exam (ICD-10 - Z00.00) Patient presents to the office for an initial medicare wellness appointment. A total of 15 minutes was spent with the patient. Patient is due for a routine colonoscopy and did want one ordered, patient is also due for a mammogram but did decline wanting one ordered. A slums test was completed and the patient scored 100%, a vision test was completed, with glasses patient could see 20/20, patient also denied any safety concerns. medications were reviewed and patient did need 2 erxyvpd0201/24/2025Fever (ICD-10 - R50.9)5Acute bronchitis, unspecified organism (ICD-10 - J20.9)Rest and drink more liquids, especially water. You may use a humidifier or vaporizer to help keep the drainage moist. Podf-eor-kyqmzex Nasal Saline may help the stuffy and runny nose. Use Ibuprofen and or Tylenol as needed for fever, chills, body aches or pain. Children 5 years old should not be given jjfm-rev-dexucsz cough and cold medications such as guaifenesin and dextromethorphan. If you're over age 5, you may try yhbg-lht-prejolj cold medications such as guaifenesin and dextromethorphan, or multi-symptom cold reliever such as Dayquil to help reduce the symptoms. Antibiotics have been prescribed. You should take these until completed and follow the directions. Antibiotics can sometimescause upset stomach, and in rare cases, serious allergic reactions or serious gastrointestinal problems. If you start having severe abdominal pain, severe vomiting, or bloody diarrhea, you should be reevaluated by your physician or urgent care immediately. Follow up with your Primary Care Provider or return to clinic if symptoms do not improve within 3-5 days. If you develop severe symptoms such as shortness of breath, repeated vomiting, coughing up blood, or chest pain you should go to the [facility] room or call [phone] (ICD-10 - I10)off lisinoprl - bp next week - if back up - do 5 mg08/20/2025Depression (ICD-10 - F32.A)may need to doule it09/17/2024Screening for colon cancer (ICD-10 - Z12.11)04/25/2025ute bronchitis, unspecified organism (ICD-10 - J20.9)08/25/2025Murmur (ICD-10 - R01.1)08/27/2025Severe anemia (ICD-10 - D64.9)09/17/2024Encounter for screening mammogram for malignant neoplasm of breast (ICD-10 - Z12.31)08/20/2025Fatigue (ICD-10 - R53.83)01/24/2025Non-pressure chronic ulcer of other part of left foot with fat layer exposed (ICD-10 - L97.522)5Acute bronchitis, unspecified organism (ICD-10 - J20.9)Rest and drink more liquids, especially water. You may use a humidifier or vaporizer to help keep the drainage moist. Omqb-dsy-bpfqorf Nasal Saline may help the stuffy and runny nose. Use Ibuprofen and or Tylenol as needed for fever, chills, body aches or pain. Children 5 years old should not be given uyve-bpr-mhiupbu cough and cold medications such as guaifenesin and dextromethorphan. If you're over age 5, you may try jlea-kod-vfxctcq cold medications such as guaifenesin and dextromethorphan, or multi-symptom cold reliever such as Dayquil to help reduce the symptoms. Antibiotics have been prescribed. You should take these until completed and follow the directions. Antibiotics can sometimescause upset stomach, and in rare cases, serious allergic reactions or serious gastrointestinal problems. If you start having severe abdominal pain, severe vomiting, or bloody diarrhea, you should be reevaluated by your physician or urgent care immediately. Follow up with your Primary Care Provider or return to clinic if symptoms do not improve within 3-5 days. If you develop severe symptoms such as shortness of breath, repeated vomiting, coughing up blood, or chest pain you should go to the [facility] room or call [phone] (ICD-10 - E03.9)08/20/2025ack pain (ICD-10 - M54.9)08/20/2025Murmur (ICD-10 - R01.1) Plan Of Treatment Pending Test Test Name Order Date HEMOGLOBIN A1C (GLYCO) 08/20/2025 IRON, TOTAL 08/20/2025 LIPID PANEL (CHOL/TRIG/HDL/LDL) 08/20/20 25 VITAMIN D, 25 LEVEL (TOTAL) 08/20/2025 CARDIO Echocardiogram 08/20/2025 CBC 08/27/2025 Insulin Level 08/20/2025 COMPREHENSIVE METABOLIC PROFILE WITH GFR 08/05/2024 OCCULT BLOOD, FECAL, IMMUNOASSAY 024 CBC W/AUTO DIFF 08/05/2024 STOOL OCCULT BLOOD 08/20/2025 VITAMIN B1 (THIAMINE) 08/06/2024 VITAMIN B12 08/06/2024 MG MAMM SCREEN CODY W CAD 09/17/2024 XR DEXA BONE DENSITY 08/20/2025 THYROID PANEL (T4/TSH/FREE T3) 5 THYROID PANEL (T4/TSH/FREE T3) 4 MM screening mammo BI 08/20/2025 DEXA BONE DENSITY 08/05/2024 Vitamin D 08/06/2024 Lipid Panel 08/05/2024 CMP (COMP MET HENSLEY) w/eGFR CKD-EPI 2024 CBC WITH DIFF 08/20/2025 Insurance Providers Payer Name Payer Address Payer Phone Subscriber Number Group Number Insured Name Patient Relationship to Insured Coverage Start Date Coverage End Date [employer] MED[employer]ARE [address] AMISHA ARREOLA [id number] Bobo Alaniself - patient is the [id number] 2021 Medications Administered Medication Instructions Date of Administration Dosage Notes Dexamethasone, 4mg/mL mLKenalog-[id number] mgTriamcinolone 40 mg/ml20 mg Medical (General) History Medical History History ICD Code Internal derangement of knee M23.90 Vitamin D insufficiency E55.9 Cellulitis L03.90 Benign essential hypertension I10 Acute asthma J45.909 Major depressive disorder, recurrent, in remission F33.40 Arthritis M19.90 Hypothyroid E03.9 Chronic GERD K21.9 Hypercholesteremia E78.00 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04/27[facility] Garcia11/13/2024
--- OUTSIDE RECORDS SUMMARY | 2025-09-10 12:25 | XMS_ITS | CCD ---
Author Organization [facility] Care Team Providers Care Sort Operations Supervisor Name Role Phone DR SANCHEZ CAUSEY Attending [...] Care Physician Johnny Garcia MD Attending Provider [phone] Johnny Garcia Attending Unavailable Johnny Garcia Admitting Unavailable Sanchez Causey Referring Unavailable NILOdalys, Johnny Butler Attending Unavailable NILLJohnny Attending Unavailable NILL, Johnny R Attending Unavailable Sanchez Causey MD Primary Care Provider [phone] Sanchez Causey MD Primary Care Provider [phone] REYNA CRESPO Attending Unavailable REYNA CRESPO Attending Unavailable PATRICA HARMON Attending Unavailable REYNA CRESPO Attending Unavailable REYNA CRESPO Attending Unavailable Allergies Allergy ClassificationReported Allergen(s)Allergy TypeDate of OnsetReaction(s) Facility (3 sources)Acetaminophen / HYDROcodone; Translations: [[place] ]Drug Rimesar35-15-1979Kpz [facility] Repository (1 source)Acetaminophen / oxyCODONEDrug AllergyThe [facility] Repository (1 source)formoterolDrug AllergyThe [facility] Repository (2 sources)Acetaminophen / HYDROcodone; Translations: [acetaminophen-hydrocodone][facility] (3 sources)acetaminophen / propoxyphene; Translations: [acetaminophen-propoxyphene][facility]ergyMary [facility] (7 sources)Acetaminophen / oxyCODONEDrug Ecpxmac77-78-1847OejkaELWY [facility] Medications Current Medications MedicationDrug Class(es)DatesSig (Normalized)Sig (Original)alendronic acid 70 mg oral tablet (2 sources)BisphosphonateStart: 75-93-4209jhdl 1 tablet by mouth every week Fosamax 70 mg Tab 70 mg = 1 tab(s), Oral, qWeek, Refills(s) 0 Start Date: 09/30/24 Status: Orderedamoxicillin 875 mg / clavulanate 125 mg oral tablet (2 sources)Penicillin-class AntibacterialStart: 08-19-2024 End: 29-32-5189cqlf 1 tablet by mouth in the morningamoxicillin-clavulanate [...] 0.05 mg oral tablet (10 sources)Vitamin DStart: 90-26-9646vmuj 1 tablet by mouth once daily cholecalciferol (Vitamin D-3) 50 MCG (1999) tablet Take 50 mcg by mouth Daily 08/12/2024 Dsazyc49 hr desvenlafaxine succinate 100 mg extended release oral tablet (2 sources)Serotonin and Norepinephrine Reuptake InhibitorStart: 83-54-3503urvv 1 tablet by mouth once dailydesvenlafaxine 100 mg Tab- 100 mg = 1 tab(s), Oral, Daily, Refills(s) 0 Start Date: 09/30/24 Status: Ordereddiclofenac sodium 75 mg delayed release oral tablet (2 sources)Nonsteroidal Anti-inflammatory DrugStart: 17-39-8086qlsd 1 tablet by mouth twice daily as needed for paindiclofenac sodium 75 mg Oral EC Tab 75 mg = 1 tab(s), Oral, BID, PRN as needed for pain, Refills(s)0 Start Date: 10/22/24 Status: OrdereddiphenhydrAMINE hydrochloride 25 mg oral tablet (2 sources)Histamine-1 Receptor AntagonistStart: 80-98-3474hbys 1 tablet by mouth once dailydiphenhydramine 25 mg tab = 1 tab(s), Oral, Daily, Refills(s) 0 Start Date: 10/22/24 Status: Orderedferrous sulfate 325 mg oral tablet (12 sources)Start: 76-60-8865elqs 1 tablet by mouth in the morningferrous [...] dose nasal spray (10 sources)CorticosteroidStart: 08-19-2024 End: 09-01-3375dloz 2 spray(s) nasal route once dailyfluticasone (Flonase) 50 MCG/ACT nasal spray Indications: Acute URI Administer 2 sprays into each nostril Daily Shake gently. Before first use, prime pump. After use, clean tip and replace cap. 48 g 3 08/19/2024 08/19/2025 Activelevothyroxine sodium 0.112 mg oral tablet (12 sources)l-ThyroxineStart: 15-97-2899djri 1 tablet by mouth once daily levothyroxine 112 mcg (0.112 mg) Tab 224 mcg = 2 tab(s), Oral, Daily, Refills(s) 0 Start Date: 09/30/24 Status: Orderedtake 1 tablet by mouth once daily levothyroxine (Synthroid) 200 MCG tablet Take 1 tablet by mouth Daily Active lisinopril 10 mg oral tablet (12 sources)Angiotensin Converting Enzyme InhibitorStart: 52-90-1694nbnw 1 tablet by mouth once dailylisinopril 10 mg Tab 10 mg = 1 tab(s), Oral, Daily, Refills(s) 0 Start Date: 09/30/24 Status: VsiygxiPgszshzjiis-Hqbkzbbp-Nfmmkpgic 1-0.5-0.075 % solution (7 sources)Start: 22-91-6087Odktwjgxcbg-Moxiflox-Bromfenac 1-0.5-0.075 % solution Indications: Age-related nuclear cataract of both eyes Administer 1 drop into affected eye(s) in the morning and 1 drop at noon and 1 drop in the evening and 1 drop before bedtime. 10 mL 1 07/03/2025 ActiveQUEtiapine 25 mg oral tablet (2 sources)Atypical AntipsychoticStart: 93-34-1553zalj 1 tablet by mouth at bedtimequetiapine 25 mg Tab 25 mg = 1 tab(s), Oral, Bedtime, Refills(s) 0 Start Date: 09/30/24 Status: Orderedvitamin a 2.4 mg oral capsule (9 sources)Vitamin AStart: 24-99-7115kqypvud A 8000 units oral capsule Oral, BID, Prophylaxis Start Date: 12/22/11 Status: Orderedtake 3 mg by mouth once dailybeta carotene (vitamin A) 3 MG (55716 UT) capsule Take 10,000 Units by mouth Daily ActiveVitamin D2 2000 intl units oral capsule (2 sources)Start: 41-73-0754dqjx 1 capsule by mouth once dailyVitamin D2 2000 intl units oral capsule 50 mcg = 1 cap(s), Oral, Daily, cap(s), Refills(s) 0 Start Date: 09/30/24 Status: Ordered Problems Active Problems Problem ClassificationProblemDateDocumented DateEpisodic/ChronicAllergic reactions (2 sources)Tneepd38-84-2411GnxoasryTrxtlxn disorders (2 sources)Utzpxfd36-39-9216FntsltlEkrtkl (13 sources)Asthma; Translations: [Unspecified asthma, uncomplicated]Onset: 488881-21-3267ZgdluqvQvocetuk (20 sources)Bilateral age-related nuclear cataracts; Translations: [Age-related nuclear cataract, bilateral]Onset: 07-03-2025 Resolved: 457281-77-1620QxbwfwbXwucpcddih and other anemia (1 source)Iron deficiency anemia, unspecified; Translations: [IRON DEFICIENCY ANEMIA UNSPECIFIED]Onset: 02-90-3561LrdlgxheMcukettxvz and other anemia (2 sources)Chronic syskzc35-47-6259QwzkcrioVouwgboui of lipid metabolism (3 sources)Pure hypercholesterolemia, unspecified; Translations: [Hypercholesterolemia]Onset: 380445-10-6478AwbmqxcBuphsicghbjwgo and diverticulitis (2 sources)Diverticula of intestine; Translations: [Diverticulosis of large intestine without perforation or abscess without bleeding]Onset: 11-19-2024 ChronicEsophageal disorders (2 sources)Gastroesophageal reflux -37-8401ApykyheJbbjehfaf hypertension (6 sources)Essential (primary) hypertension; Translations: [Hypertensive disorder]Onset: 23-37-9308BaehrymRjbbnkafbgwnuw ulcer (except hemorrhage) (2 sources)H/O: gastric -75-5018TifktnuyTbqaqehv; including migraine (13 sources)Migraine; Translations: [Migraine, unspecified, not intractable, without status migrainosus]Onset: 102833-08-1779TlxbxgePrmas valve disorders (2 sources)Heart iuxdwx39-68-4716GgcmmvqcYtayctvny arthritis and osteomyelitis (except that caused by tuberculosis or sexually transmitted disease) (2 sources)Chronic osteomyelitis of left lofn82-09-6359UwvpekaOvbom disorders and dislocations; trauma-related (4 sources)Unspecified internal derangement of unspecified knee; Translations: [UNS INTERNAL DERANGEMENT UNS KNEE]Onset: 07-37-9236IatwedtTkolgkf and fatigue (1 source)Other fatigue; Translations: [OTHER FATIGUE]Onset: 06-42-3387Popwoujs Menopausal disorders (4 sources)Other primary ovarian failure; Translations: [OTHER PRIMARY OVARIAN FAILURE]Onset: 99-88-1702FhkkeynVgot disorders (2 sources)Wjvpvvkouq40-22-2057KvcifucWpwegwvpnmk deficiencies (6 sources)Vitamin D deficiency, unspecified; Translations: [Vitamin D deficiency]Onset: 29-97-9392FxiesebOuaphzftivf deficiencies (1 source)Iron deficiency; Translations: [IRON DEFICIENCY]Onset: 11-25-2022 EpisodicOsteoporosis (13 sources)Osteoporosis; Translations: [Age-related osteoporosis without current pathological fracture]Onset: 809290-72-4090PvhhzwcTdhia and unspecified benign neoplasm (1 source)Polyp of colon; Translations: [Polyp of colon]Onset: 11-19-2024 EpisodicOther and unspecified benign neoplasm (1 source)Polyp of sigmoid xjyup94-65-2974LszkdovtKbojd circulatory disease (2 sources)Yixxjbsobbgg65-77-4983NxjfemdYowmt ear and sense organ disorders (11 sources)Hearing loss of right ear; Translations: [Unspecified hearing loss, right ear]Onset: 048173-88-2164LhzmktgAgnbm nutritional; endocrine; and metabolic disorders (2 sources)Isjvnvtxhz75-99-4190MwcqxkkdJspwn nutritional; endocrine; and metabolic disorders (2 sources)Overweight in adulthood with body mass index of 25 or more but less than 5047-64-7251QyrjdognMuqpb screening for suspected conditions (not mental disorders or infectious disease) (2 sources)Encounter for screening for malignant neoplasm of colon; Translations: [Screening for malignant neoplasm of colon done]Onset: 05-12-2022 EpisodicOther upper respiratory infections (11 sources)Chronic frontal sinusitis; Translations: [Chronic frontal sinusitis] Onset: 495238-45-2216EobgdqhEqevn upper respiratory infections (2 sources)Acute upper respiratory infection; Translations: [Acute upper respiratory infection, unspecified]32-06-4477SswveujeOmevhqy disorders (18 sources)Hypothyroidism, unspecified; Translations: [Hypothyroidism]Onset: 66-53-5953SifsxdzVgxgotjlqjxr (3 sources)CONTACT W/AND (SUSP) EXPOS COVID-19; Translations: [CONTACT W/AND (SUSP) EXPOS COVID-19]Onset: 62-01-9298Ulvxsxvpckkl (1 source)COUGH, UNSPECIFIED; Translations: [COUGH, UNSPECIFIED]Onset: 51-96-8359Vldloneuzyxg (2 sources)Patient encounter sszesv17-03-4403 Past or Other Problems Problem ClassificationProblemDateDocumented DateEpisodic/ChronicOther aftercare (1 source)Other ferry terminal agent (current) drug therapy; Translations: [OTH [facility] CURRENT DRUG THERAPY]Onset: 78-17-4981ZlwhqinoBwque bone disease and musculoskeletal deformities (1 source)Other specified disorders of bone density and structure, right thigh; Translations: [OTH D/O BONE DEN STRUCT RT THIGH]Onset: 49-42-6811EubumbsaCprzn ear and sense organ disorders (11 sources)Bilateral tinnitus; Translations: [Tinnitus, bilateral]Onset: 455496-06-1045PeqddboeWdtgn non-traumatic joint disorders (1 source)Pain in left hip; Translations: [PAIN IN LEFT HIP]Onset: 04-07-2022 EpisodicOther upper respiratory disease (1 source)Nasal congestion; Translations: [NASAL CONGESTION]Onset: 05-07-2022 EpisodicUnclassified (1 source)CONTACT W/AND (SUSP) EXPOS COVID-19; Translations: [CONTACT W/AND (SUSP) EXPOS COVID-19]Onset: 58-65-5271Riylnubtypdk (2 sources)Congestion (morphologic abnormality)09-30-2024 Results Test NameValueInterpretationReference RangeFacilityUS Eye+Orbit - bilateralon 85-16-2835Kvtncileb: Cataract both eyes (OU) Testing Indication: Performed for preop measurements in the determination of an intraocular lens (IOL) for both eyes (OU) Test Reliability: Good quality both eyes (OU) Interpretation: Good measurements for intraocular lens (IOL) calculation purposes. Calculation made for both eyes (OU).[facility] Radiology Study observation (narrative)[facility] HealthcareAmbulatory Visit Summaryon 06-60-0683Xzzrqlljwl Visit SummaryAmbulatory Visit Summary ITA ALANIS :1955 [...] you for choosing us for your care. [facility] HospitalGeneral Surgery Office/Clinic Noteon 81-07-6045Onfhkrd Surgery Office/Clinic NoteGeneral Surgery Office/Clinic Note Chief [...] virus vaccine, inactivated 07/16/2024 Recorded SARS-CoV-2 (COVID-19) mRNAMUL.ORD![id number] 07/25/2022 Recorded SARSCoV2 mRNA(yiehatbco-axjc-apoaic) vac 05/12/2022 Recorded SARS-CoV-2 (COVID-19) mRNA BNT-162b2 vax 07/06/2021 Recorded 2024-09-30: TPV65 SARS-CoV-2 (COVID-19) mRNA BNT-162b2 vax 12/13/2020 Recorded 2024-09-30: TPV65 SARS-CoV-2 (COVID-19) mRNA BNT-162b2 vax 11/22/2020 Recorded 2024-09-30: TPV65 [facility] HospitalComment on above:Result Comment: Electronically Signed By: GOYO FUCHS, Johnny Cifuentes\Date and Time Signed: 11/19/24 13:50 EST Reminderson 77-65-3813NfxsqcbexSrqoqoruu From: Mera Waters LPN To: GSN - Clinical; Sent: 11/19/2024 13:37:07 EST Show up: 10/13/2029 07:00:00 EST Subject: colonoscopy recall Due Date/Time: 11/13/2029 07:00:00 EST Reminder/Recall Patient due for surveillance colonoscopy 11/13/2029 due to un-retrieved polyp on colonoscopy 11/13/2024.[facility] 11-13-2024L Specimen: [id number] Received: 11/13/24 Status: NIA Adkins Num: [id number] Spec Type: Surgical Subm Dr: Johnny Garcia MD FACS Tissues: A Colon Biopsy (SIGMOID COLON POLYP) Procedures: Sravani RODRIGUEZ/Jolene L4 Age/ Patient Sex Location Account Attending Physician Ita Alanis 68/F LABELL [id number] Johnny Garcia MD FACS SPEC NUM: [id number] RECD: 11/13/24 STATUS: NAI ADKINS NUM: [id number] FIDEL: 11/13/[address] [facility] [address]: Johnny Garcia MD FACS ENTERED: 11/13/[address] [facility] [address]: SPEC TYPE: Surgical DEPT: JOSÉ SALMERON [...] Description Microscopic examination is performed. CPT Codes 23125 Specimen: [id number] Received: 11/13/24 Status: NIA Adkins Num: [id number] Spec Type: Surgical Subm Dr: Johnny Garcia MD FACS Tissues: A Colon Biopsy (SIGMOID COLON POLYP) Procedures: HE/2, Gross/Micro L4 Patient: Ita Alanis [id number] (Continued) Signed (signature on file) Juan Oglesby MD 11/14/24 0847Normal [facility] Physician [facility] CenterAmbulatory Visit Summaryon 71-82-8285Yxqgctjtvd Visit SummaryAmbulatory Visit Summary ITA ALANIS :1955 [...] you for choosing us for your care. [facility] HospitalFREE T3on 45-59-3975KFAL T33.75 pg/mlLNormal2.18-3.98The [facility] WestComment on above:Performed By: #### TSH, FT3, T4 #### [facility] Laboratory [address] [place] [address] Dr. Maribel Brambila 56-80-5244Kizq [Mass/Vol]50.0 ug/dOTicqch32.0-170.0The [facility] WestComment on above:Performed By: #### IRON #### [facility] Laboratory [address] [place] [address] Dr. Maribel Urrutia4on 10-71-7408X6 [Mass/Vol]9.70 ug/dLNormal4.80-13.90The [facility] WestComment on above:Performed By: #### TSH, FT3, T4 ####[facility] K[address] [place], [place] [address]r. [facility] 26-67-5277SAN Qnm[IU]/LCritically low0.358-3.740The [facility] WestCombeaumont hospital on above:Performed By: #### TSH, FT3, T4 #### [facility] Laboratory [address] [place] [address] Dr. Maribel العليPLACIDO T3on 80-67-9543KQKL T32.51 pg/mlLNormal2.18-3.98The [facility] WestComment on above:Performed By: #### FT3, T4, TSH ####[facility] [address] [place], [place]Dr. Maribel [address] 10-03-2022 T4 [Mass/Vol]13.20 ug/dLNormal4.80-13.90The [facility] WestComment on above: Performed By: #### FT3, T4, TSH ####[facility] Qrlz[address] [place], [place] [address]Dr. [facility] 36-98-8759HAS Qnm[IU]/LCritically low0.358-3.740The [facility] WestComment on above:Performed By: #### FT3, T4, TSH ####[facility] [address] [place], [place]Dr. Andreealan ChangCBC AUTO DIFFon 86-37-2026BMTQ #0.1 103/ulNormal0.0-0.1The [facility] WestComment on above:Performed By: #### CBC ####[facility] Gxeinu[address] [place], [place] [address]Dr.Andreeaalisha ChangBasophils/100 WBC (Bld)0.8 %Normal0.2-2.0The [facility] on above:Performed By: #### CBC ####[facility] Bbzlnvmns[address] [place], [place] [address]Dr.Yilan ChangEO #0.6 103/ulNormal0.0-0.7The [facility] WestComment on above:Performed By: #### CBC ####[facility] Hycx[address]zxhrp[address] [place], [place] [address]Dr.Yilan ChangEosinophils/100 WBC (Bld)9.1 %Critically high0.9-7.0The [facility] on above:Performed By: #### CBC ####[facility] Gfteayjllr[address] [place], [place] [address]Dr. Andreealan ChangErythrocyte distribution width (RBC) [Ratio]13.5 %Khilpw61.0-15.0The [facility] WestComment on above:Performed By: #### CBC ####[facility] Z[address]ef[address] [place], [place] [address]Dr.Maribel ChangHematocrit (Bld) [Volume fraction]38.3 %Vnxpix08.0-48.0The [facility] WestComment on above:Performed By: #### CBC ####[facility] Miuoos[address]ms[address] [place], [place] [address]Dr.Maribel ChangHemoglobin (Bld) [Mass/Vol]12.2 g/dL Tchjhp48.0-16.0The [facility] WestComment on above:Performed By: #### CBC ####[facility] [address] [place] [address]Dr. Andreeaalisha SeverianoIG #0.01 10e3/ulNormal0.00-0.03The [facility] WestComment on above: Performed By: #### CBC ####[facility] [address] [place] [address]DrViktoriya العليIG %0.1 %Normal0.0-0.5The [facility] WestComment on above:Performed By: #### CBC ####[facility] Xncwvlskvj[address] [place], [place] [address]Dr.Maribel BacaH #1.5 103/ulNormal1.2-3.8The [facility] WestComment on above:Performed By: #### CBC ####[facility] Ompficqbjl[address] [place], [place] [address]Dr. Maribel Bacahocytes/100 WBC (Bld)21.5 %Ftdphd11.5-60.0The [facility] Comment on above:Performed By: #### CBC ####[facility] Ykmdqbx[address]yp[address] [place], [place] [address]Dr.Maribel العليMANUAL DIFF REQNONormalThe [facility] WestComment on above:Performed By: #### CBC ####[facility] Eoumhjkasq[address] [place], [place] [address]Dr.Maribel العليJ[facility]OBI [facility] (RBC) [Entitic mass]30.0 jxVwknfo13.7-34.0The [facility] WestComment on above: Performed By: #### CBC ####[facility] Sx[address]vy[address] [place], [place] [address]Dr.Maribel العليST. [facility] (RBC) [Mass/Vol]31.9 g/dLNormal 29.9-35.2The [facility] WestComment on above:Performed By: #### CBC ####[facility] Mianmvwcon[address] [place], [place] [address]DrChi العليV (RBC) [Entitic vol]94.1 lSLrofbq76.0-99.0The [facility] Comment on above:Performed By: #### CBC ####[facility] Iafxrdhuke[address] [place], [place] [address]Dr.Maribel العليMONO #0.5 103/ulNormal0.3-0.8 The [facility] WestComment on above:Performed By: #### CBC ####[facility] [address]wtazlkamg[address] [place], [place] [address]Dr.Maribel العلي Monocytes/100 WBC (Bld)6.5 %Normal1.7-12.0The [facility] WestComment on above: Performed By: #### CBC ####[facility] [address] [place], [place] [address]Dr.Maribel العليNEUT #4.4 103/ulNormal1.4-6.5The [facility] WestComment on above:Performed By: #### CBC ####[facility] Z[address]wv[address] [place], [place] [address]Dr.Maribel العليNeutrophils/100 WBC (Bld)62.0 %Fnvrke89.0-75.0The [facility] HospitalComment on above:Performed By: #### CBC ####[facility] H[address]ukal[address] [place], [place] [address]Dr.Maribel العليPlatelet mean volume (Bld) [Entitic vol]9.9 fLNormal9.5-13.5 The [facility] WestComment on above:Performed By: #### CBC ####[facility] [address] [place], [place] [address]Dr.Maribel العليPLT270 103/pwUnzkuh390-043Bqz [facility] HospitalComment on above:Performed By: #### CBC ####[facility] [address]ws[address] [place], [place] [address]Dr. Maribel العليRBC4.07 106/ulCritically low4.20-5.40The [facility] WestComment on above:Performed By: #### CBC ####[facility] We[address]av[address] [place], [place] [address]Dr.Maribel العليWBC7.1 103/ulNormal4.0-11.0The [facility] WestComment on above:Performed By: #### CBC ####[facility] [address] [place] [address]Dr.Yilan Calero THYROXINE INDEX T7on 20-48-9134QNP1.95Ygdytg7.30-4.50The [facility] WestComment on above:Performed By: #### CMP, T7, TSH #### [facility] Laboratory [address] [place] [address] [address] Maribel العليT3U29.0 %Critically low30.0-39.0The [facility] WestComment on above:Performed By: #### CMP, T7, TSH #### [facility] Laboratory [address] [place] [address] Dr. Maribel العليT4 [Mass/Vol]4.70 ug/dLCritically low4.80-13.90The [facility] WestComment on above:Performed By: #### CMP, T7, TSH #### [facility] [address] [place] [address] Dr. Maribel Brambila 40-76-0598Mkhi [Mass/Vol]43.0 ug/dLCritically low 50.0-170.0The [facility] WestComment on above:Performed By: #### IRON ####[facility] [address] [place] [address]Dr. Maribel العليPROF 14(COMP METB)on 94-62-4448Fgtnatv [Mass/Vol]3.1 g/dLCritically low3.4-5.0The [facility] WestComment on above:Performed By: #### CMP, T7, TSH #### [facility] Laboratory [address] [place] [address] Dr. Maribel العليAlbumin/Globulin [Mass ratio]0.9 {ratio}NormalThe [facility] Hospital - WestComment on above:Performed By: #### CMP, T7, TSH #### [facility] [address] [place] [address] Dr. Maribel العليALP [Catalytic activity/Vol]120 U/LCritically lmgk13-851Lqy [facility] - WestComment on above:Performed By: #### CMP, T7, TSH #### [facility] [address] [address] [address] Maribel Muñiz [Catalytic activity/Vol]24 U/IUkrkzg70-86Odz [facility] WestComment on above:Performed By: #### CMP, T7, TSH #### [facility] [address] [address] [address] Maribel Soon gap [Moles/Vol]9.2 mmol/LNormalThe [facility] - WestComment on above:Performed By: #### CMP, T7, TSH #### [facility] [address] [place] [address] Dr. Maribel Russell [Catalytic activity/Vol]17 U/UKxkokb68-56Hwo [facility] - WestComment on above:Performed By: #### CMP, T7, TSH #### [facility] Laboratory [address] [place] [address] Dr. Maribel العليBilirubin [Mass/Vol]0.2 mg/dLNormal0.2-1.0The [facility] Comment on above:Performed By: #### CMP, T7, TSH #### [facility] Laboratory [address] [place] [address] Dr. Maribel العليCalcium [Mass/Vol]8.8 mg/dLNormal8.5-10.1The [facility] Comment on above:Performed By: #### CMP, T7, TSH #### [facility] [address] [place] [address] Dr. Maribel العليChloride [Moles/Vol]105 mmol/WQvrvxf20-140Tjf [facility] Comment on above:Performed By: #### CMP, T7, TSH #### [facility] Laboratory [address] [place] [address] Dr. Maribel العليCO2 [Moles/Vol]29.2 mmol/PYitlfy43.0-32.0The [facility] Comment on above:Performed By: #### CMP, T7, TSH #### [facility] Laboratory [address] [place] [address] Dr. Yilan ChangCreatinine [Mass/Vol]0.57 mg/dLNormal0.55-1.02The [facility] WestComment on above:Performed By: #### CMP, T7, TSH #### [facility] [address] [address] [address] Maribel CarrGFR-AF SOUTH KOREAN>60Normal>=60The [facility] - WestComment on above:Performed By: #### CMP, T7, TSH #### [facility] [address] [address] [address] Maribel CarrGFR-NON AF SOUTH KOREAN>60Normal>=60The [facility] WestComment on above:Performed By: #### CMP, T7, TSH #### [facility] [address] [place] [address] Dr. Maribel العليGlobulin (S) [Mass/Vol]3.5 g/dLNormalThe [facility] WestComment on above:Performed By: #### CMP, T7, TSH #### [facility] [address] [place] [address] Dr. Maribel العليGlucose [Mass/Vol]106 mg/rMTpazop60-696EecSt. Elizabeth Hospital Comment on above:Performed By: #### CMP, T7, TSH #### [facility] [address] [place] [address] Dr. Maribel العليPotassium [Moles/Vol]4.4 mmol/LNormal3.5-5.1[facility] Comment on above:Performed By: #### CMP, T7, TSH #### [facility] [address] [place] [address] Dr. Maribel العليProtein [Mass/Vol]6.6 g/dLNormal6.4-8.2The [facility] Comment on above:Performed By: #### CMP, T7, TSH #### [facility] [address] [place] [address] Dr. Maribel العليSodium [Moles/Vol]139 mmol/QRzwjpl852-853Uvc [facility] Comment on above:Performed By: #### CMP, T7, TSH #### [facility] [address] [place], [place] [address] Dr. Maribel Zaldivar nitrogen [Mass/Vol]7.0 mg/dLNormal7.0-18.0The [facility] WestComment on above:Performed By: #### CMP, T7, TSH #### [facility] [address] [place], [place] [address] Dr. Maribel Zaldivar nitrogen/Creatinine [Mass ratio]12.3 mg/mgNoFirelands Regional Medical CenterComment on above:Performed By: #### RANJAN, T7, TSH #### [facility] [address] [place], [place] [address] Dr. Maribel Doss 05-91-3478YFH2.096 uIU/mLCritically low0.358-3.740The [facility] WestComment on above:Performed By: #### RANJAN, T7, TSH #### [facility] [address] [place] [address] [address] Maribel العليXR DEXA BONE DENSITYon 33-17-2304LG DEXA BONE DENSITYEXAMINATION: XR DEXA BONE DENSITY, [...] Electronically authenticated by: SARAH CARRION Date: 2022-07-07 11:35NoFirelands Regional Medical CenterVIT D 25-[place] LABCORPon 99-69-5764Timthbo D, 25-Dltsmmv51.5 ng/mL Lvnubf27.0-100.0The [facility] WestComment on above:Result Comment: Vitamin D deficiency has been defined by the [place] of [employer] and an Endocrine Society practice guideline as a level of serum 25-OH vitamin D less than 20 ng/mL (1,2). The Endocrine Society went on to further define vitamin D insufficiency as a level between 21 and 29 ng/mL (2). 1. IOM ([place] [employer]). 2010. Dietary reference intakes for calcium and D. [place]: The National Academies Press. 2. Quan MF, Williams [place], Chema LEVINE, et al. Evaluation, treatment, and prevention of vitamin D deficiency: an Endocrine Society clinical practice guideline. JCEM. 2010; 96(7):1911-30.Performed By: #### VITADLC #### [facility] [address] [place] [address] Dr. Maribel Cummings AUTO DIFFon 04-15-7125UBBI #0.1 103/ulNormal0.0-0.1St. Elizabeth HospitalComment on above:Performed By: #### CBC #### [facility] [address] [place] [address] Dr. Maribel العليBasophils/100 WBC (Bld)1.0 %Normal0.2-2.0The [facility] Comment on above:Performed By: #### CBC #### [facility] [address] [place] [address] Dr. Maribel Arroyo #0.6 103/ulNormal0.0-0.7The [facility] WestComment on above: Performed By: #### CBC #### [facility] [address] [place] [address] Dr. Maribel Carrosinophils/100 WBC (Bld)9.3 %Critically high0.9-7.0The [facility] - WestComment on above:Performed By: #### CBC #### [facility] [address] [place] [address] Dr. Maribel Carrrythrocyte distribution width (RBC) [Ratio]12.7 %Zyyisa94.0-15.0 The [facility] - WestComment on above:Performed By: #### CBC #### [facility] [address] [place] [address] Dr. Maribel العليHematocrit (Bld) [Volume fraction]40.1 %Qxnkdq15.0-48.0The [facility] WestComment on above:Performed By: #### CBC #### [facility] [address] [place] [address] Dr. Maribel العليHemoglobin (Bld) [Mass/Vol]13.1 g/fNGcncpm21.0-16.0The [facility] WestComment on above:Performed By: #### CBC #### [facility] [address] [place] [address] Dr. Maribel العليIG #0.02 10e3/ulNormal0.00-0.03The [facility] WestComment on above:Performed By: #### CBC #### [facility] [address] [place] [address] Dr. Maribel العليIG %0.3 %Normal0.0-0.5The [facility] WestComment on above: Performed By: #### CBC #### [facility] [address] [place] [address] Dr. Maribel Chua #1.7 103/ulNormal1.2-3.8The [facility] - WestComment on above:Performed By: #### CBC #### [facility] [address] [place] [address] Dr. Maribel Bacamphocytes/100 WBC (Bld)28.8 %Rznxxj89.5-60.0The [facility] - WestComment on above:Performed By: #### CBC #### [facility] [address] [place] [address] Dr. Maribel العليMANUAL DIFF REQNONormalThe [facility] WestComment on above: Performed By: #### CBC #### [facility] [address] [place] [address] Dr. Maribel Ness (RBC) [Entitic mass]31.3 jrXhugby63.7-34.0The [facility] WestComment on above:Performed By: #### CBC #### [facility] [address] [place] [address] Dr. Maribel VergaraHC (RBC) [Mass/Vol]32.7 g/sKMmmviv64.9-35.2The [facility] WestComment on above:Performed By: #### CBC #### [facility] [address] [address] [address] Maribel VergaraV (RBC) [Entitic vol]95.9 cARxjtfk43.0-99.0The [facility] WestComment on above:Performed By: #### CBC #### [facility] [address] [address] [address] Maribel Bucio #0.4 103/ulNormal0.3-0.8The [facility] WestComment on above:Performed By: #### CBC #### [facility] [address] [place] [address] Dr. Maribel Elaineocytes/100 WBC (Bld)7.0 %Normal1.7-12.0The [facility] Comment on above:Performed By: #### CBC #### [facility] [address] [address] [address] Maribel Vital #3.2 103/ulNormal1.4-6.5The [facility] WestComment on above:Performed By: #### CBC #### [facility] [address] [place] [address] [address] Maribel Bearutrophils/100 WBC (Bld)53.6 %Bwxeqa59.0-75.0The [facility] WestComment on above:Performed By: #### CBC #### [facility] [address] [address] [address] Maribel Lopezlet mean volume (Bld) [Entitic vol]10.0 fLNormal9.5-13.5The [facility] WestComment on above:Performed By: #### CBC #### [facility] [address] [place] [address] [address] Maribel العليPLT244 103/xcUdcpdy004-316Yrg [facility] WestComment on above: Performed By: #### CBC #### [facility] [address] [place] [address] Dr. Maribel العليRBC4.18 106/ulCritically low4.20-5.40The [facility] on above:Performed By: #### CBC #### [facility] [address] [place] [address] Dr. Maribel العليWBC6.0 103/ulNormal4.0-11.0The [facility] on above: Performed By: #### CBC #### [facility] [address] [place] [address] Dr. Maribel العليFREE T3on 41-75-0534CZXL T32.55 pg/mlLNormal2.18-3.98The [facility] on above:Performed By: #### CBC #### [facility] [address] [place] [address] Dr. Maribel العليGLYCOHEMOGLOBIN A1Con 65-97-0595HTM RECOMMENDATIONSEE BELOWPine Hill The [facility] WestCombeaumont hospital on above:Result Comment: ADA RECOMMENDED LIMIT 4.0 - 6.0 ADA THERAPEUTIC TARGET < 7.0 ACTION SUGGESTED > 7.0Performed By: #### CBC #### [facility] [address] [place] [address] Dr. Maribel العليGlucose [Mass/Vol]103 mg/dLNoSelect Medical [facility] on above:Performed By: #### CBC #### [facility] [address] [place] [address] Dr. Maribel العليHbA1c (Bld) [Mass fraction]5.2 %Normal4.5-6.2The [facility] on above:Performed By: #### CBC #### [facility] [address] [place] [address] Dr. Maribel العليLIPID PROFILEon 30-23-7108QEXI-HDL RATIO NORMSEE [facility] on above:Result Comment: 3.3 - 4.4 LOW RISK 4.4 - 7.1 AVERAGE RISK 7.1 - 11.0 MODERATE RISK >11.0 HIGH RISKPerformed By: #### CBC #### [facility] [address] [place] [address] [address] Maribel العليCholesterol [Mass/Vol]159 mg/dLNormal<=200[facility] Comment on above:Performed By: #### CBC #### [facility] [address] [place] [address] [address] Maribel العليCholesterol in HDL [Mass/Vol]82 mg/dLCritically yesj81-24PodSt. Elizabeth HospitalComment on above:Performed By: #### CBC #### [facility] [address] [address] [address] Maribel العليCholesterol in LDL [Mass/Vol]65.0 mg/dLBucyrus Community HospitalComment on above:Performed By: #### CBC #### [facility] [address] [place] [address] Dr. Maribel Searsestercornelia.total/Cholesterol in HDL [Mass ratio]1.9 {ratio} NormalSt. Elizabeth HospitalComment on above:Performed By: #### CBC #### [facility] [address] [place] [address] [address] Maribel FordL NORMAL> or = 60 mg/dl - LOW CARDIOVASCULAR RISK <40 mg/dl - HIGH CARDIOVASCULAR RISKBucyrus Community HospitalComment on above:Performed By: #### CBC #### [facility] [address] [place] [address] [address] Maribel العليLDL CALC NORMALSEE BELOWNoFirelands Regional Medical CenterComment on above:Result Comment: <100 mg/dl OPTIMAL 100 - 129 mg/dl NEAR OR ABOVE OPTIMAL 130 - 159 mg/dl BORDERLINE HIGH 160 - 189 mg/dl HIGH >190 mg/dl VERY HIGH Performed By: #### CBC #### [facility] [address] [place] [address] [address] Maribel العليTriglyceride [Mass/Vol]60 mg/dLNormal<=150[facility] Comment on above:Performed By: #### CBC #### [facility] [address] [place] [address] [address] Yilan ChangVLDL CALC12.0 mg/dLNormalThe [facility] - WestComment on above: Performed By: #### CBC #### [facility] [address] [place] [address] [address] Maribel Muir BLD IMMUNO SCREENon 69-86-1010XCHHEI BLOODNegativeNormal NEGATIVEThe [facility] - WestComment on above:Performed By: #### OBSCRN ####[facility] [address] [address]Dr. Maribel العليPROF 14(COMP METB)on 09-34-1903Ewfexos [Mass/Vol]3.0 g/dLCritically low3.4-5.0The [facility] Hospitalment on above:Performed By: #### FT3, LIPID, T4, CMP, TSH ####[facility] [address] [address]Dr. Maribel العليAlbumin/Globulin [Mass ratio]0.9 {ratio}NormalThe [facility] - WestComment on above:Performed By: #### FT3, LIPID, T4, CMP, TSH ####[facility] [address] [address]Dr. Maribel العليALP [Catalytic activity/Vol]116 U/JMhvbwo69-000Zhp [facility] Comment on above:Performed By: #### FT3, LIPID, T4, CMP, TSH ####[facility] [address] [address]Dr. Maribel العليALT [Catalytic activity/Vol]25 U/VIxvbio66-58Qtx [facility] - WestComment on above: Performed By: #### FT3, LIPID, T4, CMP, TSH ####[facility] [address] [address]Dr. Maribel العليAnion gap [Moles/Vol]10.2 mmol/LNormalThe [place] Hospitalment on above:Performed By: #### FT3, LIPID, T4, CMP, TSH ####[facility] [address] [address]Dr. Maribel ChangAST [Catalytic activity/Vol]17 U/OKnokwi88-25Idu [facility] on above:Performed By: #### FT3, LIPID, T4, CMP, TSH ####[facility] [address] [address]Dr. Yilan ChangBilirubin [Mass/Vol]0.4 mg/dLNormal0.2-1.0The [facility] Comment on above:Performed By: #### FT3, LIPID, T4, CMP, TSH ####[facility] [address] [address]Dr. Yilan العلي Calcium [Mass/Vol]8.2 mg/dLCritically low8.5-10.1The [facility] on above:Performed By: #### FT3, LIPID, T4, CMP, TSH ####[facility] [address] [address]Dr. Yilan ChangChloride [Moles/Vol]106 mmol/RAfoyku96-514Qkh [facility] on above:Performed By: #### FT3, LIPID, T4, CMP, TSH ####[facility] [address] [place], [place] [address]Dr. Yilan ChangCO2 [Moles/Vol]28.6 mmol/LNormal 21.0-32.0The [facility] on above:Performed By: #### FT3, LIPID, T4, CMP, TSH ####[facility] [address] [address]Dr. Yilan ChangCreatinine [Mass/Vol]0.62 mg/dLNormal0.55-1.02The [facility] on above:Performed By: #### FT3, LIPID, T4, CMP, TSH ####[facility] [address] [place] [address]Dr. Yilan ChangEGFR-AF SOUTH KOREAN>60Normal>=60The [facility] on above: Performed By: #### FT3, LIPID, T4, CMP, TSH ####[facility] M[address] [place], [place] [address]Dr. Yilan ChangEGFR-NON AF SOU[place]OREAN>60 Normal>=60The [facility] HospitalComment on above:Performed By: #### FT3, LIPID, T4, CMP, TSH ####[facility] [address] [address]Dr. Yilan ChangGlobulin (S) [Mass/Vol]3.2 g/dLNoFirelands Regional Medical Center Comment on above:Performed By: #### FT3, LIPID, T4, CMP, TSH ####[facility] [address] [address]Dr. Yilan العلي Glucose [Mass/Vol]99 mg/gJYnwnbt09-964Wxr [facility] WestComment on above: Performed By: #### FT3, LIPID, T4, CMP, TSH ####[facility] Boxjcikwb[address] [place], [place] [address]Dr. Yilan ChangPotassium [Moles/Vol]4.8 mmol/LNormal3.5-5.1The [facility] WestComment on above:Performed By: #### FT3, LIPID, T4, CMP, TSH ####[facility] [address] [place], [place] [address]Dr. Yilan ChangProtein [Mass/Vol]6.2 g/dLCritically low6.4-8.[address] [facility] on above:Performed By: #### FT3, LIPID, T4, CMP, TSH ####[facility] [address] [place], [place] [address]Dr. Yilan ChangSodium [Moles/Vol]140 mmol/GXoklwt159-331DmeSt. Elizabeth Hospital Comment on above:Performed By: #### FT3, LIPID, T4, CMP, TSH ####[facility] Fmmafbxec[address] [place], [place] [address]Dr. Yilan ChangUrea nitrogen [Mass/Vol]17.0 mg/dLNormal7.0-18.0The [place] Hospitalment on above:Performed By: #### FT3, LIPID, T4, CMP, TSH ####[facility] Inpchyf[address] [place], [place] [address]Dr. Yilan ChangUrea nitrogen/Creatinine [Mass ratio]27.4 mg/mgNormalThe [facility] WestComment on above:Performed By: #### FT3, LIPID, T4, CMP, TSH ####[facility] [address] [address]DrChi العليT4on 52-87-0248K9 [Mass/Vol]5.80 ug/dLNormal4.80-13.90The [facility] on above:Performed By: #### CBC #### [facility] [address] [place], [place] [address] Dr. Maribel Doss 03-90-8268RFE6.018 uIU/mLCritically low0.358-3.740The [place] Hospitalment on above:Performed By: #### FT3, LIPID, T4, CMP, TSH ####[facility] [address] [address]Dr. Maribel العليCovid-19 PCR (CVDTBH)on 32-91-2742JXLZ-CoV-2 (COVID-19) RNA LENKA+probe Ql (Unsp spec)Not detectedNormalNOT DETECTEDThe [facility] on above:Result Comment: This test is not yet approved or cleared by the [place] FDA. When there are no FDA-approved or cleared tests available, and other criteria are met, FDA can make tests available under an emergency access mechanism called an Emergency Use Authorization (EUA). The EUA for this test is supported by the [place] of Health and Human Service's (HHS's) declaration [...] symptoms consistent with SARS-CoV-2.Performed By: #### CVDTBH ####[facility] [address] [address]Dr. Yialisha العليXR LSPINE MIN 4 VIEWSon 42-49-6131DO LSPINE MIN 4 VIEWSEXAMINATION: XR LSPINE MIN [...] Electronically authenticated by: GISELA ROSS Date: 2022-04-05 09:28[facility] Vital Signs Date TimeVital SignValuePerforming EcwycxdmrTkhmfrox19-23-5295 13:30-0500Blood Pressure LocationMichael NILL [phone]-ZuspnTr[facility] [place] 10-22-2024 13:30-0500Diastolic blood ysomnknx74 mm[Hg]Johnny NILL [phone]-MbgmuTrinity Health [facility] [place] 10-22-2024 13:30-0500Heart rate72 /minMichael NILL [phone]-SraozTrinity Health [facility] [place] 10-22-2024 13:30-0500Respiratory rate16 /minMichael NILL [phone]-XaokmTrinity Health [facility] [place] 10-22-2024 13:30-0500Systolic blood vrjkndag549 mm[Hg]Johnny NILL [phone]-UvnhtSelect Medical [facility] 08-19-2024 13:14-0500Body fjvevj868.5 cmPatrica Harmon MD Work Phone: [facility] [phone] 13:14-0500Body mass index (BMI) [Ratio]24.51 kg/s6GgcrlfPatrica Harmon MD Work Phone: [facility] [phone] 13:14-0500Body kbmpvy24.78 kgPatrica Harmon MD Work Phone: [facility] [phone] 13:14-0500Diastolic blood yiciogql81 mm[Hg]Patrica Harmon MD Work Phone: noMer[facility] springfieldBnufmkevwf30-60-0678 13:140500Systolic blood taliajia381 mm[Hg]Patrica Harmon MD Work Phone: [facility] Healthcare Encounters Encounter DateEncounter TypeCare ProviderFacilityStart: 08-05-2025 End: 27-92-9926Iurqbh flowsheetJonathan D Zahler DO Work Phone: [facility] EyeStart: 08-05-2025 End: 61-79-4930Ixmtqm flowsheetJonathan D Zahler DO Work Phone: [facility] EyeStart: 08-05-2025 End: 49-81-1212Uedrgc follow up visit related to original pxJonathan D Zahler DO Work Phone: noms [facility] EyeComment on above:Pseudophakia (Primary Dx)Start: 08-05-2025 End: 89-18-6985liflhvgqnoCUSSIPDR Chante SHELLERNot AvailableStart: 07-16-2025 End: 11-56-0884Dqtilf flowsheetJonathan D Zahler DO Work Phone: [facility] EyeStart: 07-16-2025 End: 37-65-3295Dxakar flowsheetJonathan D Zahler DO Work Phone: [facility] EyeStart: 07-16-2025 End: 85-27-6302Ajugon follow up visit related to original pxJonathan D Zahler DO Work Phone: [facility] EyeComment on above:Pseudophakia (Primary Dx); Age-related nuclear cataract of right eyeStart: 07-16-2025 End: 75-35-4478bslzdkpvfnCAXWBQRX Chante SHELLERNot AvailableStart: 07-11-2025 End: 33-47-1296Qjrfom flowsheetJonathan Chante Sumayaer DO Work Phone: [facility] EyeStart: 07-11-2025 End: 32-75-7359Svtrbi flowsheetQuitavasu Sharif Sumayaer DO Work Phone: [facility] EyeStart: 07-11-2025 End: 14-16-5844ydxqgvnpdhYMXBSUKY D ZAHLERNot AvailableStart: 07-11-2025 End: 90-52-8259Ulghwt follow up visit related to original pxReyna Sharif Lukristopher DO Work Phone: [facility] EyeComment on above:Pseudophakia (Primary Dx)Start: 07-03-2025 End: 80-70-5169Kmiiow flowsFernvasu Sharif Sumayaer DO Work Phone: [facility] EyeStart: 07-03-2025 End: 62-51-9747Aadcft flowsheetQuitanatemperatriz Chante Zalindaer DO Work Phone: [facility] EyeStart: 07-03-2025 End: 02-86-1945gwwcimargbHYUBVCCD Chante CRESPONot AvailableStart: 11-19-2024 End: 38-95-3820eiofdpwoexByvnxtz R NILLFacility: ueStart: 11-19-2024 End: 84-89-5555Dgfxncp encounter procedureMichael R NILL [phone]-WhfnjHenry [facility] [place] Start: 11-13-2024 End: 03-53-3843yuurikmsdcEnsaude R NillWilson Health Ctr Work Phone: Start: 11-13-2024 End: 75-25-6581Aisawoec ReferredJohnny Garcia MD Work Phone: [facility]-LAB Path Spec [facility] HospStart: 11-13-2024 End: 50-78-9010zjnewjgyxhRgyugyz R NILLFacility:CD:[id number]: 10-22-2024 End: 84-00-6157zrqcnzemxmCgapize HoyFacility: BellueStart: 10-22-2024 End: 28-47-7561Tspzucm encounter procedureMichael R NILL [phone]-QvtyjHenry County Hospital [facility] [place] Start: 46-92-0086slhdlmywcjNmcuwpz HoyFacility:[facility] Dovertart: 08-19-2024 End: 60-19-3640Xkghmg flowsheetPatrica Harmon MD Work Phone: noms [facility]ITALKStart: 08-19-2024 End: 96-72-2701Iilhrp flowsKodak Harmon MD Work Phone: noms ENT NORETIENNEKStart: 08-19-2024 End: 33-27-1003dbircnocluLHMMZA H TIMMISNot AvailableStart: 08-19-2024 End: 81-84-4873Aaphta outpatient visit 25 minutesPatrica Harmon MD Work Phone: noms [facility] HOSPITALETIENNEKComment on above:Acute URI (Primary Dx)Start: 08-16-2024 End: 38-77-7285Zdiqtrhtw encounterPatrica Harmon MD Work Phone: noms CI ENTStart: 86-97-2786dxisjhgzrxBZ SANCHEZ HOY Facility:N4Owoon: 11-18-2022 End: 62-00-2247unaaaiwpntDM SANCHEZ HOYFacility:C4Bgakr: 10-03-2022 End: 47-70-0801ghatuqhbyoEF SANCHEZ HOYFacility:Y5Ngbhw: 08-26-2022 End: 88-90-5390qwanhekcrfHT SANCHEZ HOYFacility:O3Mxsau: 07-07-2022 End: 67-84-5135mjlnelcsznUZ SANCHEZ HOYFacility:P6Vghjo: 05-05-2022 End: 08-76-1398isvnlcnjwwLO SANCHEZ HOYFacility:U7Avwly: 05-04-2022 End: 02-94-8678jcksqxdfuzGR SANCHEZ HOYFacility:K5Ouizq: 04-04-2022 End: 15-11-2786jeyrloqwixBN SANCHEZ HOYFacility:H1 Procedures DateProcedureProcedure DetailPerforming ClinicianStart: 79-93-0956Swf bmtry prtl coher intrfrmtry io lens pwr calJovasu Sheller DO Work Phone: Start: 07-03-2025 End: 15-51-4749Ihbgk medical xm&eval compre new pt 1/> vstAge-related nuclear cataract of both eyesReyna Crespo DO Work Phone: comment on above:Age-related nuclear cataract of both eyes (Primary Dx)Start: 25-16-9583GhyeoqwjmftWyvwpaza Luhler DO Work Phone: Start: 45-10-2315BdvoiwxhruiIwvyyih NILL AbdominoplastyMichael NILL Amputation of left fourth toeMichael NILL Arthroscopy of kneeMichael NILL Bypass of stomachMichael NILL CholecystectomyMichael NILL ColonoscopyMichael NILL Endoscopy of noseMichael NILL EsophagogastroduodenoscopyMichael NILL Ethmoid sinusectomyMichael NILL Foot repairMichael NILL Comment on above:x 17Fracture of ankle (disorder) Johnny NILL Nasal septoplastyMichael NILL Comment on above:c7Ybjeok of meniscusMichael NILL Repair of musculotendinous cuff of shoulderMichael NILL Comment on above:e0Ynjimykh sinusectomyMichael NILL Total abdominal hysterectomy with bilateral salpingo-oophorectomyMichael NILL Plan of Treatment DateCare ActivityDetailAuthorStart: 56-28-3185Tiefvkhtu for malignant neoplasm of colonNOAZ HealthcareStart: 08-05-2025 End: 27-93-9442Ineyuqj encounter procedureNONeshoba County General Hospital EyeComment on above:ArrivedStart: 07-16-2025 End: 53-59-5009Dbkozyj encounter /08/2025 1:30 PM EDT Office Visit [facility] [address] [address] [place] [address] Reyna Crespo DO [address] [place] [address] [facility]NON[facility] EyeComment on above:ArrivedStart: 07-11-2025 End: 81-07-0346Vfdwrad encounter qgqfihzbn48/03/2025 9:00 AM EDT Office Visit [facility] [address] [place] [address] Reyna Crespo DO [address] [place] [address] [facility]: 07[facility]2025 End: 47-60-7705Eesvdca encounter /25/2025 8:45 AM EDT Office Visit [facility] [address] [place] [id number] Reyna Crespo, DO [address] [place] [address] [facility] EyeComment on above:ArrivedStart: 08-25-8556LMIZT-19 Vaccine ( season)COVID-19 Vaccine ( season)[facility]OM HealthcareStart: 18-86-2645Zapxnvdhl vaccinationInfluenza Vaccine (#1)[facility] HealthcareStart: 97-77-3105Dzyzwhmml vaccinationInfluenza Vaccine (#1)[facility] HealthcareStart: 44-27-9803Wtqzfkfwpfdo Vaccine: 65+ Years (2 of 2 - PCV20 or PCV21)Pneumococcal Vaccine: 65+ Years (2 of 2 - PCV20 or PCV21)[facility] HealthcareStart: 56-57-6218Wiuyncyuqiti Vaccine: 65+ Years (2 of 2 - PPSV23 or PCV20)Pneumococcal Vaccine: 65+ Years (2 of 2 - PPSV23 or PCV20)[facility] HealthcareStart: 51-58-8815Gbnfbcrmbqsk Vaccine: 65+ Years (2 of 2 - PPSV23)Pneumococcal Vaccine: 65+ Years (2 of 2 - PPSV23)[facility] Start: 77-20-2874Pdwcrkloj for malignant neoplasm of breastMammogramNOMS HealthcareStart: 13-78-4326IGsK/Tdap/Td Vaccines (1 - Tdap)DTaP/Tdap/Td Vaccines (1 - Tdap)[facility] HealthcareStart: 76-02-4026Amhsrztvm for malignant neoplasm of colonNOMS Healthcare Immunizations Immunization DateImmunizationNotesCare SgjgeswfTzocrnzg44-39-2388mhmfygosr virus vaccine, unspecified formulationMichael NILL [phone]-NamzrSelect [facility] 53-10-1723VNZR-CoV-2 (COVID-19) mRNAMUL.ORD!b03639Kujtlfn NILL [phone]-IdwokSelect [facility] 50-28-2786FYCC-CoV-2 mRNA (sjrmjwefnek-flaq-vfwopch) vaccineMichael NILL [phone]-VstjoSelect Medical [facility] 07-34-5020VAUJ-CoV-2 (COVID-19) mRNA BNT-162b2 vaxMichael NILL [phone]-CjdmjSelect [facility] Comment on above:Result Comment: 2024-09-30: [id number]-QzN-5 (COVID- 19) mRNA BNT-162b2 vaxMichael NILL [phone]-LftwwSelect [facility] Comment on above:Result Comment: 2024-09-30: EWQ5826-21-3592JRAJ-NlH-9 (COVID- 19) mRNA BNT-162b2 vaxMichael NILL [phone]-OlewkSelect [facility] Comment on above:Result Comment: 2024-09-30: QLS7830-77-6004wyibicaqo virus vaccine, unspecified formulationPatrica Harmon MD Work Phone: [facility] Payers DatePayer CategoryPayerPolicy [id number]-pay2024MedicaidAETNA MEDICARE ADVANTAGE [id number] 2020MedicareMEDICARE [id number] [id number] 2.840.1.144252.3.57[id number] 2.840.1.251192.3.57[id number] 2.840.1.461488.3.57[id number] 2.840.1.408083.3.57[id number] 2.840.1.976019.3.57[id number] 2.840.1.954255.3.57[id number] 2.840.1.547779.3.57[id number] 2.840.1.740903.3.579.[id number] 2.840.1.646338.3.57[id number] 2.840.1.279127.3.57[id number] 2.840.1.742014.3.579.2.[id number] 2..840.1.380445.3.57[id number] 2..840.1.012334.3.579.2.6[id number] 2..840.1.420067.3.579.[id number] 2..840.1.997547.3.579.[id number] 2..840.1.666749.3.57[id number] 2.16.840.1.13800[id number] 465j1583-c945-8no8-[id number] 2.16.840.1.993614.3.579.2.531 Social History DateTypeDetailFacilityTobacco smoking status NHISTobacco smoking consumption unknownNOMS HealthcareStart: 47-10-3633Vqy assigned at birthNot on fileNOMS HealthcareStart: 08-19-2024 End: 75-67-7300Ylymuc identityNot on [facility] Centertart: 08-19-2024 End: 95-34-6349Riouagc smoking status NHISNever smoked tobaccoNOMS Healthcare Start: 08-19-2024 End: 25-41-3209Oosktgz use and exposureSmokeless tobacco non-userNOMS Healthcare Start: 08-19-2024 End: 14-60-1136Uzzebcssb beverage intakeCurrent drinker of alcohol (finding)[facility]S HealthcareStart: 08-19-2024 End: 85-35-7047Okgsxwo of Social functionNOMS HealthcareStart: 42-16-4067Usnpasq smoking statusNeCrystal Clinic Orthopedic Center General Surgery BellevueStart: 59-23-6296DzvVjflgq (finding)[facility] Centertart: 1955 [facility]NE[facility]: Highlighted rowStart: NINFHistory of tobacco usePassive smokerMadison Medical Center Functional Status PihgVzlaobbergKfbtgaThapqjoy30-82-2557Ijbnuxefvf StatusN/AFunc [facility] Surgery Zilbbzix61-13-2261Mwjzvmynlo StatusN/[facility] [place] Clinical Notes 04-05-2022 to 08-05-2025 Note Date & ZanlNfloXgkpfnap51-97-5779 History of Present illness Narrative* Reyna Crespo [...] vision, questions or concerns. documented in this encounterMadison Medical CenterIxibttdydi86-60-2217 History of Present illness Narrative* Reyna Crespo [...] different lens options were explained including the aiv-ng-rfntqd fees for any upgrades. Intraocular lens (IOL) [...] Extremities: no pitting edema. documented in this [facility]10-03-2025 History of Present illness Narrative* Reyna [...] vision, questions or concerns. documented in this [facility]09-25-2025 History of Present illness Narrative* Reyna [...] Evaluation, referred by (My [facility] Dr reese operations advisor) currently uses progressive glasses full-time that are [...] Medications (Ophthalmic Agents) Medication Sig Dispense Refill Qbelggifysr-Csmivprs-Xlvvfszrd 1-0.5-0.075 % solution Administer 1 drop into affected eye(s) in themorning and 1 drop at noon and 1 drop in the evening and 1 drop before bedtime. 10 mL 1 No current facility-administered medications for this visit. (Ophthalmic Agents) Current Outpatient Medications (Other) Medication Sig Dispense Refill beta carotene (vitamin A) 3 MG (33523 UT) capsule Take 10,000 Units by mouth [...] @ 9:15 AM Additional Tests Keratometry K1 Converse K2 Converse Right 43.75 172 44.00 82 Left 43.25 [...] Normal Normal Refraction Wearing Rx Sphere Cylinder Converse Add Right +0.50 -0.75 108 +2.00 Left +3.25 -1.00 078 +2.00 Age: mths Manifest Refraction Sphere Cylinder Converse Right -1.00 -0.25 151 Left +4.00 -1.25 059 Final Rx Sphere Cylinder Converse Dist VA Right -1.00 -0.25 120 20/40 [...] different lens options were explained including the zuk-xr-bknwte fees for any upgrades. Intraocular lens (IOL) [...] and OD - 08/04. documented in this encounterMadison Medical CenterNooaqrjuqq98-64-4552 NoteGeneral Surgery Office/Clinic Note Chief Complaint consultation [...] Bedtime vitamin A 800 (more content not included)...[facility] HospitalComment on above:Result Comment: Electronically Signed By: GOYO FUCHS, Johnny Cifuentes\Date and Time Signed: 10/22/24 14:45 KPS34-49-1885 History of Present illness Narrative* Patrica Harmon MD - 08/19/2024 1:10 PM EST Subjective Patient ID: Ita Alanis is a 68 y.o. female who presents for Sinusitis Pt reports she has had marked head fullness for one week. Did not see PCP. Covid negative. Used a decongestant and allergy pills. No family history on file. Active Ambulatory Problems Diagnosis Date Noted Asthma ([facility]) 08/19/2024 Bilateral tinnitus 08/19/2024 Chronic frontal sinusitis 08/19/2024 Hearing loss of right ear 08/19/2024 Hypothyroidism ([facility]) 08/19/2024 Migraine ([facility]) 08/19/2024 Osteoporosis ([facility]) 08/19/2024 Resolved Ambulatory Problems Diagnosis Date Noted [...] saline irrigations as well documented in this encounterMadison Medical CenterBivqyxdcuh91-54-1742 Telephone encounter Note* Telephone Encounter - Lolly Harmon - 08/16/2024 1:28 PM EST Left a message for pt to contact Dr Harmon's office to schedule an appt. [facility] Medical CenterObpgjephyp74-27-6974 Miscellaneous Notes* Telephone Encounter - Lolly Harmon - 08/16/2024 1:28 PM EST Left a message for pt to contact Dr Harmon's office to schedule an appt. * Telephone Encounter - Patrica Harmon MD - 08/16/2024 12:05 PM EST Needs appt as not seen in over a year * Telephone Encounter - Lolly Hamron - 08/16/2024 11:22 AM EST Pt has a sinus infection, she would like a rx sent in for her. Her pharmacy is [facility] in [place]. documented in this encounterMadison Medical CenterBmsheyxcrd06-68-7971 Telephone encounter Note* Telephone Encounter - Patrica Harmon MD - 08/16/2024 12:05 PM EST Needs appt as not seen in over a year [facility] Work Phone: 1(121) 793-526311-08-2024 Telephone encounter Note* Telephone Encounter - Lolly Harmon - 08/16/2024 11:22 AM EST Pt has a sinus infection, she would like a rx sent in for her. Her pharmacy is [facility] in [place]. [facility] Medical CenterNazrzvolbc76-89-5806 NotePROCEDURE: XR HIP LT 2 3V W [...] Electronically authenticated by: GISELA ROSS Date: 2022-04-05 07:23[facility]06-28-2022 NotePROCEDURE: XR KNEE LT 4V or > COMPARISON: None. HISTORY: Derangement of knee FINDINGS: BONES:No fracture, acute abnormality, or significant arthropathy. SOFT TISSUES:Negative. No visible soft tissue swelling. EFFUSION:None visible. OTHER: Negative. IMPRESSION: No acute disease. Electronically authenticated by: GISELA ROSS Date: 2022-04-05 07:21[facility] No data available for this section [facility] [place] Evaluation note* Diagnosis Acute URI- Primary Acute upper respiratory infections of unspecified site [facility] HealthcareEvaluation noteNo assessment information availableBucyrus Community Hospital Work Phone: Evaluation note* Diagnosis Age-related nuclear cataract of both eyes- Primary documented [facility] HealthcareEvaluation note* Diagnosis Pseudophakia- Primary Lens replaced by other means documented in this [facility] HealthcareEvaluation note* Diagnosis Pseudophakia- Primary Lens replaced by other means Age-related nuclear cataract of right eye documented [facility] this [facility] HealthcareEvaluation note* Diagnosis Pseudophakia- Primary Lens replaced by other means documented in this [facility] HealthcareHospital Discharge instructions No data available for this section [facility] [place] Progress note No data available for this section [facility] Summary Purpose Family History No Family History [...] and content) DATE CREATED AUTHOR 11/26/2022 [facility] DATE CREATED AUTHOR AUTHOR'S ORGANIZ ATION 11/15/2024 [facility] DATE CREATED AUTHOR AUTHOR'S ORGANIZ ATION 11/20/2024 [facility] DATE CREATED AUTHOR AUTHOR'S ORGANIZ ATION 08/06/2025 [facility] EPIC Care Teams (unrecognized sec tion and content) Team MemberRelationshipSpecialtyStart DateEnd Date Sanchez Causey MD [address] [place] [address] [facility] - [facility]08/16/24Team MemberRelationshipSpecialtyStart DateEnd Date Sanchez Causey MD [address] [place] [address] PCP - [facility]08/16/24 Team Status: Inactive Member Role Status Dates Johnny Garcia MD FACS Attending Provider Active Start: November 13, 2024 End: November 13, 2024Team MemberRelationshipSpecialtyStart DateEnd Date Sanchez Causey MD [address] [place] [address] [facility]08/16/24Team MemberRelationshipSpecialtyStart DateEnd Date Sanchez Causey MD [address] [place] [address] PCP - [facility]08/16/24Team MemberRelationshipSpecialtyStart DateEnd Date Sanchez Causey MD [address] [place] [address] PCP - [facility]08/16/24Te MemberRelationshipSpecialtyStfulton DateEnd Date Sanchez Causey MD [address] [facility], [place] [address] PCP - [facility]08/16/24Te MemberRelationsDaniel Freeman Memorial HospitalpecialtyPortland DateEnd Date Sanchez Causey MD [address] [facility], [place] [address] PCP - [facility]08/16/24Te MemberRelationshipSlincoln hospitalialtyPortland DateEnd Sanchez Causey MD [address] [facility], [place] [phone] 947 PCP - [facility]08/16/24 Reason for Visit (unrecogniz ed section and content) ReasonCommentsSinusitisReasonCommentsCataractReasonCommentsPost-op Follow-up DqckjoPoikjoluQqhr-ulIozvoelpEkwxiuXvgrbsuaDkai-tq Goals (unrecognized section and content) Goals may [...] BE BASED ON THE PRIMARY CLINICAL RECORDS. [facility]. provides no warranty or guarantee of the accuracy or completeness of information in this document.
--- NOTE | 2025-09-10 12:45 | CA_ITS ---
[facility] Test Date: 2025-09-10 Pat Name: ORALIA HILTON Department: Room: - Gender: Female [employer]: Zainab Berrios : 1955 Requested By: HILDA BLACK Order Number: [id number] Reading MD: DEBBIE SHABAZZ M.D. Interpretive Statements Summary of the findings: Right leg: FREDDIE= 1.26; TBI= 0.84. Doppler waveforms demonstrate biphasic flow at the posterior tibial and dorsalis pedis arteries. Left leg: FREDDIE= 1.25; TBI= 0.86. Doppler waveforms demonstrate biphasic flow at the posterior tibial and triphasic flow at the dorsalis pedis arteries. Segmental pressures: Segmental pressures are within normal bilaterally. Pulse volume recordings: PVRs at the high thigh, below knee, and ankle levels show normal waveforms. Right digit waveforms are normal. Left digit waveforms are normal in the first 3 toes, and blunted in the 5th toe. Conclusion: Right and left ankle-brachial indices are suggestive of normal overall arterial flow at rest. Toe-brachial indices are not suggestive of PAD. Segmental pressures show no significant segmental disease. Pulse volume recordings indicate good overall resting arterial flow. Waveform analysis suggests near normal bilateral arterial flow. Overall grossly normal physiologic examination. Electronically Signed On 09-10-2025 19:45:26 EST by DEBBIE SHABAZZ M.D.
== END 2025-09-10 12:17 | disposition home or self-care (01) ==
LOC: CARD 12:16
PROVIDERS: PCP Family Medicine; Visit Provider Podiatrist Foot & Ankle Surgery
DX: R09.89 Other specified symptoms and signs involving the circulatory and respiratory systems (principal)
CPT/HCPCS: 93923

== ENCOUNTER 2025-09-18 08:57 | Outpatient (RCR) | payer MEDICARE, SELFPAY ==
[2025-09-18 09:00] VITALS: BP 125/72; PULSE 72; TEMP 36.3; O2SAT 97
--- NOTE | 2025-09-18 09:16 | PC.NURSE ---
0900: Pt. to [facility] amb. for iron infusion. Seated in recliner. VSS. IV initiated without difficulty. Pt. tolerates without c/o. Given warm blanket and water. Explained Infed protocol to pt. Relays understanding.
[2025-09-18] MEDS: HYDROCORTISONE SODIUM SUCC PF 100 MG/2 ML VIAL IVP (09:41)
[2025-09-18] MEDS: 0.9 % SODIUM CHLORIDE 250 ML 10 ML IV (09:41)
--- NOTE | 2025-09-18 09:45 | PC.NURSE ---
0941: Medicated with Hydrocortisone 100mg ivp pre Infed test dose
[2025-09-18] MEDS: IRON DEXTRAN COMPLEX 100 MG/2 ML VIAL 25 MG IVP (10:06)
--- NOTE | 2025-09-18 12:39 | PC.NURSE ---
1215: Tolerating infusion without c/o. Lunch tray ordered. Denies needs or c/o.
[2025-09-18 13:08] VITALS: BP 153/72; PULSE 74; TEMP 36.6; O2SAT 96
== END 2025-10-08 23:59 | disposition home or self-care (01) ==
LOC: INF 08:57
PROVIDERS: PCP Family Medicine; Visit Provider Family Medicine
DX: D64.9 Anemia, unspecified (principal)
CPT/HCPCS: 96365; 96366; 96375; 96376; J1720; J1750

== ENCOUNTER 2025-09-23 12:40 | Outpatient (OUT) | payer MEDICARE, SELFPAY ==
--- OUTSIDE RECORDS SUMMARY | 2025-09-19 14:30 | XMS_ITS | Encounter Summary ---
Author Organization [facility] Address [address] [place] [address] Care Team Providers Care Intensive Care Specialist Name Role Phone Jose Carlos Causey MD Primary Care Provider [phone] Encounter Details DateTypeDepartmentCare Team (Latest Contact Info)Sqegngnebzu47/12/2025 2:30 PM ESTOffice Visit [facility] [address] [place] [address] Bernardo Berrios MD [address] [facility] [address] [place] [address] Heart murmur (Primary Dx); LVH (left ventricular hypertrophy); Primary hypertension; Anemia, unspecified type Social History Tobacco UseTypesPacks/DayYears UsedDateSmoking Tobacco: NeverSmokeless Tobacco: Never Tobacco Cessation:Counseling Given: Not Answered CommentsUnknownSex and Gender InformationValueDate RecordedSex Assigned at PzwqfJawgls10/12/2025 2:18 PM ESTLegal RmiTgyihy11/29/2022 10:22 PM EDTGender CvmurwquCmvwds05/12/2025 2:18 PM ESTSexual OrientationHeterosexual or Straight 09/19/2025 2:18 PM ESTdocumented as of this encounter Last Filed Vital Signs Vital SignReadingTime TakenCommentsBlood Afidjwru002/5509/19/2025 2:37 PM EST Xbyhs084009/19/2025 2:37 PM ESTTemperature--Respiratory Rate--Oxygen Offqwxzjeu05% 09/19/2025 2:37 PM ESTInhaled Oxygen Concentration--Deukco62 kg (141 lb) 09/19/2025 2:37 PM DRPGglgif265.5 cm (5' 2 )09/19/2025 2:37 PM ESTBody Mass Index25.7909/19/2025 2:37 PM ESTdocumented in this encounter Progress Notes * Bernardo Berrios MD - 09/19/2025 2:30 PM EST Images from the original note were not included. [place] [facility] Juan Alanis is a 69 y.o. year old female patient being seen to establish care as a new patientfor a heart murmur. Recent Echo. Patient denies chest pain., leg swelling. Patient complains of increased fatigue, increased SOB/CHURCH due to weather, racing heart/ palpitations, occasional dizziness/lightheaded headaches. Recent iron infusion for anemia. Problem List[1] Family History[2] Social History[3] LILI Jean Baptiste is seen as a new patient referred from Dr. Jose Carlos Causey's office for heart murmur and hypertrophy on echocardiogram. She is a 69-year-old woman with prior history of hypertension was on treatment with lisinopril and recently this was discontinued due to low blood pressure. She was recently found to have significant anemia and just got iron infusion yesterday. Her hemoglobin 3 weeks ago was 6.8. She reports that she has symptoms of shortness of breath on exertion NYHA class II symptoms. In addition she gets lightheadedness and dizziness especially when taking a shower. No leg edema. No chestpain. Occasional palpitations. Review of Systems Constitutional: Positive for malaise/fatigue. Cardiovascular: Positive for dyspnea on exertion, irregular heartbeat and palpitations. Respiratory: Positive for shortness of breath. Neurological: Positive for dizziness, headaches and light-headedness. Objective Visit Vitals BP 113/55 (BP Location: Right arm, Patient Position: Sitting) Pulse 79 Ht 1.575 m (5' 2 ) Wt 64 kg (141 lb) SpO2 96% BMI 25.79 kg/m?? Smoking Status Never BSA 1.67 m?? Physical Exam Constitutional: Appearance: She is well-developed. She is not ill-appearing. HENT: Head: Normocephalic and atraumatic. Nose: Nose normal. Eyes: General: No scleral icterus. Pupils: Pupils are equal, round, and reactive to light. Neck: Thyroid: No thyromegaly. Vascular: No JVD. Cardiovascular: Rate and Rhythm: Normal rate and regular rhythm. Pulses: Radial pulses are 2+ on the right side and 2+ on the left side. Heart sounds: Murmur heard. Systolic (RUSB) murmur is present with a grade of 2/6. No friction rub. No gallop. Pulmonary: Effort: Pulmonary effort is normal. No respiratory distress. Breath sounds: Normal breath sounds. No wheezing or rales. Chest: Chest wall: No tenderness. Abdominal: General: Bowel sounds are normal. There is no distension. Palpations: Abdomen is soft. Tenderness: There is no abdominal tenderness. Musculoskeletal: General: No swelling. Cervical back: Neck supple. Skin: General: Skin is warm and dry. Neurological: General: No focal deficit present. Mental Status: She is alert and oriented to person, place, and time. Psychiatric: Mood and Affect: Mood normal. Behavior: Behavior is cooperative. Judgment: Judgment normal. Allergies Allergies[4] Medications Current Medications[5] Recent Labs Blood testing 08/27/2025: Hemoglobin 6.8 hematocrit 25.2, platelets 269, potassium 3.7, BUN 11, creatinine 0.6, eGFR more than 60, hemoglobin A1c 5.1%, LFTs normal, NT proBNP 259, triglycerides 55, cholesterol 173, LDL 56, HDL 106, TSH 0.179, thyroxine and free T4 normal. Imaging and other tests ABIs 09/10/2025: Conclusion: Right and left ankle brachial indices are suggestive of normal overall arterial flow at rest. Toe brachial indices are not suggestive of PAD. Segmental pressures show no significant segmental disease. Pulse volume recordings indicate good overall resting arterial flow. Waveform analysis suggests near normal bilateral arterial flow. Overall grossly normal physiologic examination. Echocardiogram 08/25/2025: CONCLUSION: Sigmoid septum with mild proximal hypertrophy Normal left ventricle cavity size Normal left ventricle systolic function without wall motion abnormalities, EF 65 to 70% Normal right ventricle size and systolic function Severely dilated left atrium No significant valvular abnormalities ECG 04/20/2023: Sinus bradycardia. Assessment/Plan Diagnoses and all orders for this visit: Heart murmur LVH (left ventricular hypertrophy) Primary hypertension Anemia, unspecified type I reviewed in details her recent investigations including prior EKG, echocardiogram, ABIs and bloodtesting. I explained to Ita that the main cause of her symptoms is the significant anemia. Her recent hemoglobin was 6.8. I told her that this is enough to cause the shortness of breath and the feeling ofdizziness and lightheadedness that she was having. In addition it is a good reason to take her off of the antihypertensive medications. She does have evidence of hypertrophy of the base of the interventricular septum and I told her that this is probably related to prior longstanding hypertension. Her ventricular systolic function is otherwise normal and she has no significant valvular dysfunction. I told her that once the anemia is treated, if she continues to have symptoms of shortness of breath, dizziness and lightheadedness then we can consider further cardiac investigation. I will plan on seeing her in follow-up in 6 months to review the above. Follow up in about 6 months (around 03/20/2026). Bernardo Berrios MD [1] Patient Active Problem List Diagnosis Acrocyanosis Anemia Anxiety Asthma Bilateral tinnitus Blister of toe without infection BMI 25.0-25.9,adult Cat bite Cellulitis Chronic foot ulcer (CMS/HCC) Chronic frontal sinusitis Chronic osteomyelitis of left foot (CMS/HCC) Depression Dry eyes Eczema Fatigue GERD (gastroesophageal reflux disease) Hearing loss of right ear Heart murmur History of bariatric surgery History of gastric ulcer Hypercholesterolemia Hypertension Hypothyroidism Migraine Nasal congestion Osteomyelitis (CMS/HCC) Osteoporosis Other acute osteomyelitis, left ankle and foot (CMS/HCC) Polyp of sigmoid colon Pseudophakia Overweight Screening for malignant neoplasm of colon Seasonal allergies Sigmoid diverticulosis Rhinitis Sinusitis Vitamin D deficiency [2] Family History Problem Relation Name Age of Onset Cancer Mother Coronary artery disease Mother ALS Father Coronary artery disease Sister Stroke Sister Coronary artery disease Maternal Grandmother [3] Social History Tobacco Use Smoking status: Never Smokeless tobacco: Never Substance Use Topics Drug use: Never [4] Allergies Allergen Reactions Cat Dander Unknown [place] Unknown Grass Pollen Unknown Hydrocodone-Acetaminophen Other Mold Unknown Propoxyphene N-Acetaminophen Other [5] Current Outpatient Medications: desvenlafaxine (Pristiq) 100 mg 24 hr tablet, Take 100 mg by mouth in the morning., Disp: , Rfl: diclofenac (Voltaren) 75 mg EC tablet, Take 75 mg by mouth two times daily., Disp: , Rfl: ferrous sulfate 325 (65 Fe) MG tablet, Take 1 tablet by mouth twice a day., Disp: , Rfl: levothyroxine (Synthroid, Levoxyl) 112 mcg tablet, Take 112 mcg by mouth before breakfast., Disp: ,Rfl: Protonix 40 mg EC tablet, Take 40 mg by mouth before breakfast., Disp: , Rfl: Seroquel 25 mg tablet, Take 25 mg by mouth at bedtime., Disp: , Rfl: lisinopril 10 mg tablet, Take 10 mg by mouth in the morning. (Patient not taking: Reported on 09/19/2025), Disp: , Rfl: documented in this encounter Plan of Treatment Not on file documented as of this encounter Visit Diagnoses Diagnosis Heart murmur- Primary Undiagnosed cardiac murmurs LVH (left ventricular hypertrophy) Cardiomegaly Primary hypertension Unspecified essential hypertension Anemia, unspecified type documented in this encounter Care Teams Team MemberRelationshipSpecialtyStart DateEnd Jose Carlos Causey MD [address] [place] [address] PCP - GeneralFamily Ilhpspuw21/12/25documented as of this encounter
--- OUTSIDE RECORDS SUMMARY | 2025-09-22 05:52 | XMS_ITS ---
Author Organization [facility] [place] Address [address] [place] [address] Care Team Providers Care Ammunition Supervisor Name Role Phone Aly Causey Primary Care Provider REASON FOR VISIT labs Medications Medication SIG (Take, Route, Frequency, Duration) Notes Start Date End Date Status Ondansetron 4 MG 1 tablet on the tong ue and allow to dissolve Orally every 4 hours; Duration: 30 days 09/22/2025tive Encounters Encounter Location Date Provider Diagnosis [facility] [address] [place] [address] 09/22/2025 Aly Causey Hypertension I10 ; Fatigue [...] WITH GFR 09/22/2025 CBC W/AUTO DIFF 09/22/2025 AMYLASE 09/22/2025 FERRITIN 09/22/2025 IRON 09/22/2025 LIPASE 09/22/2025 Progress Notes * Ita ALANIS ADOB: [birth year] (69 yo F)Acc No.[id number]:09/22/2025 Patient:?Ita ALANIS :1955???Age:69 Y???Sex:FemalePhone:[phone] Address:[address] [place] [address], [address] * Refills Start Ondansetron Tablet Disintegrating, 4 [...] Codes: * true * Date:?Generated for Printing/Faxing/eTransmitting on:?09/23/2025 12:48 PM EST
--- OUTSIDE RECORDS SUMMARY | 2025-09-23 12:48 | XMS_ITS | Clinical Summary ---
Author Organization [facility] Address [address] [address] Phone Care Team Providers Care Ceramic Capacitor Processor Name Role Phone Unavailable Primary Care Provider Unavailabl e Social History Tobacco UseTypesPacks/DayYears UsedDateSmoking Tobacco: Never Assessed CommentsUnknownSex and Gender InformationValueDate RecordedSex Assigned at Not on fileLegal PwgRxxjoe48/25/2022 2:25 PM ESTGender IdentityNot on fileSexual OrientationNot on file Plan of Treatment Not on file
--- OUTSIDE RECORDS SUMMARY | 2025-09-23 12:48 | XMS_ITS | Clinical Summary ---
Author Organization [facility] Address [address] [place] [address] Care Team Providers Care Blocker Hand Name Role Phone Jose Carlos Causey MD Primary Care Provider [phone] Allergies Active AllergyReactionsCriticalityNoted DateCommentsOxycodone-AcetaminophenHives 07/03/2025 acetaminophen / [...] tip and replace cap. 48 g ctive Sgsrvdnszug-Udjwyxkd-Eimaqmjof 1-0.5-0.075 % solution Indications:Age-related nuclear cataract of both eyesAdminister 1 drop into affected eye(s) in the morning and 1 drop at noon and 1 drop in the evening and 1 drop before bedtime. 10 mL 5Active beta carotene (vitamin A) 3 MG (46512 UT) capsule Take 10,000 Units by mouth DailyActive Protonix 40 MG EC tablet 1 (one) time each day at the same time5Active diclofenac (Voltaren) 75 MG EC tablet every 12 (twelve) hours5Active Active Problems ProblemNoted DateDiagnosed DateDry eyes09/01/20259743Bcayxgyihjmj53/sthma 08/19/2024ilateral ledvliaq53/11/2024hronic frontal owjvontep30/11/2024Hearing loss of right ear08/19/20240290Pdmswoioybrpqq44/11/2722Vpwifdpm62/11/2024 Gsuzdhxktmty51/11/2024 Resolved Problems ProblemNoted DateDiagnosed DateResolved DateAge-related nuclear cataract of right eyege-related nuclear cataract of both eyes07/03/2025 07/16/2025 Encounters DateTypeDepartmentCare UjqvQaugzkgguun21/24/2025 1:15 PM ESTOffice [facility] [address] [place] [address] Wilmer Crespo, Pseudophakia (Primary Dx); Dry eyes09/01/2025amboo flowsheet [facility] [address] [place] [address] Wilmer Crespo, DO 09/01/20259100Ljkxag71/28/2025 9:00 AM EDTOffice Visit [facility] [address] [place] [address] Wilmer Crespo, Pseudophakia (Primary Dx)08/05/2025amboo flowsheet [facility] [address] [place] [address] Wilmer Crespo, DO 08/05/20258654Hhciou19/08/2025 1:30 PM EDTOffice Visit [facility] [address] [place] [address] Wilmer Crespo, Pseudophakia (Primary Dx); Age-related nuclear cataract of right eye07/16/2025amb flowsheet [facility] [address] [place] [address] Wilmer Crespo, DO 07/16/20251808Cczegn03/03/2025 9:00 AM EDTOffice Visit [facility] [address] [place] [address] Wilmer Crespo, DO Pseudophakia (Primary Dx)07/11/2025[facility] flowsheet [facility] [address] [place] [address] Wilmer Crespo, DO 07/11/20258832Akquti36/25/2025 8:45 AM EDTOffice Visit [facility] [address] [place] [address] Wilmer Crepso, DO Age-related nuclear cataract of both eyes (Primary Dx)07/03/2025Orders Only [facility] [address] [place] [address] Wilmer Crespo, Age-related nuclear cataract of both eyes07/03/2025[facility] flowsheet [facility] [address] [place] [address] Wilmer Crespo, DO 07/03/2025Travelfrom Last 3 Months Family History Medical HistoryRelationNameCommentsMacular degenerationFather's BrotherRelation NameStatusCommentsFatherDeceasedFather's BrotherMotherDeceased Social History Tobacco UseTypesPacks/DayYears UsedDateSmoking Tobacco: NeverPassive Smoke Exposure: NeverSmokeless Tobacco: Never Tobacco Cessation:Counseling Given: No Alcohol UseStandard Drinks/WeekCommentsYes1 (1 standard drink = 0.6 oz pure alcohol)CommentsUnknownSex and Gender InformationValueDate RecordedSex Assigned at BirthNot on fileLegal ZhlAzysfk85/15/2023 6:51 PM EDTGender Identity Not on fileSexual OrientationNot on file Last Filed Vital Signs Vital SignReadingTime TakenCommentsBlood Bzexxzbp425/7711/08/2024 1:14 PM EST Pulse--Temperature--Respiratory Rate--Oxygen Saturation--Inhaled Oxygen Concentration--Ulnzmw75.8 kg (134 lb)08/19/2024 1:14 PM LSVCptkld606.5 cm (5' 2 )08/19/2024 1:14 PM ESTBody Mass Index24.51110/19/2023 1:14 PM EST Plan of Treatment Health MaintenanceDue DateLast DoneCommentsCT Ipvswwlsqldy78/16/1955FIT-DNA 1955FIT1955FOBT1955 1065Mirpjmcfypceq81/16/4039Tcjzyader93/16/1995 Pneumococcal Vaccine: 65+ Years (2 of 2 - PCV20 or PCV21)/11/2019 COVID-19 Vaccine (2024- season)/07/2023, 07/25/2022, 05/12/2022, Additional history existsInfluenza Vaccine (#1)/05/2024, 09/11/2023, 07/25/2022, Additional history qbrduvUnsuuvxgokx25/05/2035 11/13/2024, 11/13/2024olorectal Cancer Nocqoxjcv82/05/2035 Procedures Procedure NamePriorityDate/TimeAssociated DiagnosisCommentsIOL BIOMETRY - OU - BOTH MJAENbwzsea04/25/2025 9:30 AM EDT Age-related nuclear cataract of both eyes from Last 3 Months Results * IOL Biometry - OU - Both Eyes (CPT 95214) (07/03/2025 9:30 AM EDT)Anatomical RegionLateralityModalityHeadOtherSpecimen (Source)Anatomical Location [...] Date Jose Carlos Causey MD [address] [place] [address] PCP - GeneralFamily Vndqiqib54/8/24
--- OUTSIDE RECORDS SUMMARY | 2025-09-23 12:48 | XMS_ITS | Clinical Summary ---
Author Organization [facility] Address [address] [place] [address] Care Team Providers Care Director Banking Name Role Phone Jose Carlos Causey MD Primary Care Provider [phone] Allergies Active AllergyReactionsCriticalityNoted DateCommentsCat ByisloAtxliix63/12/2025 JvgzLtzntlt82/12/2025Grass XppojqAgkipic76/12/2025Hydrocodone-AcetaminophenOther 09/19/20251825SkrdPmysakv68/12/2025Propoxyphene N-CbobluxogwhevXhnef71/12/2025 Medications MedicationSigDispense QuantityRefillsLast FilledStart DateEnd DateStatus levothyroxine (Synthroid, Levoxyl) 112 mcg tablet Take 112 mcg by mouth before breakfast.Active desvenlafaxine (Pristiq) 100 mg 24 hr tablet Take 100 mg by mouth in the morning.Active lisinopril 10 mg tablet Take 10 mg by mouth in the morning.09/30/2024ctive diclofenac (Voltaren) 75 mg EC tablet Take 75 mg by mouth two times daily.5Active Protonix 40 mg EC tablet Take 40 mg by mouth before breakfast.5Active Seroquel 25 mg tablet Take 25 mg by mouth at bedtime.09/30/2024ctive ferrous sulfate 325 (65 Fe) MG tablet Take 1 tablet by mouth twice a day.08/12/2024ctive Active Problems ProblemNoted DateDiagnosed UmfgExkdlxkweorf17/12/9567Heturc92/12/2025nxiety 09/19/2025lister of toe without /12/2025MI 25.0-25.9,adult 5Cat bite1029Pnycmylfdc01/12/2025hronic foot ulcer09/19/2025 Chronic osteomyelitis of left foot09/19/20251933Udmydulbzt43/12/1489Dapohn27/12/2025 Jramjpn1009/19/2025GERD (gastroesophageal reflux disease)09/19/2025Heart murmur 09/19/2025History of bariatric mlvsbrm2009/19/2025History of gastric ulcer 09/19/20257779Kghcrqlednxkwkeqwklk42/12/7737Zuytepenkmmq08/12/2025Nasal congestion 09/19/20253640Opqcmkhuktxmf01/12/2025Other acute osteomyelitis, left ankle and foot 09/19/2025Polyp of sigmoid colon09/19/20259648Hhvyjmnwwr77/12/2025Screening for malignant neoplasm of colon09/19/2025Seasonal gpuowgwsy08/12/2025Sigmoid qoojyvdjugndzp71/12/7047Ptpstfhl89/12/1579Zptaaxvto11/12/2025Vitamin D umxpprbzqf15/12/2025Dry eyes09/01/20254010Jnkkmheimjcz98/03/4688Gtndze28/11/2024 Bilateral gguyhtgo95/11/2024hronic frontal titoyqfct30/11/2024Hearing loss of right ear08/19/20242018Frekhonrpbpaxq51/11/8164Rteoytig28/11/2024Osteoporosis 08/19/2024 Encounters DateTypeDepartmentCare ExxjEykfccfbrrj40/12/2025 2:30 PM ESTOffice Visit [facility] [address] [place] [address] Bernardo Berrios MD Heart murmur (Primary Dx); LVH (left ventricular hypertrophy); Primary hypertension; Anemia, unspecified typefrom Last 3 Months Family History Medical HistoryRelationNameCommentsALSFatherCoronary artery diseaseMaternal GrandmotherCancerMotherCoronary artery diseaseMotherCoronary artery disease SisterStrokeSisterRelationNameStatusCommentsFatherDeceasedMaternal Grandmother DeceasedMotherDeceasedSister Social History Tobacco UseTypesPacks/DayYears UsedDateSmoking Tobacco: NeverSmokeless Tobacco: Never Tobacco Cessation:Counseling Given: Not Answered CommentsUnknownSex and Gender InformationValueDate RecordedSex Assigned at RctwsCybckb59/12/2025 2:18 PM ESTLegal RpySabwsy70/29/2022 10:22 PM EDTGender XxybitouQqivzh34/12/2025 2:18 PM ESTSexual OrientationHeterosexual or Straight 09/19/2025 2:18 PM EST Last Filed Vital Signs Vital SignReadingTime TakenCommentsBlood Hubieamq135/5509/19/2025 2:37 PM EST Eqqwt288809/19/2025 2:37 PM ESTTemperature--Respiratory Rate--Oxygen Sjajvopkwy20% 09/19/2025 2:37 PM ESTInhaled Oxygen Concentration--Nszbgn44 kg (141 lb) 09/19/2025 2:37 PM RTENyrfzm766.5 cm (5' 2 )09/19/2025 2:37 PM ESTBody Mass Index25.7909/19/2025 2:37 PM EST Plan of Treatment Health MaintenanceDue DateLast DoneCommentsCT Iiazvhlkwksn38/16/1955FIT-DNA 1954FIT1954FOBT1954Medicare Annual Wellness (AWV)1955 Nvtdfsqmydjqh98/16/1955Depression Melqekdxr08/16/9904Qowplxisu58/16/1995Fall Risk Rcljbddjz75/16/2020Pneumococcal Vaccine: 50+ Years (2 of 2 - PPSV23, PCV20, or PCV21)COVID-19 Vaccine (2024- season)2025 08/18/2023, 07/25/2022, 05/12/2022, Additional history existsInfluenza Vaccine (#1)/05/2024, 09/11/2023, 07/25/2022, Additional history existsAdult Phtcjjw91/6667Odfsdakuhus05/05/203502/olorectal Cancer Gxyfwuqkk17/05/2035Zoster GjqzlggyQvkcttluq35/10/2023, 06/15/2023HIB Vaccines Aged OutNo longer eligible based on patient's age to complete this topicHPV VaccinesAged OutNo longer eligible based on patient's age to complete this topic IPV VaccinesAged OutNo longer eligible based on patient's age to complete this topicMeningococcal B VaccineAged OutNo longer eligible based on patient's age to complete this topicMeningococcal VaccineAged OutNo longer eligible based on patient's age to complete this topicRotavirus VaccinesAged OutNo longer eligible based on patient's age to complete this topic Insurance Care Teams Team MemberRelationshipSpecialtyStart Date Jose Carlos Causey MD [address] [address] PCP - GeneralFamily Vnrpnjvs24/12/25
--- OUTSIDE RECORDS SUMMARY | 2025-09-23 12:48 | XMS_ITS | Patient Health Record ---
[facility] Organization [facility] Address [address] [address], [place] [address] Care Team Providers Care Projects Manager Name Role Phone Jose Carlos Causey M.D. Primary Care Provider Unavaila Uriel Reyes Unavailable [phone] Allergies Allergen (clinical drug ingredient) Drug/Non Drug Allergy documented on EMR Reaction Allergy Type Onset Date Status Darvoset (uncoded)UnknownAllergyActiveacetaminophenAcetaminophen ERUnknownDrug AllergyActiveCatsUnknownAllergyActiveMilk-related CompoundsUnknownDrug Allergy ActivepropoxyphenePropoxypheneUnknownDrug AllergyActive Reason For Referral No Information Social History Section Notes: No tobacco use. Social alcohol use. Encounters Encounter Location Date Provider Diagnosis [facility], [facility] [address] [address], [place] [address] 09/02/2025 Uriel Sanchez Ingrown toenail L60.0 ; [...] Date Coverage End Date [employer] [address] [address] [place] [address] [id number] Bobo Alaniself - patient is the insured[place]icare of [place] [id number] [place], [place] [id number], DeborahSelf - patient is the insured Medical (General) History Medical History History ICD Code Anemia AsthmaHigh Blood Pressure
--- OUTSIDE RECORDS SUMMARY | 2025-09-23 12:49 | XMS_ITS | Patient Health Record ---
Author Organization The [facility] in [place] Address [address] [place] [address] Care Team Providers Care Student Liaison Officer Name Role Phone Aly Ocasio Primary Care Provider Allergies Allergen (clinical drug ingredient) Drug/Non Drug Allergy documented on EMR Reaction Allergy Type Onset Date Status darvocet (uncoded)UnknownAllergyActiveLorcetUnknownDrug AllergyActive Results Component Value Reference Range Notes COVID-19, Flu A+B IH Reviewed date:08/27/2025 06:23:07 PM Interpretation: Performing Lab: Notes/Report: COVID neg FLU AnegFLU BnegControlpresentBNP Reviewed date:08/27/2025 06:23:07 PM Interpretation: Performing Lab: Notes/Report: [facility] ,NT Pro B Type Natriuretic Ursa959.0<=900.0 pg/mLPerforming Lab:see noteML - [facility] LBMM tomosynthesis screening BI Reviewed date:09/27/2024 01:13:16 PM Interpretation: Performing Lab: Notes/Report: Source Facility: [facility]-[address] [place] [address] [place] [address] Mammography Report Signed Patient: ITA ALAINS MR#: [id number] : 1955 Acct:[id number] Age/Sex: 68 / F ADM Date: 09/27/24 Loc: LAB Attending Dr: Sanchez Ocasio M.D. Ordering Physician: Sanchez Ocasio M.D. Results: Date of Service: 09/27/24 Follow Up: Procedure(s): MM tomosynthesis screening BI Accession Number(s): [id number] cc: Sanchez Ocasio M.D. Patient Name: ITA ALANIS MR#: [id number] : 1955 Exam Date: 09/27/2024 Ordering Doctor: [...] oral cancer at age 57. LOCATION: [facility] BREAST COMPOSITION: The breasts are almost entirely [...] Signed By: 09/27/24 1245 DD/ 1244 TD/TT: Currency Counter:WAGNER echo doppler complete Reviewed date:08/25/2025 07:11:42 PM Interpretation: Performing Lab: Notes/Report: Source Facility: [place] [address] [place] [address] Cardiology Report Signed Patient: ITA ALANIS MR#: [id number] : 1955 Acct:[id number] Age/Sex: 69 / F ADM Date: 08/25/25 Loc: CARD Attending Dr: Sanchez cOasio M.D. Ordering Physician: Sanchez Ocasio M.D. Date of Service: 08/25/25 Procedure(s): CA echo doppler complete Accession Number(s): [id number] cc: Sanchez Ocasio M.D. Patient Name: ITA ALANIS MR#: [id number] : 1955 Exam Date: 08/25/2025 Ordering Doctor: [...] Area (VTI): 2.37 cm2, 2.37 cm2 Deceleration Harrison: Pressure Half-Time: Peak Velocity(Antegrade Flow): 1.41 m/s [...] on 08/25/2025 at 18:48 Approved by: Radha Keith MD on 08/25/2025 at 18:53 Dictated By: Radha Keith M.D. Signed By: 08/25/251853 DD/ 52 TD/TT: Currency Counter:CBC AUTO DIFF Reviewed date:08/27/2025 06:23:06 PM Interpretation: Performing Lab: Notes/Report: [facility] ,White Blood Count6.14.0-11.0 10 3/uLRed Blood Count3.554.20-5.40 10 6/uL Hemoglobin6.812.0-16.0 g/dLRESULTS CALLED TO DENVER MIMS LPN at 0944Hematocrit 25.236.0-48.0 %Mean Corpuscular Yrehua29.081.0-99.0 fLMean Corpuscular Ibojhfcfzd60.226.7-34.0 pgMean Corpuscular HGB Conc27.029.9-35.2 g/dLRed Cell Distribution Width18.911.0-15.0 %Platelet Xumeo827338-756 10 3/uLMean Platelet Volume9.49.5-13.5 fLNeutrophils Percent Auto67.343.0-75.0 %Lymphocytes Percent Auto19.620.5-60.0 %Monocytes Percent Auto5.61.7-12.0 %Eosinophils Percent Auto 6.50.9-7.0 %Basophils Percent Auto0.80.2-2.0 %Immature Granulocytes Pct Auto0.2 0.0-0.5 %Neutrophils Absolute Auto4.11.4-6.5 10 3/uLLymphocytes Absolute Auto1.2 1.2-3.8 10 3/uLMonocytes Absolute Auto0.30.3-0.8 10 3/uLEosinophils Absolute Auto0.40.0-0.7 10 3/uLBasophils Absolute Auto0.10.0-0.1 10 3/uLImmature Granulocytes Abs Auto0.010.00-0.03 10 3/uLPerforming Lab:see noteML - [facility] LBFREE T3 Reviewed date:08/27/2025 06:23:06 PM Interpretation: Performing Lab: Notes/Report: [facility] ,Free T32.302.18-3.98 pg/mLPerforming Lab:see noteML - [facility] LB GLYCOHEMOGLOBIN A1C Reviewed date:08/27/2025 06:23:06 PM Interpretation: Performing Lab: Notes/Report: [facility] ,Glycohemoglobin A1C5.14.5-6.2 % ADA RECOMMENDED LIMIT 4.0 - 6.0 ADA THERAPEUTIC TARGET < 7.0 ACTION SUGGESTED > 7.0 Estimated Average Xtwlxea507Bvwxjpfdmu Lab:see noteML - [facility] LB INSULIN Reviewed date:08/28/2025 07:56:14 PM Interpretation: Performing Lab: Notes/Report: [facility] ,Insulin4.42.6-24.9 uIU/mL Performed at: [address] [id number] Boiler Room Helper: Ibrahima Manuel PhD, Phone: [phone] Performing Lab:[facility] LBIRON Reviewed date:08/27/2025 06:23:06 PM Interpretation: Performing Lab: Notes/Report: [facility] ,Iron11.050.0-170.0 ug/dLPerforming Lab:[facility] LB LIPID PROFILE Reviewed date:08/27/2025 06:23:06 PM Interpretation: Performing Lab: Notes/Report: [facility] ,Pbdgjlleaxnnv98<=150 mg/vFTysalynzxao128<=200 mg/dLHDL Skrecedwirx05500-40 mg/dL > or =60 mg/dl - LOW CARDIOVASCULAR RISK <40 mg/dl - HIGH CARDIOVASCULAR RISK LDL Cholesterol Tcwumsprex34.0 <100 mg/dl OPTIMAL 100-129 mg/dl NEAR OR ABOVE OPTIMAL 130-159 mg/dl BORDERLINE HIGH 160-189 mg/dl HIGH >190 mg/dl VERY HIGH VLDL WBBCINOPGMF66.0Chol HDL Ratio1.6 3.3 - 4.4 LOW RISK 4.4 - 7.1 AVERAGE RISK 7.1 - 11.0 MODERATE RISK >11.0 HIGH RISK Performing Lab:see noteH[facility] LBPROF 14(COMP METB) Reviewed date:08/27/2025 06:23:06 PM Interpretation: Performing Lab: Notes/Report: [facility] ,Ystpnu835307-525 mmol/LPotassium3.73.5-5.1 mmol/JKkutxhuj62486-954 mmol/LCarbon Sislfsm96.621.0-32.0 mmol/LAnion Gap11.4Kaelmmo0172-368 mg/dLBlood Urea Xgovumqd99.07.0-18.0 mg/dLCreatinine0.600.55-1.02 mg/dLEstimated GFR ( Gena>60>=60 mL/min/1.73m 2Estimated GFR (Non- Marcia>60>=60 mL/min/1.73m 2BUN Creatinine Ratio18.0Itgipwb8.38.5-10.1 mg/dLBilirubin Total0.30.2-1.0 mg/dL Aspartate Amino Mtqrucnwyoc1528-37 U/LAlanine Qunzqrnwgsvcpgjy9320-98 U/L Alkaline Jpeqomxphib17751-299 U/LTotal Protein6.56.4-8.2 g/dLAlbumin Level3.1 3.4-5.0 g/dLGlobulin3.4Albumin Globulin Ratio0.9Performing Lab:see noteML - [facility] LBT4 Reviewed date:08/27/2025 06:23:06 PM Interpretation: Performing Lab: Notes/Report: [facility] ,T4 Qecjgwyqi40.604.80-13.90 ug/dLPerforming Lab:see note - [facility] LBTSH Reviewed date:08/27/2025 06:23:06 PM Interpretation: Performing Lab: Notes/Report: [facility] ,Thyroid Stimulating Hormone0.1790.358-3.740 uIU/mLPerforming Lab:see note - [facility] LBVITAMIN D 25 [place] Reviewed date:08/27/2025 06:23:07 PM Interpretation: Performing Lab: Notes/Report: [facility] ,Vitamin D13.3 <20 ng/mL Vit D deficient 20-<30 ng/mL Vit D insufficient 30-100 ng/mL Vit D sufficient >100 ng/mL Potential Toxicity Performing Lab:see note - [facility] LBOccult Blood* Reviewed date:09/01/2025 06:34:38 PM Interpretation: Performing Lab: Notes/Report: [facility] ,Occult BloodNegativePerforming Lab:see note - [facility] LBCA segmental UE or LE CODY Reviewed date:09/11/2025 05:21:59 PM Interpretation: Performing Lab: Notes/Report: Source Facility: [facility]-[address] [place] [address] [place] [address] Cardiology Report Signed Patient: ITA ALANIS MR#: [id number] : 1955 Acct:[id number] Age/Sex: 69 / F ADM Date: 09/10/25 Loc: CARD Attending Dr: Hilda Snachez D.P.M. Ordering Physician: Hilda Sanchez D.P.M. Date of Service: 09/10/25 Procedure(s): CA segmental UE or LE CODY Accession Number(s): [id number] cc: Hilda Sanchez D.P.M.; Sanchez Ocasio M.D. [facility] Test Date: 2025-09-10 Pat Name: ITA ALANIS Department: Room: - Gender: Female Director Speech Language: Zianab Berrios : 1955 Requested By: HILDA SANCHEZ Order Number: [id number] Reading MD: DEBBIE SHABAZZ M.D. Interpretive Statements Summary of the findings: Right leg: FREDDIE= 1.26; TBI= 0.84. Doppler waveforms demonstrate biphasic flow at the posterior tibial and dorsalis pedis arteries. Left leg: FREDDIE= 1.25; TBI= 0.86. Doppler waveforms demonstrate biphasic flow at the posterior tibial and triphasic flow at the dorsalis pedis arteries. Segmental pressures: Segmental pressures are within normal bilaterally. Pulse volume recordings: PVRs at the high thigh, below knee, and ankle levels show normal waveforms. Right digit waveforms are normal. Left digit waveforms are normal in the first 3 toes, and blunted in the 5th toe. Conclusion: Right and left ankle-brachial indices are suggestive of normal overall arterial flow at rest. Toe-brachial indices are not suggestive of PAD. Segmental pressures show no significant segmental disease. Pulse volume recordings indicate good overall resting arterial flow. Waveform analysis suggests near normal bilateral arterial flow. Overall grossly normal physiologic examination. Electronically Signed On 09-10-2025 19:45:26 EST by DEBBIE SHABAZZ M.D. Dictated By: DEBBIE SHABAZZ Signed By: 09/10/25194409/10/251944 DD/ 1409 TD/TT: Currency Counter: Reason For Referral Diagnosis 1 Murmur (R01.1) [facility] Referring Provider First Name Aly Referring Provider Last Name Padilla Referring Provider Speciality [facility] Referred Provider [facility] Referred Provider Specialty Cardiology Referral Priority Routine Medications Medication SIG (Take, Route, Frequency, Duration) Notes Start Date End Date Status Levothyroxine Sodium 112 MCG TAKE 2 TABL ETS BY MOUTH EVERY DAY Orally Once a day; Duration: 90 days ActiveDesvenlafaxine Succinate ER 100 mgTAKE 1 TABLET DAILYActiveDiclofenac Sodium 75 MG1 tablet as needed Orally Twice a day5ActiveProtonix 40 MG1 tablet 1/2 to 1 hour before morning meal Orally Once a day; Duration: 30 days 5ActiveQUEtiapine Fumarate 25 MG1 tablet Orally at bedtime; Duration: 90 daysActiveOndansetron 4 MG1 tablet on the tongue and allow to dissolve Orally every 4 hours; Duration: 30 days5Active Immunizations Vaccine Route Administration Date Status Mike Diezkevinnathal[facility] [employer] Syringe Pre -Filled 30 mcg/0.3 mL Unknown 08/18/2023 Administered Flu, Fluad () (78059) 65 yrs+, single-dose tazycmfVkeihdo19/04/2023 AdministeredFlu, Fluad (70698) 65 yrs + High Dose Seasonal (2261-9444)Unknown 4AdministeredPneumococcal (Prevnar 13)Miyhmnf2007/10/2020AdministeredRSV OdugrukSczbjcs26/04/2023AdministeredTdap (Adacel)IM Uthcbdaocoarg09/15/2024 AdministeredZOSTER (SHINGLES) VACCINE (HZV)Jgzlaed1008/18/2023dministered Social History Tobacco Use: Social History Observation [...] containing alcohol in the past year?Weekly (3 points)Gofwvc0ScsritxbexmrptAfsvpgpvLFVJI-C (Standard) Question Answer Notes Did you have [...] Status W/U Status Risk Notes Problem Osteomyelitis (82949127) Osteomyelitis, u nspecified (M86.9) ActiveconfirmedProblemBlister of toe without infection (94186406)Blister (nonthermal), left lesser toe(s), initial encounter (S90.425A)Activeconfirmed ProblemFatigue (08395509)Fatigue (R53.83)ActiveconfirmedProblemHypertension (65224785)Hypertension (I10)ActiveconfirmedProblemHypothyroid (76735917) Hypothyroid (E03.9)ActiveconfirmedProblemCellulitis (599235109)Cellulitis (L03.90)ActiveconfirmedProblemSeasonal allergy (205459602)Seasonal allergies (J30.2)ActiveconfirmedProblemChronic ulcer of foot (428963731)Non-pressure chronic ulcer of other part of left foot with fat layer exposed (L97.522)Active confirmedProblemCat bite (361768476)Cat bite (W55.01XA)ActiveconfirmedProblem Anemia (928422445)Severe anemia (D64.9)ActiveconfirmedProblemAcrocyanosis (44076417)Acrocyanosis (I73.89)ActiveconfirmedProblemChronic osteomyelitis of left foot (5353469540591352)Chronic osteomyelitis of left foot (M86.672)Active confirmedProblemAcute osteomyelitis of ankle and/or foot (713379376)Acute osteomyelitis of left ankle (M86.172)ActiveconfirmedProblemDepression (128312158)Depression (F32.A)Activeconfirmed Vital Signs Heart Rate 100 /min 02/03/2025 Fhdecwkodem63.8 degrees Ouybxzvflx19/28/2025lood pressure blswdwrmi27 mm Hg 08/20/20251365Zdhnglsy31 %02/03/20254312Xhdcij43 in08/20/2025lood pressure djrujauj806 mm Hg08/20/20254507Caaskc014.8 lbs110/20/2024BMI24.84 kg/m208/20/2025 Procedures Procedure Date Ordered Date Performed Result Body Sit e CARDIO Echocardiogram 08/20/2025 N/A Encounters Encounter Location Date Provider Diagnosis [facility] [address] [place] [address] 01/24/2025 Aly Hoy Fever R50.9 ; Non-pressure chronic ulcer of other part of left foot with fat layer exposed L97.522 and Acute bronchitis, unspecified organism J20.9 [facility] [address] [place] [address] 02/03/2025 Aly Hoy Acute bronchitis, unspecified organism J20.9 [facility] [address] [place] [address] 08/20/2025 Aly Hoy Hypertension I10 ; Depression F32.A ; Fatigue R53.83 ; Hypothyroid E03.9 ; Back pain M54.9 and Murmur R01.1 [facility] [address] [place] [address] 09/01/2025 Aly Hoy [facility] [facility] [place] [address] 09/22/2025Doug HoyHypertension I10 ; Fatigue R53.83 and Severe anemia D64.9 [facility] [place] [facility] [place] [place] [address] 09/27/2024oug [facility]oyBVSt[facility] [facility] [place] [address]/Doug HoyAcute bronchitis, unspecified organism J20.9[facility] [place] [address] Aly HoyMurmur R01.1BP[facility] [place] [facility] [place] [place] [address]Doug HoySevere anemia D64.9BP[facility] [place] [address]/19/2025Doarsenio Ocasio [facility] [place] [address] 08/27/2025Aly Ocasio Assessments Encounter Date Diagnosis (ICD Code) Assessment Notes Treatment Notes Treatment Clinical Notes Section Notes 01/24/2025 Fever (ICD-10 - R50.9) 08/20/2025Hypertension (ICD-10 - I10)off lisinoprl - bp next week - if back up - do 5 mg5Acute bronchitis, unspecified organism (ICD-10 - J20.9)Rest and drink more liquids, especially water. You may use a humidifier or vaporizer to help keep the drainage moist. Sifx-bqm-rcjyvrc Nasal Saline may help the stuffy and runny nose. Use Ibuprofen and or Tylenol as needed for fever, chills, body aches or pain. Children 5 years old should not be given nslw-bnh-itfyvtl cough and cold medications such as guaifenesin and dextromethorphan. If you're o allyson age 5, you may try nthw-qws-cshzolm cold medications such as guaifenesin and dextromethorphan, [...] chest pain you should go to the emergency room or call [phone] (ICD-10 - F32.A)may need to doule it5Acute bronchitis, unspecified organism (ICD-10 - J20.9)08/25/2025Murmur (ICD-10 - R01.1)08/27/2025Severe anemia (ICD-10 - D64.9)09/22/2025Fatigue (ICD-10 - R53.83)09/22/2025Hypertension (ICD-10 - I10)01/24/2025Non-pressure chronic ulcer of other part of left foot with fat layer exposed (ICD-10 - L97.522)09/22/2025Severe anemia (ICD-10 - D64.9)08/20/2025Fatigue (ICD-10 - R53.83)08/20/2025Hypothyroid (ICD-10 - E03.9) 01/24/2025ute bronchitis, unspecified organism (ICD-10 - J20.9)Rest and drink more liquids, especially water. You may use a humidifier or vaporizer to help keep the drainage moist. Qrfz-vdv-iuazymj Nasal Saline may help the stuffy and runny nose. Use Ibuprofen and or Tylenol as needed for fever, chills, body aches or pain. Children 5 years old should not be given xmus-ylj-ujpsacq cough and cold medications such as guaifenesin and dextromethorphan. If you're over age 5, you may try hkfv-gbm-prfrtze cold medications such as guaifenesin and dextromethorphan, [...] chest pain you should go to the emergency room or call [phone] pain (ICD-10 - M54.9)08/20/2025Murmur (ICD-10 - R01.1) Plan Of Treatment Pending Test Test Name Order Date HEMOGLOBIN A1C (GLYCO) 08/20/2025 IRON, TOTAL 08/20/2025 LIPID PANEL (CHOL/TRIG/HDL/LDL) 08/20/20 25 VITAMIN D, 25 LEVEL (TOTAL) 08/20/2025 CARDIO Echocardiogram 08/20/2025 CBC 08/27/2025 Insulin Level 08/20/2025 COMPREHENSIVE METABOLIC PROFILE WITH GFR 08/05/2024 COMPREHENSIVE METABOLIC PROFILE WITH GFR 09/22/2025 OCCULT BLOOD, FECAL, IMMUNOASSAY 024 CBC W/AUTO DIFF 08/05/2024 CBC W/AUTO DIFF 09/22/2025 STOOL OCCULT BLOOD 08/20/2025 AMYLASE 09/22/2025 FERRITIN 09/22/2025 IRON 09/22/2025 LIPASE 09/22/2025 VITAMIN B1 (THIAMINE) 08/06/2024 VITAMIN B12 08/06/2024 MG MAMM SCREEN CODY W CAD 09/17/2024 XR DEXA BONE DENSITY 08/20/2025 THYROID PANEL (T4/TSH/FREE T3) THYROID PANEL (T4/TSH/FREE T3) 4 MM screening mammo BI 08/20/2025 DEXA BONE DENSITY 08/05/2024 Vitamin D 08/06/2024 Lipid Panel 08/05/2024 CMP (COMP MET HENSLEY) w/eGFR CKD-EPI 2024 CBC WITH DIFF 08/20/2025 Insurance Providers Payer Name Payer Address Payer Phone Subscriber Number Group Number Insured Name Patient Relationship to Insured Coverage Start Date Coverage End Date [employer] MEDICARE [address] [place], [place] [id number] Bobo Alaniself - patient is the [id number] 2021 Medications Administered Medication Instructions Date of [...] HysterectomyWeight loss surgeryTAH/ BSOCholesystectomySphenoidotomy, Ethmoidectomy, SeptoplastyORIF Tarsal Metatarsalcolonoscopy Dr Garcia11/13/2024 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
[2025-09-23 13:05] LABS: Hematocrit 31.6 % (36.0-48.0); Hemoglobin 9.0 g/dL (12.0-16.0); Immature Granulocytes Abs Auto 0.01 10^3/uL (0.00-0.03); Immature Granulocytes Pct Auto 0.1 % (0.0-0.5); Lymphocytes Absolute Auto 1.0 10^3/uL (1.2-3.8); Mean Corpuscular HGB Conc 28.5 g/dL (29.9-35.2); Mean Corpuscular Hemoglobin 21.3 pg (26.7-34.0); Mean Corpuscular Volume 74.7 fL (81.0-99.0); Platelet Count 425 10^3/uL (150-450); White Blood Count 7.1 10^3/uL (4.0-11.0)
[2025-09-23 13:28] LABS: Iron 421.0 ug/dL (50.0-170.0)
[2025-09-23 13:34] LABS: Alanine Aminotransferase 30 U/L (14-59); Albumin Globulin Ratio 0.9; Albumin Level 3.3 g/dL (3.4-5.0); Alkaline Phosphatase 129 U/L (46-116); Amylase 33 U/L (25-115); Anion Gap 12.7; Aspartate Amino Transferase 33 U/L (15-37); Blood Urea Nitrogen 8.0 mg/dL (7.0-18.0); Calcium 8.9 mg/dL (8.5-10.1); Carbon Dioxide 30.2 mmol/L (21.0-32.0); Chloride 104 mmol/L (98-107); Estimated GFR (African America >60 (>=60 mL/min/1.73m^2); Estimated GFR (Non-African Ame 55 (>=60 mL/min/1.73m^2); Globulin 3.7 g/dL; Glucose 139 mg/dL (74-106); Lipase 21.0 U/L (16.0-77.0); Potassium 3.9 mmol/L (3.5-5.1); Sodium 143 mmol/L (136-145); Total Protein 7.0 g/dL (6.4-8.2)
[2025-09-23 13:43] LABS: Red Blood Count 4.23 10^6/uL (4.20-5.40)
[2025-09-23 14:28] LABS: Ferritin 1759.0 ng/mL (8.0-252.0)
== END 2025-09-23 12:41 | disposition home or self-care (01) ==
LOC: LAB 12:45
PROVIDERS: PCP Family Medicine; Visit Provider Family Medicine
DX: R53.83 Other fatigue (principal); I10 Essential (primary) hypertension; D64.9 Anemia, unspecified
CPT/HCPCS: 36415; 80053; 82150; 82728; 83540; 83690; 85025

== ENCOUNTER 2025-09-26 12:33 | Emergency (ER) | payer MEDICARE, SELFPAY ==
--- OUTSIDE RECORDS SUMMARY | 2025-09-19 14:30 | XMS_ITS | Encounter Summary ---
Author Organization [facility] Address [address] [place] [address] Care Team Providers Care County Extension Agent Name Role Phone Jose Carlos Causey MD Primary Care Provider [phone] Encounter Details DateTypeDepartmentCare Team (Latest Contact Info)Rzfhpmpddst76/12/2025 2:30 PM ESTOffice Visit [facility] [address] [place] [address] Bernardo Berrios MD [address] [facility] [address] [facility] [place] [address] Heart murmur (Primary Dx); LVH (left ventricular hypertrophy); Primary hypertension; Anemia, unspecified type Social History Tobacco UseTypesPacks/DayYears UsedDateSmoking Tobacco: NeverSmokeless Tobacco: Never Tobacco Cessation:Counseling Given: Not Answered CommentsUnknownSex and Gender InformationValueDate RecordedSex Assigned at TggzuMkgztz53/12/2025 2:18 PM ESTLegal PpzAmfndu57/29/2022 10:22 PM EDTGender RlzaxrtiOhuroq52/12/2025 2:18 PM ESTSexual OrientationHeterosexual or Straight 09/19/2025 2:18 PM ESTdocumented as of this encounter Last Filed Vital Signs Vital SignReadingTime TakenCommentsBlood Zzhynkwk400/5509/19/2025 2:37 PM EST Xgfcu549409/19/2025 2:37 PM ESTTemperature--Respiratory Rate--Oxygen Efrxvvwmrj49% 09/19/2025 2:37 PM ESTInhaled Oxygen Concentration--Eoayfd86 kg (141 lb) 09/19/2025 2:37 PM RSJFqwbxn902.5 cm (5' 2 )09/19/2025 2:37 PM ESTBody Mass Index25.7909/19/2025 2:37 PM ESTdocumented in this encounter Progress Notes * Bernardo Berrios MD - 09/19/2025 2:30 PM EST Images from the original note were not included. [place] [facility] Juna Alanis is a 69 y.o. year old [...] is a good reason to take her offof the antihypertensive medications. She does have evidence [...] [4] Allergies Allergen Reactions Cat Dander Unknown [place] Unknown Grass Pollen Unknown Hydrocodone-Acetaminophen Other Mold [...] MemberRelationshipSpecialtyStart DateEnd Jose Carlos Causey MD [address] [facility] [place] [address] PCP - GeneralFamily Dekkifau10/12/25documented as of this encounter
--- OUTSIDE RECORDS SUMMARY | 2025-09-22 05:52 | XMS_ITS ---
Author Organization [facility] [place] Address [address] [place] [address] Care Team Providers Care Supervisor Fishing Name Role Phone Aly Causey Primary Care Provider [phone] Results Component Value Reference Range Notes AMYLASE Reviewed date:09/23/2025 03:15:11 PM Interpretation: Performing Lab: Notes/Report: [facility] , Amylase 33 25-115 U/L Performing Lab:see noteML - [facility] LBFERRITIN Reviewed date:09/23/2025 03:15:11 PM Interpretation: Performing Lab: Notes/Report: [facility] ,Ltfowerc1777.08.0-252.0 ng/mLPerforming Lab:see note - [facility] LBIRON Reviewed date:09/23/2025 03:15:11 PM Interpretation: Performing Lab: Notes/Report: [facility] ,Qgci955.050.0-170.0 ug/dLPerforming Lab:see noteML - [facility] LB LIPASE Reviewed date:09/23/2025 03:15:11 PM Interpretation: Performing Lab: Notes/Report: [facility] ,Douczx43.016.0-77.0 U/LPerforming Lab:see note - [facility] LB REASON FOR VISIT labs Medications Medication SIG (Take, Route, Frequency, Duration) Notes Start Date End Date Status Ondansetron 4 MG 1 tablet on the tong ue and allow to dissolve Orally every 4 hours; Duration: 30 days 5Active Encounters Encounter Location Date Provider Diagnosis [facility] [address] [place] [address] 09/22/2025 Aly Causey Hypertension I10 ; Fatigue R53.83 and Severe anemia D64.9 Assessments Encounter Date Diagnosis (ICD Code) Assessment Notes Treatment Notes Treatment Clinical Notes Section Notes 09/22/2025 Hypertension (ICD-10 - I10) 09/22/2025Fatigue (ICD-10 - R53.83)09/22/2025Severe anemia (ICD-10 - D64.9) Plan Of Treatment Medication Medication Name Sig Start Date Stop Date Notes Ondansetron 4 MG 1 tablet on the tong ue and allow to dissolve Orally every 4 hours; Duration: 30 days 09/22/2025 Pending Test Test Name Order Date COMPREHENSIVE METABOLIC PROFILE WITH GFR 09/22/2025 CBC W/AUTO DIFF 09/22/2025 Progress Notes * Ita ALANIS ADOB: [birth year] (69 yo F)Acc No.[id number]:09/22/2025 Patient:?Ita ALANIS :1955???Age:69 Y???Sex:FemalePhone:[phone] Address:[facility] [place], [address] * Refills Start Ondansetron Tablet Disintegrating, 4 MG, Orally, 20, 1 tablet on the tongue and allow to dissolve, every 4 hours, 30 days Subjective: * Chief Complaints: * L abs * Medical History: * Surgical History: * Hospitalization/Major Diagno stic Procedure: * Medications: Objective: * Vitals: * Physical Examination: ??? Assessment: * Assessment: 1.?Hypertension - I10 (Primary)???2.?Fatigue - R53.83???3. Severe anemia - D64.9??? Plan: * Treatment: ?LAB: COMPREHENSIVE METABOLIC PROFILE WITH GFR ?LAB: CBC W/AUTO DIFF ?LAB: AMYLASE ?LAB: FERRITIN ?LAB: IRON ?LAB: LIPASE2.?Fatigue?LAB: COMPREHENSIVE METABOLIC PROFILE WITH GFR ?LAB: CBC W/AUTO DIFF ?LAB: AMYLASE ?LAB: FERRITIN ?LAB: IRON ?LAB: LIPASE3.?Severe anemia?LAB: COMPREHENSIVE METABOLIC PROFILE WITH GFR ?LAB: CBC W/AUTO DIFF ?LAB: AMYLASE ?LAB: FERRITIN ?LAB: IRON ?LAB: LIPASE4.?Others? Start Ondansetron Tablet Disintegrating, 4 MG, 1 tablet on the tongue and allow to dissolve, Orally, every 4 hours, 30 days, 20.?? * Procedure Codes: * true * Date:?Generated for Printing/Faxing/eTransmitting on:?09/26/2025 12:49 PM EST
--- OUTSIDE RECORDS SUMMARY | 2025-09-25 03:31 | XMS_ITS ---
Author Organization [facility] in [place] Address [address] [place] [address] Care Team Providers Care Erp Programmer Name Role Phone Aly Causey Primary Care Provider REASON FOR VISIT results Encounters Encounter Location Date Provider Diagnosis [facility] [address] [place] [address] 09/25/2025 Aly Causey Severe anemia D64.9 Assessments Encounter Date Diagnosis (ICD Code) Assessment Notes Treatment Notes Treatment Clinical Notes Section Notes 09/25/2025 Severe anemia (ICD-10 - D64.9) Plan Of Treatment Pending Test Test Name Order Date CBC W/AUTO DIFF 09/25/2025 CT CHEST ABDOMEN PELVIS W CONTRAST 09/25 Progress Notes * Ita ALANIS ADOB: [birth year] (69 yo F)Acc No.[id number]:09/25/2025 Patient:?Ita ALANIS :1955???Age:69 Y???Sex:FemalePhone:[phone] Address:[address] [place] [address], [address] Subjective: * Chief Complaints: * R esults * Medical History: * Surgical History: * Hospitalization/Major Diagno stic Procedure: * Medications: Objective: * Vitals: * Physical Examination: ??? Assessment: * Assessment: 1.?Severe anemia - D64.9 (Primary)??? Plan: * Treatment: ?LAB: CBC W/AUTO DIFF ?Imaging: CT CHEST ABDOMEN PELVIS W CONTRAST ?Imaging: CT CHEST ABDOMEN PELVIS W WO CONTRAST (Order Cancelled) * Procedure Codes: * true * Date:?Generated for Printing/Faxing/eTransmitting on:?09/26/2025 12:50 PM EST
--- OUTSIDE RECORDS SUMMARY | 2025-09-26 12:49 | XMS_ITS | Clinical Summary ---
Author Organization [facility] Address [address] [place] [address] Care Team Providers Care Career Technical Supervisor Name Role Phone Jose Carlos Causey MD Primary Care Provider [phone] Allergies Active AllergyReactionsCriticalityNoted DateCommentsCat XmirboPqehtsz40/12/2025 KldyPozlqkb29/12/2025Grass FofhuoQzousmh78/12/2025Hydrocodone-AcetaminophenOther 09/19/20251715OwgwQotrxhi19/12/2025Propoxyphene N-AtfnigycerdwgMmjvq28/12/2025 Medications MedicationSigDispense QuantityRefillsLast FilledStart DateEnd DateStatus levothyroxine [...] twice a day.08/12/2024ctive Active Problems ProblemNoted DateDiagnosed AahjHzukmfsnasgy60/12/3564Nscify09/12/2025nxiety 09/19/2025lister of toe without owdurkqbh25/12/2025MI 25.0-25.9,adult 5Cat bite4586Kdmblfcifc41/12/2025hronic foot ulcer09/19/2025 Chronic osteomyelitis of left foot09/19/20257195Ttaobezewm93/12/8760Tmikhn11/12/2025 Ywftabo1609/19/2025GERD (gastroesophageal reflux disease)09/19/2025Heart murmur 09/19/2025History of bariatric zkomsat2609/19/2025History of gastric ulcer 09/19/20251668Xlgaqphymunzcslsvtvn37/12/4010Annnnasqpngc94/12/2025Nasal congestion 09/19/20255769Ckunjwqcznnoq47/12/2025Other acute osteomyelitis, left ankle and foot 09/19/2025Polyp of sigmoid colon09/19/20254721Uaoojyrddo81/12/2025Screening for malignant neoplasm of colon09/19/2025Seasonal /12/2025Sigmoid ybqyvqcjcorvjl00/12/2913Mehdnkgn42/12/1747Plipetdpw01/12/2025Vitamin D /12/2025Dry eyes09/01/20255955Ochiatjxdiiw92/03/3273Dmxrga48/11/2024 Bilateral /11/2024hronic frontal ynryhqjjf61/11/2024Hearing loss of right ear08/19/20245959Imnhsyyxildqhc56/11/0286Xyentewc50/11/2024Osteoporosis 08/19/2024 Encounters DateTypeDepartmentCare KwfuRtokfwvibyx99/12/2025 2:30 PM ESTOffice Visit [facility] [address] [place] [address] Bernardo Berrios MD Heart murmur (Primary Dx); LVH (left ventricular hypertrophy); Primary hypertension; Anemia, unspecified typefrom Last 3 Months Family History Medical HistoryRelationNameCommentsALSFatherCoronary artery diseaseMaternal GrandmotherCancerMotherCoronary artery diseaseMotherCoronary artery disease SisterStrokeSisterRelationNameStatusCommentsFatherDeceasedMaternal Grandmother DeceasedMotherDeceasedSister Social History Tobacco UseTypesPacks/DayYears UsedDateSmoking Tobacco: NeverSmokeless Tobacco: Never Tobacco Cessation:Counseling Given: Not Answered CommentsUnknownSex and Gender InformationValueDate RecordedSex Assigned at TrqoxPnshlt38/12/2025 2:18 PM ESTLegal RscUrndba75/29/2022 10:22 PM EDTGender RihprdmxSvsnln90/12/2025 2:18 PM ESTSexual OrientationHeterosexual or Straight 09/19/2025 2:18 PM EST Last Filed Vital Signs Vital SignReadingTime TakenCommentsBlood Ipztoymp981/5509/19/2025 2:37 PM EST Jdcsh526809/19/2025 2:37 PM ESTTemperature--Respiratory Rate--Oxygen Mrzprymopi70% 09/19/2025 2:37 PM ESTInhaled Oxygen Concentration--Dgzehb68 kg (141 lb) 09/19/2025 2:37 PM KKPEvovua205.5 cm (5' 2 )09/19/2025 2:37 PM ESTBody Mass Index25.7909/19/2025 2:37 PM EST Plan of Treatment Health MaintenanceDue DateLast DoneCommentsCT Hvzklxqcgygb56/16/1955FIT-DNA 1955FIT1955FOBT1955Medicare Annual Wellness (AWV)1955 Vbxfgsheijbye37/16/1955Depression Etfnmnzys53/16/2458Kjpoxjzbu26/16/1995Fall Risk Daceamsrx66/16/2020Pneumococcal Vaccine: 50+ Years (2 of 2 - PPSV23, PCV20, or PCV21)COVID-19 Vaccine (2024- season)2025 08/18/2023, 07/25/2022, 05/12/2022, Additional history existsInfluenza Vaccine (#1)/05/2024, 09/11/2023, 07/25/2022, Additional history existsAdult Mrmdxph77/9904Ydwcuhcjegc53/05/203502/olorectal Cancer Ugbuglumn78/05/2035Zoster YjholacaJtatnuezt94/10/2023, 06/15/2023HIB Vaccines Aged OutNo longer eligible based [...] Date Jose Carlos Causey MD [address] [facility] [address] [address] PCP - GeneralFamily Pgaphkii84/12/25
--- OUTSIDE RECORDS SUMMARY | 2025-09-26 12:49 | XMS_ITS | Patient Health Record ---
Author Organization [facility] Address [address] [address], [place] [address] Care Team Providers Care Soiled Linen Distributor Name Role Phone Jose Carlos Causey M.D. Primary Care Provider Unavaila Uriel Reyes Unavailable [phone] Allergies Allergen (clinical drug ingredient) Drug/Non Drug Allergy documented on EMR Reaction Allergy Type Onset Date Status Darvoset (uncoded)UnknownAllergyActiveacetaminophenAcetaminophen ERUnknownDrug AllergyActiveCatsUnknownAllergyActiveMilk-related CompoundsUnknownDrug Allergy ActivepropoxyphenePropoxypheneUnknownDrug AllergyActive Reason For Referral No Information Social History Section Notes: No tobacco use. Social alcohol use. Encounters Encounter Location Date Provider Diagnosis [facility], [facility] [address] [address], [place] [address] 09/02/2025 Uriel Sanchez Ingrown toenail L60.0 ; [...] Date Coverage End Date [employer] [address] [address] [place] [address] [id number] Bobo Alaniself - patient is the insured[place]icare of [place] [id number] [place], [place] [id number], DeborahSelf - patient is the insured Medical (General) History Medical History History ICD Code Anemia AsthmaHigh Blood Pressure
--- OUTSIDE RECORDS SUMMARY | 2025-09-26 12:49 | XMS_ITS | Clinical Summary ---
Author Organization [facility] Address [address] [place] [address] Phone Care Team Providers Care Rotary Cutter Name Role Phone Unavailable Primary Care Provider Unavailabl e Social History Tobacco UseTypesPacks/DayYears UsedDateSmoking Tobacco: Never Assessed CommentsUnknownSex and Gender InformationValueDate RecordedSex Assigned at Not on fileLegal FoiDhklfd53/25/2022 2:25 PM ESTGender IdentityNot on fileSexual OrientationNot on file Plan of Treatment Not on file
--- OUTSIDE RECORDS SUMMARY | 2025-09-26 12:49 | XMS_ITS | Clinical Summary ---
Author Organization [facility] Address [address] [place] [address] Care Team Providers Care Library Historian Name Role Phone Jose Carlos Causey MD Primary Care Provider [phone] Allergies Active AllergyReactionsCriticalityNoted DateCommentsOxycodone-AcetaminophenHives 07/03/2025 acetaminophen / [...] tip and replace cap. 48 g ctive Sxyabuytpsw-Wjlgnnzt-Vwyskdpuj 1-0.5-0.075 % solution Indications:Age-related nuclear cataract of both eyesAdminister 1 drop into affected eye(s) in the morning and 1 drop at noon and 1 drop in the evening and 1 drop before bedtime. 10 mL 5Active beta carotene (vitamin A) 3 MG (44535 UT) capsule Take 10,000 Units by mouth DailyActive Protonix 40 MG EC tablet 1 (one) time each day at the same time5Active diclofenac (Voltaren) 75 MG EC tablet every 12 (twelve) hours5Active Active Problems ProblemNoted DateDiagnosed DateDry eyes09/01/20255364Hagquktazmdm60/sthma 08/19/2024ilateral gdxtlmob98/11/2024hronic frontal fagghbikb57/11/2024Hearing loss of right ear08/19/20246439Kgwjlatkdftyxf95/11/4062Bssojygx85/11/2024 Hscutvlssfdr73/11/2024 Resolved Problems ProblemNoted DateDiagnosed DateResolved DateAge-related nuclear cataract of right eyege-related nuclear cataract of both eyes07/03/2025 07/16/2025 Encounters DateTypeDepartmentCare KuumTmcfppcqgce40/24/2025 1:15 PM ESTOffice Visit [facility] [address] [place] [address] Wilmer Crespo, DO Pseudophakia (Primary Dx); Dry eyes09/01/2025amb flowsheet [facility] [address] [place] [address] Wilmer Crespo, DO 09/01/20258296Nqpzwm45/28/2025 9:00 AM EDTOffice Visit [facility] [address] [place] [address] Wilmer Crespo, Pseudophakia (Primary Dx)08/05/2025amb flowsheet [facility] [address] [place] [address] Wilmer Crespo, DO 08/05/20252502Qdabsd51/08/2025 1:30 PM EDTOffice Visit [facility] [address] [place] [address] Wilmer Crespo, Pseudophakia (Primary Dx); Age-related nuclear cataract of right eye07/16/2025[facility] flowsheet [facility] [address] [place] [address] Wilmer Crespo, DO 07/16/20250538Cicgyb13/03/2025 9:00 AM EDTOffice Visit [facility] [address] [place] [address] Wilmer Crespo, DO Pseudophakia (Primary Dx)07/11/2025[facility] flowsheet [facility] [address] [place] [address] Wilmer Crespo, DO 07/11/20254244Asbmvu73/25/2025 8:45 AM EDTOffice Visit [facility] [address] [place] [address] Wilmer Crespo, DO Age-related nuclear cataract of both eyes (Primary Dx)07/03/2025Orders Only [facility] [address] [place] [address] Wilmer Crespo, Age-related nuclear cataract of both eyes07/03/2025[facility] flowsheet [facility] [address] [place] [address] Wilmer Crespo, DO 07/03/2025Travelfrom Last 3 Months Family History Medical HistoryRelationNameCommentsMacular degenerationFather's BrotherRelation NameStatusCommentsFatherDeceasedFather's BrotherMotherDeceased Social History Tobacco UseTypesPacks/DayYears UsedDateSmoking Tobacco: NeverPassive Smoke Exposure: NeverSmokeless Tobacco: Never Tobacco Cessation:Counseling Given: No Alcohol UseStandard Drinks/WeekCommentsYes1 (1 standard drink = 0.6 oz pure alcohol)CommentsUnknownSex and Gender InformationValueDate RecordedSex Assigned at BirthNot on fileLegal SpmEioqlh81/15/2023 6:51 PM EDTGender Identity Not on fileSexual OrientationNot on file Last Filed Vital Signs Vital SignReadingTime TakenCommentsBlood Xrumpkos165/7711 1:14 PM EST Pulse--Temperature--Respiratory Rate--Oxygen Saturation--Inhaled Oxygen Concentration--Fywyeu54.8 kg (134 lb)08/19/2024 1:14 PM DBYOozwjo057.5 cm (5' 2 )08/19/2024 1:14 PM ESTBody Mass Index24.51110/19/2023 1:14 PM EST Plan of Treatment Health MaintenanceDue DateLast DoneCommentsCT Ucamejjellun81/16/1955FIT-DNA 1954FIT1954FOBT1954 8127Fbxbhesijtpod33/16/1275Lzxhghukk99/16/1995 Pneumococcal Vaccine: 65+ Years (2 of 2 - PCV20 or PCV21)/11/2019 COVID-19 Vaccine (2024- season)/07/2023, 07/25/2022, 05/12/2022, Additional history existsInfluenza Vaccine (#1)/05/2024, 09/11/2023, 07/25/2022, Additional history kbadlxNojszmijmtl30/05/2035 11/13/2024, 11/13/2024olorectal Cancer Ipjgmzprg65/05/2035 Procedures Procedure NamePriorityDate/TimeAssociated DiagnosisCommentsIOL BIOMETRY - OU - BOTH ZVJQBsnjfox41/25/2025 9:30 AM EDT Age-related nuclear cataract of both eyes from Last 3 Months Results * IOL Biometry - OU - Both Eyes (CPT 82896) (07/03/2025 9:30 AM EDT)Anatomical RegionLateralityModalityHeadOtherSpecimen (Source)Anatomical Location [...] both eyes (OU). ?? Authorizing ProviderResult TypeResult StatusJonatjerome PARMAR ULTRASOUND Final Result from Last 3 Months Insurance Care Teams Team MemberRelationshipSpecialtyStart Date Jose Carlos Causey MD [address] [place] [id number] PCP - GeneralFamily Wladurgn01/8/24
--- OUTSIDE RECORDS SUMMARY | 2025-09-26 12:50 | XMS_ITS | Patient Health Record ---
Author Organization [facility] in [place] Address [address] [place] [address] Care Team Providers Care Dye And Chemical Coordinator Name Role Phone Aly Ocasio Primary Care Provider [phone] Allergies Allergen (clinical drug ingredient) Drug/Non Drug Allergy documented on EMR Reaction Allergy Type Onset Date Status darvocet (uncoded)UnknownAllergyActiveLorcetUnknownDrug AllergyActive Results Component Value Reference Range Notes COVID-19, Flu A+B IH Reviewed date:08/27/2025 06:23:07 PM Interpretation: Performing Lab: Notes/Report: COVID neg FLU AnegFLU BnegControlpresentBNP Reviewed date:08/27/2025 06:23:07 PM Interpretation: Performing Lab: Notes/Report: [facility] ,NT Pro B Type Natriuretic Pngl129.0<=900.0 pg/mLPerforming Lab:see note - [facility] LBAMYLASE Reviewed date:09/23/2025 03:15:11 PM Interpretation: Performing Lab: Notes/Report: [facility] ,Pwsofek3919-724 U/LPerforming Lab:see note - [facility] LBFERRITIN Reviewed date:09/23/2025 03:15:11 PM Interpretation: Performing Lab: Notes/Report: [facility] ,Mkknhufl1112.08.0-252.0 ng/mLPerforming Lab:see note - [facility] LBIRON Reviewed date:09/23/2025 03:15:11 PM Interpretation: Performing Lab: Notes/Report: [facility] ,Rwhx355.050.0-170.0 ug/dLPerforming Lab:see noteML - [facility] LB LIPASE Reviewed date:09/23/2025 03:15:11 PM Interpretation: Performing Lab: Notes/Report: [facility] ,Diixke39.016.0-77.0 U/LPerforming Lab:see noteML - [facility] LBMM tomosynthesis screening BI Reviewed date:09/27/2024 01:13:16 PM Interpretation: Performing Lab: Notes/Report: Source Facility: [facility]-[address] [place] [address] [place] [address] Mammography Report Signed Patient: ITA ALANIS MR#: [id number] : 1955 Acct:[id number] Age/Sex: 68 / F ADM Date: 09/27/24 Loc: LAB Attending Dr: Sanchez Ocasio M.D. Ordering Physician: Sanchez Ocasio M.D. Results: Date of Service: 09/27/24 Follow Up: Procedure(s): MM tomosynthesis screening BI Accession Number(s): [id number] cc: Sanchez Ocasio M.D. Patient Name: ITA ALANIS MR#: [id number] : 1955 Exam Date: 09/27/2024 Ordering Doctor: [...] oral cancer at age 57. LOCATION: [facility] BREAST COMPOSITION: The breasts are almost [...] PALPABLE LUMP SHOULD BE BIOPSIED. Dictated by: Vno Fishman MD on 09/27/2024 at 12:43 Approved by: Von Fishman MD on 09/27/2024 at 12:44 Dictated By: Von Fishman M.D. Signed By: 09/27/24 1245 DD/ TD/TT: Wing Mailer Machine Operator:CA echo doppler complete Reviewed date:08/25/2025 07:11:42 PM Interpretation: Performing Lab: Notes/Report: Source Facility: [place] [address] Cardiology Report Signed Patient: ITA ALANIS MR#: [id number] : 1955 Acct:[id number] Age/Sex: 69 / F ADM Date: 08/25/25 Loc: CARD Attending Dr: Sanchez Ocasio M.D. Ordering Physician: Sanchez Ocasio M.D. Date of Service: 08/25/25 Procedure(s): CA echo doppler complete Accession Number(s): [id number] cc: Sanchez Ocasio M.D. Patient Name: ITA ALANIS MR#: [id number] : 1955 Exam Date: 08/25/2025 Ordering Doctor: [...] Area (VTI): 2.37 cm2, 2.37 cm2 Deceleration Park: Pressure Half-Time: Peak Velocity(Antegrade Flow): 1.41 m/s [...] M.D. Signed By: 08/25/251853 DD/ 52 TD/TT: Wing Mailer Machine Operator:GLYCOHEMOGLOBIN A1C Reviewed date:08/27/2025 06:23:06 PM Interpretation: Performing Lab: Notes/Report: [facility] ,Glycohemoglobin A1C5.14.5-6.2 % ADA THERAPEUTIC TARGET < 7.0 ACTION SUGGESTED > 7.0 ADA RECOMMENDED LIMIT 4.0 - 6.0 Estimated Average Yrgjrqe641Tnsssgcjvl Lab:see marie - [facility] LB INSULIN Reviewed date:08/28/2025 07:56:14 PM Interpretation: Performing Lab: Notes/Report: [facility] ,Insulin4.42.6-24.9 uIU/mL Secondary Art Teacher: Ibrahima Manuel PhD, Phone: [phone] Performed at: [facility] Lab[address] [id number] Performing Lab:[facility] LBLIPID PROFILE Reviewed date:08/27/2025 06:23:06 PM Interpretation: Performing Lab: Notes/Report: [facility] ,Zfngwaukiqcrs77<=150 mg/lEMkeiypzkesl917<=200 mg/dLHDL Kojwsxodgwm32940-28 mg/dL > or =60 mg/dl - LOW CARDIOVASCULAR RISK <40 mg/dl - HIGH CARDIOVASCULAR RISK LDL Cholesterol Lqestryukz28.0 100-129 mg/dl NEAR OR ABOVE OPTIMAL >190 mg/dl VERY HIGH 130-159 mg/dl BORDERLINE HIGH 160-189 mg/dl HIGH <100 mg/dl OPTIMAL VLDL WYYPNFNNZBE74.0Chol HDL Ratio1.6 >11.0 HIGH RISK 4.4 - 7.1 AVERAGE RISK 3.3 - 4.4 LOW RISK 7.1 - 11.0 MODERATE RISK Performing Lab:see noteML - [facility] LBPROF 14(COMP METB) Reviewed date:08/27/2025 06:23:06 PM Interpretation: Performing Lab: Notes/Report: [facility] ,Wmessh153535-361 mmol/LPotassium3.73.5-5.1 mmol/QRivrcmyi67549-425 mmol/LCarbon Lsozvku75.621.0-32.0 mmol/LAnion Gap11.5Azvwiiv7171-658 mg/dLBlood Urea Carmycwd39.07.0-18.0 mg/dLCreatinine0.600.55-1.02 mg/dLEstimated GFR ( Gena>60>=60 mL/min/1.73m 2Estimated GFR (Non- Marcia>60>=60 mL/min/1.73m 2BUN Creatinine Ratio18.5Vsuuept2.38.5-10.1 mg/dLBilirubin Total0.30.2-1.0 mg/dL Aspartate Amino Evhvgjexdyy4414-48 U/LAlanine Mjoabtsvopztrriy4047-08 U/L Alkaline Myfowqcpwpn47156-320 U/LTotal Protein6.56.4-8.2 g/dLAlbumin Level3.1 3.4-5.0 g/dLGlobulin3.4Albumin Globulin Ratio0.9Performing Lab:see noteML - [facility] LBT4 Reviewed date:08/27/2025 06:23:06 PM Interpretation: Performing Lab: Notes/Report: [facility] ,T4 Ufuewmvms63.604.80-13.90 ug/dLPerforming Lab:see noteML - [facility] LBTSH Reviewed date:08/27/2025 06:23:06 PM Interpretation: Performing Lab: Notes/Report: [facility] ,Thyroid Stimulating Hormone0.1790.358-3.740 uIU/mLPerforming Lab:see note - [facility] LBVITAMIN D 25 [place] Reviewed date:08/27/2025 06:23:07 PM Interpretation: Performing Lab: Notes/Report: [facility] ,Vitamin D13.3 >100 ng/mL Potential Toxicity 30-100 ng/mL Vit D sufficient <20 ng/mL Vit D deficient 20-<30 ng/mL Vit D insufficient Performing Lab:see noteML - [facility] LBOccult Blood* Reviewed date:09/01/2025 06:34:38 PM Interpretation: Performing Lab: Notes/Report: [facility] ,Occult BloodNegativePerforming Lab:see noteML - [facility] LBCA segmental UE or LE CODY Reviewed date:09/11/2025 05:21:59 PM Interpretation: Performing Lab: Notes/Report: Source Facility: [facility]-[address] [place] [address] Cardiology Report Signed Patient: ITA ALANIS MR#: [id number] : 1955 Acct:[id number] Age/Sex: 69 / F ADM Date: 09/10/25 Loc: CARD Attending Dr: Hilda Sanchez D.P.M. Ordering Physician: Hilda Sanchez D.P.M. Date of Service: 09/10/25 Procedure(s): CA segmental UE or LE CODY Accession Number(s): [id number] cc: Hilda Sanchez D.P.M.; Sanchez Ocasio M.D. [facility] Test Date: 2025-09-10 Pat Name: ITA ALANIS Department: Room: - Gender: Female Compliance Review Officer: Zainab Berrios : 1955 Requested By: HILDA SANCHEZ Order Number: [id number] Brando MD: DEBBIE SHABAZZ M.D. Interpretive Statements Summary [...] SHABAZZ Signed By: 09/10/25194409/10/251944 DD/ 1409 TD/TT: Wing Mailer Machine Operator:CBC AUTO DIFF Reviewed date:09/23/2025 03:15:11 PM Interpretation: Performing Lab: Notes/Report: [facility] ,White Blood Count7.14.0-11.0 10 3/uLRed Blood Count4.234.20-5.40 10 6/uL1+ hypo Hemoglobin9.012.0-16.0 g/aZWnfjardmhj09.636.0-48.0 %Mean Corpuscular Izmbvb86.7 81.0-99.0 fLMean Corpuscular Qrycymrlxk36.326.7-34.0 pgMean Corpuscular HGB Conc 28.529.9-35.2 g/dLRed Cell Distribution Width26.011.0-15.0 %Platelet Rqeqt225 150-450 10 3/uLMean Platelet Volume9.69.5-13.5 fLNeutrophils Percent Auto69.9 43.0-75.0 %Lymphocytes Percent Auto14.120.5-60.0 %Monocytes Percent Auto7.91.7- 12.0 %Eosinophils Percent Auto6.90.9-7.0 %Basophils Percent Auto1.10.2-2.0 % Immature Granulocytes Pct Auto0.10.0-0.5 %Neutrophils Absolute Auto4.91.4-6.5 10 3/uLLymphocytes Absolute Auto1.01.2-3.8 10 3/uLMonocytes Absolute Auto0.60.3- 0.8 10 3/uLEosinophils Absolute Auto0.50.0-0.7 10 3/uLBasophils Absolute Auto0.1 0.0-0.1 10 3/uLImmature Granulocytes Abs Auto0.010.00-0.03 10 3/uLPerforming Lab:see note - [facility] LBPROF 14(COMP METB) Reviewed date:09/23/2025 03:15:11 PM Interpretation: Performing Lab: Notes/Report: [facility] ,Vcpwxw745075-090 mmol/LPotassium3.93.5-5.1 mmol/MZgiefvzr18712-579 mmol/LCarbon Ftfbmex83.221.0-32.0 mmol/LAnion Gap12.9Nmfwnyb01151-694 mg/dLBlood Urea Nitrogen8.07.0-18.0 mg/dLCreatinine1.000.55-1.02 mg/dLEstimated GFR ( Gena>60>=60 mL/min/1.73m 2Estimated GFR (Non- Ame55>=60 mL/min/1.73m 2 BUN Creatinine Ratio8.7Othskca0.98.5-10.1 mg/dLBilirubin Total0.40.2-1.0 mg/dL Aspartate Amino Zbkvbxbkwzy9097-39 U/LAlanine Fntljoutwbbllint2388-25 U/L Alkaline Recxledfbsp74201-878 U/LTotal Protein7.06.4-8.2 g/dLAlbumin Level3.3 3.4-5.0 g/dLGlobulin3.7Albumin Globulin Ratio0.9Performing Lab:see note - [facility] LBIRON Reviewed date:08/27/2025 06:23:06 PM Interpretation: Performing Lab: Notes/Report: [facility] ,Iron11.050.0-170.0 ug/dLPerforming Lab:see note - [facility] LB FREE T3 Reviewed date:08/27/2025 06:23:06 PM Interpretation: Performing Lab: Notes/Report: [facility] ,Free T32.302.18-3.98 pg/mLPerforming Lab:see note - [facility] LB CBC AUTO DIFF Reviewed date:08/27/2025 06:23:06 PM Interpretation: Performing Lab: Notes/Report: [facility] ,White Blood Count6.14.0-11.0 10 3/uLRed Blood Count3.554.20-5.40 10 6/uL Hemoglobin6.812.0-16.0 g/dLRESULTS CALLED TO DENVER MIMS LPN at 0944Hematocrit 25.236.0-48.0 %Mean Corpuscular Tksjlg64.081.0-99.0 fLMean Corpuscular Yxxbnmnhca16.226.7-34.0 pgMean Corpuscular HGB Conc27.029.9-35.2 g/dLRed Cell Distribution Width18.911.0-15.0 %Platelet Dzvar278957-211 10 3/uLMean Platelet Volume9.49.5-13.5 fLNeutrophils Percent Auto67.343.0-75.0 %Lymphocytes Percent Auto19.620.5-60.0 %Monocytes Percent Auto5.61.7-12.0 %Eosinophils Percent Auto 6.50.9-7.0 %Basophils Percent Auto0.80.2-2.0 %Immature Granulocytes Pct Auto0.2 0.0-0.5 %Neutrophils Absolute Auto4.11.4-6.5 10 3/uLLymphocytes Absolute Auto1.2 1.2-3.8 10 3/uLMonocytes Absolute Auto0.30.3-0.8 10 3/uLEosinophils Absolute Auto0.40.0-0.7 10 3/uLBasophils Absolute Auto0.10.0-0.1 10 3/uLImmature Granulocytes Abs Auto0.010.00-0.03 10 3/uLPerforming Lab:see noteML - [facility] LB Reason For Referral Diagnosis 1 Murmur (R01.1) Referral Organization [facility] Referring Provider First Name Aly Referring Provider Last Name Padilla Referring Provider Speciality [facility] icine Referred Provider [facility] Cardiology Formerly named [facility] Referred Provider Specialty Cardiology Referral Priority Routine Medications Medication SIG (Take, Route, Frequency, Duration) Notes Start Date End Date Status Levothyroxine Sodium 112 MCG TAKE 2 TABL ETS BY MOUTH EVERY DAY Orally Once a day; Duration: 90 days ActiveProtonix 40 MG1 tablet 1/2 to 1 hour before morning meal Orally Once a day; Duration: 90 daysActiveDesvenlafaxine Succinate ER 100 mgTAKE 1 TABLET DAILYActiveDiclofenac Sodium 75 MG1 tablet as needed Orally Twice a day 5ActiveQUEtiapine Fumarate 25 MG1 tablet Orally at bedtime; Duration: 90 daysActiveOndansetron 4 MG1 tablet on the tongue and allow to dissolve Orally every 4 hours; Duration: 30 days5Active Immunizations Vaccine Route Administration Date Status Comme [facility] Syringe Pre -Filled 30 mcg/0.3 mL Unknown 08/18/2023 Administered Flu, Fluad (8166-1852) (81825) 65 yrs+, single-dose zqepbbeGqasdwb34/04/2023 AdministeredFlu, Fluad (21382) 65 yrs + High Dose Seasonal (0709-8064)Unknown 4AdministeredPneumococcal (Prevnar 13)Gwmywlm5207/10/2020AdministeredRSV GaudwreVlujlal49/04/2023dministeredTdap (Adacel)IM Gtpwckpovcvxe12/15/2024 AdministeredZOSTER (SHINGLES) VACCINE (HZV)Lubpagv01/10/2023Administered Social History Tobacco Use: Social History Observation [...] containing alcohol in the past year?Weekly (3 points)Bhlhxm5DjmijimuummidwLgfsowtaGMITK-P (Standard) Question Answer Notes Did you have [...] Status W/U Status Risk Notes Problem Osteomyelitis (82668757) Osteomyelitis, u nspecified (M86.9) ActiveconfirmedProblemBlister of toe without infection (28809480)Blister (nonthermal), left lesser toe(s), initial encounter (S90.425A)Activeconfirmed ProblemFatigue (92923678)Fatigue (R53.83)ActiveconfirmedProblemHypertension (35715933)Hypertension (I10)ActiveconfirmedProblemHypothyroid (76943729) Hypothyroid (E03.9)ActiveconfirmedProblemCellulitis (833010805)Cellulitis (L03.90)ActiveconfirmedProblemSeasonal allergy (447359625)Seasonal allergies (J30.2)ActiveconfirmedProblemChronic ulcer of foot (078983457)Non-pressure chronic ulcer of other part of left foot with fat layer exposed (L97.522)Active confirmedProblemCat bite (982762033)Cat bite (W55.01XA)ActiveconfirmedProblem Anemia (194307129)Severe anemia (D64.9)ActiveconfirmedProblemAcrocyanosis (48435704)Acrocyanosis (I73.89)ActiveconfirmedProblemChronic osteomyelitis of left foot (1062965855918976)Chronic osteomyelitis of left foot (M86.672)Active confirmedProblemAcute osteomyelitis of ankle and/or foot (493805149)Acute osteomyelitis of left ankle (M86.172)ActiveconfirmedProblemDepression (783956778)Depression (F32.A)Activeconfirmed Vital Signs Heart Rate 100 /min 02/03/2025 Iptarwgjnfi55.8 degrees Fdeugzilnk21/28/3970Datgmmgx79 %02/03/2025lood pressure ricjzmgld30 mm Hg08/20/20258753Sgwdje26 in08/20/2025lood pressure drerwmkj564 mm Hg08/20/20258379Okpdvk765.8 lbs110/20/2024BMI24.84 kg/m208/20/2025 Procedures Procedure Date Ordered Date Performed Result Body Sit e CARDIO Echocardiogram 08/20/2025 N/A Encounters Encounter Location Date Provider Diagnosis [facility] [address] [facility] [place] [address] 09/01/2025 Aly Hoy [facility] [place] [address] 09/22/2025Doug HoyHypertension I10 ; Fatigue R53.83 and Severe anemia D64.9 [facility] [facility] [place] [address] 09/23/2025Doug [facility] [facility] [place] [address]/Doug HoySevere anemia D64.9[place] [address] [facility] [place] [address]/oug [facility] [facility] [place] [address]/ Aly HoyAcute bronchitis, unspecified organism J20.9BJonathan [place] [address] [facility] [place] [address]/Doug HoyMurmur R01.1BJonathan [place] [address] [facility] [place] [address] 08/27/2025Doug HoySevere anemia D64.9B[place] [address] [facility] [place] [address]/Doug [facility] [facility] [place] [address]/Doug [facility] [facility] [place] [address]/ Aly HoyAcute bronchitis, unspecified organism J20.9B[place] [address] [facility] [place] [address]/09/2025Doug Hoy Hypertension I10 ; Depression F32.A ; Fatigue R53.83 ; Hypothyroid E03.9 ; Back pain M54.9 and Murmur R01.1[facility] [place] [address]Doug HoyFever R50.9 ; Non-pressure chronic ulcer of other part of left foot with fat layer exposed L97.522 and Acute bronchitis, unspecified organism J20.9 Assessments Encounter Date Diagnosis (ICD Code) Assessment Notes Treatment Notes Treatment Clinical Notes Section Notes 01/24/2025 Fever (ICD-10 - R50.9) 5Acute bronchitis, unspecified organism (ICD-10 - J20.9)Rest and drink more liquids, especially water. You may use a humidifier or vaporizer to help keep the drainage moist. Hsqk-ixn-oujvtwc Nasal Saline may help the stuffy and runny nose. Use Ibuprofen and or Tylenol as needed for fever, chills, body aches or pain. Children 5 years old should not be given fyjb-dyf-xyrpidx cough and cold medications such as guaifenesin and dextromethorphan. If you're over age 5, you may try oapu-xsz-ihacjnx cold medications such as guaifenesin and dextromethorphan, [...] go to the emergency room or call [phone] (ICD-10 - I10)off lisinoprl - bp next week - if back up - do 5 mg08/20/2025 Depression (ICD-10 - F32.A)may need to doule it5Acute bronchitis, unspecified organism (ICD-10 - J20.9)08/25/2025Murmur (ICD-10 - R01.1)08/27/2025 Severe anemia (ICD-10 - D64.9)09/22/2025Hypertension (ICD-10 - I10)09/22/2025 Fatigue (ICD-10 - R53.83)09/25/2025Severe anemia (ICD-10 - D64.9)09/22/2025 Severe anemia (ICD-10 - D64.9)08/20/2025Fatigue (ICD-10 - R53.83)01/24/2025Non- pressure chronic ulcer of other part of left foot with fat layer exposed (ICD-10 - L97.522)01/24/2025ute bronchitis, unspecified organism (ICD-10 - J20.9)Rest and drink more liquids, especially water. You may use a humidifier or vaporizer to help keep the drainage moist. Lnwo-frx-esgrxlp Nasal Saline may help the stuffy and runny nose. Use Ibuprofen and or Tylenol as needed for fever, chills, body aches or pain. Children 5 years old should not be given cfzy-ovw-gqivnij cough and cold medications such as guaifenesin and dextromethorphan. If you're o allyson age 5, you may try kqvl-zjv-fpdqwch cold medications such as guaifenesin and dextromethorphan, [...] go to the emergency room or call [phone] (ICD-10 - E03.9)08/20/2025ack pain (ICD-10 - M54.9)08/20/2025Murmur [...] W/AUTO DIFF 08/05/2024 CBC W/AUTO DIFF 09/22/2025 CBC W/AUTO DIFF 09/25/2025 STOOL OCCULT BLOOD 08/20/2025 VITAMIN B1 (THIAMINE) 08/06/2024 VITAMIN B12 08/06/2024 MG MAMM SCREEN CODY W CAD 09/17/2024 XR DEXA BONE DENSITY 08/20/2025 THYROID PANEL (T4/TSH/FREE T3) THYROID PANEL (T4/TSH/FREE T3) 4 MM screening mammo BI 08/20/2025 DEXA BONE DENSITY 08/05/2024 Vitamin D 08/06/2024 Lipid Panel 08/05/2024 CT CHEST ABDOMEN PELVIS W CONTRAST 09/25 CMP (COMP MET [place]) w/eGFR CKD-EPI 2024 CBC WITH DIFF 08/20/2025 Insurance Providers Payer Name Payer Address Payer Phone Subscriber Number Group Number Insured Name Patient Relationship to Insured Coverage Start Date Coverage End Date [employer] [address] [place], [place] [id number] Bobo Alaniself - patient is the [id number] 2021 Medications Administered Medication Instructions Date of [...] Dr Garcia11/13/2024 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
[2025-09-26 13:11] VITALS: BP 156/70; PULSE 76; TEMP 37.1; O2SAT 99; BMI 24.7
--- NOTE | 2025-09-26 13:17 | XR_ITS ---
The [address] [address] Patient Name: ORALIA HILTON MRN: [id number] date: 1955 Sex: F Assigned Patient Location: ER Current Patient Location: ER Accession/Order Number: [id number] Exam Date: 09/26/2025 13:23 Report Date: 09/26/2025 13:38 At the request of: DEO SWAN MD Procedure: XR hand LT min 3V LEFT HAND - 3 views COMPARISON: 11/05/2018 Clinical data: Left hand pain since fall one week ago AP, lateral and oblique views were obtained. There is osteopenia. A suspected acute, nondisplaced intra-articular fracture is visualized at the base of the second metacarpal on the AP view. There is no additional fracture or dislocation. There is mild degenerative change involving some of the interphalangeal joints. Slight dorsal soft tissue swelling is present. XR/XR hand LT min 3V IMPRESSION: SUSPECTED FRACTURE AT THE BASES SECOND METACARPAL, DESCRIBED. FOCAL CLINICAL CORRELATION IS RECOMMENDED GIVEN THE LIMITED HISTORY. Impression dictated by: Chichi Thurman M.D. 09/26/2025 1:38 PM Dictation Location: [place] [address] Electronically authenticated by: [id number] Y Date: 09/26/2025 13:38
--- NOTE | 2025-09-26 14:55 | XR_ITS ---
The [place] [id number] Patient Name: ORALIA HILTON MRN: [id number] date: 1955 Sex: F Assigned Patient Location: ER Current Patient Location: ER Accession/Order Number: [id number] Exam Date: 09/26/2025 15:00 Report Date: 09/26/2025 15:23 At the request of: ANNE GUERRERO Procedure: XR wrist RT min 3V RIGHT WRIST - 3 views CLINICAL HISTORY: Fall, base of 1st pain COMPARISON: None FINDINGS: No focal soft tissue abnormality. Presumed remote trauma involving the styloid process of the ulna. No definite acute bony process is seen. Bones are grossly demineralized. Carpus demonstrate degenerative change without bony erosions. XR/XR wrist RT min 3V IMPRESSION: NO ACUTE BONY PROCESS. Impression dictated by: Cameron Hagan Jr., D.O. 09/26/2025 3:23 PM Dictation Location: [place] [address] Electronically authenticated by: [id number] Y Date: 09/26/2025 15:23
[2025-09-26] MEDS: HYDROCODONE/ACET 5-325 MG TABLET 1 TAB PO (15:04)
--- NOTE | 2025-09-26 15:21 | ED.GENADUL1 ---
Documented by User: YOLANDA Velázquez 09/26/25 20:36 HPI HPI - General Adult General Chief complaint: Extremity Injury, Upper Stated complaint: LEFT HAND PAIN Time Seen by Provider: 09/26/25 14:55 Source: patient Mode of arrival: walk-in Limitations: no limitations History of Present Illness HPI narrative: Patient is a 69-year-old female that presents with complaints of bilateral hand pain, worse on the left after a fall 6 days ago on Monday. She has continued to use both of her hands and the left one has persistently been painful and swollen and she is having trouble sleeping secondary to the pain sometimes. The right hand/wrist is not swollen and she thinks the fall may have just flared up some previous arthritis. She is right-handed. She denies previous injury or surgery to either of her hands. Related Data Home Medications ?Medication ?Instructions ?Recorded ?Confirmed desvenlafaxine succinate 100 mg 100 mg PO Q24H 04/20/23 11/13/24 tablet,extended release 24 hr diclofenac sodium 75 mg 75 mg PO BID 04/26/23 11/13/24 tablet,delayed release diphenhydramine HCl 25 mg capsule 25 mg PO QPM PRN sleep 04/26/23 11/05/24 (Benadryl) vitamin A 3,000 mcg (10,000 unit) 3,000 mcg PO DAILY 04/26/23 11/13/24 capsule cholecalciferol (vitamin D3) 50 2,000 unit PO DAILY 11/05/24 11/13/24 mcg (2,000 unit) tablet (Vitamin D3) ferrous sulfate 325 mg (65 mg 325 mg PO BID 11/05/24 11/13/24 iron) tablet levothyroxine 112 mcg tablet 224 mcg PO DAILY 11/05/24 11/13/24 lisinopril 10 mg tablet 10 mg PO QPM 11/05/24 11/13/24 Previous Rx's ?Medication ?Instructions ?Recorded hydrocodone 5 mg-acetaminophen 325 1 tab PO Q8H PRN pain #14 tabs 09/26/25 mg tablet tramadol 50 mg tablet 50 mg PO Q8H PRN pain 5 days #20 09/28/25 tabs Allergies Allergy/AdvReac Type Severity Reaction Status Date / Time oxycodone (From Percocet) Allergy Severe Hives Verified 09/28/25 10:44 acetaminophen (From Allergy Hives Verified 09/26/25 13:11 Darvocet-N) milk Allergy Cough Verified 09/26/25 13:11 propoxyphene (From Allergy Hives Verified 09/26/25 13:11 Darvocet-N) Opioid HPI Opioid Management Most Recent Opioid Data: Last Pain Scale 4 09/26/25, 15:04 Last MAR Pain Assessment 09/26/25, 15:04 Risks, benefits, and alternatives of opioids discussed: Yes Prescription drug monitoring program results: PDMP reviewed and no issues identified Review of Systems ROS Status of ROS 10 or more systems reviewed and unremarkable except as noted in history and below [facility] Medical History (Updated 09/26/25 @ 15:43 by YOLANDA Velázquez) Heartburn ?R12 - Heartburn (ICD-10) Acrocyanosis ?I73.89 - Other specified peripheral vascular diseases (ICD-10) Refusal of blood product ?Z78.9 - Other specified health status (ICD-10) Eczema ?L30.9 - Dermatitis, unspecified (ICD-10) Back pain ?M54.9 - Dorsalgia, unspecified (ICD-10) Arthritis ?M19.90 - Unspecified osteoarthritis, unspecified site (ICD-10) Hemorrhoid ?K64.9 - Unspecified hemorrhoids (ICD-10) Peptic ulcer ?K27.9 - Peptic ulcer, site unspecified, unspecified as acute or chronic, without hemorrhage or perforation (ICD-10) Anemia ?D64.9 - Anemia, unspecified (ICD-10) Depression ?F32.A - Depression, unspecified (ICD-10) Anxiety ?F41.9 - Anxiety disorder, unspecified (ICD-10) Migraine ?G43.909 - Migraine, unspecified, not intractable, without status migrainosus (ICD-10) Asthma ?J45.909 - Unspecified asthma, uncomplicated (ICD-10) Hypertension ?I10 - Essential (primary) hypertension (ICD-10) Heart murmur ?R01.1 - Cardiac murmur, unspecified (ICD-10) Hypothyroidism ?E03.9 - Hypothyroidism, unspecified (ICD-10) Osteomyelitis ?M86.9 - Osteomyelitis, unspecified (ICD-10) Surgical History (Updated 11/05/24 @ 12:27 by Nneak Calvin NP) H/O abdominoplasty ?Z98.890 - Other specified postprocedural states (ICD-10) H/O foot surgery (04/27/23) ?Z98.890 - Other specified postprocedural states (ICD-10) History of esophagogastroduodenoscopy (EGD) ?Z98.890 - Other specified postprocedural states (ICD-10) History of colonoscopy ?Z98.890 - Other specified postprocedural states (ICD-10) History of ankle surgery ?Z98.890 - Other specified postprocedural states (ICD-10) History of arthroscopy of knee ?Z98.890 - Other specified postprocedural states (ICD-10) History of gastric bypass ?Z98.84 - Bariatric surgery status (ICD-10) History of nasal septoplasty ?Z98.890 - Other specified postprocedural states (ICD-10) History of cholecystectomy ?Z90.49 - Acquired absence of other specified parts of digestive tract (ICD-10) History of hysterectomy ?Z90.710 - Acquired absence of both cervix and uterus (ICD-10) History of arthroscopy of shoulder ?Z98.890 - Other specified postprocedural states (ICD-10) History of foot surgery ?Z98.890 - Other specified postprocedural states (ICD-10) Family History (Updated 11/13/24 @ 06:45 by Yaima Doe) Other Family history of bone cancer Family history of brain cancer Family history of colon cancer Family history of diabetes mellitus Family history of heart disease Family history of hypertension Family history of lung cancer Family history of stroke Tatiana Gehrig disease Social History (Updated 11/13/24 @ 06:44 by Yaima Doe) Within the past year, how often did you have a drink containing alcohol: 2-3 times a week Smoking status: Never smoker Non-prescribed substance use: denies use Previous occupational history: retired Highest level of school completed/degree received: high school graduate Little interest or pleasure in doing things: not at all Feeling down, depressed, or hopeless: not at all Exam Narrative Exam Narrative: General: No distress, age-appropriate Skin: Warm, dry, no pallor. No rash. Head: Normocephalic, atraumatic. Neck: Supple, non-tender. Eye: Pupils are equal, round and EOMI. No scleral icterus. Ears, Nose, Mouth, and Throat: No nasal mucosal hypertrophy. Oral mucosa is moist, no posterior oropharynx erythema, uvula is mid-line Cardiovascular: Regular Rate and Rhythm without murmur, gallop or rub. Respiratory: No accessory muscle use or respiratory distress. Musculoskeletal: Full ROM of all extremities, except reduced flexion of all fingers and thumb of the left hand secondary to swelling. Left hand tenderness with palpation at the base of the second metacarpal. Swelling noted diffusely throughout the left hand/wrist. 2+ radial pulse palpated bilaterally. There is also right CMC joint tenderness palpated, no swelling, no bruising, full range of motion of the fingers and thumb. No calf or popliteal tenderness. Neurological: A&O x4. No cranial nerve dysfunction observed. No truncal ataxia. Moves all extremities. Sensation intact. Psychiatric: Cooperative and interactive. Normal mood and affect. Constitutional Vital Signs, click to edit/add: Last Vital Signs Temp 98.7 F 09/26/25 13:11 Pulse 76 09/26/25 13:11 Resp 18 09/26/25 13:11 BP 156/70 H 09/26/25 13:11 Pulse Ox 99 09/26/25 13:11 O2 Del Method Room Air 09/26/25 13:11 Documenting provider has reviewed patient's vital signs: yes Course Vital Signs Vital signs: Vital Signs Temperature 98.7 F 09/26/25 13:11 Pulse Rate 76 09/26/25 13:11 Respiratory Rate 18 09/26/25 13:11 Blood Pressure 156/70 H 09/26/25 13:11 Pulse Oximetry 99 09/26/25 13:11 Oxygen Delivery Method Room Air 09/26/25 13:11 Temperature 98.7 F 09/26/25 13:11 Pulse Rate 76 09/26/25 13:11 Respiratory Rate 18 09/26/25 13:11 Blood Pressure 156/70 H 09/26/25 13:11 Pulse Oximetry 99 09/26/25 13:11 Oxygen Delivery Method Room Air 09/26/25 13:11 Medical Decision Making MDM Narrative Medical decision making narrative: The patient is a 69-year-old right-handed female who presents with bilateral hand pain, worse on the left, following a fall 6 days ago. The left hand is swollen and painful, impacting sleep, while the right hand/wrist pain is intermittent and she thinks it likely secondary to underlying arthritis. Patient given [place] 5 mg on arrival for pain control. Imaging (x-ray left hand, right wrist) revealed a nondisplaced fracture at the base of the second metacarpal on the left hand, with no other fractures or dislocations. The right wrist X-ray was negative for acute injury, showing only degenerative changes and a remote ulna styloid nonunion. I did discuss x-ray results with patient and plan. All questions answered. Given the nondisplaced nature of the fracture, conservative management with a volar splint and Manas wrap is appropriate. Pain is being managed with a short course of [place] 5 mg every 8 hours as needed for pain. OARRS reviewed and no issues identified. The patient has been advised to limit heavy use with the left hand, elevate and ice as tolerated, and follow up with her prior orthopedist, Dr. Milian, for ongoing management and reassessment. Pain controlled in the ER and patient discharged in stable condition with plan for follow-up with orthopedics for definitive management of her left second metacarpal fracture. Differential Diagnosis Differential Diagnosis: Metacarpal fracture, distal radius fracture, bone contusion, wrist sprain Imaging Data X-ray left hand, right wrist: Attestation: I have reviewed the pertinent imaging results. Radiologist's impression: ITS Impressions Hand X-Ray 09/26/25 13:17 IMPRESSION: SUSPECTED FRACTURE AT THE BASES SECOND METACARPAL, DESCRIBED. FOCAL CLINICAL CORRELATION IS RECOMMENDED GIVEN THE LIMITED HISTORY. Impression dictated by: Chichi Thurman M.D. 09/26/2025 1:38 PM Dictation Location: [facility] Electronically authenticated by: [id number] Y Date: 09/26/2025 13:38 Wrist X-Ray 09/26/25 14:55 IMPRESSION: NO ACUTE BONY PROCESS. Impression dictated by: Cameron Hagan Jr., D.O. 09/26/2025 3:23 PM Dictation Location: [facility] Electronically authenticated by: [id number] Y Date: 09/26/2025 15:23 Discharge Plan Discharge Chief Complaint: Extremity Injury, Upper Clinical Impression: Fracture of metacarpal Patient Disposition: Home, Self-Care Time of Disposition Decision: 15:43 Condition: Good Mode of Transportation: Private Vehicle Prescriptions / Home Meds: New hydrocodone-acetaminophen 5-325 mg tablet 1 tab PO Q8H PRN (Reason: pain) Qty: 14 0RF tramadol 50 mg tablet 50 mg PO Q8H PRN (Reason: pain) 5 Days Qty: 20 0RF No Action levothyroxine 112 mcg tablet 224 mcg PO DAILY cholecalciferol (vitamin D3) [Vitamin D3] 50 mcg (2,000 unit) tablet 2,000 unit PO DAILY ferrous sulfate 325 mg (65 mg iron) tablet 325 mg PO BID lisinopril 10 mg tablet 10 mg PO QPM desvenlafaxine succinate 100 mg tablet extended release 24 hr 100 mg PO Q24H diphenhydramine HCl [Benadryl] 25 mg capsule 25 mg PO QPM PRN (Reason: sleep) diclofenac sodium 75 mg tablet,delayed release (DR/EC) 75 mg PO BID vitamin A 3,000 mcg (10,000 unit) capsule 3,000 mcg PO DAILY Print Language: [place] Instructions: Hand Fracture (ED) Referrals: Jose Carlos Causey MD [Primary Care Provider, Family Practice] - 1 week Bernardo Milian DO [Physician] - 1 week Discharge Date/Time: 09/26/25 15:56 Procedures ED Ortho Splinting/Casting Orthopedic Splinting/Casting Injury #1: Side: left Splint type: Splint arm short Upper extremity injury location: hand Upper extremity immobilizer: volar splint Additional comments: Patient placed in a volar splint with Manas wrap to the left wrist/hand, on reexamination patient able to wiggle fingers, sensation intact distally with light touch all fingers and thumb. Less than 2-second capillary refill to all fingers and thumb. Documented by User: Toby Jensen MD 09/28/25 10:47 HPI HPI - General Adult General Chief complaint: Extremity Injury, Upper Stated complaint: LEFT HAND PAIN Time Seen by Provider: 09/26/25 14:55 Related Data Home Medications ?Medication ?Instructions ?Recorded ?Confirmed desvenlafaxine succinate 100 mg 100 mg PO Q24H 04/20/23 11/13/24 tablet,extended release 24 hr diclofenac sodium 75 mg 75 mg PO BID 04/26/23 11/13/24 tablet,delayed release diphenhydramine HCl 25 mg capsule 25 mg PO QPM PRN sleep 04/26/23 11/05/24 (Benadryl) vitamin A 3,000 mcg (10,000 unit) 3,000 mcg PO DAILY 04/26/23 11/13/24 capsule cholecalciferol (vitamin D3) 50 2,000 unit PO DAILY 11/05/24 11/13/24 mcg (2,000 unit) tablet (Vitamin D3) ferrous sulfate 325 mg (65 mg 325 mg PO BID 11/05/24 11/13/24 iron) tablet levothyroxine 112 mcg tablet 224 mcg PO DAILY 11/05/24 11/13/24 lisinopril 10 mg tablet 10 mg PO QPM 11/05/24 11/13/24 Previous Rx's ?Medication ?Instructions ?Recorded hydrocodone 5 mg-acetaminophen 325 1 tab PO Q8H PRN pain #14 tabs 09/26/25 mg tablet tramadol 50 mg tablet 50 mg PO Q8H PRN pain 5 days #20 09/28/25 tabs Allergies Allergy/AdvReac Type Severity Reaction Status Date / Time oxycodone (From Percocet) Allergy Severe Hives Verified 09/28/25 10:44 acetaminophen (From Allergy Hives Verified 09/26/25 13:11 Darvocet-N) milk Allergy Cough Verified 09/26/25 13:11 propoxyphene (From Allergy Hives Verified 09/26/25 13:11 Darvocet-N) Opioid HPI Opioid Management Most Recent Opioid Data: Last Pain Scale 4 09/26/25, 15:04 Last MAR Pain Assessment 09/26/25, 15:04 PFSH PFSH Medical History (Updated 09/26/25 @ 15:43 by YOLANDA Velázquez) Heartburn ?R12 - Heartburn (ICD-10) Acrocyanosis ?I73.89 - Other specified peripheral vascular diseases (ICD-10) Refusal of blood product ?Z78.9 - Other specified health status (ICD-10) Eczema ?L30.9 - Dermatitis, unspecified (ICD-10) Back pain ?M54.9 - Dorsalgia, unspecified (ICD-10) Arthritis ?M19.90 - Unspecified osteoarthritis, unspecified site (ICD-10) Hemorrhoid ?K64.9 - Unspecified hemorrhoids (ICD-10) Peptic ulcer ?K27.9 - Peptic ulcer, site unspecified, unspecified as acute or chronic, without hemorrhage or perforation (ICD-10) Anemia ?D64.9 - Anemia, unspecified (ICD-10) Depression ?F32.A - Depression, unspecified (ICD-10) Anxiety ?F41.9 - Anxiety disorder, unspecified (ICD-10) Migraine ?G43.909 - Migraine, unspecified, not intractable, without status migrainosus (ICD-10) Asthma ?J45.909 - Unspecified asthma, uncomplicated (ICD-10) Hypertension ?I10 - Essential (primary) hypertension (ICD-10) Heart murmur ?R01.1 - Cardiac murmur, unspecified (ICD-10) Hypothyroidism ?E03.9 - Hypothyroidism, unspecified (ICD-10) Osteomyelitis ?M86.9 - Osteomyelitis, unspecified (ICD-10) Surgical History (Updated 11/05/24 @ 12:27 by Nneka Calvin NP) H/O abdominoplasty ?Z98.890 - Other specified postprocedural states (ICD-10) H/O foot surgery (04/27/23) ?Z98.890 - Other specified postprocedural states (ICD-10) History of esophagogastroduodenoscopy (EGD) ?Z98.890 - Other specified postprocedural states (ICD-10) History of colonoscopy ?Z98.890 - Other specified postprocedural states (ICD-10) History of ankle surgery ?Z98.890 - Other specified postprocedural states (ICD-10) History of arthroscopy of knee ?Z98.890 - Other specified postprocedural states (ICD-10) History of gastric bypass ?Z98.84 - Bariatric surgery status (ICD-10) History of nasal septoplasty ?Z98.890 - Other specified postprocedural states (ICD-10) History of cholecystectomy ?Z90.49 - Acquired absence of other specified parts of digestive tract (ICD-10) History of hysterectomy ?Z90.710 - Acquired absence of both cervix and uterus (ICD-10) History of arthroscopy of shoulder ?Z98.890 - Other specified postprocedural states (ICD-10) History of foot surgery ?Z98.890 - Other specified postprocedural states (ICD-10) Family History (Updated 11/13/24 @ 06:45 by Yaima Doe) Other Family history of bone cancer Family history of brain cancer Family history of colon cancer Family history of diabetes mellitus Family history of heart disease Family history of hypertension Family history of lung cancer Family history of stroke Tatiana Gehrig disease Social History (Updated 11/13/24 @ 06:44 by Yaima Doe) Within the past year, how often did you have a drink containing alcohol: 2-3 times a week Smoking status: Never smoker Non-prescribed substance use: denies use Previous occupational history: retired Highest level of school completed/degree received: high school graduate Little interest or pleasure in doing things: not at all Feeling down, depressed, or hopeless: not at all Exam Constitutional Vital Signs, click to edit/add: Last Vital Signs Temp 98.7 F 09/26/25 13:11 Pulse 76 09/26/25 13:11 Resp 18 09/26/25 13:11 BP 156/70 H 09/26/25 13:11 Pulse Ox 99 09/26/25 13:11 O2 Del Method Room Air 09/26/25 13:11 Course Vital Signs Vital signs: Vital Signs Temperature 98.7 F 09/26/25 13:11 Pulse Rate 76 09/26/25 13:11 Respiratory Rate 18 09/26/25 13:11 Blood Pressure 156/70 H 09/26/25 13:11 Pulse Oximetry 99 09/26/25 13:11 Oxygen Delivery Method Room Air 09/26/25 13:11 Temperature 98.7 F 09/26/25 13:11 Pulse Rate 76 09/26/25 13:11 Respiratory Rate 18 09/26/25 13:11 Blood Pressure 156/70 H 09/26/25 13:11 Pulse Oximetry 99 09/26/25 13:11 Oxygen Delivery Method Room Air 09/26/25 13:11 Medical Decision Making MDM Narrative Medical decision making narrative: The patient is a 69-year-old right-handed female who presents with bilateral hand pain, worse on the left, following a fall 6 days ago. The left hand is swollen and painful, impacting sleep, while the right hand/wrist pain is intermittent and she thinks it likely secondary to underlying arthritis. Patient given [place] 5 mg on arrival for pain control. Imaging (x-ray left hand, right wrist) revealed a nondisplaced fracture at the base of the second metacarpal on the left hand, with no other fractures or dislocations. The right wrist X-ray was negative for acute injury, showing only degenerative changes and a remote ulna styloid nonunion. I did discuss x-ray results with patient and plan. All questions answered. Given the nondisplaced nature of the fracture, conservative management with a volar splint and Manas wrap is appropriate. Pain is being managed with a short course of [place] 5 mg every 8 hours as needed for pain. OARRS reviewed and no issues identified. The patient has been advised to limit heavy use with the left hand, elevate and ice as tolerated, and follow up with her prior orthopedist, Dr. Milian, for ongoing management and reassessment. Pain controlled in the ER and patient discharged in stable condition with plan for follow-up with orthopedics for definitive management of her left second metacarpal fracture. Jk 09/28/25 10:45am patient called and reported that the [place] was not helping. She is not able to take Percocet or Tylenol 3. I have sent in a prescription electronically for 20 Ultram tablets. Imaging Data X-ray left hand, right wrist: Radiologist's impression: ITS Impressions Hand X-Ray 09/26/25 13:17 IMPRESSION: SUSPECTED FRACTURE AT THE BASES SECOND METACARPAL, DESCRIBED. FOCAL CLINICAL CORRELATION IS RECOMMENDED GIVEN THE LIMITED HISTORY. Impression dictated by: Chichi Thurman M.D. 09/26/2025 1:38 PM [facility] Electronically authenticated by: [id number] Y Date: 09/26/2025 13:38 Wrist X-Ray 09/26/25 14:55 IMPRESSION: NO ACUTE BONY PROCESS. Impression dictated by: Cameron Hagan Jr., D.O. 09/26/2025 3:23 PM Dictation Location: [place] [id number] Electronically authenticated by: [id number] Y Date: 09/26/2025 15:23 Discharge Plan Discharge Chief Complaint: Extremity Injury, Upper Clinical Impression: Fracture of metacarpal Patient Disposition: Home, Self-Care Time of Disposition Decision: 15:43 Condition: Good Mode of Transportation: Private Vehicle Prescriptions / Home Meds: New hydrocodone-acetaminophen 5-325 mg tablet 1 tab PO Q8H PRN (Reason: pain) Qty: 14 0RF tramadol 50 mg tablet 50 mg PO Q8H PRN (Reason: pain) 5 Days Qty: 20 0RF No Action levothyroxine 112 mcg tablet 224 mcg PO DAILY cholecalciferol (vitamin D3) [Vitamin D3] 50 mcg (2,000 unit) tablet 2,000 unit PO DAILY ferrous sulfate 325 mg (65 mg iron) tablet 325 mg PO BID lisinopril 10 mg tablet 10 mg PO QPM desvenlafaxine succinate 100 mg tablet extended release 24 hr 100 mg PO Q24H diphenhydramine HCl [Benadryl] 25 mg capsule 25 mg PO QPM PRN (Reason: sleep) diclofenac sodium 75 mg tablet,delayed release (DR/EC) 75 mg PO BID vitamin A 3,000 mcg (10,000 unit) capsule 3,000 mcg PO DAILY Print Language: [place] Instructions: Hand Fracture (ED) Referrals: Jose Carlos Causey MD [Primary Care Provider, Family Practice] - 1 week Bernardo Milian DO [Physician] - 1 week Discharge Date/Time: 09/26/25 15:56
--- NOTE | 2025-09-28 10:44 | PC.NURSE ---
pt called saying the pain medication she was prescribed on monday is not helping her pain. pt asking if doctor will send in something else for her pain. RN spoke to Dr. Jensen and he will send in a script for ultram to pt pharmacy. pt called and updated.
== END 2025-09-26 15:56 | disposition home or self-care (01) ==
PROVIDERS: Emergency Provider Emergency Medicine; PCP Family Medicine
DX: S62.341A Nondisplaced fracture of base of second metacarpal bone, left hand, initial encounter for closed fracture (principal); W19.XXXA Unspecified fall, initial encounter
CPT/HCPCS: 73110; 73130; 99283